=== PATIENT | female | born 1950 | race Caucasian/White ===

== ENCOUNTER 2020-01-16 14:22 | Outpatient (REF) | payer MEDICARE, SELFPAY | END 2020-01-16 14:23 | disposition home or self-care (01) | LOC: HO.LAB 14:22 | PROVIDERS: Visit Provider Internal Medicine | DX: Z20.828 Contact with and (suspected) exposure to other viral communicable diseases (principal) | CPT/HCPCS: 87635 ==

== ENCOUNTER 2020-06-26 06:59 | Inpatient (IN) | payer MEDICARE, SELFPAY ==
[2020-06-26] VITALS (12 sets, daily range): BP systolic 110–131; BP diastolic 46–60; PULSE 60–98; RESP 16–18; TEMP 36–37.1; O2SAT 93–98; BMI 27.3
--- NOTE | ~2020-06-26 | CT_ITS ---
EXAMINATION: CT FACIAL BONES WITHOUT CONTRAST CLINICAL INFORMATION: Fall, trauma, pain COMPARISON: CT head and CT cervical spine 06/26/2020 TECHNIQUE: Axial CT through the facial bones is performed without contrast. Additional 2-D coronal and sagittal reformatted images are generated on the CT workstation and uploaded to PACS. This CT examination was performed using dose optimization techniques as appropriate, variously including the following: *Automated exposure control *Adjustment of mA and/or kV according to patient size (this includes techniques or standardized protocols for targeted exams where dose is matched to indication/reason for exam; i.e. extremities or head) *Use of iterative reconstruction technique DLP: 215 mGy-cm FINDINGS: There is no acute facial bone fracture demonstrated. The orbital rims and floors, nasal bones, zygomatic arches, and pterygoid plates appear intact. Mandible unremarkable. The globes and retrobulbar soft tissues appear normal. The craniocervical junction is normal. There is no orbital emphysema or retrobulbar hematoma. Mild mucosal thickening is seen maxillary sinuses, greater on right. There are no air-fluid levels in the sinuses, middle ears, mastoids. CT/CT facial bones wo con IMPRESSION: No fracture.
--- NOTE | ~2020-06-26 | CT_ITS ---
EXAMINATION: CT CERVICAL SPINE WITHOUT CONTRAST CLINICAL INFORMATION: Fall, trauma, pain COMPARISON: CT head noncontrast 06/26/2020 TECHNIQUE: Multidetector volumetric CT imaging of the cervical spine is performed without contrast in the axial plane. Additional 2D reformatted coronal and sagittal images are generated on the CT workstation and uploaded to PACS. This CT examination was performed using dose optimization techniques as appropriate, variously including the following: *Automated exposure control *Adjustment of mA and/or kV according to patient size (this includes techniques or standardized protocols for targeted exams where dose is matched to indication/reason for exam; i.e. extremities or head) *Use of iterative reconstruction technique DLP: 473 mGy-cm FINDINGS: There is no vertebral compression fracture, fracture line, spondylolisthesis, or prevertebral soft tissue swelling. The craniocervical junction appears normal. The odontoid appears intact. There is normal cervical lordosis. There are degenerative disc changes with disc narrowing and vertebral spurring greatest at C3-C4, C4-5, and C5-C6. There are lesser degenerative disc changes C6-C7. Some mild bilateral facet degeneration also present. No perched facet. There is no apical pneumothorax. CT/CT cervical spine wo con IMPRESSION: 1. No acute bony abnormality or prevertebral soft tissue swelling. 2. Multilevel degenerative disc and degenerative facet changes.
--- NOTE | ~2020-06-26 | CT_ITS ---
EXAMINATION: CT ABDOMEN AND PELVIS WITH CONTRAST CLINICAL INFORMATION: Lower abdominal pain. COMPARISON: None TECHNIQUE: Multidetector volumetric images were obtained from the superior aspect of the liver through the pubic symphysis following administration 85 mL of Omnipaque 300 intravenous contrast. Sagittal and coronal reformatted images were obtained on the technologist's workstation. Oral contrast: No This CT examination was performed using dose optimization techniques as appropriate, variously including the following: *Automated exposure control *Adjustment of mA and/or kV according to patient size (this includes techniques or standardized protocols for targeted exams where dose is matched to indication/reason for exam; i.e. extremities or head) *Use of iterative reconstruction technique DLP: 1928 mGy-cm FINDINGS: LUNG BASES: The visualized lung bases are unremarkable. LIVER, GALLBLADDER, AND BILIARY TREE: Liver measures 17.3 cm craniocaudal. No focal liver lesion. Mild intrahepatic biliary duct dilatation. Gallbladder is moderately distended. Gallbladder wall is enhancing and thickened measuring approximately 5 mm, with prominent pericholecystic edema/fluid and inflammatory changes. 3.4 cm gallstone. Findings raise concern for acute cholecystitis. CBD is dilated proximally measuring 1 cm, distally tapering to 0.8 cm. No definite radiodense calculi within the CBD. PANCREAS: Pancreatic duct in the head of the pancreas is prominent measuring 5 mm. The duct in the body/tail appears nondistended. Focus of calcification within the pancreatic parenchyma. No inflammatory changes. SPLEEN: No focal lesion. Small calcification. ADRENAL GLANDS: Unremarkable. KIDNEYS AND URETERS: Right renal 2.5 cm cyst. Small hypodensities in left kidney, too small to characterize, statistically likely to be cysts. No renal or ureteral calculi. No hydronephrosis. BLADDER: Unremarkable. GASTROINTESTINAL TRACT: Sigmoid diverticulosis without evidence of diverticulitis. The hepatic flexure and the right transverse colon is nondistended, with apparent wall thickening which may be related to lack of distention versus reactive to the adjacent gallbladder inflammatory process. No dilated small bowel loops. The stomach is nondistended, with apparent wall thickening, which could be related to lack of distention. Small hiatal hernia. Trace ascites. No free air. ABDOMINAL WALL: No significant hernia is appreciated. LYMPH NODES: No lymphadenopathy is seen. VASCULAR: Moderate atherosclerotic vascular calcification. No aneurysmal dilatation of the aorta. PELVIC VISCERA: Within normal limits. OSSEOUS STRUCTURES: Thoracolumbar spondylosis. Severe L5-S1 disc degeneration. CT/CT abdomen pelvis w con IMPRESSION: 1. Moderate distention of the gallbladder, 3.4 cm gallstone, gallbladder wall thickening, pericholecystic edema/fluid inflammatory changes. Findings raise concern for acute cholecystitis. Recommend further evaluation with ultrasound. 2. CBD is dilated measuring up to 1 cm. Mild intrahepatic biliary duct dilatation. No radiopaque calculi within the CBD. This can be further evaluated with ultrasound. 3. Prominence of the pancreatic duct in the pancreatic head measuring 5 mm. 4. Right renal 2.5 cm cyst. 5. Sigmoid diverticulosis without evidence of diverticulitis. Apparent wall thickening of the hepatic flexure and right transverse colon, which may be related to lack of distention, or could represent reactive/inflammatory changes secondary to the adjacent inflammatory process versus colitis. 6. Additional findings and details, as above.
--- NOTE | ~2020-06-26 | CT_ITS ---
EXAMINATION: CT HEAD WITHOUT CONTRAST CLINICAL INFORMATION: Fall. COMPARISON: 09/05/2014 TECHNIQUE: Contiguous axial imaging was performed from the skull base to vertex without intravenous administration of contrast. This CT examination was performed using dose optimization techniques as appropriate, variously including the following: *Automated exposure control *Adjustment of mA and/or kV according to patient size (this includes techniques or standardized protocols for targeted exams where dose is matched to indication/reason for exam; i.e. extremities or head) *Use of iterative reconstruction technique DLP: 849 mGy-cm FINDINGS: There is no evidence of acute intracranial hemorrhage or territorial infarction. No abnormal mass effect or midline shift is seen. [place] to white matter differentiation is well preserved. No extra-axial fluid collections are identified. The ventricles are normal in size. There is no abnormal attenuation within the brain parenchyma. No acute fracture. Mastoid air cells and visualized paranasal sinuses are well aerated. CT/CT head/brain wo con IMPRESSION: No CT evidence of acute intracranial pathology.
--- NOTE | ~2020-06-26 | FL_ITS ---
EXAMINATION: XR FLUOROSCOPY WITH IMAGES CLINICAL INFORMATION: Cholecystitis. Dilated common bile duct. COMPARISON: Previous CT scan of the abdomen and pelvis TECHNIQUE: Fluoroscopy performed by Dr. Vizcaino. Fluoroscopy time: 115 seconds Dose: 44 mGy Images: 5 FINDINGS: Initial images demonstrate a wire with tip projecting over the right lobe of the liver. There is left-sided intrahepatic biliary duct dilatation. There is dilatation of the extrahepatic bile ducts. There are surgical clips and surgical drain from 3 recent cholecystectomy. Later images demonstrate filling of the cystic duct remnant and some extravasation of contrast. Final images demonstrate placement of the distal common bile duct plastic stent. There is decompression of the biliary system and passage of contrast into the duodenum. FL/FL guidance in OR IMPRESSION: Dilated intrahepatic and extrahepatic bile ducts. Placement of a distal common bile duct plastic stent. Postoperative change from recent cholecystectomy. There is some extravasation of contrast through the cystic duct remnant adjacent to the surgical drain.
--- NOTE | 2020-06-26 07:11 | ED_ITS ---
HPI - Nausea/Vomiting/Diarrhea General Chief complaint: Abdominal Pain Stated complaint: Vomiting/headache/dizzy Time Seen by Provider: 06/26/20 07:11 Source: patient Mode of arrival: ambulatory Limitations: no limitations History of Present Illness HPI Narrative: 69 yo female with hx of HTN, asthma here with 4 days of n/v and lower abdominal pain resulting in weakness and dizziness when she stands, denies GIB or diarrhea, states she was so dizzy she fell on two days ago and hit her head and buttock with + LOC MD elicited complaint: nausea, vomiting and abdominal pain Onset (ago): day(s) (4) Associated nausea: Yes Associated abdominal pain: Yes Location of pain: periumbilical and suprapubic Pain consistency: constant Severity: severe Quality: cramping and stabbing Exacerbating factors: movement Relieving factors: none Associated symptoms: loss of appetite, malaise, nausea/vomiting, syncope and weakness Related Data Home Medications Medication Instructions Recorded Confirmed albuterol sulfate 90 mcg/actuation 2 puff INHALATION Q4-6H PRN 04/16/20 06/26/20 aerosol inhaler cholecalciferol (vitamin D3) 50 50 mcg PO DAILY 04/16/20 06/26/20 mcg (2,000 unit) capsule vitamin B complex 1 tab PO DAILY 04/16/20 06/26/20 amlodipine 5 mg PO BEDTIME 06/26/20 06/26/20 atorvastatin 10 mg PO BEDTIME 06/26/20 06/26/20 multivitamin 1 tab PO DAILY 06/26/20 06/26/20 Previous Rx's Medication Instructions Recorded budesonide-formoterol HFA 80 2 puff INHALATION BID 30 Days 12/25/19 mcg-4.5 mcg/actuation aerosol #10.2 g inhaler Allergies Allergy/AdvReac Type Severity Reaction Status Date / Time ARB-Angiotensin Receptor Allergy Unknown ANAPHYLAXIS Verified 06/26/20 08:30 Antagonist [ANGIOTENSIN RECEPTOR ANTAGONIST] beclomethasone [QNASL] Allergy Unknown blurred Verified 04/02/20 14:16 vision, headaches budesonide [Symbicort] Allergy Unknown higher Verified 04/02/20 14:16 dose problem ciprofloxacin [Cipro] Allergy Unknown Unknown Verified 04/02/20 14:16 codeine [Codeine] Allergy Unknown UNKNOWN Verified 04/02/20 14:16 digestive enzymes combo no.8 Allergy Unknown Unknown Verified 04/02/20 14:16 [From Digestive Enzyme (acidoph,pec)] fluticasone [Flovent HFA] Allergy Unknown Unknown Verified 04/02/20 14:16 formoterol [Symbicort] Allergy Unknown higher Verified 04/02/20 14:16 dose problem Lactobacillus acidophilus Allergy Unknown Unknown Verified 04/02/20 14:16 [From Digestive Enzyme (acidoph,pec)] lisinopril [LISINOPRIL] Allergy Unknown ANGIOEDEMA Verified 04/02/20 14:16 mometasone furoate [Dulera] Allergy Unknown Unknown Verified 04/02/20 14:16 nebivolol [Bystolic] Allergy Unknown Unknown Verified 04/02/20 14:16 olmesartan [Benicar] Allergy Unknown Unknown Verified 04/02/20 14:16 pectin Allergy Unknown Unknown Verified 04/02/20 14:16 [From Digestive Enzyme (acidoph,pec)] spironolactone Allergy Unknown Unknown Verified 04/02/20 14:16 Sulfa (Sulfonamide Allergy Unknown headache, Verified 04/02/20 14:16 Antibiotics) shaking, freezing sensation, upset stomach Review of Systems Review of Systems: Constitutional : No Weight loss, No Fever, pos Chills, pos fatigute ENT/Mouth : No sore throat, No Rhinorrhea Eyes: No Swelling, No Redness Cardiovascular : No Chest Pain, No SOB, NoEdema Respiratory : No Cough, No Sputum, No Wheezing Gastrointestinal : Positive Nausea, Positive Vomiting, no Diarrhea, positive abdominal Pain, No Hematochezia, No Melena Genitourinary : No Dysuria, No Urinary Frequency, No Hematuria, No Urgency Musculoskeletal : No joint pain, No Myalgias, No Joint Swelling Skin : No Skin Lesions, No rash, pos bruising Neuro : pos Weakness, No Numbness, No Dizziness, No Headache, pos syncope Psych : No Anxiety/Panic, No Depression Heme/Lymph: No Bruising, No Lymphadenopathy Endocrine : No Polyuria, No Polydipsia All other systems reviewed and are negative. Gastrointestinal: Gastrointestinal: Reports nausea PMFSH Past Medical History Attestation statement: The following information was validated with the patient. Medical History Asthma GERD (gastroesophageal reflux disease) Hypercholesterolemia Hypertension Impaired glucose tolerance Vitamin D deficiency Surgical History History of cataract surgery Family History Family History (Updated 04/02/20 @ 14:18 by Marj Jarvis Flora) Father Myocardial infarction Mother Hypertension Stroke Brother In good health Sister In good health Son In good health Daughter In good health Social History Social History (Updated 06/26/20 @ 07:33 by Coleen Thomson DO) Alcohol intake: never Smoking Status: Never smoker Use of substances other than those prescribed or required for medical reasons: No Advance Directives: No Advance Directives Information Provided: No Physical Exam Vital Signs: Vital Signs: Last Vital Signs Temp 98.8 F 06/26/20 08:17 Pulse 91 06/26/20 11:31 Resp 18 06/26/20 11:31 BP 113/52 L 06/26/20 11:31 Pulse Ox 98 06/26/20 11:31 Body Mass Index 27.3 Appearance: Alert. Oriented X3. in pain mild acute distress. Eyes: Pupils equal, round and reactive to light. ENT: Pharynx moderate dry MMM, contusion and mild ecchyomosis swelling L mosque as well as L mandible Neck: Normal inspection. Neck supple. CVS: Normal heart rate and rhythm. Pulses normal. Respiratory: No respiratory distress. Breath sounds normal. Abdomen: Soft and moderate ttp in RUQ and lower abdomen without rebound Skin: Skin warm and dry. Normal skin color. Normal skin turgor. Extremities: No lower extremity edema. No calf ttp Neuro: Oriented X 3. No motor deficit. No sensory deficit. Course Course Course Narrative: empiric zosyn already given CT scan concerning for cholecysitis - call to Dr. Guevara [id number]. admit to med surg MDM - Nausea/Vomiting/Diarrhea MDM Narrative Medical decision making narrative: 69 yo female with asthma, HTN here with 4 days of n/v abdominal pain resulting in poor PO intake as well as syncope with LOC striking head and face - will need labs, CT scan of head/face for trauma, CT scan abdomen for colitis/appendicitis, IVF x 2L, zofran, IV morphine for pain, labs, cultures, UA, dispo per results and findings. Lab Data Result diagrams: 06/26/20 08:16 06/26/20 08:16 Labs: Lab Results 06/26/20 06/26/20 06/26/20 Range/Units 08:16 08:16 08:16 WBC 21.6 H (4.8-10.8) X10*3/uL RBC 4.65 (4.20-5.50) X10*6/uL Hgb 14.3 (12.0-16.0) g/dl Hct 40.9 (37-47) % MCV 88.0 (80-98) fL MCH 30.8 (27.0-33.0) pg MCHC 35.0 (31.0-35.0) g/dl RDW 11.7 (11.0-16.0) % Plt Count 233 (160-400) X10*3/uL MPV 9.6 (9.4-12.3) fL Immature Gran % (Auto) 0.4 (0.0-0.4) % Neut % (Auto) 88.6 H (45-73) % Lymph % (Auto) 3.7 L (20-40) % [place] % (Auto) 7.2 (2-11) % Eos % (Auto) 0.0 (0-4) % Baso % (Auto) 0.1 (0-2) % Lymph # (Auto) 0.8 L (1.2-4.9) X10*3/uL [place] # (Auto) 1.6 H (0.1-1.2) X10*3/uL Eos # (Auto) 0.0 (0.0-0.4) X10*3/uL Baso # (Auto) 0.0 (0.0-0.2) X10*3/uL Abs Immat Gran (auto) 0.08 H (0.00-0.03) X10*3/uL Absolute Neuts (auto) 19.1 H (2.0-8.3) X10*3/uL Absolute Nucleated RBC 0.000 (0.0-0.012) X10*3/uL Nucleated RBC % (auto) 0.0 (0.0-0.2) /100WBC Smear Tech's Comments VERIFIED PT (10.8-13.0) SEC INR (0.9-1.1) APTT (24.1-38.0) SEC Sodium 126 L (135-145) mmol/L Potassium 3.6 (3.3-5.1) mmol/L Chloride 92 L (96-108) mmol/L Carbon Dioxide 25 (22-29) mmol/L Anion Gap 13 (12-20) BUN 17 H (9-16) mg/dL Creatinine 0.81 (0.5-1.4) mg/dL Estim Creat Clear Calc 56.1 Estimated GFR > 60 Random Glucose 143 H (60-115) mg/dL Lactic Acid (0.5-2.0) mmol/L Calcium 8.9 (8.4-10.2) mg/dL Magnesium 2.0 (1.6-2.6) mg/dL Total Bilirubin 1.0 (0.0-1.0) mg/dL Direct Bilirubin 0.6 H (0.0-0.5) mg/dL AST 30 (5-31) U/L ALT 23 (0-31) U/L Alkaline Phosphatase 82 (39-117) U/L Troponin I High Sens (<3.5-17.0) ng/L Total Protein 6.4 L (6.5-8.0) g/dL Albumin 3.7 (3.5-5.0) g/dL Lipase (8-78) U/L COVID-19 (ELIJAH) Negative (Negative) COVID-19 Clin Com See Note 06/26/20 06/26/20 06/26/20 Range/Units 08:16 08:16 08:16 WBC (4.8-10.8) X10*3/uL RBC (4.20-5.50) X10*6/uL Hgb (12.0-16.0) g/dl Hct (37-47) % MCV (80-98) fL MCH (27.0-33.0) pg MCHC (31.0-35.0) g/dl RDW (11.0-16.0) % Plt Count (160-400) X10*3/uL MPV (9.4-12.3) fL Immature Gran % (Auto) (0.0-0.4) % Neut % (Auto) (45-73) % Lymph % (Auto) (20-40) % [place] % (Auto) (2-11) % Eos % (Auto) (0-4) % Baso % (Auto) (0-2) % Lymph # (Auto) (1.2-4.9) X10*3/uL [place] # (Auto) (0.1-1.2) X10*3/uL Eos # (Auto) (0.0-0.4) X10*3/uL Baso # (Auto) (0.0-0.2) X10*3/uL Abs Immat Gran (auto) (0.00-0.03) X10*3/uL Absolute Neuts (auto) (2.0-8.3) X10*3/uL Absolute Nucleated RBC (0.0-0.012) X10*3/uL Nucleated RBC % (auto) (0.0-0.2) /100WBC Smear Tech's Comments PT 15.1 H (10.8-13.0) SEC INR 1.3 H (0.9-1.1) APTT 29.5 (24.1-38.0) SEC Sodium (135-145) mmol/L Potassium (3.3-5.1) mmol/L Chloride (96-108) mmol/L Carbon Dioxide (22-29) mmol/L Anion Gap (12-20) BUN (9-16) mg/dL Creatinine (0.5-1.4) mg/dL Estim Creat Clear Calc Estimated GFR Random Glucose (60-115) mg/dL Lactic Acid 0.9 (0.5-2.0) mmol/L Calcium (8.4-10.2) mg/dL Magnesium (1.6-2.6) mg/dL Total Bilirubin (0.0-1.0) mg/dL Direct Bilirubin (0.0-0.5) mg/dL AST (5-31) U/L ALT (0-31) U/L Alkaline Phosphatase (39-117) U/L Troponin I High Sens 22.4 H (<3.5-17.0) ng/L Total Protein (6.5-8.0) g/dL Albumin (3.5-5.0) g/dL Lipase (8-78) U/L COVID-19 (ELIJAH) (Negative) COVID-19 Clin Com 06/26/20 Range/Units 08:16 WBC (4.8-10.8) X10*3/uL RBC (4.20-5.50) X10*6/uL Hgb (12.0-16.0) g/dl Hct (37-47) % MCV (80-98) fL MCH (27.0-33.0) pg MCHC (31.0-35.0) g/dl RDW (11.0-16.0) % Plt Count (160-400) X10*3/uL MPV (9.4-12.3) fL Immature Gran % (Auto) (0.0-0.4) % Neut % (Auto) (45-73) % Lymph % (Auto) (20-40) % [place] % (Auto) (2-11) % Eos % (Auto) (0-4) % Baso % (Auto) (0-2) % Lymph # (Auto) (1.2-4.9) X10*3/uL [place] # (Auto) (0.1-1.2) X10*3/uL Eos # (Auto) (0.0-0.4) X10*3/uL Baso # (Auto) (0.0-0.2) X10*3/uL Abs Immat Gran (auto) (0.00-0.03) X10*3/uL Absolute Neuts (auto) (2.0-8.3) X10*3/uL Absolute Nucleated RBC (0.0-0.012) X10*3/uL Nucleated RBC % (auto) (0.0-0.2) /100WBC Smear Tech's Comments PT (10.8-13.0) SEC INR (0.9-1.1) APTT (24.1-38.0) SEC Sodium (135-145) mmol/L Potassium (3.3-5.1) mmol/L Chloride (96-108) mmol/L Carbon Dioxide (22-29) mmol/L Anion Gap (12-20) BUN (9-16) mg/dL Creatinine (0.5-1.4) mg/dL Estim Creat Clear Calc Estimated GFR Random Glucose (60-115) mg/dL Lactic Acid (0.5-2.0) mmol/L Calcium (8.4-10.2) mg/dL Magnesium (1.6-2.6) mg/dL Total Bilirubin (0.0-1.0) mg/dL Direct Bilirubin (0.0-0.5) mg/dL AST (5-31) U/L ALT (0-31) U/L Alkaline Phosphatase (39-117) U/L Troponin I High Sens (<3.5-17.0) ng/L Total Protein (6.5-8.0) g/dL Albumin (3.5-5.0) g/dL Lipase 8 (8-78) U/L COVID-19 (ELIJAH) (Negative) COVID-19 Clin Com ECG Data Attestation: I personally reviewed and interpreted this ECG as follows: ECG interpretation date: 06/26/20 ECG interpretation time: 08:15 Interpretation: Rate: 89 Rhythm: NSR [place]: left Normal P waves. Normal HARSHIL. Normal QRS complex. ST T wave : normal no SOL qTC: normal prior studies: no acute ischemia The study has been interpreted contemporaneously by me. . Critical Care Time Critical Care Time Critical Care Time: Yes Total Critical Care Time: 60 Attestation: consult to surgery, 2L of IVF, repeat pain medications, IV antibiotics I attest to this time spent taking care of the patient Discharge Plan Discharge Clinical Impression: Acute cholecystitis Abdominal pain Qualifiers: Abdominal location: generalized Qualified Code(s): R10.84 - Generalized abdominal pain Vomiting Qualifiers: Vomiting type: unspecified Vomiting Intractability: intractable Nausea presenc e: with nausea Qualified Code(s): R11.2 - Nausea with vomiting, unspecified Facial injury Qualifiers: Encounter type: initial encounter Qualified Code(s): S09.93XA - Unspecified injury of face, initial encounter Leukocytosis Qualifiers: Leukocytosis type: unspecified Qualified Code(s): D72.829 - Elevated white blood cell count, unspecified Patient Disposition: Admitted As Inpatient
--- NOTE | 2020-06-26 07:29 | ECG_ITS ---
Test Reason : NAUSEA Blood Pressure : / mmHG Vent. Rate : 089 BPM Atrial Rate : 089 BPM P-R Int : 154 ms QRS Dur : 072 ms QT Int : 342 ms P-R-T Axes : 078 -11 053 degrees QTc Int : 416 ms Normal sinus rhythm Normal ECG When compared with ECG of 30-MAR-2017 14:08, No significant change was found Referred By: Coleen Thomson Electronically Signed By:Evens Cerrato
[2020-06-26 08:26] LABS: Basophils Percent Auto 0.1 % (0-2); Hematocrit 40.9 % (37-47); Hemoglobin 14.3 g/dl (12.0-16.0); Imm Gran Abs Auto 0.08 X10*3/uL (0.00-0.03); Imm Gran Pct Auto 0.4 % (0.0-0.4); Lymphocytes Absolute Auto 0.8 X10*3/uL (1.2-4.9); Lymphocytes Percent Auto 3.7 % (20-40); MANUAL DIFF FLAG SCAN; Mean Corpuscular Hemoglobin 30.8 pg (27.0-33.0); Mean Platelet Volume 9.6 fL (9.4-12.3); Monocytes Absolute Auto 1.6 X10*3/uL (0.1-1.2); Monocytes Percent Auto 7.2 % (2-11); Neutrophils Absolute Auto 19.1 X10*3/uL (2.0-8.3); Neutrophils Percent Auto 88.6 % (45-73); Platelet Count 233 X10*3/uL (160-400); Red Blood Count 4.65 X10*6/uL (4.20-5.50); Red Cell Distribution Width 11.7 % (11.0-16.0); SCAN SMEAR FLAG 1; White Blood Count 21.6 X10*3/uL (4.8-10.8)
[2020-06-26 08:35] LABS: INTERNATIONAL NORM RATIO 1.3 (0.9-1.1); Prothrombin Time 15.1 SEC (10.8-13.0)
[2020-06-26 08:38] LABS: Partial Thromboplastin Time 29.5 SEC (24.1-38.0)
[2020-06-26 08:41] LABS: Lactic Acid 0.9 mmol/L (0.5-2.0)
[2020-06-26 08:42] LABS: COVID-19 Test Negative (Negative); IDNOW Serial# 9DD0AD1C
[2020-06-26 08:46] LABS: Lipase 8 U/L (8-78)
[2020-06-26] MEDS: Piperacillin Sodium/Tazobactam 3.375 GM in 0.9 % Sodium Chloride 50 ML IV ×3 (08:46→22:04)
[2020-06-26] MEDS: Morphine Sulfate 4 MG/ML CARTRIDGE IVPUSH ×4 (08:46→20:26)
[2020-06-26] MEDS: ondansetron HCL 4 MG/2 ML VIAL IVPUSH (08:46)
[2020-06-26 08:47] LABS: Alanine Aminotransferase 23 U/L (0-31); Albumin Level 3.7 g/dL (3.5-5.0); Alkaline Phosphatase 82 U/L (39-117); Anion Gap 13 (12-20); Aspartate Amino Transferase 30 U/L (5-31); Bilirubin Direct 0.6 mg/dL (0.0-0.5); Blood Urea Nitrogen 17 mg/dL (9-16); Calcium 8.9 mg/dL (8.4-10.2); Carbon Dioxide 25 mmol/L (22-29); Chloride 92 mmol/L (96-108); Creatinine Clr Calc Pharmacy 56.1; Estimated Glomerular Filt Rate > 60; Glucose Random 143 mg/dL (60-115); Potassium 3.6 mmol/L (3.3-5.1); Sodium 126 mmol/L (135-145); Total Protein 6.4 g/dL (6.5-8.0)
[2020-06-26] MEDS: 0.9 % Sodium Chloride 1,000 ML 999 ML IVCONT ×2 (08:47→09:16)
[2020-06-26 08:52] LABS: Troponin-I High Sensitivity 22.4 ng/L (<3.5-17.0)
[2020-06-26 08:56] LABS: SLIDE REVIEW VERIFIED
[2020-06-26] MEDS: iohexoL 350 MG/ML 100 ML INFUS..BTL IV (10:33)
[2020-06-26] MEDS: HYDROmorphone HCl 0.5 MG/0.5 ML SYRINGE IVPUSH (11:31)
--- NOTE | 2020-06-26 12:26 | PM.HPGS ---
History of Present Illness History of Present Illness Date of Service: 06/26/20 Chief complaint: Vomiting/headache/dizzy Narrative: Eric Broderick is a 69 year old female who had acute onset of nausea and vomiting with onset of right upper quadrant pain 4 days ago. She has felt chilled intermittently. She did not have a fever at home. She had an episode of dizziness with loss of consciousness early in the morning following the onset of the symptoms. She fell and hit her head. She did not come into the hospital at that time because she thought that she was dehydrated and she continued to try to take fluids as well as crackers. Because her symptoms were not improving, she presented to the emergency room early today. CT scan of the head and cervical spine did not reveal any acute injuries nor did CT scan of the face. A CT of the abdomen and pelvis was consistent with acute cholecystitis. The gallbladder appeared thickened and edematous with pericholecystic fluid present. There was a 3.5 cm stone noted. White blood count was elevated at 21.6. Liver function studies were essentially normal. Sodium was low at 126. She has not had similar symptoms in the past. Review of Systems Eyes: Eyes: Reports no additional eye complaints ENT: Reports system reviewed and no additional complaints, except as documented and Reports dizziness Cardiovascular: Cardiovascular: Denies chest pain and Denies palpitations Respiratory: Comments: Asthma, well controlled with medication. No current shortness of breath or wheeze. Gastrointestinal: Gastrointestinal: Reports as per HPI Genitourinary: Genitourinary: Reports no additional female genitourinary complaints Musculoskeletal: Comments: Tendinitis right thumb Integumentary/Breasts: Skin/Breast: Denies rash Neurologic: Reports dizziness Endocrine: Endocrine: Reports no additional endocrine complaints and Denies palpitations Hematologic/Lymphatic: Hematologic/Lymphatic: Reports no additional hematologic/lymphatic complaints [facility] Past Medical History Medical History Asthma GERD (gastroesophageal reflux disease) Hypercholesterolemia Hypertension Impaired glucose tolerance Vitamin D deficiency Family History Family History (Updated 04/02/20 @ 14:18 by Marj Jarvis Flora) Father Myocardial infarction Mother Hypertension Stroke Brother In good health Sister In good health Son In good health Daughter In good health Pertinent family history: To aunts and a grandmother had diabetes Surgical History Surgical History History of cataract surgery Social History Social History (Updated 06/26/20 @ 12:33 by Anu Guevara MD) Alcohol intake: never Smoking Status: Never smoker Use of substances other than those prescribed or required for medical reasons: No Advance Directives: No Advance Directives Information Provided: No Current occupational status: previously employed 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 Meds Allergies Allergy/AdvReac Type Severity Reaction Status Date / Time ARB-Angiotensin Receptor Allergy Unknown ANAPHYLAXIS Verified 06/26/20 08:30 Antagonist [ANGIOTENSIN RECEPTOR ANTAGONIST] beclomethasone [QNASL] Allergy Unknown blurred Verified 04/02/20 14:16 vision, headaches budesonide [Symbicort] Allergy Unknown higher Verified 04/02/20 14:16 dose problem ciprofloxacin [Cipro] Allergy Unknown Unknown Verified 04/02/20 14:16 codeine [Codeine] Allergy Unknown UNKNOWN Verified 04/02/20 14:16 digestive enzymes combo no.8 Allergy Unknown Unknown Verified 04/02/20 14:16 [From Digestive Enzyme (acidoph,pec)] fluticasone [Flovent HFA] Allergy Unknown Unknown Verified 04/02/20 14:16 formoterol [Symbicort] Allergy Unknown higher Verified 04/02/20 14:16 dose problem Lactobacillus acidophilus Allergy Unknown Unknown Verified 04/02/20 14:16 [From Digestive Enzyme (acidoph,pec)] lisinopril [LISINOPRIL] Allergy Unknown ANGIOEDEMA Verified 04/02/20 14:16 mometasone furoate [Dulera] Allergy Unknown Unknown Verified 04/02/20 14:16 nebivolol [Bystolic] Allergy Unknown Unknown Verified 04/02/20 14:16 olmesartan [Benicar] Allergy Unknown Unknown Verified 04/02/20 14:16 pectin Allergy Unknown Unknown Verified 04/02/20 14:16 [From Digestive Enzyme (acidoph,pec)] spironolactone Allergy Unknown Unknown Verified 04/02/20 14:16 Sulfa (Sulfonamide Allergy Unknown headache, Verified 04/02/20 14:16 Antibiotics) shaking, freezing sensation, upset stomach Active Medications: Current Medications Generic Name Dose Route Start Last Admin Trade Name Freq PRN Reason Stop Dose Admin Pharmacy Consult 1 each 06/26/20 07:26 Consult Rx Perform Med Rec MISCELLANE ONCE PRN Consult order Home Medications Medication Instructions Recorded Confirmed Last Taken Type albuterol sulfate 90 mcg/actuation 2 puff INHALATION Q4-6H PRN 04/16/20 06/26/20 Unknown History aerosol inhaler cholecalciferol (vitamin D3) 50 50 mcg PO DAILY 04/16/20 06/26/20 06/25/20 History mcg (2,000 unit) capsule vitamin B complex 1 tab PO DAILY 04/16/20 06/26/20 06/25/20 History amlodipine 5 mg PO BEDTIME 06/26/20 06/26/20 06/25/20 History atorvastatin 10 mg PO BEDTIME 06/26/20 06/26/20 06/25/20 History multivitamin 1 tab PO DAILY 06/26/20 06/26/20 06/25/20 History Physical Exam Vital Signs: Vital Signs: Last Vital Signs Temp 98.8 F 06/26/20 08:17 Pulse 91 06/26/20 11:31 Resp 18 06/26/20 11:31 BP 113/52 L 06/26/20 11:31 Pulse Ox 98 06/26/20 11:31 Body Mass Index 27.3 Const: General: cooperative and no acute distress HENMT: Head: Yes normocephalic and Yes abrasion (Left temporal area with mild ecchymotic change) Eyes: Other: No scleral icterus Neck: Neck: Yes trachea midline and Yes supple Resp: Effort & Inspection: normal respiratory effort Auscultation: clear to auscultation bilaterally Cardio: Rate: regular rate Rhythm: regular rhythm GI: Other: Soft, tender right upper quadrant with positive Fernandez sign, normal bowel sounds, no palpable masses Rectal Exam - Female: deferred Skin: Other: Normal color, warm and dry Extrem: General: Yes normal to inspection and Yes no pedal edema Psych: Thought process: Normal thought process present Insight: Good insight present (Psych) Results Results Labs: Short CBC 06/26/20 Range/Units 08:16 WBC 21.6 H (4.8-10.8) X10*3/uL Hgb 14.3 (12.0-16.0) g/dl Hct 40.9 (37-47) % Plt Count 233 (160-400) X10*3/uL BMP 06/26/20 08:16 Sodium 126 L Potassium 3.6 Chloride 92 L Carbon Dioxide 25 BUN 17 H Creatinine 0.81 Calcium 8.9 Liver Function 06/26/20 Range/Units 08:16 Total Bilirubin 1.0 (0.0-1.0) mg/dL Direct Bilirubin 0.6 H (0.0-0.5) mg/dL AST 30 (5-31) U/L ALT 23 (0-31) U/L Alkaline Phosphatase 82 (39-117) U/L Albumin 3.7 (3.5-5.0) g/dL CT abdomen and pelvis impression: 1. Moderate distention of the gallbladder, 3.4 cm gallstone, gallbladder wall thickening, pericholecystic edema/fluid inflammatory changes. Findings raise concern for acute cholecystitis. Recommend further evaluation with ultrasound. 2. CBD is dilated measuring up to 1 cm. Mild intrahepatic biliary duct dilatation. No radiopaque calculi within the CBD. This can be further evaluated with ultrasound. 3. Prominence of the pancreatic duct in the pancreatic head measuring 5 mm. 4. Right renal 2.5 cm cyst. 5. Sigmoid diverticulosis without evidence of diverticulitis. Apparent wall thickening of the hepatic flexure and right transverse colon, which may be related to lack of distention, or could represent reactive/inflammatory changes secondary to the adjacent inflammatory process versus colitis. 6. Additional findings and details, as above. Assessment and Plan (1) Acute cholecystitis: Status: Acute History exam and imaging findings are consistent with acute cholecystitis, I would duration 4 days by history. The gallbladder appears markedly thickened. She will be admitted and placed on a clear liquids initially. IV fluids and antibiotics will be administered. I have discussed options for further management with her including a trial of non operative management with antibiotics, and surgical options including laparoscopic cholecystectomy with potential need to convert to open cholecystectomy. I have reviewed risks including but not limited to infection, bleeding, DVT and PE, chronic diarrhea, bile leak, bile duct injuries, retained stones, injuries to abdominal structures. She is inclined to proceed with surgery, which likely will be performed tomorrow. Usual medications at home for asthma and hypertension will be continued. Analgesics will be administered as needed. (2) Hyponatremia: Status: Acute IV therapy with normal saline will be initiated. Electrolytes will be rechecked in the morning.
--- NOTE | 2020-06-26 14:48 | PC.NURSE ---
call to attempt to give report
[2020-06-26] MEDS: 0.9 % Sodium Chloride 1,000 ML 100 ML IVCONT (16:09)
[2020-06-26] MEDS: amLODIPine Besylate 5 MG TABLET PO (20:22)
[2020-06-26] MEDS: Atorvastatin Calcium 10 MG TABLET PO (20:22)
[2020-06-27] VITALS (18 sets, daily range): BP systolic 115–155; BP diastolic 54–77; PULSE 75–104; RESP 14–18; TEMP 36.2–37.1; O2SAT 94–100
[2020-06-27] MEDS: 0.9 % Sodium Chloride 1,000 ML 100 ML IVCONT ×2 (01:10→16:56)
[2020-06-27] MEDS: Piperacillin Sodium/Tazobactam 3.375 GM in 0.9 % Sodium Chloride 50 ML IV ×3 (04:07→22:32)
[2020-06-27] MEDS: Morphine Sulfate 4 MG/ML CARTRIDGE IVPUSH ×2 (04:19→22:32)
[2020-06-27 06:47] LABS: Hematocrit 34.8 % (37-47); Hemoglobin 11.9 g/dl (12.0-16.0); Mean Corpuscular HGB Conc 34.2 g/dl (31.0-35.0); Mean Corpuscular Hemoglobin 31.4 pg (27.0-33.0); Mean Corpuscular Volume 91.8 fL (80-98); Mean Platelet Volume 10.1 fL (9.4-12.3); Platelet Count 232 X10*3/uL (160-400); Red Blood Count 3.79 X10*6/uL (4.20-5.50); Red Cell Distribution Width 12.3 % (11.0-16.0); White Blood Count 16.8 X10*3/uL (4.8-10.8)
[2020-06-27 07:20] LABS: Anion Gap 12 (12-20); Blood Urea Nitrogen 14 mg/dL (9-16); Carbon Dioxide 24 mmol/L (22-29); Chloride 105 mmol/L (96-108); Creatinine Clr Calc Pharmacy 73.3; Estimated Glomerular Filt Rate > 60; Glucose Fasting 83 mg/dL (60-99); Potassium 3.5 mmol/L (3.3-5.1); Sodium 137 mmol/L (135-145)
[2020-06-27 07:34] LABS: Calcium 7.8 mg/dL (8.4-10.2)
--- NOTE | 2020-06-27 07:40 | PM.PNGS ---
Subjective Subjective Date of Service: 06/27/20 Interval history: Patient remains in pain especially in the right upper quadrant. She reports anorexia but denies further nausea or vomiting. Physical Exam Vital Signs: Vital Signs: Last Vital Signs Temp 98.6 F 06/27/20 03:45 Pulse 95 06/27/20 04:18 Resp 18 06/27/20 04:19 BP 126/59 L 06/27/20 04:18 Pulse Ox 95 06/27/20 03:45 Body Mass Index 27.3 Const: General: cooperative, alert, awake, acute distress and ill appearing Nutritional Appearance: well nourished Orientation/consciousness: patient oriented x3 Limitations: no limitations Eyes: Sclerae: sclerae normal EOM: EOMs intact bilaterally Neck: Neck: Yes full ROM GI: Palpation (GI): Soft to palpation, Tenderness to palpation present (GI) in the RUQ and Fernandez's sign positive and No hepatosplenomegaly present Percussion: Yes normal to percussion Rectal Exam - Female: deferred Neuro: General: patient oriented x3 Extrem: General: Yes full ROM Progress Note: A&P Assessment and plan (1) Acute cholecystitis: Problem details: June 2020 Status: Acute Assessment and Plan: 69-year-old female patient with new onset of abdominal pain in the right upper quadrant since Tuesday found to have tenderness in the right upper quadrant with a positive Fernandez sign. WBC is markedly elevated. CT of the abdomen and pelvis as well as ultrasound of the abdomen reveals a thickened gallbladder with a large gallstone suggestive of acute cholecystitis due to cholelithiasis. I reviewed the treatment options in detail with the patient including laparoscopic or possible open cholecystectomy. After discussion of the procedure, risks, and alternatives, she consents to a laparoscopic or possible open cholecystectomy. She will be added onto the operative schedule for today. Fall Risk Details Current Medications: Current Medications Generic Name Dose Route Start Last Admin Trade Name Freq PRN Reason Stop Dose Admin Acetaminophen 650 mg 06/26/20 15:39 Acetaminophen 325 Mg Tablet PO Q6H PRN Fever Albuterol Sulfate 2 puff 06/26/20 15:39 Albuterol Sulfate 90 Mcg 8 Gm Inhaler INHALE Q4H PRN Shortness Of Breath Or Wheezing Amlodipine Besylate 5 mg 06/26/20 21:00 06/26/20 20:22 Amlodipine Besylate 5 Mg Tablet PO 5 mg BEDTIME AGUEDA Administration Protocol Atorvastatin Calcium 10 mg 06/26/20 21:00 06/26/20 20:22 Atorvastatin Calcium 10 Mg Tablet PO 10 mg BEDTIME AGUEDA Administration Fluticasone/Vilanterol 1 puff 06/27/20 08:00 Fluticasone/Vilanterol 100/25 Blst.W.Dev INHALE RDAILY AGUEDA Sodium Chloride 1,000 mls @ 100 mls/hr 06/26/20 15:39 06/27/20 01:10 Ns IVCONT 100 mls/hr .Q10H AGUEDA Administration Piperacillin Sod/Tazobactam 50 mls @ 100 mls/hr 06/26/20 16:00 06/27/20 04:37 Sod 3.375 gm/ Sodium Chloride IV Infused Q6H AGUEDA Infusion Morphine Sulfate 4 mg 06/26/20 15:39 06/27/20 04:19 Morphine Sulfate 4 Mg/Ml Cartridge IVPUSH 4 mg Q3H PRN Administration Pain, Severe (Pain Scale 7-10) Ondansetron HCl 4 mg 06/26/20 15:39 Ondansetron Hcl 4 Mg/2 Ml Vial IVPUSH Q8H PRN Nausea Pharmacy Consult 1 each 06/26/20 07:26 Consult Rx Perform Med Rec MISCELLANE ONCE PRN Consult order Time Spent With Patient Time: Total time spent is greater than 50% in coordination of care (as documented) at patient's floor/unit and/or counseling patient: Time with patient: 15 - 24 minutes
--- NOTE | 2020-06-27 07:47 | MHC.SHP ---
Pre-Procedural Eval Section A The patient is an INPATIENT: Yes Section B Chief Complaint: acute calculous cholecystitis Allergies: Allergies Allergy/AdvReac Type Severity Reaction Status Date / Time ARB-Angiotensin Receptor Allergy Unknown ANAPHYLAXIS Verified 06/26/20 08:30 Antagonist [ANGIOTENSIN RECEPTOR ANTAGONIST] beclomethasone [QNASL] Allergy Unknown blurred Verified 04/02/20 14:16 vision, headaches budesonide [Symbicort] Allergy Unknown higher Verified 04/02/20 14:16 dose problem ciprofloxacin [Cipro] Allergy Unknown Unknown Verified 04/02/20 14:16 codeine [Codeine] Allergy Unknown UNKNOWN Verified 04/02/20 14:16 digestive enzymes combo no.8 Allergy Unknown Unknown Verified 04/02/20 14:16 [From Digestive Enzyme (acidoph,pec)] fluticasone [Flovent HFA] Allergy Unknown Unknown Verified 04/02/20 14:16 formoterol [Symbicort] Allergy Unknown higher Verified 04/02/20 14:16 dose problem Lactobacillus acidophilus Allergy Unknown Unknown Verified 04/02/20 14:16 [From Digestive Enzyme (acidoph,pec)] lisinopril [LISINOPRIL] Allergy Unknown ANGIOEDEMA Verified 04/02/20 14:16 mometasone furoate [Dulera] Allergy Unknown Unknown Verified 04/02/20 14:16 nebivolol [Bystolic] Allergy Unknown Unknown Verified 04/02/20 14:16 olmesartan [Benicar] Allergy Unknown Unknown Verified 04/02/20 14:16 pectin Allergy Unknown Unknown Verified 04/02/20 14:16 [From Digestive Enzyme (acidoph,pec)] spironolactone Allergy Unknown Unknown Verified 04/02/20 14:16 Sulfa (Sulfonamide Allergy Unknown headache, Verified 04/02/20 14:16 Antibiotics) shaking, freezing sensation, upset stomach Plan I have reviewed the history and physical and performed a pertinent physical examination on my patient. No changes have occurred unless specified.
--- NOTE | 2020-06-27 10:29 | HO.ANESPROP2 ---
HPI - Anesthesia Eval Consult details Narrative: 69 F w/ cholecystitis PMFSH Active Problems Active Problems: All Active Problems (Updated 06/27/20 @ 10:18 by Sandrita Rojo RN) Annual physical exam (Acute) Constipation (Acute) Dysuria (Acute) Abdominal pain (Acute) Vomiting (Acute) Facial injury (Acute) Acute cholecystitis (Acute) Leukocytosis (Acute) Hyponatremia (Acute) Hypercholesterolemia (Acute) GERD (gastroesophageal reflux disease) (Acute) Impaired glucose tolerance (Acute) Hypertension (Acute) Asthma (Acute) Past Medical History Medical History Anxiety Asthma GERD (gastroesophageal reflux disease) Hypercholesterolemia Hypertension Impaired glucose tolerance Panic attack Vitamin D deficiency Family History Family History Father Myocardial infarction Mother Hypertension Stroke Brother In good health Sister In good health Son In good health Daughter In good health Surgical History Surgical History History of cataract surgery Social History Social History Household Members: None Housing: House Do you presently have visiting nurse or other home services: No Alcohol intake: never Smoking Status: Never smoker Use of substances other than those prescribed or required for medical reasons: No Currently Displaying Signs/Symptoms of Drug Intoxication Withdrawal: No Have you been hit, kicked, punched, or otherwise hurt by someone within the past year? 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 Meds Allergies Allergy/AdvReac Type Severity Reaction Status Date / Time ARB-Angiotensin Receptor Allergy Unknown ANAPHYLAXIS Verified 06/26/20 08:30 Antagonist [ANGIOTENSIN RECEPTOR ANTAGONIST] beclomethasone [QNASL] Allergy Unknown blurred Verified 04/02/20 14:16 vision, headaches budesonide [Symbicort] Allergy Unknown higher Verified 04/02/20 14:16 dose problem ciprofloxacin [Cipro] Allergy Unknown Unknown Verified 04/02/20 14:16 codeine [Codeine] Allergy Unknown UNKNOWN Verified 04/02/20 14:16 digestive enzymes combo no.8 Allergy Unknown Unknown Verified 04/02/20 14:16 [From Digestive Enzyme (acidoph,pec)] fluticasone [Flovent HFA] Allergy Unknown Unknown Verified 04/02/20 14:16 formoterol [Symbicort] Allergy Unknown higher Verified 04/02/20 14:16 dose problem Lactobacillus acidophilus Allergy Unknown Unknown Verified 04/02/20 14:16 [From Digestive Enzyme (acidoph,pec)] lisinopril [LISINOPRIL] Allergy Unknown ANGIOEDEMA Verified 04/02/20 14:16 mometasone furoate [Dulera] Allergy Unknown Unknown Verified 04/02/20 14:16 nebivolol [Bystolic] Allergy Unknown Unknown Verified 04/02/20 14:16 olmesartan [Benicar] Allergy Unknown Unknown Verified 04/02/20 14:16 pectin Allergy Unknown Unknown Verified 04/02/20 14:16 [From Digestive Enzyme (acidoph,pec)] spironolactone Allergy Unknown Unknown Verified 04/02/20 14:16 Sulfa (Sulfonamide Allergy Unknown headache, Verified 04/02/20 14:16 Antibiotics) shaking, freezing sensation, upset stomach Active Medications: Current Medications Generic Name Dose Route Start Last Admin Trade Name Freq PRN Reason Stop Dose Admin Acetaminophen 650 mg 06/26/20 15:39 Acetaminophen 325 Mg Tablet PO Q6H PRN Fever Albuterol Sulfate 2 puff 06/26/20 15:39 Albuterol Sulfate 90 Mcg 8 Gm Inhaler INHALE Q4H PRN Shortness Of Breath Or Wheezing Amlodipine Besylate 5 mg 06/26/20 21:00 06/26/20 20:22 Amlodipine Besylate 5 Mg Tablet PO 5 mg BEDTIME AGUEDA Administration Protocol Atorvastatin Calcium 10 mg 06/26/20 21:00 06/26/20 20:22 Atorvastatin Calcium 10 Mg Tablet PO 10 mg BEDTIME AGUEDA Administration Fluticasone/Vilanterol 1 puff 06/27/20 08:00 06/27/20 08:27 Fluticasone/Vilanterol 100/25 Blst.W.Dev INHALE Not Given RDAILY AGUEDA Sodium Chloride 1,000 mls @ 100 mls/hr 06/26/20 15:39 06/27/20 01:10 Ns IVCONT 100 mls/hr .Q10H AGUEDA Administration Piperacillin Sod/Tazobactam 50 mls @ 100 mls/hr 06/26/20 16:00 06/27/20 04:37 Sod 3.375 gm/ Sodium Chloride IV Infused Q6H AGUEDA Infusion Morphine Sulfate 4 mg 06/26/20 15:39 06/27/20 04:19 Morphine Sulfate 4 Mg/Ml Cartridge IVPUSH 4 mg Q3H PRN Administration Pain, Severe (Pain Scale 7-10) Ondansetron HCl 4 mg 06/26/20 15:39 Ondansetron Hcl 4 Mg/2 Ml Vial IVPUSH Q8H PRN Nausea Pharmacy Consult 1 each 06/26/20 07:26 Consult Rx Perform Med Rec MISCELLANE ONCE PRN Consult order Home Medications Medication Instructions Recorded Confirmed Last Taken Type albuterol sulfate 90 mcg/actuation 2 puff INHALATION Q4-6H PRN 04/16/20 06/26/20 Unknown History aerosol inhaler cholecalciferol (vitamin D3) 50 50 mcg PO DAILY 04/16/20 06/26/20 06/25/20 History mcg (2,000 unit) capsule vitamin B complex 1 tab PO DAILY 04/16/20 06/26/20 06/25/20 History amlodipine 5 mg PO BEDTIME 06/26/20 06/26/20 06/25/20 History atorvastatin 10 mg PO BEDTIME 06/26/20 06/26/20 06/25/20 History multivitamin 1 tab PO DAILY 06/26/20 06/26/20 06/25/20 History Exam Exam Date and Time: June 27, 2020 1029 Height,Weight and Vital Signs: Height 5 ft 1 in Weight 65.771 kg Last Vital Signs Temp 98.7 F 06/27/20 10:19 Pulse 97 06/27/20 10:19 Resp 16 06/27/20 10:19 BP 118/58 L 06/27/20 10:19 Pulse Ox 94 06/27/20 10:19 Pertinent Lab Results Pertinent Lab Results: Laboratory Tests 06/26/20 06/26/20 06/26/20 08:16 08:16 08:16 WBC 21.6 H RBC 4.65 Hgb 14.3 Hct 40.9 MCV 88.0 MCH 30.8 MCHC 35.0 RDW 11.7 Plt Count 233 MPV 9.6 Immature Gran % (Auto) 0.4 Neut % (Auto) 88.6 H Lymph % (Auto) 3.7 L [place] % (Auto) 7.2 Eos % (Auto) 0.0 Baso % (Auto) 0.1 Lymph # (Auto) 0.8 L [place] # (Auto) 1.6 H Eos # (Auto) 0.0 Baso # (Auto) 0.0 Abs Immat Gran (auto) 0.08 H Absolute Neuts (auto) 19.1 H Absolute Nucleated RBC 0.000 Nucleated RBC % (auto) 0.0 Smear Tech's Comments VERIFIED PT INR APTT Sodium 126 L Potassium 3.6 Chloride 92 L Carbon Dioxide 25 Anion Gap 13 BUN 17 H Creatinine 0.81 Estim Creat Clear Calc 56.1 Estimated GFR > 60 Random Glucose 143 H Fasting Glucose Lactic Acid Calcium 8.9 Magnesium 2.0 Total Bilirubin 1.0 Direct Bilirubin 0.6 H AST 30 ALT 23 Alkaline Phosphatase 82 Troponin I High Sens Total Protein 6.4 L Albumin 3.7 Lipase COVID-19 (ELIJAH) Negative COVID-19 [employer] See Note Blood Type Antibody Screen 06/26/20 06/26/20 06/26/20 08:16 08:16 08:16 WBC RBC Hgb Hct MCV MCH MCHC RDW Plt Count MPV Immature Gran % (Auto) Neut % (Auto) Lymph % (Auto) [place] % (Auto) Eos % (Auto) Baso % (Auto) Lymph # (Auto) [place] # (Auto) Eos # (Auto) Baso # (Auto) Abs Immat Gran (auto) Absolute Neuts (auto) Absolute Nucleated RBC Nucleated RBC % (auto) Smear Tech's Comments PT 15.1 H INR 1.3 H APTT 29.5 Sodium Potassium Chloride Carbon Dioxide Anion Gap BUN Creatinine Estim Creat Clear Calc Estimated GFR Random Glucose Fasting Glucose Lactic Acid 0.9 Calcium Magnesium Total Bilirubin Direct Bilirubin AST ALT Alkaline Phosphatase Troponin I High Sens 22.4 H Total Protein Albumin Lipase COVID-19 (ELIJAH) COVID-19 [employer] Blood Type Antibody Screen 06/26/20 06/26/2021 08:16 12:39 05:55 WBC 16.8 H RBC 3.79 L Hgb 11.9 L Hct 34.8 L MCV 91.8 MCH 31.4 MCHC 34.2 RDW 12.3 Plt Count 232 MPV 10.1 Immature Gran % (Auto) Neut % (Auto) Lymph % (Auto) [place] % (Auto) Eos % (Auto) Baso % (Auto) Lymph # (Auto) [place] # (Auto) Eos # (Auto) Baso # (Auto) Abs Immat Gran (auto) Absolute Neuts (auto) Absolute Nucleated RBC 0.000 Nucleated RBC % (auto) 0.0 Smear Tech's Comments PT INR APTT Sodium Potassium Chloride Carbon Dioxide Anion Gap BUN Creatinine Estim Creat Clear Calc Estimated GFR Random Glucose Fasting Glucose Lactic Acid Calcium Magnesium Total Bilirubin Direct Bilirubin AST ALT Alkaline Phosphatase Troponin I High Sens Total Protein Albumin Lipase 8 COVID-19 (ELIJAH) COVID-19 [employer] Blood Type A Positive Antibody Screen NEGATIVE 06/27/20 05:55 WBC RBC Hgb Hct MCV MCH MCHC RDW Plt Count MPV Immature Gran % (Auto) Neut % (Auto) Lymph % (Auto) [place] % (Auto) Eos % (Auto) Baso % (Auto) Lymph # (Auto) [place] # (Auto) Eos # (Auto) Baso # (Auto) Abs Immat Gran (auto) Absolute Neuts (auto) Absolute Nucleated RBC Nucleated RBC % (auto) Smear Tech's Comments PT INR APTT Sodium 137 Potassium 3.5 Chloride 105 Carbon Dioxide 24 Anion Gap 12 BUN 14 Creatinine 0.62 Estim Creat Clear Calc 73.3 Estimated GFR > 60 Random Glucose Fasting Glucose 83 Lactic Acid Calcium 7.8 L D Magnesium Total Bilirubin Direct Bilirubin AST ALT Alkaline Phosphatase Troponin I High Sens Total Protein Albumin Lipase COVID-19 (ELIJAH) COVID-19 [employer] Blood Type Antibody Screen Airway Mallampati Class: II TM Dist: >3cm Neck ROM: Full Denture: Upper and Lower Loose/Missing/Broken Teeth: No Heart: RRR, tachycardia Lungs: NL Other: Healing wound forehead Assessment and Plan Assessment Anesthesia Assessment: Anesthesia Plan Discussed and Chart Reviewed Final Anesthetic Review NPO: Yes ASA Class: II and Emergency Final Preanesthetic Review: No Changes in Pt Med Stat, Meds/Allgs Chart Reviewed, Consent Obtained/Reviewed and Anes Risks/Benef Reviewed Patient Risk: Intermediate Procedure Risk: Low Anesthetic Plan Anesthetic Plan: GA Disposition: Standard PACU
[2020-06-27] MEDS: Lactated Ringers 1,000 ML 50 ML IV (10:41)
--- NOTE | 2020-06-27 12:45 | W.PM.OPN ---
Operative Note Operative Note Date of Service: 06/27/20 Narrative: Preoperative diagnosis: Cholecystitis, cholelithiasis Postoperative diagnosis: Same Procedure: Laparoscopic converted to open cholecystectomy Surgeon: Ayden Chawla MD Cigarette Seller: None Anesthesia: General endotracheal Indications for procedure: 69-year-old female presenting with complaints of abdominal pain of 4 days duration found to have acute cholecystitis on CT and ultrasound Operative findings: Markedly distended gallbladder with dense adhesions from the omentum. Purulence discharge noted at the neck of the gallbladder suggestive of a localized perforation. Large gallstone within the gallbladder Specimen: Gallbladder Estimated blood loss: 40 mL Complications: None Drains: Dominic-Escalante Procedure details: Patient was brought to the OR and placed in a supine position. After administering general anesthesia the patient's abdomen was prepped with ChloraPrep and draped in a sterile fashion. A surgical time-out was called and consent confirmed. Patient received preoperative antibiotics and Venodyne boots were in place. Local anesthesia consisting of 0.5% Sensorcaine with epinephrine was infiltrated in the periumbilical region. A 5 mm incision was then made with the scalpel. A Veress needle was then inserted while elevating abdominal cavity with towel clips. After positive drop test the abdomen was insufflated to a pressure of 15 mm of mercury. A 5 mm trocar was then inserted after removing the Veress needle. The camera was then inserted in the abdomen explored. A 12 mm trocar was then placed in the epigastrium under direct vision. At this point the gallbladder was noted to be very here in to the surrounding structures. A blunt dissected was placed into the epigastric port an attempt made to free up the adherent structures. This was found to be much to adherent to allow a laparoscopic procedure. Decision was made to convert to an open procedure. CO2 was evacuated and the trocars removed. A subcostal Martha incision was then created. Incision was carried out through subcutaneous tissue past the anterior posterior rectus sheath. The rectus muscle was divided with electrocautery. Posterior sheath and peritoneum was then entered in the abdominal cavity explored. Using a combination of blunt and sharp dissection the densely adherent structures were removed off the surface of the gallbladder and liver. The gallbladder was then drained using a spike connected to suction. Hydropic fluid was evacuated from the gallbladder. Peritoneum was then dissected off the gallbladder using a combination of blunt and electrocautery dissection off the liver bed. This was continued down from fundus to infundibulum in a retrograde fashion. The cystic artery was encountered and ligated with hemoclips. Dissection was continued down below the obstructing stone which was able to be moved into the body of the gallbladder. Dissection was continued down to the neck of the gallbladder at which point a large purulence collection was identified. Cultures of this fluid were obtained. A localized perforation was noted at this location which seems to be related to necrotic gallbladder wall. Dissection below this area of was then accomplished and the neck of the gallbladder ligated using a suture of 2-0 Polysorb suture. The gallbladder was then resected and sent to pathology for further examination. Wounds were then thoroughly irrigated with saline solution. A large Dominic-Escalante drain was placed the liver edge brought through a separate stab wound. This was then secured to the skin using a 3-0 nylon suture. This was then connected to bulb suction. Peritoneum was then closed using a running 0 Polysorb suture. Posterior sheath was closed using a running 0 Polysorb suture. Anterior rectus sheath was then closed using a running 0 Polysorb suture. Subcutaneous tissue and dermis were reapproximated using interrupted 3-0 Polysorb sutures. Skin was then closed in all incisions using skin reanna. Sterile dressings were then applied. The patient tolerated the procedure well. Sponge, instrument, and needle counts reported as correct. The patient was transferred to PACU in stable condition.
[2020-06-27] MEDS: HYDROmorphone HCl 0.5 MG/0.5 ML SYRINGE 0.25 MG IVPUSH (14:49)
[2020-06-27] MEDS: Atorvastatin Calcium 10 MG TABLET PO (20:39)
[2020-06-27] MEDS: amLODIPine Besylate 5 MG TABLET PO (20:39)
[2020-06-28] MEDS: 0.9 % Sodium Chloride 1,000 ML 100 ML IVCONT ×2 (03:32→13:58)
[2020-06-28 03:47] VITALS: BP 149/66; PULSE 96; RESP 18; TEMP 36.4; O2SAT 96
[2020-06-28] MEDS: Piperacillin Sodium/Tazobactam 3.375 GM in 0.9 % Sodium Chloride 50 ML IV ×4 (04:39→20:09)
[2020-06-28 07:25] VITALS: BP 132/64; PULSE 88; RESP 18; TEMP 36.6; O2SAT 96
--- NOTE | 2020-06-28 10:30 | PM.PNGS ---
Subjective Subjective Date of Service: 06/28/20 <SOPHIA Lorenzo - Last Filed: 06/28/20 13:42> 06/28/20 <Bee Patino MD - Last Filed: 06/28/20 14:50> Interval history: Doing well, resting comfortably in bed. Tolerating her diet without N/V. No new complaints. <SOPHIA Lorenzo - Last Filed: 06/28/20 13:42> Physical Exam Vital Signs: Vital Signs: Last Vital Signs Temp 97.8 F 06/28/20 07:25 Pulse 88 06/28/20 07:25 Resp 18 06/28/20 07:25 BP 132/64 06/28/20 07:25 Pulse Ox 96 06/28/20 07:25 Body Mass Index 27.3 <SOPHIA Lorenzo - Last Filed: 06/28/20 13:42> Const: General: cooperative, comfortable and no acute distress <SOPHIA Lorenzo - Last Filed: 06/28/20 13:42> Resp: Effort & Inspection: normal respiratory effort <SOPHIA Lorenzo - Last Filed: 06/28/20 13:42> Auscultation: clear to auscultation bilaterally <SOPHIA Lorenzo - Last Filed: 06/28/20 13:42> Cardio: Rate: regular rate <SOPHIA Lorenzo - Last Filed: 06/28/20 13:42> Heart sounds: S1 normal heart sound present and S2 normal heart sound present <SOPHIA Lorenzo - Last Filed: 06/28/20 13:42> GI: Other: SHMUEL drain w/ ~20 cc of serosangineous drainage. <SOPHIA Lorenzo - Last Filed: 06/28/20 13:42> Inspection: Yes normal to inspection and Yes incision (c/d/i. No dranage or discharge. No erythema or sahra wound induration) <SOPHIA Lorenzo Last Filed: 06/28/20 13:42> Palpation (GI): Soft to palpation and Tenderness to palpation present (GI) (mild expected tenderness in RUQ) <SOPHIA Lorenzo - Last Filed: 06/28/20 13:42> Skin: General skin exam: no rashes or lesions noted <SOPHIA Lorenzo - Last Filed: 06/28/20 13:42> Progress Note: A&P Assessment and plan (1) Acute cholecystitis: Problem details: 69 yo female s/p CCY, POD#1. Doing well. Denies any new complaints. She is passing gas but no BM as of yet. tolerating a liquid diet <SOPHIA Lorenzo - Last Filed: 06/28/20 13:42> Status: Acute <SOPHIA Lorenzo - Last Filed: 06/28/20 13:42> Assessment and Plan: Encourage OOB Will advance diet as tolerated SHMUEL drain to remain as there is still moderate drainage Can likely be discharged tomorrow. <SOPHIA Lorenzo - Last Filed: 06/28/20 13:42> (2) Hx of cholecystectomy: Problem details: Dr. Chawla June 2020 <SOPHIA Lorenzo - Last Filed: 06/28/20 13:42> Status: Acute <SOPHIA Lorenzo - Last Filed: 06/28/20 13:42> Assessment and Plan: . General Surgery Attending - Yoandy Patino M.D. Patient was evaluated and examined at the bedside with Mr. Ron Ramon PA-C. I confirm above findings and plan as documented. Pt is doing well s/p lap cholecystex. SHMUEL drain still high. Advanced diet. <Bee Patino MD - Last Filed: 06/28/20 14:50> Fall Risk Details Current Medications: Current Medications Generic Name Dose Route Start Last Admin Trade Name Freq PRN Reason Stop Dose Admin Acetaminophen 650 mg 06/26/20 15:39 Acetaminophen 325 Mg Tablet PO Q6H PRN Fever Albuterol Sulfate 2 puff 06/26/20 15:39 Albuterol Sulfate 90 Mcg 8 Gm Inhaler INHALE Q4H PRN Shortness Of Breath Or Wheezing Albuterol Sulfate 2.5 mg 06/27/20 12:41 Albuterol Sulfate (0.083%) 2.5 Mg/3 Ml Vial.Neb INHALE ONCE PRN Wheezing Amlodipine Besylate 5 mg 06/26/20 21:00 06/27/20 20:39 Amlodipine Besylate 5 Mg Tablet PO 5 mg BEDTIME AGUEDA Administration Protocol Atorvastatin Calcium 10 mg 06/26/20 21:00 06/27/20 20:39 Atorvastatin Calcium 10 Mg Tablet PO 10 mg BEDTIME AGUEDA Administration Fluticasone/Vilanterol 1 puff 06/27/20 08:00 06/28/20 08:21 Fluticasone/Vilanterol 100/25 Blst.W.Dev INHALE Not Given RDAILY AGUEDA Sodium Chloride 1,000 mls @ 100 mls/hr 06/26/20 15:39 06/28/20 07:42 Ns IVCONT Not Given .Q10H AGUEDA Piperacillin Sod/Tazobactam 50 mls @ 100 mls/hr 06/26/20 16:00 06/28/20 05:40 Sod 3.375 gm/ Sodium Chloride IV Infused Q6H AGUEDA Infusion Morphine Sulfate 4 mg 06/26/20 15:39 06/27/20 22:32 Morphine Sulfate 4 Mg/Ml Cartridge IVPUSH 4 mg Q3H PRN Administration Pain, Severe (Pain Scale 7-10) Ondansetron HCl 4 mg 06/26/20 15:39 Ondansetron Hcl 4 Mg/2 Ml Vial IVPUSH Q8H PRN Nausea Oxycodone HCl 5 mg 06/27/20 15:22 Oxycodone Hcl Immed Release 5 Mg Tablet PO Q6H PRN Pain, Moderate (Pain Scale 4-6 Pharmacy Consult 1 each 06/26/20 07:26 Consult Rx Perform Med Rec MISCELLANE ONCE PRN Consult order <SOPHIA Lorenzo - Last Filed: 06/28/20 13:42> Time Spent With Patient Time: Total time spent is greater than 50% in coordination of care (as documented) at patient's floor/unit and/or counseling patient: <SOPHIA Lorenzo - Last Filed: 06/28/20 13:42> Time with patient: 15 - 24 minutes <Bee Patino MD - Last Filed: 06/28/20 14:50>
[2020-06-28 11:30] VITALS: BP 141/71; PULSE 92; RESP 18; TEMP 36.6; O2SAT 98
--- NOTE | 2020-06-28 14:00 | HO.POSTANES ---
Post Anesthesia Evaluation Post Anesthesia Evaluation Vital Signs: Vital Signs Temp Pulse Resp BP Pulse Ox 06/28/20 11:30 97.8 F 92 18 141/71 H 98 06/28/20 07:25 97.8 F 88 18 132/64 96 06/28/20 03:47 97.5 F 96 18 149/66 H 96 Anesthesia: General Endotracheal-GETA Mental Status: Awake Pain Control: Satisfactory Nausea/Vomiting: None Hydration: Adequate Anesthesia-Related Issues: No Anes. Related Issues
[2020-06-28 16:00] VITALS: BP 135/63; PULSE 88; RESP 16; TEMP 36.6; O2SAT 95
[2020-06-28 19:28] VITALS: BP 155/73; PULSE 85; RESP 18; TEMP 36.3; O2SAT 95
[2020-06-28] MEDS: Atorvastatin Calcium 10 MG TABLET PO (20:09)
[2020-06-28] MEDS: amLODIPine Besylate 5 MG TABLET PO (20:09)
[2020-06-28 23:51] VITALS: BP 156/72; PULSE 98; RESP 16; TEMP 36.1; O2SAT 96
[2020-06-29] MEDS: 0.9 % Sodium Chloride 1,000 ML 100 ML IVCONT ×2 (03:11→13:57)
[2020-06-29] MEDS: Piperacillin Sodium/Tazobactam 3.375 GM in 0.9 % Sodium Chloride 50 ML IV ×4 (03:11→21:12)
[2020-06-29 03:35] VITALS: BP 169/76; PULSE 104; RESP 14; TEMP 36.1; O2SAT 94
[2020-06-29 07:30] VITALS: BP 165/76; PULSE 97; RESP 14; TEMP 36.9; O2SAT 94
--- NOTE | 2020-06-29 10:50 | P.PNGS_ITS ---
Subjective Subjective Date of Service: 06/29/20 <SOPHIA Lorenzo - Last Filed: 06/29/20 14:28> 06/29/20 <Bee Patino MD - Last Filed: 06/29/20 14:51> Patient reports: no new complaints <SOPHIA Lorenzo - Last Filed: 06/29/20 14:28> Interval history: She states that she is feeling well. She tolerated a regular diet (grilled cheese) without and N/V/D. She is OOB. She has not had a BM as of yet but continues to pass flatus. No new complaints <SOPHIA Lorenzo - Last Filed: 0 06/29/20 14:28> Physical Exam Vital Signs: Vital Signs: Last Vital Signs Temp 98.4 F 06/29/20 07:30 Pulse 97 06/29/20 07:30 Resp 14 06/29/20 07:30 BP 165/76 H 06/29/20 07:30 Pulse Ox 94 06/29/20 07:30 Body Mass Index 27.3 <SOPHIA Lorenzo - Last Filed: 06/29/20 14:28> Const: General: cooperative, healthy appearing and no acute distress <SOPHIA Lorenzo - Last Filed: 06/29/20 14:28> Eyes: General: appearance normal, both eyes and all related structures <SOPHIA Lorenzo - Last Filed: 06/29/20 14:28> Resp: Effort & Inspection: normal respiratory effort <SOPHIA Lorenzo - Last Filed: 06/29/20 14:28> Cardio: Rate: regular rate <SOHPIA Lorenzo - Last Filed: 06/29/20 14:28> GI: Other: SHMUEL drain with addition 75 cc of serosanginous drainage overnight. <SOPHIA Lorenzo - Last Filed: 06/29/20 14:28> Inspection: Yes normal to inspection and Yes incision (No periwound edema, erythema or drainage) <SOPHIA Lorenzo - Last Filed: 06/29/20 14:28> Skin: General skin exam: no rashes or lesions noted <SOPHIA Lorenzo Last Filed: 06/29/20 14:28> Progress Note: A&P Assessment and plan (1) Acute cholecystitis: Problem details: 69 yo female s/p CCY, POD#2. Doing well. Denies any new complaints. She is passing gas but no BM as of yet. Tolerating a regualr diet <SOPHIA Lorenzo - Last Filed: 06/29/20 14:28> Status: Acute <SOPHIA Lorenzo - Last Filed: 06/29/20 14:28> Assessment and Plan: Continue current care SHMUEL drain should continue as there is still moderate drainage. Possible removal tomorrow Encourage ambulation Stop IV pain meds <SOPHIA Lorenzo - Last Filed: 06/29/20 14:28> (2) Hx of cholecystectomy: Problem details: Dr. Chawla June 2020 <SOPHIA Lorenzo - Last Filed: 06/29/20 14:28> Status: Acute <SOPHIA Lorenzo - Last Filed: 06/29/20 14:28> Assessment and Plan: . General Surgery Attending - Yoandy Patino M.D. Patient was evaluated and examined at the bedside with Mr. Ron Ramon PA-C. I confirm above findings and plan as documented. Patient is doing well and comfortable but she would like to stay until tomorrow. Her SHMUEL drainage is still high, and has light bilious coloration. Will keep SHMUEL in for now. <Bee Patino MD - Last Filed: 06/29/20 14:51> Fall Risk Details Current Medications: Current Medications Generic Name Dose Route Start Last Admin Trade Name Freq PRN Reason Stop Dose Admin Acetaminophen 650 mg 06/26/20 15:39 Acetaminophen 325 Mg Tablet PO Q6H PRN Fever Albuterol Sulfate 2 puff 06/26/20 15:39 Albuterol Sulfate 90 Mcg 8 Gm Inhaler INHALE Q4H PRN Shortness Of Breath Or Wheezing Albuterol Sulfate 2.5 mg 06/27/20 12:41 Albuterol Sulfate (0.083%) 2.5 Mg/3 Ml Vial.Neb INHALE ONCE PRN Wheezing Amlodipine Besylate 5 mg 06/26/20 21:00 06/28/20 20:09 Amlodipine Besylate 5 Mg Tablet PO 5 mg BEDTIME AGUEDA Administration Protocol Atorvastatin Calcium 10 mg 06/26/20 21:00 06/28/20 20:09 Atorvastatin Calcium 10 Mg Tablet PO 10 mg BEDTIME AGUEDA Administration Fluticasone/Vilanterol 1 puff 06/27/20 08:00 06/29/20 09:20 Fluticasone/Vilanterol 100/25 Blst.W.Dev INHALE Not Given RDAILY AGUEDA Sodium Chloride 1,000 mls @ 100 mls/hr 06/26/20 15:39 06/29/20 03:46 Ns IVCONT 100 mls/hr .Q10H AGUEDA Infusion Piperacillin Sod/Tazobactam 50 mls @ 100 mls/hr 06/26/20 16:00 06/29/20 10:18 Sod 3.375 gm/ Sodium Chloride IV Infused Q6H AGUEDA Infusion Morphine Sulfate 4 mg 06/26/20 15:39 06/27/20 22:32 Morphine Sulfate 4 Mg/Ml Cartridge IVPUSH 4 mg Q3H PRN Administration Pain, Severe (Pain Scale 7-10) Ondansetron HCl 4 mg 06/26/20 15:39 Ondansetron Hcl 4 Mg/2 Ml Vial IVPUSH Q8H PRN Nausea Oxycodone HCl 5 mg 06/27/20 15:22 Oxycodone Hcl Immed Release 5 Mg Tablet PO Q6H PRN Pain, Moderate (Pain Scale 4-6 Pharmacy Consult 1 each 06/26/20 07:26 Consult Rx Perform Med Rec MISCELLANE ONCE PRN Consult order <SOPHIA Lorenzo - Last Filed: 06/29/20 14:28> Time Spent With Patient Time: Total time spent is greater than 50% in coordination of care (as documented) at patient's floor/unit and/or counseling patient: <SOPHIA Lorenzo - Last Filed: 06/29/20 14:28> Time with patient: 15 - 24 minutes <Bee Patino MD - Last Filed: 06/29/20 14:51>
[2020-06-29 11:51] VITALS: BP 158/69; PULSE 82; RESP 18; TEMP 37.2; O2SAT 94
--- NOTE | 2020-06-29 13:59 | MHC.CM.PN ---
PATIENT LIVES ALONE. 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 PATIENT IS NOT SURE WHEN SHE WILL BE RETURNING HOME, BUT IS HOPING FOR NO SERVICES. DAUGHTER WILL PROVIDE TRANSPORTATION.
[2020-06-29 15:39] VITALS: BP 147/67; PULSE 95; RESP 16; TEMP 36.7; O2SAT 95
[2020-06-29 19:11] VITALS: BP 146/69; PULSE 97; RESP 16; TEMP 36.4; O2SAT 96
[2020-06-29 21:12] VITALS: BP 146/69; PULSE 97
[2020-06-29] MEDS: amLODIPine Besylate 5 MG TABLET PO (21:12)
[2020-06-29] MEDS: Atorvastatin Calcium 10 MG TABLET PO (21:13)
[2020-06-30] VITALS (8 sets, daily range): BP systolic 135–150; BP diastolic 63–75; PULSE 78–98; RESP 18–20; TEMP 36.3–37.2; O2SAT 94–97
[2020-06-30] MEDS: Piperacillin Sodium/Tazobactam 3.375 GM in 0.9 % Sodium Chloride 50 ML IV ×4 (04:28→20:43)
--- NOTE | 2020-06-30 08:20 | PM.PNGS ---
Subjective Subjective Date of Service: 06/30/20 Interval history: Patient is comfortable. Denies significant abdominal pain. Reports some diarrhea Physical Exam Vital Signs: Vital Signs: Last Vital Signs Temp 97.7 F 06/30/20 07:52 Pulse 91 06/30/20 07:52 Resp 18 06/30/20 07:52 BP 135/69 06/30/20 07:52 Pulse Ox 97 06/30/20 07:52 Body Mass Index 27.3 Const: General: cooperative, healthy appearing, comfortable and no acute distress Eyes: Sclerae: sclerae normal EOM: EOMs intact bilaterally Neck: Neck: Yes normal visual inspection GI: Other: Soft, nondistended, incision clean, dry, and intact. SHMUEL with bilious discharge Skin: Other: No jaundice Extrem: General: Yes no clubbing, cyanosis or edema Progress Note: A&P Assessment and plan (1) Hx of cholecystectomy: Problem details: Dr. Chawla June 2020 Status: Acute (2) Acute cholecystitis: Status: Acute (3) Cystic duct leak: Status: Acute Assessment and Plan: 69-year-old female status post laparoscopic converted to open cholecystectomy. Patient is comfortable and denies further nausea or vomiting. She does have some low-grade diarrhea. Unfortunately or Dominic-Escalante drain is producing bilious drainage today. I recommended gastroenterology consultation for possible stenting of the common bile duct. Patient understands and is agreeable to the plan. Fall Risk Details Current Medications: Current Medications Generic Name Dose Route Start Last Admin Trade Name Freq PRN Reason Stop Dose Admin Acetaminophen 650 mg 06/26/20 15:39 Acetaminophen 325 Mg Tablet PO Q6H PRN Fever Albuterol Sulfate 2 puff 06/26/20 15:39 Albuterol Sulfate 90 Mcg 8 Gm Inhaler INHALE Q4H PRN Shortness Of Breath Or Wheezing Albuterol Sulfate 2.5 mg 06/27/20 12:41 Albuterol Sulfate (0.083%) 2.5 Mg/3 Ml Vial.Neb INHALE ONCE PRN Wheezing Amlodipine Besylate 5 mg 06/26/20 21:00 06/29/20 21:12 Amlodipine Besylate 5 Mg Tablet PO 5 mg BEDTIME AGUEDA Administration Protocol Atorvastatin Calcium 10 mg 06/26/20 21:00 06/29/20 21:13 Atorvastatin Calcium 10 Mg Tablet PO 10 mg BEDTIME AGUEDA Administration Piperacillin Sod/Tazobactam 50 mls @ 100 mls/hr 06/26/20 16:00 06/30/20 05:56 Sod 3.375 gm/ Sodium Chloride IV Infused Q6H AGUEDA Infusion Non-Formulary Medication 2 each 06/30/20 08:00 06/30/20 07:20 Patient Own Medication INHALE 2 each RBID AGUEDA Administration Ondansetron HCl 4 mg 06/26/20 15:39 Ondansetron Hcl 4 Mg/2 Ml Vial IVPUSH Q8H PRN Nausea Oxycodone HCl 5 mg 06/27/20 15:22 Oxycodone Hcl Immed Release 5 Mg Tablet PO Q6H PRN Pain, Moderate (Pain Scale 4-6 Pharmacy Consult 1 each 06/26/20 07:26 Consult Rx Perform Med Rec MISCELLANE ONCE PRN Consult order Time Spent With Patient Time: Total time spent is greater than 50% in coordination of care (as documented) at patient's floor/unit and/or counseling patient: Time with patient: 15 - 24 minutes
[2020-06-30 12:28] LABS: Basophils Percent Auto 0.3 % (0-2); Eosinophils Absolute Auto 0.2 X10*3/uL (0.0-0.4); Eosinophils Percent Auto 1.4 % (0-4); Hematocrit 35.2 % (37-47); Hemoglobin 12.1 g/dl (12.0-16.0); Imm Gran Abs Auto 0.07 X10*3/uL (0.00-0.03); Imm Gran Pct Auto 0.6 % (0.0-0.4); Lymphocytes Absolute Auto 2.2 X10*3/uL (1.2-4.9); Lymphocytes Percent Auto 20.4 % (20-40); MANUAL DIFF FLAG SCAN; Mean Corpuscular HGB Conc 34.4 g/dl (31.0-35.0); Mean Corpuscular Hemoglobin 31.2 pg (27.0-33.0); Mean Corpuscular Volume 90.7 fL (80-98); Monocytes Absolute Auto 0.9 X10*3/uL (0.1-1.2); Monocytes Percent Auto 8.5 % (2-11); Neutrophils Absolute Auto 7.6 X10*3/uL (2.0-8.3); Neutrophils Percent Auto 68.8 % (45-73); Platelet Count 321 X10*3/uL (160-400); Red Blood Count 3.88 X10*6/uL (4.20-5.50); Red Cell Distribution Width 12.5 % (11.0-16.0); SCAN SMEAR FLAG 1
[2020-06-30 12:36] LABS: INTERNATIONAL NORM RATIO 1.3 (0.9-1.1); Prothrombin Time 14.9 SEC (10.8-13.0)
[2020-06-30 12:55] LABS: SLIDE REVIEW VERIFIED
[2020-06-30 13:09] LABS: Anion Gap 12 (12-20); Bilirubin Direct 0.3 mg/dL (0.0-0.5); Bilirubin Total 0.6 mg/dL (0.0-1.0); Blood Urea Nitrogen 7 mg/dL (9-16); Carbon Dioxide 28 mmol/L (22-29); Chloride 102 mmol/L (96-108); Creatinine Clr Calc Pharmacy 81.1; Estimated Glomerular Filt Rate > 60; Glucose Random 149 mg/dL (60-115); Sodium 139 mmol/L (135-145); Total Protein 5.3 g/dL (6.5-8.0)
[2020-06-30 13:19] LABS: Alanine Aminotransferase 38 U/L (0-31); Albumin Level 3.1 g/dL (3.5-5.0); Alkaline Phosphatase 104 U/L (39-117); Aspartate Amino Transferase 20 U/L (5-31); Calcium 8.2 mg/dL (8.4-10.2)
--- NOTE | 2020-06-30 16:41 | MHC.SHP ---
Pre-Procedural Eval Section A The patient is an INPATIENT: Yes Changes since office visit: No Cold of Flu in the past 2 weeks, No New Medical Problems, No Changes in Medication and No Patient answered all questions The History & Physical has been completed within 30 days and I have reviewed it.: Yes Section B Chief Complaint: acute calculous cholecystitis Allergies: Allergies Allergy/AdvReac Type Severity Reaction Status Date / Time ARB-Angiotensin Receptor Allergy Unknown ANAPHYLAXIS Verified 06/26/20 08:30 Antagonist [ANGIOTENSIN RECEPTOR ANTAGONIST] beclomethasone [QNASL] Allergy Unknown blurred Verified 04/02/20 14:16 vision, headaches budesonide [Symbicort] Allergy Unknown higher Verified 04/02/20 14:16 dose problem ciprofloxacin [Cipro] Allergy Unknown Unknown Verified 04/02/20 14:16 codeine [Codeine] Allergy Unknown UNKNOWN Verified 04/02/20 14:16 digestive enzymes combo no.8 Allergy Unknown Unknown Verified 04/02/20 14:16 [From Digestive Enzyme (acidoph,pec)] fluticasone [Flovent HFA] Allergy Unknown Unknown Verified 04/02/20 14:16 formoterol [Symbicort] Allergy Unknown higher Verified 04/02/20 14:16 dose problem Lactobacillus acidophilus Allergy Unknown Unknown Verified 04/02/20 14:16 [From Digestive Enzyme (acidoph,pec)] lisinopril [LISINOPRIL] Allergy Unknown ANGIOEDEMA Verified 04/02/20 14:16 mometasone furoate [Dulera] Allergy Unknown Unknown Verified 04/02/20 14:16 nebivolol [Bystolic] Allergy Unknown Unknown Verified 04/02/20 14:16 olmesartan [Benicar] Allergy Unknown Unknown Verified 04/02/20 14:16 pectin Allergy Unknown Unknown Verified 04/02/20 14:16 [From Digestive Enzyme (acidoph,pec)] spironolactone Allergy Unknown Unknown Verified 04/02/20 14:16 Sulfa (Sulfonamide Allergy Unknown headache, Verified 04/02/20 14:16 Antibiotics) shaking, freezing sensation, upset stomach Plan I have reviewed the history and physical and performed a pertinent physical examination on my patient. No changes have occurred unless specified.
--- NOTE | 2020-06-30 17:10 | CONS_ITS ---
DATE OF SERVICE: 06/30/2020 REFERRING PHYSICIAN: Ayden Chawla MD REASON FOR CONSULTATION: Bile leak. HISTORY OF PRESENT ILLNESS: The patient is a pleasant 69-year-old woman, who underwent open cholecystectomy on June 27, a drain had been placed at the time of surgery and this was noted to have bilious drainage this morning consistent with a bile leak. Consultation was requested for ERCP. The patient has some incisional pain in the right upper quadrant, but has been tolerating a diet. Imaging on admission included a CT scan of the abdomen and pelvis with a proximally dilated common bile duct measuring 1 cm distally, tapering to 8 mm. The pancreatic duct was prominent. PAST MEDICAL HISTORY: 1. Gastroesophageal reflux disease. 2. Hypertension. 3. Elevated cholesterol. 4. Impaired glucose tolerance. 5. Vitamin D deficiency. 6. Asthma. CURRENT MEDICATIONS: Her current medication list is reviewed in the chart. ALLERGIES: MULTIPLE MEDICATION ALLERGIES ARE REVIEWED. FAMILY HISTORY: This is reviewed with the patient and is noncontributory. SOCIAL HISTORY: There is no current tobacco, alcohol, or substance abuse. REVIEW OF SYSTEMS: SKIN: No pruritus. HEENT: Negative. CARDIOPULMONARY: She denies shortness of breath or chest pain. GASTROINTESTINAL: As above. GENITOURINARY: Negative. NEUROPSYCHIATRIC: Negative. PHYSICAL EXAMINATION: GENERAL: Shows a well-appearing female, in no acute distress. VITAL SIGNS: Stable. SKIN: Anicteric. HEENT: Shows no scleral icterus. NECK: Without lymphadenopathy or thyromegaly. LUNGS: Clear. HEART: Shows a regular rate and rhythm. S1, S2. No murmur. ABDOMEN: Soft. No focal masses or tenderness. Bowel sounds are present. No organomegaly is noted. EXTREMITIES: Without edema. IMPRESSION: My impression is that she does appear to have a bile leak. I discussed ERCP with her including stent placement as well as risks and benefits. She understands these and agrees to proceed. This will be arranged for tomorrow. Thanks for asking me to see her. I will follow her in the hospital with you. MD OTILIA Rangel/NEYMAR / [phone]
[2020-06-30] MEDS: Atorvastatin Calcium 10 MG TABLET PO (20:42)
[2020-06-30] MEDS: amLODIPine Besylate 5 MG TABLET PO (20:43)
[2020-07-01] VITALS (12 sets, daily range): BP systolic 107–148; BP diastolic 50–95; PULSE 80–103; RESP 15–20; TEMP 36.2–37; O2SAT 93–100
[2020-07-01] MEDS: Piperacillin Sodium/Tazobactam 3.375 GM in 0.9 % Sodium Chloride 50 ML IV ×4 (04:04→21:56)
[2020-07-01] MEDS: oxyCODONE HCl Immed Release 5 MG TABLET PO (05:59)
--- NOTE | 2020-07-01 07:13 | P.CONAN_ITS ---
[facility] Active Problems Active Problems: All Active Problems (Updated 06/30/20 @ 08:21 by Ayden black MD) Cystic duct leak (Acute) Hx of cholecystectomy (Acute) Annual physical exam (Acute) Constipation (Acute) Dysuria (Acute) Abdominal pain (Acute) Vomiting (Acute) Facial injury (Acute) Acute cholecystitis (Acute) Leukocytosis (Acute) Hyponatremia (Acute) Hypercholesterolemia (Acute) GERD (gastroesophageal reflux disease) (Acute) Impaired glucose tolerance (Acute) Hypertension (Acute) Asthma (Acute) Past Medical History Medical History Anxiety Asthma GERD (gastroesophageal reflux disease) Hypercholesterolemia Hypertension Impaired glucose tolerance Panic attack Vitamin D deficiency Family History Family History Father Myocardial infarction Mother Hypertension Stroke Brother In good health Sister In good health Son In good health Daughter In good health Surgical History Surgical History History of cataract surgery Social History Social History Household Members: None Housing: House Do you presently have visiting nurse or other home services: No Alcohol intake: never Smoking Status: Never smoker Use of substances other than those prescribed or required for medical reasons: No Currently Displaying Signs/Symptoms of Drug Intoxication Withdrawal: No Have you been hit, kicked, punched, or otherwise hurt by someone within the past year? 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 Meds Allergies Allergy/AdvReac Type Severity Reaction Status Date / Time ARB-Angiotensin Receptor Allergy Unknown ANAPHYLAXIS Verified 06/26/20 08:30 Antagonist [ANGIOTENSIN RECEPTOR ANTAGONIST] beclomethasone [QNASL] Allergy Unknown blurred Verified 04/02/20 14:16 vision, headaches budesonide [Symbicort] Allergy Unknown higher Verified 04/02/20 14:16 dose problem ciprofloxacin [Cipro] Allergy Unknown Unknown Verified 04/02/20 14:16 codeine [Codeine] Allergy Unknown UNKNOWN Verified 04/02/20 14:16 digestive enzymes combo no.8 Allergy Unknown Unknown Verified 04/02/20 14:16 [From Digestive Enzyme (acidoph,pec)] fluticasone [Flovent HFA] Allergy Unknown Unknown Verified 04/02/20 14:16 formoterol [Symbicort] Allergy Unknown higher Verified 04/02/20 14:16 dose problem Lactobacillus acidophilus Allergy Unknown Unknown Verified 04/02/20 14:16 [From Digestive Enzyme (acidoph,pec)] lisinopril [LISINOPRIL] Allergy Unknown ANGIOEDEMA Verified 04/02/20 14:16 mometasone furoate [Dulera] Allergy Unknown Unknown Verified 04/02/20 14:16 nebivolol [Bystolic] Allergy Unknown Unknown Verified 04/02/20 14:16 olmesartan [Benicar] Allergy Unknown Unknown Verified 04/02/20 14:16 pectin Allergy Unknown Unknown Verified 04/02/20 14:16 [From Digestive Enzyme (acidoph,pec)] spironolactone Allergy Unknown Unknown Verified 04/02/20 14:16 Sulfa (Sulfonamide Allergy Unknown headache, Verified 04/02/20 14:16 Antibiotics) shaking, freezing sensation, upset stomach Active Medications: Current Medications Generic Name Dose Route Start Last Admin Trade Name Freq PRN Reason Stop Dose Admin Acetaminophen 650 mg 06/26/20 15:39 Acetaminophen 325 Mg Tablet PO Q6H PRN Fever Albuterol Sulfate 2 puff 06/26/20 15:39 Albuterol Sulfate 90 Mcg 8 Gm Inhaler INHALE Q4H PRN Shortness Of Breath Or Wheezing Albuterol Sulfate 2.5 mg 06/27/20 12:41 Albuterol Sulfate (0.083%) 2.5 Mg/3 Ml Vial.Neb INHALE ONCE PRN Wheezing Amlodipine Besylate 5 mg 06/26/20 21:00 06/30/20 20:43 Amlodipine Besylate 5 Mg Tablet PO 5 mg BEDTIME AGUEDA Administration Protocol Atorvastatin Calcium 10 mg 06/26/20 21:00 06/30/20 20:42 Atorvastatin Calcium 10 Mg Tablet PO 10 mg BEDTIME AGUEDA Administration Piperacillin Sod/Tazobactam 50 mls @ 100 mls/hr 06/26/20 16:00 07/01/20 05:14 Sod 3.375 gm/ Sodium Chloride IV Infused Q6H AGUEDA Infusion Non-Formulary Medication 2 each 06/30/20 08:00 07/01/20 05:15 Patient Own Medication INHALE Not Given RBID AGUEDA Ondansetron HCl 4 mg 06/26/20 15:39 Ondansetron Hcl 4 Mg/2 Ml Vial IVPUSH Q8H PRN Nausea Oxycodone HCl 5 mg 06/27/20 15:22 07/01/20 05:59 Oxycodone Hcl Immed Release 5 Mg Tablet PO 5 mg Q6H PRN Administration Pain, Moderate (Pain Scale 4-6 Pharmacy Consult 1 each 06/26/20 07:26 Consult Rx Perform Med Rec MISCELLANE ONCE PRN Consult order Home Medications Medication Instructions Recorded Confirmed Last Taken Type albuterol sulfate 90 mcg/actuation 2 puff INHALATION Q4-6H PRN 04/16/20 06/26/20 Unknown History aerosol inhaler cholecalciferol (vitamin D3) 50 50 mcg PO DAILY 04/16/20 06/26/20 06/25/20 History mcg (2,000 unit) capsule vitamin B complex 1 tab PO DAILY 04/16/20 06/26/20 06/25/20 History amlodipine 5 mg PO BEDTIME 06/26/20 06/26/20 06/25/20 History atorvastatin 10 mg PO BEDTIME 06/26/20 06/26/20 06/25/20 History multivitamin 1 tab PO DAILY 06/26/20 06/26/20 06/25/20 History Exam Exam Date and Time: July 01, [id number] Height,Weight and Vital Signs: Height 5 ft 1 in Weight 65.771 kg Last Vital Signs Temp 98.6 F 07/01/20 04:00 Pulse 84 07/01/20 04:00 Resp 20 07/01/20 04:00 BP 125/76 07/01/20 04:00 Pulse Ox 95 07/01/20 04:00 Pertinent Lab Results Pertinent Lab Results: Laboratory Tests 06/26/20 06/26/20 06/26/20 08:16 08:16 08:16 WBC 21.6 H RBC 4.65 Hgb 14.3 Hct 40.9 MCV 88.0 MCH 30.8 MCHC 35.0 RDW 11.7 Plt Count 233 MPV 9.6 Immature Gran % (Auto) 0.4 Neut % (Auto) 88.6 H Lymph % (Auto) 3.7 L [place] % (Auto) 7.2 Eos % (Auto) 0.0 Baso % (Auto) 0.1 Lymph # (Auto) 0.8 L [place] # (Auto) 1.6 H Eos # (Auto) 0.0 Baso # (Auto) 0.0 Abs Immat Gran (auto) 0.08 H Absolute Neuts (auto) 19.1 H Absolute Nucleated RBC 0.000 Nucleated RBC % (auto) 0.0 Smear Tech's Comments VERIFIED PT INR APTT Sodium 126 L Potassium 3.6 Chloride 92 L Carbon Dioxide 25 Anion Gap 13 BUN 17 H Creatinine 0.81 Estim Creat Clear Calc 56.1 Estimated GFR > 60 Random Glucose 143 H Fasting Glucose Lactic Acid Calcium 8.9 Magnesium 2.0 Total Bilirubin 1.0 Direct Bilirubin 0.6 H AST 30 ALT 23 Alkaline Phosphatase 82 Troponin I High Sens Total Protein 6.4 L Albumin 3.7 Lipase COVID-19 (ELIJAH) Negative COVIDMailLift See Note Blood Type Antibody Screen 06/26/20 06/26/20 06/26/20 08:16 08:16 08:16 WBC RBC Hgb Hct MCV MCH MCHC RDW Plt Count MPV Immature Gran % (Auto) Neut % (Auto) Lymph % (Auto) [place] % (Auto) Eos % (Auto) Baso % (Auto) Lymph # (Auto) [place] # (Auto) Eos # (Auto) Baso # (Auto) Abs Immat Gran (auto) Absolute Neuts (auto) Absolute Nucleated RBC Nucleated RBC % (auto) Smear Tech's Comments PT 15.1 H INR 1.3 H APTT 29.5 Sodium Potassium Chloride Carbon Dioxide Anion Gap BUN Creatinine Estim Creat Clear Calc Estimated GFR Random Glucose Fasting Glucose Lactic Acid 0.9 Calcium Magnesium Total Bilirubin Direct Bilirubin AST ALT Alkaline Phosphatase Troponin I High Sens 22.4 H Total Protein Albumin Lipase COVID-19 (ELIJAH) COVID-Fixed - Parking Tickets Com Blood Type Antibody Screen 06/26/20 06/26/20 06/27/20 08:16 12:39 05:55 WBC 16.8 H RBC 3.79 L Hgb 11.9 L Hct 34.8 L MCV 91.8 MCH 31.4 MCHC 34.2 RDW 12.3 Plt Count 232 MPV 10.1 Immature Gran % (Auto) Neut % (Auto) Lymph % (Auto) [place] % (Auto) Eos % (Auto) Baso % (Auto) Lymph # (Auto) [place] # (Auto) Eos # (Auto) Baso # (Auto) Abs Immat Gran (auto) Absolute Neuts (auto) Absolute Nucleated RBC 0.000 Nucleated RBC % (auto) 0.0 Smear Tech's Comments PT INR APTT Sodium Potassium Chloride Carbon Dioxide Anion Gap BUN Creatinine Estim Creat Clear Calc Estimated GFR Random Glucose Fasting Glucose Lactic Acid Calcium Magnesium Total Bilirubin Direct Bilirubin AST ALT Alkaline Phosphatase Troponin I High Sens Total Protein Albumin Lipase 8 COVID-19 (ELIJAH) COVID-Fixed - Parking Tickets [facility] Blood Type A Positive Antibody Screen NEGATIVE 06/27/20 06/30/20 06/30/20 05:55 12:20 12:20 WBC 11.0 H RBC 3.88 L Hgb 12.1 Hct 35.2 L MCV 90.7 MCH 31.2 MCHC 34.4 RDW 12.5 Plt Count 321 D MPV 9.0 L Immature Gran % (Auto) 0.6 H Neut % (Auto) 68.8 Lymph % (Auto) 20.4 [place] % (Auto) 8.5 Eos % (Auto) 1.4 Baso % (Auto) 0.3 Lymph # (Auto) 2.2 [place] # (Auto) 0.9 Eos # (Auto) 0.2 Baso # (Auto) 0.0 Abs Immat Gran (auto) 0.07 H Absolute Neuts (auto) 7.6 Absolute Nucleated RBC 0.000 Nucleated RBC % (auto) 0.0 Smear Tech's Comments VERIFIED PT 14.9 H INR 1.3 H APTT Sodium 137 Potassium 3.5 Chloride 105 Carbon Dioxide 24 Anion Gap 12 BUN 14 Creatinine 0.62 Estim Creat Clear Calc 73.3 Estimated GFR > 60 Random Glucose Fasting Glucose 83 Lactic Acid Calcium 7.8 L D Magnesium Total Bilirubin Direct Bilirubin AST ALT Alkaline Phosphatase Troponin I High Sens Total Protein Albumin Lipase COVID-19 (ELIJAH) COVID-19 [employer] Com Blood Type Antibody Screen 06/30/20 12:20 WBC RBC Hgb Hct MCV MCH MCHC RDW Plt Count MPV Immature Gran % (Auto) Neut % (Auto) Lymph % (Auto) [place] % (Auto) Eos % (Auto) Baso % (Auto) Lymph # (Auto) [place] # (Auto) Eos # (Auto) Baso # (Auto) Abs Immat Gran (auto) Absolute Neuts (auto) Absolute Nucleated RBC Nucleated RBC % (auto) Smear Tech's Comments PT INR APTT Sodium 139 Potassium 3.0 L Chloride 102 Carbon Dioxide 28 Anion Gap 12 BUN 7 L Creatinine 0.56 Estim Creat Clear Calc 81.1 Estimated GFR > 60 Random Glucose 149 H Fasting Glucose Lactic Acid Calcium 8.2 L Magnesium Total Bilirubin 0.6 Direct Bilirubin 0.3 AST 20 ALT 38 H Alkaline Phosphatase 104 D Troponin I High Sens Total Protein 5.3 L Albumin 3.1 L Lipase COVID-19 (ELIJAH) COVID-19 Clin Com Blood Type Antibody Screen Airway Mallampati Class: II TM Dist: >3cm Neck ROM: Full Assessment and Plan Assessment Anesthesia Assessment: Anesthesia Plan Discussed and Chart Reviewed Final Anesthetic Review NPO: Yes ASA Class: II Final Preanesthetic Review: No Changes in Pt Med Stat, Meds/Allgs Chart Reviewed, Consent Obtained/Reviewed and Anes Risks/Benef Reviewed Patient Risk: Low Procedure Risk: Low Assessment/Block/Sedation in SS: Assess/Block/Sedation-SS Anesthetic Plan Anesthetic Plan: GA Disposition: Standard PACU
[2020-07-01] MEDS: Lactated Ringers 1,000 ML 20 ML IVCONT ×2 (07:52→20:01)
--- NOTE | 2020-07-01 07:57 | PM.PNGS ---
Subjective Subjective Date of Service: 07/01/20 Interval history: Patient is in short-stay surgery in preparation for ERCP this morning. She did report an increase in abdominal pain during the night with for which she required pain medication. She denies nausea or vomiting. Physical Exam Vital Signs: Vital Signs: Last Vital Signs Temp 97.5 F 07/01/20 07:37 Pulse 92 07/01/20 07:37 Resp 18 07/01/20 07:37 BP 133/57 L 07/01/20 07:37 Pulse Ox 96 07/01/20 07:37 Body Mass Index 27.3 Const: General: cooperative, healthy appearing, comfortable, no acute distress, well developed, alert and awake Eyes: Sclerae: sclerae normal EOM: EOMs intact bilaterally Resp: Effort & Inspection: normal respiratory effort, no audible wheezes, no cough and not tachypneic GI: Other: Incision in the right upper quadrant is clean, dry, and intact. SHMUEL with bilious output. Inspection: Yes normal to inspection Skin: General skin exam: no rashes or lesions noted Extrem: General: Yes no clubbing, cyanosis or edema Progress Note: A&P Assessment and plan (1) Hx of cholecystectomy: Problem details: Dr. Chawla June 2020 Status: Acute (2) Cystic duct leak: Status: Acute Assessment and Plan: Patient with persistent bilious output per Dominic-Escalante drain suggestive of a cystic duct leak. Appreciate Dr. Vizcaino's consultation. She is scheduled for ERCP and possible stent placement later this morning. Will monitor SHMUEL output following this procedure. Fall Risk Details Current Medications: Current Medications Generic Name Dose Route Start Last Admin Trade Name Freq PRN Reason Stop Dose Admin Acetaminophen 650 mg 06/26/20 15:39 Acetaminophen 325 Mg Tablet PO Q6H PRN Fever Acetaminophen 650 mg 07/01/20 07:42 Acetaminophen 325 Mg Tablet PO ONCE PRN Pain, Mild (Pain Scale 1-3) Albuterol Sulfate 2 puff 06/26/20 15:39 Albuterol Sulfate 90 Mcg 8 Gm Inhaler INHALE Q4H PRN Shortness Of Breath Or Wheezing Albuterol Sulfate 2.5 mg 06/27/20 12:41 Albuterol Sulfate (0.083%) 2.5 Mg/3 Ml Vial.Neb INHALE ONCE PRN Wheezing Amlodipine Besylate 5 mg 06/26/20 21:00 06/30/20 20:43 Amlodipine Besylate 5 Mg Tablet PO 5 mg BEDTIME AGUEDA Administration Protocol Atorvastatin Calcium 10 mg 06/26/20 21:00 06/30/20 20:42 Atorvastatin Calcium 10 Mg Tablet PO 10 mg BEDTIME AGUEDA Administration Fentanyl 50 mcg 07/01/20 07:42 Fentanyl Citrate/Pf 100 Mcg/2 Ml Vial IVPUSH Q5M PRN Pain, Severe (Pain Scale 7-10) Piperacillin Sod/Tazobactam 50 mls @ 100 mls/hr 06/26/20 16:00 07/01/20 05:14 Sod 3.375 gm/ Sodium Chloride IV Infused Q6H AGUEDA Infusion Lactated Ringer's 1,000 mls @ 20 mls/hr 07/01/20 07:15 07/01/20 07:52 Lr IVCONT 20 mls/hr .Q24H AGUEDA Administration Non-Formulary Medication 2 each 06/30/20 08:00 07/01/20 07:13 Patient Own Medication INHALE 2 each RBID AGUEDA Administration Ondansetron HCl 4 mg 06/26/20 15:39 Ondansetron Hcl 4 Mg/2 Ml Vial IVPUSH Q8H PRN Nausea Ondansetron HCl 4 mg 07/01/20 07:42 Ondansetron Hcl 4 Mg/2 Ml Vial IVPUSH ONCE PRN Nausea and Vomiting Oxycodone HCl 5 mg 06/27/20 15:22 07/01/20 05:59 Oxycodone Hcl Immed Release 5 Mg Tablet PO 5 mg Q6H PRN Administration Pain, Moderate (Pain Scale 4-6 Oxycodone HCl 5 mg 07/01/20 07:42 Oxycodone Hcl Immed Release 5 Mg Tablet PO ONCE PRN Pain, Severe (Pain Scale 7-10) Pharmacy Consult 1 each 06/26/20 07:26 Consult Rx Perform Med Rec MISCELLANE ONCE PRN Consult order Time Spent With Patient Time: Total time spent is greater than 50% in coordination of care (as documented) at patient's floor/unit and/or counseling patient: Time with patient: 15 - 24 minutes
--- NOTE | 2020-07-01 09:14 | PM.OP ---
Brief Operative Note Date of Service: 07/01/20 Pre-op diagnosis: bile leak Post-op diagnosis: same Procedure: ERCP Surgeon: Jesse Vizcaino Anesthesia: GETA Estimated blood loss (mL): 0 Condition: stable Disposition: other
--- NOTE | 2020-07-01 09:18 | PM.EVENT ---
Event Note Date of Service: 07/01/20 Event Note: ERCP dictated bile leak seen on cholangiography. 10 F 7 cm biliary stent placed without difficulty. advance diet, monitor nakita output my office will schedule stent removal in 8-12 weeks.
--- NOTE | 2020-07-01 10:21 | OP_ITS ---
SURGEON: Jesse Vizcaino MD INDICATIONS: Bile leak. PREOPERATIVE DIAGNOSIS: POSTOPERATIVE DIAGNOSIS: PROCEDURE PERFORMED: ERCP with sphincterotomy and stent placement. ESTIMATED BLOOD LOSS: COMPLICATIONS: ANESTHESIA: General anesthesia. ASSISTANTS: SPECIMENS: DESCRIPTION OF PROCEDURE: History and physical performed. The risks and benefits of the procedure were explained to the patient, and informed consent was obtained. The patient was placed in the prone position with a wedge under the right shoulder. The Olympus video duodenoscope was introduced into the esophagus, stomach, and duodenum. Examination was performed and the scope was removed. She tolerated the procedure well and was taken to the recovery area in stable condition. FINDINGS: Endoscopy: Limited examination of the esophagus, stomach, and duodenum were within normal limits. There was a large diverticulum in the periampullary area. The common bile duct was cannulated with a guidewire and sphincterotome. Cholangiography showed no definite filling defects. There was evidence of contrast leaking out of the cystic duct remnant towards the SHMUEL drain, demonstrating clearly a bile leak. A sphincterotomy to about 8 mm was performed with no immediate complications, and following this, a 10-[place] 7 cm biliary stent was placed with no immediate complications. There was excellent drainage of clear yellow bile from the stent at the termination of the procedure. No pancreatogram was attempted or obtained. IMPRESSION: Bile leak. RECOMMENDATIONS: 1. Monitor SHMUEL drainage. 2. The patient may be discharged when stable from a surgical standpoint. 3. She will need repeat ERCP with removal of stent in 6 to 8 weeks. MD OTILIA Rangel/JOVANL / [id number]
[2020-07-01] MEDS: Atorvastatin Calcium 10 MG TABLET PO (20:00)
[2020-07-01] MEDS: amLODIPine Besylate 5 MG TABLET PO (20:00)
[2020-07-02] VITALS (7 sets, daily range): BP systolic 112–140; BP diastolic 51–66; PULSE 73–92; RESP 15–20; TEMP 36.3–37.2; O2SAT 95–98
[2020-07-02] MEDS: Piperacillin Sodium/Tazobactam 3.375 GM in 0.9 % Sodium Chloride 50 ML IV ×2 (03:51→09:12)
[2020-07-02 06:30] LABS: MANUAL DIFF FLAG NO
[2020-07-02 06:43] LABS: Basophils Percent Auto 0.1 % (0-2); Eosinophils Absolute Auto 0.1 X10*3/uL (0.0-0.4); Eosinophils Percent Auto 0.8 % (0-4); Hematocrit 32.7 % (37-47); Imm Gran Abs Auto 0.13 X10*3/uL (0.00-0.03); Lymphocytes Absolute Auto 3.2 X10*3/uL (1.2-4.9); Lymphocytes Percent Auto 23.7 % (20-40); Mean Corpuscular HGB Conc 33.6 g/dl (31.0-35.0); Mean Corpuscular Hemoglobin 30.9 pg (27.0-33.0); Mean Corpuscular Volume 91.9 fL (80-98); Mean Platelet Volume 9.3 fL (9.4-12.3); Monocytes Absolute Auto 0.7 X10*3/uL (0.1-1.2); Monocytes Percent Auto 5.1 % (2-11); Neutrophils Absolute Auto 9.3 X10*3/uL (2.0-8.3); Neutrophils Percent Auto 69.3 % (45-73); Platelet Count 333 X10*3/uL (160-400); Red Blood Count 3.56 X10*6/uL (4.20-5.50); Red Cell Distribution Width 12.5 % (11.0-16.0); White Blood Count 13.4 X10*3/uL (4.8-10.8)
[2020-07-02 07:09] LABS: Alanine Aminotransferase 30 U/L (0-31); Albumin Level 2.9 g/dL (3.5-5.0); Alkaline Phosphatase 84 U/L (39-117); Aspartate Amino Transferase 23 U/L (5-31); Bilirubin Direct 0.3 mg/dL (0.0-0.5); Bilirubin Total 0.5 mg/dL (0.0-1.0); Total Protein 4.9 g/dL (6.5-8.0)
--- NOTE | 2020-07-02 13:12 | PM.PNGS ---
Subjective Subjective Date of Service: 07/02/20 Interval history: Patient is comfortable with decreased abdominal pain. Able to get up and ambulate independently. Physical Exam Vital Signs: Vital Signs: Last Vital Signs Temp 98.1 F 07/02/20 11:41 Pulse 92 07/02/20 11:41 Resp 18 07/02/20 11:41 BP 112/51 L 07/02/20 11:41 Pulse Ox 97 07/02/20 11:41 Body Mass Index 27.3 Const: General: cooperative, healthy appearing, comfortable, no acute distress, well developed, alert and awake Resp: Effort & Inspection: normal respiratory effort GI: Inspection: Yes normal to inspection Palpation (GI): Soft to palpation, nontender, no guarding and No hepatosplenomegaly present Skin: General skin exam: no rashes or lesions noted and dry skin Extrem: General: Yes no clubbing, cyanosis or edema Progress Note: A&P Assessment and plan (1) Hx of cholecystectomy: Problem details: Dr. Chawla June 2020 Status: Acute (2) Cystic duct leak: Status: Acute Assessment and Plan: Output from SHMUEL has now decreased in volume. Color is non bilious, mainly serous fluid. Will continue to monitor next 24 hours. If output is low will discharged to home a keep the SHMUEL in place. Patient expressed understanding and agrees with the plan. Will stop antibiotics today. Fall Risk Details Current Medications: Current Medications Generic Name Dose Route Start Last Admin Trade Name Freq PRN Reason Stop Dose Admin Acetaminophen 650 mg 06/26/20 15:39 Acetaminophen 325 Mg Tablet PO Q6H PRN Fever Acetaminophen 650 mg 07/01/20 07:42 Acetaminophen 325 Mg Tablet PO ONCE PRN Pain, Mild (Pain Scale 1-3) Albuterol Sulfate 2 puff 06/26/20 15:39 Albuterol Sulfate 90 Mcg 8 Gm Inhaler INHALE Q4H PRN Shortness Of Breath Or Wheezing Albuterol Sulfate 2.5 mg 06/27/20 12:41 Albuterol Sulfate (0.083%) 2.5 Mg/3 Ml Vial.Neb INHALE ONCE PRN Wheezing Amlodipine Besylate 5 mg 06/26/20 21:00 07/01/20 20:00 Amlodipine Besylate 5 Mg Tablet PO 5 mg BEDTIME AGUEDA Administration Protocol Atorvastatin Calcium 10 mg 06/26/20 21:00 07/01/20 20:00 Atorvastatin Calcium 10 Mg Tablet PO 10 mg BEDTIME AGUEDA Administration Fentanyl 50 mcg 07/01/20 07:42 Fentanyl Citrate/Pf 100 Mcg/2 Ml Vial IVPUSH Q5M PRN Pain, Severe (Pain Scale 7-10) Piperacillin Sod/Tazobactam 50 mls @ 100 mls/hr 06/26/20 16:00 07/02/20 09:50 Sod 3.375 gm/ Sodium Chloride IV Infused Q6H AGUEDA Infusion Lactated Ringer's 1,000 mls @ 20 mls/hr 07/01/20 07:15 07/01/20 20:01 Lr IVCONT 20 mls/hr .Q24H AGUEDA Administration Non-Formulary Medication 2 each 06/30/20 08:00 07/02/20 09:12 Patient Own Medication INHALE 2 each RBID AGUEDA Administration Ondansetron HCl 4 mg 06/26/20 15:39 Ondansetron Hcl 4 Mg/2 Ml Vial IVPUSH Q8H PRN Nausea Ondansetron HCl 4 mg 07/01/20 07:42 Ondansetron Hcl 4 Mg/2 Ml Vial IVPUSH ONCE PRN Nausea and Vomiting Oxycodone HCl 5 mg 06/27/20 15:22 07/01/20 05:59 Oxycodone Hcl Immed Release 5 Mg Tablet PO 5 mg Q6H PRN Administration Pain, Moderate (Pain Scale 4-6 Oxycodone HCl 5 mg 07/01/20 07:42 Oxycodone Hcl Immed Release 5 Mg Tablet PO ONCE PRN Pain, Severe (Pain Scale 7-10) Pharmacy Consult 1 each 06/26/20 07:26 Consult Rx Perform Med Rec MISCELLANE ONCE PRN Consult order Time Spent With Patient Time: Total time spent is greater than 50% in coordination of care (as documented) at patient's floor/unit and/or counseling patient: Time with patient: 15 - 24 minutes
--- NOTE | 2020-07-02 14:17 | PM.GIPN ---
Subjective Subjective Date of Service: 07/02/20 Interval History: excited about planned discharge in AM Physical Exam Vital Signs: Vital Signs: Last Vital Signs Temp 98.1 F 07/02/20 11:41 Pulse 92 07/02/20 11:41 Resp 18 07/02/20 11:41 BP 112/51 L 07/02/20 11:41 Pulse Ox 97 07/02/20 11:41 Body Mass Index 27.3 Const: General: healthy appearing and alert GI: Other: soft, no guarding or rebound SHMUEL with no bilious drainage Objective Data Labs CBC & Chem 7: 07/02/20 05:45 06/30/20 12:20 Progress Note: A&P Assessment and plan (1) Cystic duct leak: Status: Acute Assessment and Plan: stent appears to be functioning well. advised pt that my office will arrange stent removal in 8-12 weeks Time Spent With Patient Time: Total time spent is greater than 50% in coordination of care (as documented) at patient's floor/unit and/or counseling patient: Time with patient: less than 15 minutes
--- NOTE | 2020-07-02 15:14 | HO.POSTANES ---
Post Anesthesia Evaluation Post Anesthesia Evaluation Vital Signs: Vital Signs Temp Pulse Resp BP Pulse Ox 07/02/20 11:41 98.1 F 92 18 112/51 L 97 07/02/20 07:51 98.9 F 75 18 121/52 L 97 07/02/20 07:42 98 07/02/20 03:56 97.7 F 88 18 140/62 H 97 Anesthesia: General Endotracheal-GETA Mental Status: Awake Pain Control: Satisfactory Nausea/Vomiting: None Hydration: Adequate Anesthesia-Related Issues: No Anes. Related Issues
[2020-07-02] MEDS: amLODIPine Besylate 5 MG TABLET PO (20:09)
[2020-07-02] MEDS: Atorvastatin Calcium 10 MG TABLET PO (20:09)
[2020-07-03 04:00] VITALS: RESP 18
[2020-07-03 08:00] VITALS: BP 133/59; PULSE 83; RESP 16; TEMP 36.4; O2SAT 96
--- NOTE | 2020-07-03 08:55 | P.PNGS_ITS ---
Subjective Subjective Date of Service: 07/03/20 Interval history: Patient feels much improved this morning, slept for several hours undisturbed, eating breakfast this morning without nausea or vomiting. Reports minimal abdominal pain. SHMUEL output has decreased and is now clear, non bilious. Physical Exam Vital Signs: Vital Signs: Last Vital Signs Temp 97.5 F 07/03/20 08:00 Pulse 83 07/03/20 08:00 Resp 16 07/03/20 08:00 BP 133/59 L 07/03/20 08:00 Pulse Ox 96 07/03/20 08:00 Body Mass Index 27.3 Const: General: cooperative, healthy appearing, comfortable, no acute distre ss, well developed, alert, awake and Physically active Nutritional Appearance: well nourished Orientation/consciousness: patient oriented x3 Limitations: no limitations Resp: Effort & Inspection: normal respiratory effort GI: Other: Abdomen is soft and nondistended. Her incision in the right upper quadrant is clean, dry, and intact. Dominic-Escalante drain is intact and draining serous fluid. Skin: General skin exam: no rashes or lesions noted Neuro: General: patient oriented x3 Extrem: General: Yes no clubbing, cyanosis or edema Progress Note: A&P Assessment and plan (1) Cystic duct leak: Status: Acute (2) Hx of cholecystectomy: Problem details: Dr. Chawla June 2020 Status: Acute (3) Acute cholecystitis: Status: Acute Assessment and Plan: Patient is feeling much improved with decreased abdominal pain, tolerating regular diet without nausea or vomiting. Dominic-Escalante drainage is decreased significantly. I will keep the drain in upon discharge. Patient's family has been instructed on emptying the drain and measuring the output. She should return in 1 week for staple removal and removal of the Dominic-Escalante drain. I have instructed her to call should she developed increased pain, nausea, vomiting, fever, or chills. She will be discharged home today. Fall Risk Details Current Medications: Current Medications Generic Name Dose Route Start Last Admin Trade Name Freq PRN Reason Stop Dose Admin Acetaminophen 650 mg 06/26/20 15:39 Acetaminophen 325 Mg Tablet PO Q6H PRN Fever Albuterol Sulfate 2 puff 06/26/20 15:39 Albuterol Sulfate 90 Mcg 8 Gm Inhaler INHALE Q4H PRN Shortness Of Breath Or Wheezing Albuterol Sulfate 2.5 mg 06/27/20 12:41 Albuterol Sulfate (0.083%) 2.5 Mg/3 Ml Vial.Neb INHALE ONCE PRN Wheezing Amlodipine Besylate 5 mg 06/26/20 21:00 07/02/20 20:09 Amlodipine Besylate 5 Mg Tablet PO 5 mg BEDTIME AGUEDA Administration Protocol Atorvastatin Calcium 10 mg 06/26/20 21:00 07/02/20 20:09 Atorvastatin Calcium 10 Mg Tablet PO 10 mg BEDTIME AGUEDA Administration Non-Formulary Medication 2 each 06/30/20 08:00 07/03/20 08:19 Patient Own Medication INHALE 2 each RBID AGUEDA Administration Ondansetron HCl 4 mg 06/26/20 15:39 Ondansetron Hcl 4 Mg/2 Ml Vial IVPUSH Q8H PRN Nausea Oxycodone HCl 5 mg 06/27/20 15:22 07/01/20 05:59 Oxycodone Hcl Immed Release 5 Mg Tablet PO 5 mg Q6H PRN Administration Pain, Moderate (Pain Scale 4-6 Pharmacy Consult 1 each 06/26/20 07:26 Consult Rx Perform Med Rec MISCELLANE ONCE PRN Consult order Time Spent With Patient Time: Total time spent is greater than 50% in coordination of care (as documented) at patient's floor/unit and/or counseling patient: Time with patient: 15 - 24 minutes
--- NOTE | 2020-07-03 08:59 | P.DS_ITS ---
DS: Providers Provider Date of Service: 07/03/20 Date of admission: 06/26/20 12:24 Date of discharge: 07/03/20 Primary care physician: Cassandra Weeks MD Attending physician on admission: Ayden Chawla Consults: 06/30/20 07:35 Consult to Gastroenterology Routine Consulting Provider: [facility] Reason for consultation: Bile leak s/p open cholecystectomy Discharging clinician: Ayden Chawla DS: Diagnosis Discharge Diagnosis (1) Cystic duct leak: Status: Acute (2) Hx of cholecystectomy: Status: Acute Problem details: Dr. Chawla June 2020 (3) Acute cholecystitis: Status: Acute DS: Medications Discharge Medications Home Medications: Home Medications Medication Instructions Recorded Confirmed albuterol sulfate 90 mcg/actuation 2 puff INHALATION Q4-6H PRN 04/16/20 06/26/20 aerosol inhaler cholecalciferol (vitamin D3) 50 50 mcg PO DAILY 04/16/20 06/26/20 mcg (2,000 unit) capsule vitamin B complex 1 tab PO DAILY 04/16/20 06/26/20 amlodipine 5 mg PO BEDTIME 06/26/20 06/26/20 atorvastatin 10 mg PO BEDTIME 06/26/20 06/26/20 multivitamin 1 tab PO DAILY 06/26/20 06/26/20 Previous Rx's Medication Instructions Recorded budesonide-formoterol HFA 80 2 puff INHALATION BID 30 Days 12/25/19 mcg-4.5 mcg/actuation aerosol #10.2 g inhaler oxycodone 5 mg PO Q6H PRN #10 tab 07/03/20 DS: Summary Hospital Course Hospital Course: Eric Broderick is a 69 year old female who had acute onset of nausea and vomiting with onset of right upper quadrant pain 4 days ago. She has felt chilled intermittently. She did not have a fever at home. She had an episode of dizziness with loss of consciousness early in the morning following the onset of the symptoms. She fell and hit her head. She did not come into the hospital at that time because she thought that she was dehydrated and she continued to try to take fluids as well as crackers. Because her symptoms were not improving, she presented to the emergency room early today. CT scan of the head and cervical spine did not reveal any acute injuries nor did CT scan of the face. A CT of the abdomen and pelvis was consistent with acute cholecystitis. The gallbladder appeared thickened and edematous with pericholecystic fluid pr esent. There was a 3.5 cm stone noted. White blood count was elevated at 21.6. Liver function studies were essentially normal. Sodium was low at 126. She has not had similar symptoms in the past. She was admitted to the surgical service and started on IV antibiotics and IV fluids. Arrangements were made to take her to the operating room for a laparoscopic or possible open cholecystectomy. She underwent a laparoscopic exploration was found to have a markedly scarred gallbladder with densely adherent omentum and transverse colon mesentery. She was converted to an open procedure and found to have an area of perforation with abscess at the base of the gallbladder. She tolerated the procedure well. A Dominic-Escalante drain was left in place postoperatively. Over the next 2 days the discharge converted to a bilious output. 06/30/2020 consultation was obtained from Dr. Vizcaino from Gastroenterology. She was subsequently scheduled for ERCP with stent placement which was performed on 07/01/2020. She tolerated this procedure well. She is observed over the next 24 hours and reported improvement of the discomfort. Output from the Dominic-Escalante drain decreased and became more serous. She was subsequently discharged to home in stable condition on 07/03/2020. She should avoid lifting greater than 10 lb for the next month. She should also avoid eating fatty/greasy foods for the next month. I have asked her to return to the office approximately 1 week for staple removal and Dominic-Escalante drain removal. Her family has been instructed on SHMUEL care and will record the output on a daily basis. She should call for appointment for 1 week. He should also call for fever, chills, nausea, vomiting, increased pain or other concerns. Time Spent with Patient Time attestation: Total time spent providing and/or coordinating discharge services: Discharge coordination time: Less than 30 minutes Physical Exam Vital Signs: Vital Signs: Last Vital Signs Temp 97.5 F 07/03/20 08:00 Pulse 83 07/03/20 08:00 Resp 16 07/03/20 08:00 BP 133/59 L 07/03/20 08:00 Pulse Ox 96 07/03/20 08:00 Body Mass Index 27.3 Const General: cooperative, healthy appearing, comfortable, no acute distress, well developed, alert, awake and Physically active Nutritional Appearance: well nourished Orientation/consciousness: patient oriented x3 Limitations: no limitations Resp Effort & Inspection: normal respiratory effort GI Other: Abdomen is soft and nondistended. Her incision in the right upper quadrant is clean, dry, and intact. Dominic-Escalante drain is intact and draining serous fluid. Skin General skin exam: no rashes or lesions noted Neuro General: patient oriented x3 Extrem General: Yes no clubbing, cyanosis or edema DS: Data Data Completed and Pending Completed studies during hospitalization [Text1]: Pending at discharge 06/27/20 12:38 Surgical [PTH] Routine Discharge Plan Discharge Patient Disposition: Home, Self-Care Discharge Diagnosis: Acute cholecystitis, cholelithaisis Referrals: Ayden Chawla MD [Physician] - 1 Week Po,Cassandra Butler MD [Primary Care Provider] - 1 Week Discharge Medications: New oxycodone 5 mg tablet 5 mg PO Q6H PRN (Reason: pain) Qty: 10 RF: 0 Continued budesonide-formoterol [Symbicort] 80-4.5 mcg/actuation HFA aerosol inhaler 2 puff inhalation BID 30 Days Qty: 10.2 RF: 8 multivitamin Tablet 1 tab PO DAILY RF: 0 atorvastatin 10 mg tablet 10 mg PO BEDTIME RF: 0 amlodipine 5 mg tablet 5 mg PO BEDTIME RF: 0 albuterol sulfate [ProAir HFA] 90 mcg/actuation HFA aerosol inhaler 2 puff inhalation Q4-6H PRN (Reason: Shortness Of Breath Or Wheezing) RF: 0 cholecalciferol (vitamin D3) 50 mcg (2,000 unit) capsule 50 mcg PO DAILY RF: 0 vitamin B complex Tablet 1 tab PO DAILY RF: 0 Discharge Orders: Discharge Order (Routine); Ordered 07/03/20 Ordered By: Ayden Chawla Diet: low fat, low cholesterol Activity on Discharge: No heavy lifting Stand Alone Forms: Patient Portal Discharge page Care Plan Goals: Normal activity and normal diet in 1 month Health Concerns: Acute cholecystitis due to cholelithiasis, cystic duct leak Plan of Treatment: Open cholecystectomy, ERCP with stent placement Assessment: Acute cholecystitis due to cholelithiasis, status post open cholecystectomy, ERCP with stent placement
--- NOTE | 2020-07-03 09:01 | MHC.CM.PN ---
PATIENT IS DISCHARGED HOME WITH NO SERVICES. DAUGHTER TO TRANSPORT.
== END 2020-07-03 11:46 | disposition home or self-care (01) | DRG 415 ==
LOC: HO.ED 11:18 → HO.EDOVER 12:44 → HO.S3 13:14
PROVIDERS: Internal Medicine; Internal Medicine Gastroenterology; Surgery; Admitting Provider Surgery; Emergency Provider Emergency Medicine; PCP Internal Medicine; Visit Provider Surgery
PROC: 0FT44ZZ Resection of Gallbladder, Percutaneous Endoscopic Approach (ICD-10-PCS; CPT 47562; principal; 2020-06-27 11:00)
PROC: 0F794DZ Dilation of Common Bile Duct with Intraluminal Device, Percutaneous Endoscopic Approach (ICD-10-PCS; CPT 43260; principal; 2020-07-01 08:00)
DX: K80.00 Calculus of gallbladder with acute cholecystitis without obstruction (principal); K82.A2 Perforation of gallbladder in cholecystitis; K91.89 Other postprocedural complications and disorders of digestive system; D72.829 Elevated white blood cell count, unspecified; K82.8 Other specified diseases of gallbladder; Z20.822 Contact with and (suspected) exposure to COVID-19; Z88.2 Allergy status to sulfonamides; Z88.5 Allergy status to narcotic agent; Z79.899 Other long term (current) drug therapy
CPT/HCPCS: 36415; 70450; 70486; 72125; 74177; 80048; 80076; 83605; 83690; 83735; 84484; 85025; 85027; 85610; 85730; 86850; 86900; 87040; 87071; 87076; 87185; 87205; 87635; 88304; 93005; 96365; 96375; 99024; 99285; 99291; C1769; J1100; J1170; J1610; J2250; J2270; J2370; J2405; J2543; J3010; Q9967

== ENCOUNTER → 2020-07-08 08:49 | Outpatient (BNVA) | payer MEDICARE, SELFPAY | PROVIDERS: PCP Internal Medicine; Visit Provider Surgery | DX: K82.8 Other specified diseases of gallbladder (principal); Z90.49 Acquired absence of other specified parts of digestive tract | CPT/HCPCS: 99212 ==

== ENCOUNTER → 2020-08-07 08:49 | Outpatient (BNVA) | payer MEDICARE, SELFPAY | PROVIDERS: PCP Internal Medicine; Visit Provider Surgery | DX: K82.8 Other specified diseases of gallbladder (principal); K81.0 Acute cholecystitis | CPT/HCPCS: 99212 ==

== ENCOUNTER 2020-09-03 06:04 | Day surgery (SDC) | payer MEDICARE, SELFPAY ==
[2020-08-28 11:39] VITALS: BMI 27.1
--- NOTE | 2020-09-01 13:22 | P.CONAN_ITS ---
Documented by User: Margareth Pham 09/01/20 13:24 HPI - Anesthesia Eval Consult details Narrative: 69yo F for ERCP with Change of Biliary Stent s/p ERCP 07/01/20 with GA (anesthesia intraop record no avail) Multiple Med Allergies [facility] Active Problems Active Problems: All Active Problems (Updated 07/11/20 @ 00:01 by Sanchez Clay) Anemia (Acute) Cystic duct leak (Acute) Annual physical exam (Acute) Constipation (Acute) Dysuria (Acute) Hypercholesterolemia (Acute) GERD (gastroesophageal reflux disease) (Acute) Impaired glucose tolerance (Acute) Hypertension (Acute) Asthma (Acute) Past Medical History Medical History Anxiety Asthma Facial injury GERD (gastroesophageal reflux disease) Hypercholesterolemia Hypertension Impaired glucose tolerance Panic attack Vitamin D deficiency Family History Family History Father Myocardial infarction Mother Hypertension Stroke Brother In good health Sister In good health Son In good health Daughter In good health Surgical History Surgical History History of cataract surgery Hx of cholecystectomy Social History Social History Household Members: None Housing: House Do you presently have visiting nurse or other home services: No Alcohol intake: never Patient Tobacco Use Status: Never used Tobacco Advance Directives: No Advance Directives Information Provided: No Advance Directives on File: No Recently lost weight without trying: No Eating poorly because of decreased appetite: No Nutrition Risks: No Nutritional Risk service: No Current occupational status: previously employed and retired 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 Meds Allergies Allergy/AdvReac Type Severity Reaction Status Date / Time ARB-Angiotensin Receptor Allergy Unknown ANAPHYLAXIS Verified 09/03/20 06:57 Antagonist [ANGIOTENSIN RECEPTOR ANTAGONIST] beclomethasone [QNASL] Allergy Unknown blurred Verified 09/03/20 06:57 vision, headaches budesonide [Symbicort] Allergy Unknown higher Verified 09/03/20 06:57 dose problem ciprofloxacin [Cipro] Allergy Unknown Unknown Verified 09/03/20 06:57 codeine [Codeine] Allergy Unknown UNKNOWN Verified 09/03/20 06:57 digestive enzymes combo no.8 Allergy Unknown Unknown Verified 09/03/20 06:57 [From Digestive Enzyme (acidoph,pec)] fluticasone [Flovent HFA] Allergy Unknown Unknown Verified 09/03/20 06:57 Lactobacillus acidophilus Allergy Unknown Unknown Verified 09/03/20 06:57 [From Digestive Enzyme (acidoph,pec)] lisinopril [LISINOPRIL] Allergy Unknown ANGIOEDEMA Verified 09/03/20 06:57 mometasone furoate [Dulera] Allergy Unknown Unknown Verified 09/03/20 06:57 nebivolol [Bystolic] Allergy Unknown Unknown Verified 09/03/20 06:57 olmesartan [Benicar] Allergy Unknown Unknown Verified 09/03/20 06:57 pectin Allergy Unknown Unknown Verified 09/03/20 06:57 [From Digestive Enzyme (acidoph,pec)] Sulfa (Sulfonamide Allergy Unknown headache, Verified 09/03/20 06:57 Antibiotics) shaking, freezing sensation, upset stomach Home Medications Medication Instructions Recorded Confirmed Last Taken Type albuterol sulfate 90 mcg/actuation 2 puff INHALATION Q4-6H PRN 04/16/20 08/28/20 09/03/20 04:00 History aerosol inhaler cholecalciferol (vitamin D3) 50 50 mcg PO DAILY 04/16/20 08/28/20 06/25/20 History mcg (2,000 unit) capsule vitamin B complex 1 tab PO DAILY 04/16/20 08/28/20 06/25/20 History amlodipine 5 mg PO BEDTIME 06/26/20 08/28/20 06/25/20 History atorvastatin 10 mg PO BEDTIME 06/26/20 08/28/20 06/25/20 History multivitamin 1 tab PO DAILY 06/26/20 08/28/20 06/25/20 History Exam Exam Date and Time: September 01, 2020 1322 Height,Weight and Vital Signs: Height 5 ft 1 in Weight 65.045 kg Pertinent Lab Results Pertinent Lab Results: Laboratory Tests 06/30/20 07/02/20 12:20 05:45 WBC 13.4 H Hgb 11.0 L Hct 32.7 L Plt Count 333 Carbon Dioxide 28 BUN 7 L Creatinine 0.56 Assessment and Plan Assessment Anesthesia Assessment: Chart Reviewed Documented by User: Yang Lane 09/03/20 08:11 [facility] Past Medical History Medical History Anxiety Asthma Facial injury GERD (gastroesophageal reflux disease) Hypercholesterolemia Hypertension Impaired glucose tolerance Panic attack Vitamin D deficiency Family History Family History Father Myocardial infarction Mother Hypertension Stroke Brother In good health Sister In good health Son In good health Daughter In good health Surgical History Surgical History History of cataract surgery Hx of cholecystectomy Social History Social History Household Members: None Housing: House Do you presently have visiting nurse or other home services: No Alcohol intake: never Patient Tobacco Use Status: Never used Tobacco Advance Directives: No Advance Directives Information Provided: No Advance Directives on File: No Recently lost weight without trying: No Eating poorly because of decreased appetite: No Nutrition Risks: No Nutritional Risk service: No Current occupational status: previously employed and retired 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 Meds Allergies Allergy/AdvReac Type Severity Reaction Status Date / Time ARB-Angiotensin Receptor Allergy Unknown ANAPHYLAXIS Verified 09/03/20 06:57 Antagonist [ANGIOTENSIN RECEPTOR ANTAGONIST] beclomethasone [QNASL] Allergy Unknown blurred Verified 09/03/20 06:57 vision, headaches budesonide [Symbicort] Allergy Unknown higher Verified 09/03/20 06:57 dose problem ciprofloxacin [Cipro] Allergy Unknown Unknown Verified 09/03/20 06:57 codeine [Codeine] Allergy Unknown UNKNOWN Verified 09/03/20 06:57 digestive enzymes combo no.8 Allergy Unknown Unknown Verified 09/03/20 06:57 [From Digestive Enzyme (acidoph,pec)] fluticasone [Flovent HFA] Allergy Unknown Unknown Verified 09/03/20 06:57 Lactobacillus acidophilus Allergy Unknown Unknown Verified 09/03/20 06:57 [From Digestive Enzyme (acidoph,pec)] lisinopril [LISINOPRIL] Allergy Unknown ANGIOEDEMA Verified 09/03/20 06:57 mometasone furoate [Dulera] Allergy Unknown Unknown Verified 09/03/20 06:57 nebivolol [Bystolic] Allergy Unknown Unknown Verified 09/03/20 06:57 olmesartan [Benicar] Allergy Unknown Unknown Verified 09/03/20 06:57 pectin Allergy Unknown Unknown Verified 09/03/20 06:57 [From Digestive Enzyme (acidoph,pec)] Sulfa (Sulfonamide Allergy Unknown headache, Verified 09/03/20 06:57 Antibiotics) shaking, freezing sensation, upset stomach Home Medications Medication Instructions Recorded Confirmed Last Taken Type albuterol sulfate 90 mcg/actuation 2 puff INHALATION Q4-6H PRN 04/16/20 08/28/20 09/03/20 04:00 History aerosol inhaler cholecalciferol (vitamin D3) 50 50 mcg PO DAILY 04/16/20 08/28/20 06/25/20 History mcg (2,000 unit) capsule vitamin B complex 1 tab PO DAILY 04/16/20 08/28/20 06/25/20 History amlodipine 5 mg PO BEDTIME 06/26/20 08/28/20 06/25/20 History atorvastatin 10 mg PO BEDTIME 06/26/20 08/28/20 06/25/20 History multivitamin 1 tab PO DAILY 06/26/20 08/28/20 06/25/20 History Exam Airway Mallampati Class: II TM Dist: >3cm Neck ROM: Full Denture: Upper and Lower Heart: [id number] Lungs: + b/s bilaterally Assessment and Plan Assessment Anesthesia Assessment: Anesthesia Plan Discussed, PAT Visit and Chart Reviewed Final Anesthetic Review NPO: Yes ASA Class: III Final Preanesthetic Review: No Changes in Pt Med Stat, Meds/Allgs Chart Reviewed, Consent Obtained/Reviewed and Anes Risks/Benef Reviewed Patient Risk: Intermediate Procedure Risk: Intermediate Assessment/Block/Sedation in SS: Assess/Block/Sedation-SS Anesthetic Plan Anesthetic Plan: GA and Agree w/ Assess. and Plan Disposition: Standard PACU
--- NOTE | 2020-09-02 20:38 | P.HPSUR_ITS ---
Pre-Procedural Eval Section B Chief Complaint: digestive disorder Details of Present Illness: She presents for stent removal after resolved bile leak. See consult and op note for details of previous evaluation. No changes since stent placement. Relevant Family History (Specify if Yes): No Relevant Social History: None Present Medications: see Short Stay Collaborative assessment Medical History: Significant History (See preivous consult, no changes) History of Previous Operations: Relevant previous surgery/procedure and date(s) (See previous consult, no changes) Allergies: Allergies Allergy/AdvReac Type Severity Reaction Status Date / Time ARB-Angiotensin Receptor Allergy Unknown ANAPHYLAXIS Verified 08/28/20 11:27 Antagonist [ANGIOTENSIN RECEPTOR ANTAGONIST] beclomethasone [QNASL] Allergy Unknown blurred Verified 08/28/20 11:27 vision, headaches budesonide [Symbicort] Allergy Unknown higher Verified 08/28/20 11:27 dose problem ciprofloxacin [Cipro] Allergy Unknown Unknown Verified 08/28/20 11:27 codeine [Codeine] Allergy Unknown UNKNOWN Verified 08/28/20 11:27 digestive enzymes combo no.8 Allergy Unknown Unknown Verified 08/28/20 11:27 [From Digestive Enzyme (acidoph,pec)] fluticasone [Flovent HFA] Allergy Unknown Unknown Verified 08/28/20 11:27 Lactobacillus acidophilus Allergy Unknown Unknown Verified 08/28/20 11:27 [From Digestive Enzyme (acidoph,pec)] lisinopril [LISINOPRIL] Allergy Unknown ANGIOEDEMA Verified 08/28/20 11:27 mometasone furoate [Dulera] Allergy Unknown Unknown Verified 08/28/20 11:27 nebivolol [Bystolic] Allergy Unknown Unknown Verified 08/28/20 11:27 olmesartan [Benicar] Allergy Unknown Unknown Verified 08/28/20 11:27 pectin Allergy Unknown Unknown Verified 08/28/20 11:27 [From Digestive Enzyme (acidoph,pec)] Sulfa (Sulfonamide Allergy Unknown headache, Verified 08/28/20 11:27 Antibiotics) shaking, freezing sensation, upset stomach Review of Systems Sugical H&P ROS: Negative: Constitution, Cardiovascular, Respiratory, Neurological, Psychiatric, Hem-Onc, Allergic/Immunologic, Gastrointestinal, Genitourinary, Musculoskeletal, Integumentary, Endocrine and Eyes/Ears/Nose/T hroat Exam Surgical H&P Exam: Normal: HEENT, Normal: Heart, Normal: Lungs, Normal: Extremities, Normal: Abdomen, Normal: Skin and Normal: Neurological Plan Diagnosis/Plan: Unchanged (ERCP with stent removal.) I have reviewed the history and physical and performed a pertinent physical examination on my patient. No changes have occurred unless specified.
[2020-09-03] VITALS (7 sets, daily range): BP systolic 123–136; BP diastolic 46–80; PULSE 62–98; RESP 12–185; TEMP 36.3–36.4; O2SAT 96–100
--- NOTE | ~2020-09-03 | XR_ITS ---
EXAMINATION: XR ABDOMEN KUB CLINICAL INDICATION: Check stent placement. COMPARISON: None TECHNIQUE: AP view of the abdomen. FINDINGS: There is scattered stool seen in the colon without significant distention. The small bowel loops are normal caliber. There is no organomegaly. The gallbladder has been surgically removed. A common bile duct stent is noted. Mild degenerative changes L2-L3 and L4-L5 disc levels with ventral spondylosis is noted. XR/XR KUB IMPRESSION: Mild constipation. Mild degenerative changes L2-L3 and L4-L5 disc levels with ventral spondylosis.
--- NOTE | ~2020-09-03 | FL_ITS ---
EXAMINATION: XR FLUOROSCOPY WITH IMAGES CLINICAL INFORMATION: Stent placement. COMPARISON: CT abdomen and pelvis 06/26/2020 TECHNIQUE: Fluoroscopy performed by Dr. Vizcaino. Fluoroscopy time: 30.8 s Dose: 8.23 mGycm2 Images: 3 FINDINGS: There are 3 digital images obtained following ERCP with contrast opacifying proximal dilated common hepatic duct and bile duct. The distal CBD is not well visualized. The final image reveals a common bile duct stent in place. FL/FL guidance in OR IMPRESSION: Fluoroscopy was provided during ERCP to Dr. Vizcaino with placement of a common bile duct stent.
[2020-09-03] MEDS: Lactated Ringers 1,000 ML 100 ML IVCONT (07:18)
[2020-09-03 07:44] LABS: Anion Gap 11 (12-20); Carbon Dioxide 27 mmol/L (22-29); Chloride 107 mmol/L (96-108); Potassium 3.9 mmol/L (3.3-5.1); Sodium 141 mmol/L (135-145)
--- NOTE | 2020-09-03 08:36 | P.BOP_ITS ---
Brief Operative Note Date of Service: 09/03/20 Pre-op diagnosis: bile leak Post-op diagnosis: same Procedure: ERCP stent removal Surgeon: Jesse Vizcaino Anesthesia: GETA Was an Unit Manager Rn used for this Procedure?: No Estimated blood loss (mL): 5 Pathology: none sent Condition: stable Disposition: PACU
[2020-09-03] MEDS: Acetaminophen 325 MG TABLET 650 MG PO (09:17)
--- NOTE | 2020-09-05 10:56 | OP_ITS ---
SURGEON: Jesse Vizcaino MD INDICATIONS: Bile leak status post stent placement. PREOPERATIVE DIAGNOSIS: POSTOPERATIVE DIAGNOSIS: PROCEDURE PERFORMED: ERCP with stent removal. ESTIMATED BLOOD LOSS: COMPLICATIONS: ANESTHESIA: ASSISTANTS: SPECIMENS: MEDICATIONS: Monitored general anesthesia. DESCRIPTION OF PROCEDURE: The history and physical performed. The risks and benefits of the procedure were explained to the patient. Informed consent was obtained. The patient was placed in the prone position with a wedge under the right shoulder. The Olympus therapeutic duodenoscope was introduced into the esophagus, stomach, and duodenum. Examination was performed. The scope was removed. She tolerated the procedure well, returned to recovery area in stable condition. FINDINGS: The previously placed biliary stent was present extending from the sphincterotomy site in the duodenal diverticulum with good drainage of clear bile. There was some difficulty initially passing a polypectomy snare through the distal part of the endoscope and the scope had to be removed and reinserted several times. Eventually the stent was successfully removed using the polypectomy snare. Next, a cholangiogram was obtained through a sphincterotome, which showed no filling defects and no evidence of persistent bile leak. At this point, the procedure was terminated. There was excellent drainage of clear yellow bile at the termination of the procedure. No pancreatogram was attempted or obtained. IMPRESSION: Normal ERCP status post stent removal. RECOMMENDATION: Follow up as needed. MD OTILIA Rangel/NEYMAR / [id number]
== END 2020-09-03 10:13 | disposition home or self-care (01) ==
PROVIDERS: Nurse Practitioner; PCP Internal Medicine; Visit Provider Internal Medicine Gastroenterology
PROC: (CPT 43260; principal; 2020-09-03 07:30)
DX: K91.89 Other postprocedural complications and disorders of digestive system (principal); I10 Essential (primary) hypertension; J45.909 Unspecified asthma, uncomplicated; Z79.899 Other long term (current) drug therapy; Z88.8 Allergy status to other drugs, medicaments and biological substances
CPT/HCPCS: 43275; 36415; 74018; 80051; J1100; J1610; J2250; J2405; J3010; Q9967

== ENCOUNTER 2020-10-02 09:11 | Outpatient (REF) | payer MEDICARE, SELFPAY ==
[2020-10-02 10:13] LABS: Retic HGB Equivalent 33.9 pg (30.0-35.0); Reticulocyte Percent 0.9 % (0.5-1.8); Reticulocytes Absolute 0.037 X10*6/uL (0.026-0.095)
[2020-10-02 11:03] LABS: Iron 82 mcg/dL (30-160); Percent Iron Saturation 29 % (15-50); Total Iron Binding Capacity 282 mcg/dL (228-428); Unsaturated Iron Binding 200 ug/dL
[2020-10-02 11:26] LABS: Ferritin 60 ng/mL (10-250)
[2020-10-02 11:34] LABS: Folate > 20.0 ng/mL (> or = 4.0); Vitamin B12 785 pg/mL (200-900)
== END 2020-10-02 09:12 | disposition home or self-care (01) ==
LOC: HO.10HDL 09:11
PROVIDERS: Visit Provider Internal Medicine
DX: D64.9 Anemia, unspecified (principal)
CPT/HCPCS: 36415; 82607; 82728; 82746; 83540; 85045

== ENCOUNTER 2021-01-08 10:43 | Outpatient (REF) | payer MEDICARE, SELFPAY ==
[2021-01-08 12:20] LABS: Appearance Urine CLOUDY; Color Urine YELLOW; Glucose Urine UA NEG (NEG); Leukocyte Esterase Urine 3+ (NEG); Nitrite Urine POS (NEG); PH 6.5 (5.0-8.0); UACC Culture Trigger YES; Urine Blood TRACE (NEG); Urine Ketones NEG (NEG); Urine Protein NEG (NEG-TRACE)
[2021-01-08 12:26] LABS: WBC Urine TNTC /HPF (0-4)
[2021-01-08 12:27] LABS: Bacteria Urine 2+ /LPF; Mucus Urine 1+ /LPF; Squamous Epithelial Cell Urine 1+ /LPF
== END 2021-01-08 10:44 | disposition home or self-care (01) ==
LOC: HO.LAB 10:43
PROVIDERS: PCP Internal Medicine; Visit Provider Internal Medicine
DX: R30.0 Dysuria (principal)
CPT/HCPCS: 81001; 87086; 87088; 87186

== ENCOUNTER 2021-02-16 11:39 | Outpatient (REF) | payer MEDICARE, SELFPAY ==
[2021-02-16 12:04] LABS: MANUAL DIFF FLAG NO
[2021-02-16 12:20] LABS: Basophils Absolute Auto 0.1 X10*3/uL (0.0-0.2); Basophils Percent Auto 0.6 % (0-2); Eosinophils Absolute Auto 0.2 X10*3/uL (0.0-0.4); Eosinophils Percent Auto 2.5 % (0-4); Hematocrit 44.3 % (37.0-47.0); Hemoglobin 14.5 g/dl (12.0-16.0); Imm Gran Abs Auto 0.02 X10*3/uL (0.00-0.03); Imm Gran Pct Auto 0.2 % (0.0-0.4); Lymphocytes Absolute Auto 1.9 X10*3/uL (1.2-4.9); Lymphocytes Percent Auto 19.5 % (20-40); Mean Corpuscular HGB Conc 32.7 g/dl (31.0-35.0); Mean Corpuscular Hemoglobin 30.3 pg (27.0-33.0); Mean Corpuscular Volume 92.7 fL (80.0-98.0); Mean Platelet Volume 9.9 fL (9.4-12.3); Monocytes Absolute Auto 0.6 X10*3/uL (0.1-1.2); Monocytes Percent Auto 6.3 % (2-11); Neutrophils Absolute Auto 6.8 x10*3/uL (2.0-8.3); Neutrophils Percent Auto 70.9 % (45-73); Platelet Count 256 X10*3/uL (160-400); Red Blood Count 4.78 X10*6/uL (4.20-5.50); Red Cell Distribution Width 12.4 % (11.0-16.0); Retic HGB Equivalent 34.9 pg (30.0-35.0); Reticulocyte Percent 1.2 % (0.5-1.8); Reticulocytes Absolute 0.056 X10*6/uL (0.026-0.095); White Blood Count 9.6 X10*3/uL (4.8-10.8)
[2021-02-16 12:42] LABS: Alanine Aminotransferase 24 U/L (0-31); Albumin Level 4.2 g/dL (3.5-5.0); Alkaline Phosphatase 74 U/L (39-117); Anion Gap 14 (12-20); Aspartate Amino Transferase 26 U/L (5-31); Bilirubin Total 0.5 mg/dL (0.0-1.0); Blood Urea Nitrogen 14 mg/dL (9-16); Calcium 9.9 mg/dL (8.4-10.2); Carbon Dioxide 26 mmol/L (22-29); Chloride 101 mmol/L (96-108); Cholesterol 217 mg/dL; Estimated Glomerular Filt Rate > 60; Glucose Random 105 mg/dL (60-115); HDL Cholesterol 61 mg/dL; Iron 117 mcg/dL (30-160); LDL Cholesterol Calculated 137 mg/dl; Percent Iron Saturation 40 % (15-50); Potassium 4.6 mmol/L (3.3-5.1); Sodium 136 mmol/L (135-145); Total Iron Binding Capacity 291 mcg/dL (228-428); Total Protein 7.1 g/dL (6.5-8.0); Triglycerides 95 mg/dL; Unsaturated Iron Binding 174 ug/dL
[2021-02-16 12:57] LABS: Estimated Average Glucose 111 mg/dL; Ferritin 51 ng/mL (10-250); Free T4 (Free Thyroxine) 1.11 ng/dL (0.71-1.85); Hemoglobin A1c % 5.5 %; Thyroid Stimulating Hormone 1.33 uIU/mL (0.32-4.0); Vitamin D 25-OH Total 36.1 ng/mL (>30)
[2021-02-16 13:24] LABS: Folate > 20.0 ng/mL (> or = 4.0); Vitamin B12 721 pg/mL (200-900)
[2021-02-16 13:32] LABS: Appearance Urine CLOUDY; Color Urine YELLOW; Glucose Urine UA NEG (NEG); Leukocyte Esterase Urine 3+ (NEG); Nitrite Urine POS (NEG); UACC Culture Trigger YES; Urine Blood TRACE (NEG); Urine Ketones NEG (NEG); Urine Protein NEG (NEG-TRACE)
[2021-02-16 13:51] LABS: Bacteria Urine 2+ /LPF; Squamous Epithelial Cell Urine 2+ /LPF; WBC Urine TNTC /HPF (0-4)
== END 2021-02-16 11:40 | disposition home or self-care (01) ==
LOC: HO.LAB 11:39
PROVIDERS: PCP Internal Medicine; Visit Provider Internal Medicine
DX: D64.9 Anemia, unspecified (principal); R73.02 Impaired glucose tolerance (oral); E78.00 Pure hypercholesterolemia, unspecified; I10 Essential (primary) hypertension
CPT/HCPCS: 36415; 80053; 80061; 81001; 82306; 82607; 82728; 82746; 83036; 83540; 84439; 84443; 85025; 85045; 87086; 87088; 87186

== ENCOUNTER 2021-05-05 13:18 | Outpatient (REF) | payer MEDICARE, SELFPAY ==
--- NOTE | ~2021-05-05 | MM_ITS ---
EXAMINATION: MM SCREENING DIGITAL BREAST TOMOSYNTHESIS, BILATERAL CLINICAL INFORMATION: Screening. Asymptomatic. The lifetime risk of breast cancer based on the Tyrer-Cuzick Model is 3%. COMPARISON: Mammography: 11/09/2018, 10/11/2017, 04/26/2016 TECHNIQUE: Digital breast tomosynthesis is performed in both the craniocaudal and mediolateral oblique views along with computer-aided detection (CAD). Synthesized 2D images are generated from the tomosynthesis. Additional right CC view is provided. FINDINGS: The breasts are almost entirely fatty (ACR BI-RADS breast composition Category a). There is no significant mass or architectural abnormality. Background stromal densities are stable. No abnormal calcifications. The axilla are unremarkable. No significant changes. MM/MM tomosynthesis screening BI IMPRESSION: No mammographic evidence of malignancy. ASSESSMENT: BI-RADS 2: Benign RECOMMENDATION: Routine annual mammography screening. This patient's information was entered into a reminder system with a target due date for their next mammogram.
== END 2021-05-05 13:19 | disposition home or self-care (01) ==
LOC: HO.MAMMO 13:18
PROVIDERS: PCP Internal Medicine; Visit Provider Internal Medicine
DX: Z12.31 Encounter for screening mammogram for malignant neoplasm of breast (principal)
CPT/HCPCS: 77063; 77067

== ENCOUNTER 2021-05-25 09:54 | Outpatient (REF) | payer MEDICARE, SELFPAY ==
[2021-05-25 11:27] LABS: Appearance Urine CLOUDY; Color Urine YELLOW; Glucose Urine UA NEG (NEG); Leukocyte Esterase Urine 3+ (NEG); Nitrite Urine POS (NEG); UACC Culture Trigger YES; Urine Blood TRACE (NEG); Urine Ketones NEG (NEG); Urine Protein NEG (NEG-TRACE)
[2021-05-25 11:46] LABS: Bacteria Urine 3+ /LPF; RBC Urine 0 /HPF (0); Squamous Epithelial Cell Urine 1+ /LPF; WBC Clumps Urine NOTED; WBC Urine TNTC /HPF (0-4)
== END 2021-05-25 09:55 | disposition home or self-care (01) ==
LOC: HO.LAB 09:54
PROVIDERS: PCP Internal Medicine; Visit Provider Internal Medicine
DX: R30.0 Dysuria (principal)
CPT/HCPCS: 36415; 81001; 87086; 87088; 87186

== ENCOUNTER 2021-06-03 13:25 | Outpatient (REF) | payer MEDICARE, SELFPAY ==
[2021-06-03 14:29] LABS: Appearance Urine CLOUDY; Color Urine YELLOW; Glucose Urine UA NEG (NEG); Leukocyte Esterase Urine 2+ (NEG); Nitrite Urine POS (NEG); Specific Gravity - Urine <= 1.005 (1.005-1.025); Urine Blood 1+ (NEG); Urine Ketones NEG (NEG); Urine Protein NEG (NEG-TRACE)
[2021-06-03 14:39] LABS: WBC Urine TNTC /HPF (0-4)
[2021-06-03 14:40] LABS: Bacteria Urine 2+ /LPF; Squamous Epithelial Cell Urine 2+ /LPF; WBC Clumps Urine NOTED
== END 2021-06-03 13:26 | disposition home or self-care (01) ==
LOC: HO.LAB 13:25
PROVIDERS: PCP Internal Medicine; Visit Provider Internal Medicine
DX: R30.0 Dysuria (principal)
CPT/HCPCS: 81001

== ENCOUNTER 2021-06-05 09:41 | Outpatient (REF) | payer MEDICARE, SELFPAY ==
[2021-06-05 10:40] LABS: Estimated Average Glucose 103 mg/dL; Hemoglobin A1c % 5.2 %
[2021-06-05 11:10] LABS: Alanine Aminotransferase 20 U/L (0-31); Albumin Level 4.1 g/dL (3.5-5.0); Alkaline Phosphatase 66 U/L (39-117); Anion Gap 14 (12-20); Aspartate Amino Transferase 22 U/L (5-31); Bilirubin Total 0.6 mg/dL (0.0-1.0); Blood Urea Nitrogen 12 mg/dL (9-16); Calcium 9.7 mg/dL (8.4-10.2); Carbon Dioxide 25 mmol/L (22-29); Chloride 103 mmol/L (96-108); Cholesterol 180 mg/dL; Estimated Glomerular Filt Rate > 60; Glucose Random 103 mg/dL (60-115); HDL Cholesterol 64 mg/dL; LDL Cholesterol Calculated 102 mg/dl; Potassium 4.3 mmol/L (3.3-5.1); Sodium 138 mmol/L (135-145); Total Protein 6.8 g/dL (6.5-8.0); Triglycerides 73 mg/dL
== END 2021-06-05 09:42 | disposition home or self-care (01) ==
LOC: HO.LAB 09:41
PROVIDERS: PCP Internal Medicine; Visit Provider Internal Medicine
DX: E78.00 Pure hypercholesterolemia, unspecified (principal)
CPT/HCPCS: 36415; 80053; 80061; 83036

== ENCOUNTER 2021-06-15 08:41 | Emergency (ER) | payer MEDICARE, SELFPAY ==
[2021-06-15 09:16] VITALS: BP 161/74; PULSE 47; RESP 16; TEMP 36.7; O2SAT 99; BMI 26.8
--- NOTE | 2021-06-15 09:22 | ED.GENADULT ---
HPI - General Adult General Chief complaint: Wound/Laceration Stated complaint: wound check Time Seen by Provider: 06/15/21 09:21 Source: patient Mode of arrival: ambulatory Limitations: no limitations History of Present Illness HPI narrative: Patient is a 70 year old female presenting to the emergency department today with a growth on her left wrist. Patient states that she initially had a wart on her left wrist that she picked at and now it has grown into this. Patient states that she was seen at an urgent care and they recommended she follow up with a outboard motors experimental mechanic, which she has scheduled for July. Patient denies any dizziness, lightheadedness, abdominal pain, nausea, vomiting, fever, chills, blurry vision, double vision, loss of vision, chest pain, difficulty breathing, shortness of breath, back pain, night sweats, pain with urination, increased urinary frequency, increased urinary urgency, blood in her urine or stool, syncope or a near syncopal episode, recent trauma or falls, bowel incontinence, bladder incontinence, bowel retention, bladder retention, or any other complaints at this time. Patient states that she has tried to remove the growth with scissors. Patient states that the area immediatley around the growth and around her entire left wrist is very itchy. Onset (ago): week(s) Location: left (wrist) Radiation: non-radiation Severity: mild Severity scale (1-10): 3 Quality: dull Pain Consistency: constant Relieving factors: none Exacerbating factors: none Associated symptoms: rash Related Data Home Medications Medication Instructions Recorded Confirmed albuterol sulfate 90 mcg/actuation 2 puff INHALATION Q4-6H PRN 04/16/20 09/11/20 aerosol inhaler (ProAir HFA) cholecalciferol (vitamin D3) 50 50 mcg PO DAILY 04/16/20 09/11/20 mcg (2,000 unit) capsule vitamin B complex 1 tab PO DAILY 04/16/20 09/11/20 multivitamin 1 tab PO DAILY 06/26/20 09/11/20 Previous Rx's Medication Instructions Recorded amlodipine 5 mg tablet 5 mg PO BEDTIME #90 tab 10/27/20 atorvastatin 10 mg tablet 10 mg PO BEDTIME #90 tab 10/27/20 Symbicort 80 mcg-4.5 mcg/actuation 2 puff INHALATION BID 30 Days #3 05/26/21 HFA aerosol inhaler ea NS (budesonide-formoterol) cefdinir 300 mg capsule 300 mg PO BID 10 Days #20 cap 06/03/21 prednisone 20 mg tablet 20 mg PO DAILY 12 Days #26 tab 06/15/21 Allergies Allergy/AdvReac Type Severity Reaction Status Date / Time ARB-Angiotensin Receptor Allergy Unknown ANAPHYLAXIS Verified 03/11/21 12:23 Antagonist [ANGIOTENSIN RECEPTOR ANTAGONIST] beclomethasone [QNASL] Allergy Unknown blurred Verified 03/11/21 12:23 vision, headaches budesonide [Symbicort] Allergy Unknown higher Verified 03/11/21 12:23 dose problem ciprofloxacin [Cipro] Allergy Unknown Unknown Verified 03/11/21 12:23 codeine [Codeine] Allergy Unknown UNKNOWN Verified 03/11/21 12:23 digestive enzymes combo no.8 Allergy Unknown Unknown Verified 03/11/21 12:23 [From Digestive Enzyme (acidoph,pec)] fluticasone [Flovent HFA] Allergy Unknown Unknown Verified 03/11/21 12:23 Lactobacillus acidophilus Allergy Unknown Unknown Verified 03/11/21 12:23 [From Digestive Enzyme (acidoph,pec)] lisinopril [LISINOPRIL] Allergy Unknown ANGIOEDEMA Verified 03/11/21 12:23 mometasone furoate [Dulera] Allergy Unknown Unknown Verified 03/11/21 12:23 nebivolol [Bystolic] Allergy Unknown Unknown Verified 03/11/21 12:23 olmesartan [Benicar] Allergy Unknown Unknown Verified 03/11/21 12:23 pectin Allergy Unknown Unknown Verified 03/11/21 12:23 [From Digestive Enzyme (acidoph,pec)] Sulfa (Sulfonamide Allergy Unknown headache, Verified 03/11/21 12:23 Antibiotics) shaking, freezing sensation, upset stomach Review of Systems Constitutional: Constitutional: Reports no additional constitutional complaints, Denies chills, Denies fever(s) and Denies night sweats Eyes: Eyes: Reports no additional eye complaints, Denies blurry vision, Denies change in vision, Denies diplopia, Denies eye discharge, Denies loss of vision and Denies eye pain ENT: Denies dizziness Cardiovascular: Cardiovascular: Reports no additional cardiovascular complaints, Denies chest pain, Denies lightheadedness, Denies Loss of Consciousness and Denies dyspnea Respiratory: Respiratory: Reports no additional respiratory complaints and Denies dyspnea Gastrointestinal: Gastrointestinal: Reports no additional gastrointestinal complaints, Denies abdominal pain, Denies melena, Denies hematochezia, Denies change in bowel habits and Denies change in stool character Genitourinary: Genitourinary: Denies hematuria, Denies urinary frequency, Denies dysuria, Denies urinary incontinence, Denies urinary hesitancy and Denies urinary urgency Musculoskeletal: Musculoskeletal: Reports no additional musculoskeletal complaints, Denies numbness and Denies tingling Integumentary/Breasts: Comments: growth to left wrist and rash around left wrist Neurologic: Denies dizziness, Denies loss of vision, Denies numbness and Denies tingling Psychiatric: Psychiatric: Reports no additional psychiatric complaints Endocrine: Endocrine: Reports no additional endocrine complaints Hematologic/Lymphatic: Hematologic/Lymphatic: Reports no additional hematologic/lymphatic complaints Allergic/Immunologic: Allergic/Immunologic: Reports no additional allergic/immunologic complaints [facility] Past Medical History Attestation statement: The following information was validated with the patient. Source: old records reviewed Medical History Anxiety Asthma Facial injury GERD (gastroesophageal reflux disease) Hypercholesterolemia Hypertension Impaired glucose tolerance Panic attack Vitamin D deficiency Surgical History History of cataract surgery Hx of cholecystectomy Family History Family History Father Myocardial infarction Mother Hypertension Stroke Brother In good health Sister In good health Son In good health Daughter In good health Social History Social History Household Members: None Housing: House Do you presently have visiting nurse or other home services: No Alcohol intake: never Patient Tobacco Use Status: Former Tobacco user e-Cigarette/Vaping Use: Never Used Second Hand Smoke Exposure: No Advance Directives: Yes Advance Directives Information Provided: No Advance Directives on File: No service: No Current occupational status: previously employed and retired 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 Physical Exam ED Vital Signs: Vital Signs - 24 hr 06/15/21 09:16 06/15/21 09:48 Temperature 98.0 F Pulse Rate 47 L 52 Respiratory Rate 16 18 Blood Pressure 161/74 H Pulse Oximetry 99 98 BMI result Body Mass Index 26.8 Const General: cooperative, no acute distress, alert and awake Nutritional Appearance: well nourished Orientation/consciousness: patient oriented x3 Limitations: no limitations HENMT Head: Yes normal to inspection and Yes atraumatic Ears: hearing grossly normal bilaterally and external ears normal General nose exam: Normal external nose present, no nasal discharge noted and no epistaxis Face and sinus: Yes normal facial exam, No abrasion and No laceration Mouth: Normal oral and palatal mucosa present, no drooling and no muffled voice Eyes General: appearance normal, both eyes and all related structures Periorbital: periorbital findings normal Eyelids: Yes eyelids normal Conjunctivae: conjunctivae normal Pupils: Equal, round and reactive pupils present EOM: EOMs intact bilaterally Neck Neck: Yes normal visual inspection, Yes full ROM and Yes no lymphadenopathy Chest Chest palpation & inspection: normal inspection of the chest Resp Effort & Inspection: normal respiratory effort and able to speak in complete sentences Auscultation: clear to auscultation bilaterally Cardio Rate: regular rate Rhythm: regular rhythm GI Inspection: Yes normal to inspection Skin Other: small wart like growth to the radial aspect of the left wrist with surrounding erythema Neuro General: patient oriented x3 and moves all extremities Cranial nerves: Yes Equal, round and reactive pupils present Cognition (Neuro): normal cognition Motor exam (neuro): 5/5 motor strength present throughout Sensory Exam: Normal double simultaneous stimulation for sensation Coordination: [id number] test normal Extrem General: Yes normal to inspection, Yes full ROM and Yes capillary refill normal Psych Appearance: grossly normal Mental Status: mental status grossly normal Affect: normal affect Attitude: cooperative Thought process: Normal thought process present Thought content: Normal thought content present Insight: Good insight present (Psych) Medical Decision Making MDM Narrative Medical decision making narrative: Patient is a 70 year old female presenting to the emergency department today with a left wrist growth and rash. Patient's physical exam showed a small wart like growth to the left wrist as well as surrounding erythema. The patient's clinical presentation is consistent with a typical wart and surrounding contact dermatitis secondary to constant bandaid coverage to the area. I explained my physical exam findings to the patient. I answered all questions asked by the patient. I stressed the importance of the patient taking her medication as prescribed. I stressed the importance of the patient following up with her primary care provider and her outboard motors experimental mechanic, as scheduled. I stressed the importance of the patient returning to the emergency department immediately if her symptoms were to worsen or if she were to develop any dizziness, shortness of breath, difficulty breathing, chest pain, blurry vision, loss of vision, nausea, vomiting, abdominal pain, fever, chills, back pain, or any other complaints. Patient verbalized agreement and understanding with this treatment plan and discharge. Differential Diagnosis Differential Diagnosis: wart, skin growth, contact dermatitis Medical Records Medical records reviewed: Yes I reviewed the patient's medical records. Discharge Plan Discharge Clinical Impression: Rash Patient Disposition: Home, Self-Care Instructions: Contact Dermatitis (DC), Acute Rash (ED) Additional Instructions: Do NOT attempt to remove the growth. Follow up with your outboard motors experimental mechanic as scheduled. Follow up with your primary care provider. Return to the emergency department immediately if your symptoms worsen or if you develop any dizziness, shortness of breath, difficulty breathing, chest pain, blurry vision, loss of vision, nausea, vomiting, abdominal pain, fever, chills, back pain, or any other complaints. Prescriptions: New prednisone 20 mg tablet 20 mg PO DAILY 12 Days Qty: 26 0RF Rx Instructions: Take 3 tablets for 5 days then; Take 2 tablets for 4 days then; Take 1 tablet for 3 days No Action atorvastatin 10 mg tablet 10 mg PO BEDTIME Qty: 90 3RF amlodipine 5 mg tablet 5 mg PO BEDTIME Qty: 90 3RF budesonide-formoterol [Symbicort] 80-4.5 mcg/actuation HFA aerosol inhaler 2 puff inhalation BID 30 Days Qty: 3 3RF cefdinir 300 mg capsule 300 mg PO BID 10 Days Qty: 20 0RF multivitamin Tablet 1 tab PO DAILY 0RF albuterol sulfate [ProAir HFA] 90 mcg/actuation HFA aerosol inhaler 2 puff inhalation Q4-6H PRN (Reason: Shortness Of Breath Or Wheezing) 0RF Rx Instructions: PATIENT HAS NOT NEEDED, INHALER NOT USED cholecalciferol (vitamin D3) 50 mcg (2,000 unit) capsule 50 mcg PO DAILY 0RF vitamin B complex Tablet 1 tab PO DAILY 0RF Referrals: Po,Cassandra Butler MD [Primary Care Provider] - 2 days Interventions: ED Discharge Assessment Last Done: 06/15/21 09:48 Discharge Date/Time: 06/15/21 09:49 Print Language: Armenian
[2021-06-15 09:48] VITALS: PULSE 52; RESP 18; O2SAT 98
== END 2021-06-15 09:49 | disposition home or self-care (01) ==
PROVIDERS: Emergency Provider Emergency Medicine; PCP Internal Medicine
DX: R21 Rash and other nonspecific skin eruption (principal); I10 Essential (primary) hypertension; E78.5 Hyperlipidemia, unspecified
CPT/HCPCS: 99283

== ENCOUNTER 2021-09-04 11:27 | Emergency (ER) | payer MEDICARE, SELFPAY ==
--- NOTE | 2021-09-04 11:32 | ECG_ITS ---
Test Reason : palpitations Blood Pressure : / mmHG Vent. Rate : 082 BPM Atrial Rate : 082 BPM P-R Int : 164 ms QRS Dur : 076 ms QT Int : 386 ms P-R-T Axes : 077 006 057 degrees QTc Int : 450 ms Normal sinus rhythm Low voltage QRS Borderline ECG When compared with ECG of 26-JUN-2020 08:02, No significant change was found Referred By: Genevieve Guallpa Electronically Signed By:Evens Cerrato
[2021-09-04 11:42] VITALS: BP 145/50; BP 190/90; PULSE 104; PULSE 77; RESP 18; TEMP 37.2; O2SAT 96; O2SAT 99; BMI 27.3
[2021-09-04 12:07] LABS: MANUAL DIFF FLAG NO
[2021-09-04 12:11] LABS: Basophils Absolute Auto 0.1 X10*3/uL (0.0-0.2); Basophils Percent Auto 0.6 % (0-2); Eosinophils Absolute Auto 0.1 X10*3/uL (0.0-0.4); Eosinophils Percent Auto 1.4 % (0-4); Hematocrit 38.7 % (37.0-47.0); Imm Gran Abs Auto 0.02 X10*3/uL (0.00-0.03); Imm Gran Pct Auto 0.3 % (0.0-0.4); Lymphocytes Absolute Auto 1.4 X10*3/uL (1.2-4.9); Lymphocytes Percent Auto 18.5 % (20-40); Mean Corpuscular HGB Conc 33.6 g/dl (31.0-35.0); Mean Corpuscular Hemoglobin 30.9 pg (27.0-33.0); Mean Corpuscular Volume 91.9 fL (80.0-98.0); Mean Platelet Volume 9.3 fL (9.4-12.3); Monocytes Absolute Auto 0.5 X10*3/uL (0.1-1.2); Monocytes Percent Auto 6.1 % (2-11); Neutrophils Absolute Auto 5.7 x10*3/uL (2.0-8.3); Neutrophils Percent Auto 73.1 % (45-73); Platelet Count 222 X10*3/uL (160-400); Red Blood Count 4.21 X10*6/uL (4.20-5.50); White Blood Count 7.7 X10*3/uL (4.8-10.8)
--- NOTE | 2021-09-04 12:19 | ED_ITS ---
HPI - General Adult General Chief complaint: General Medical Stated complaint: PALPITATIONS Time Seen by Provider: 09/04/21 11:31 Source: patient and family Mode of arrival: ambulatory History of Present Illness HPI narrative: 70-year-old female presents with complaints of palpitations that started approximately 2 days ago and denies any recent medication changes, use of alcohol states that the 1st episode occurred in the evening while she was trying to go to sleep. She does describe having a sore throat but denies any fever, chills, GI or symptoms. Patient is concerned that this may be due to a brand difference in her high blood pressure medication. She otherwise denies any shortness of breath. Related Data Home Medications Medication Instructions Recorded Confirmed albuterol sulfate 90 mcg/actuation 2 puff inhalation Q4-6H PRN 04/16/20 06/25/21 aerosol inhaler (ProAir HFA) Shortness Of Breath Or Wheezing cholecalciferol (vitamin D3) 50 50 mcg PO DAILY 04/16/20 06/25/21 mcg (2,000 unit) capsule vitamin B complex 1 tab PO DAILY 04/16/20 06/25/21 multivitamin 1 tab PO DAILY 06/26/20 06/25/21 Previous Rx's Medication Instructions Recorded amlodipine 5 mg tablet 5 mg PO BEDTIME #90 tabs 10/27/20 atorvastatin 10 mg tablet 10 mg PO BEDTIME #90 tabs 10/27/20 Symbicort 80 mcg-4.5 mcg/actuation 2 puff inhalation BID 30 days #3 ea 05/26/21 HFA aerosol inhaler (budesonide-formoterol) prednisone 20 mg tablet 20 mg PO DAILY 12 days #26 tabs 06/15/21 cefdinir 300 mg capsule 300 mg PO Q12H 5 days #10 caps 09/04/21 Allergies Allergy/AdvReac Type Severity Reaction Status Date / Time ARB-Angiotensin Receptor Allergy Unknown ANAPHYLAXIS Verified 06/25/21 12:19 Antagonist [ANGIOTENSIN RECEPTOR ANTAGONIST] beclomethasone [QNASL] Allergy Unknown blurred Verified 06/25/21 12:19 vision, headaches budesonide [Symbicort] Allergy Unknown higher Verified 06/25/21 12:19 dose problem ciprofloxacin [Cipro] Allergy Unknown Unknown Verified 06/25/21 12:19 codeine [Codeine] Allergy Unknown UNKNOWN Verified 06/25/21 12:19 digestive enzymes combo no.8 Allergy Unknown Unknown Verified 06/25/21 12:19 [From Digestive Enzyme (acidoph,pec)] fluticasone [Flovent HFA] Allergy Unknown Unknown Verified 06/25/21 12:19 Lactobacillus acidophilus Allergy Unknown Unknown Verified 06/25/21 12:19 [From Digestive Enzyme (acidoph,pec)] lisinopril [LISINOPRIL] Allergy Unknown ANGIOEDEMA Verified 06/25/21 12:19 mometasone furoate [Dulera] Allergy Unknown Unknown Verified 06/25/21 12:19 nebivolol [Bystolic] Allergy Unknown Unknown Verified 06/25/21 12:19 olmesartan [Benicar] Allergy Unknown Unknown Verified 06/25/21 12:19 pectin Allergy Unknown Unknown Verified 06/25/21 12:19 [From Digestive Enzyme (acidoph,pec)] Sulfa (Sulfonamide Allergy Unknown headache, Verified 06/25/21 12:19 Antibiotics) shaking, freezing sensation, upset stomach Review of Systems Review of Systems: Pertinent positives and negatives as stated in HPI 10 point review of systems otherwise negative. [facility] Past Medical History Source: nursing notes reviewed Medical History Facial injury Panic attack Vitamin D deficiency Surgical History History of cataract surgery Family History Family History Father Myocardial infarction Mother Hypertension Stroke Brother In good health Sister In good health Son In good health Daughter In good health Social History Social History Household Members: None Housing: House Do you presently have visiting nurse or other home services: No Alcohol intake: current Patient Tobacco Use Status: Former Tobacco user Years Smoked: 1989 quit e-Cigarette/Vaping Use: Never Used Second Hand Smoke Exposure: No Advance Directives: Yes Advance Directives Information Provided: No Advance Directives on File: No service: No Current occupational status: previously employed and retired 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 GENERAL: Well developed, well nourished, in no acute distress. HEAD: Normocephalic/atraumatic EYES: PERRLA, EOMI EARS: Ext canals without abnormality OROPHARYNX: no oral lesions noted, posterior pharynx clear and non-erythematous without noted tonsillar enlargement/erythema/exudates NECK: Supple, no adenopathy LUNGS: Normal breath sounds. No adventitious sounds or accessory muscle use. SpO2<96> CARDIOVASCULAR: Regular rate and rhythm without noted murmurs, no JVD or lower extremity edema. ABDOMEN: Soft, non-tender, non-distended with bowel sounds. MUSCULOSKELETAL: No tenderness, deformities, or effusions noted on gross inspection. EXTREMITIES: No cyanosis, clubbing or edema. SKIN: Inspection of the skin reveals no rashes NEUROLOGIC: Alert and oriented x 4. Strength and sensation to light touch were grossly intact x 4, no facial asymmetry, no pronator drift, cranial nerves 2-12 are grossly intact. Course Course Course Narrative: 70-year-old female with history and clinical presentation after review of all investigations significant for UTI. There were no acute EKG changes to suggest dysrhythmia as this time and cardiac labs were within normal limits and patient is PERC negative. Patient received initial antibiotics here in the emergency room and was given all results and instructed follow-up with primary care prov ider for further evaluation of her recurrent UTIs. Medical Decision Making Lab Data Result diagrams: 09/04/21 12:03 09/04/21 12:03 Labs: Lab Results 09/04/21 09/04/21 09/04/21 Range/Units 12:03 12:03 12:03 WBC 7.7 (4.8-10.8) X10*3/uL RBC 4.21 (4.20-5.50) X10*6/uL Hgb 13.0 (12.0-16.0) g/dl Hct 38.7 (37.0-47.0) % MCV 91.9 (80.0-98.0) fL MCH 30.9 (27.0-33.0) pg MCHC 33.6 (31.0-35.0) g/dl RDW 12.0 (11.0-16.0) % Plt Count 222 (160-400) X10*3/uL MPV 9.3 L (9.4-12.3) fL Immature Gran % (Auto) 0.3 (0.0-0.4) % Neut % (Auto) 73.1 H (45-73) % Lymph % (Auto) 18.5 L (20-40) % Lanier % (Auto) 6.1 (2-11) % Eos % (Auto) 1.4 (0-4) % Baso % (Auto) 0.6 (0-2) % Lymph # (Auto) 1.4 (1.2-4.9) X10*3/uL Lanier # (Auto) 0.5 (0.1-1.2) X10*3/uL Eos # (Auto) 0.1 (0.0-0.4) X10*3/uL Baso # (Auto) 0.1 (0.0-0.2) X10*3/uL Abs Immat Gran (auto) 0.02 (0.00-0.03) X10*3/uL Absolute Neuts (auto) 5.7 (2.0-8.3) x10*3/uL Absolute Nucleated RBC 0.000 (0.0-0.012) X10*3/uL Nucleated RBC % (auto) 0.0 (0.0-0.2) /100WBC Sodium 139 (135-145) mmol/L Potassium 4.2 (3.3-5.1) mmol/L Chloride 104 (96-108) mmol/L Carbon Dioxide 27 (22-29) mmol/L Anion Gap 12 (12-20) BUN 14 (9-16) mg/dL Creatinine 0.78 (0.5-1.4) mg/dL Estim Creat Clear Calc 57.4 Estimated GFR > 60 Random Glucose 100 (60-115) mg/dL Calcium 9.2 (8.4-10.2) mg/dL Total Bilirubin 0.5 (0.0-1.0) mg/dL AST 24 (5-31) U/L ALT 21 (0-31) U/L Alkaline Phosphatase 58 (39-117) U/L Troponin I High Sens < 3.5 (<3.5-17.0) ng/L B-Natriuretic Peptide 33 (<100) pg/mL Total Protein 6.3 L (6.5-8.0) g/dL Albumin 4.0 (3.5-5.0) g/dL Urine Color Urine Appearance Urine pH (5.0-8.0) Ur Specific Baltic (1.005-1.025) Urine Protein (NEG-TRACE) MG/DL Urine Glucose (UA) (NEG) MG/DL Urine Ketones (NEG) MG/DL Urine Blood (NEG) Urine Nitrite (NEG) Ur Leukocyte Esterase (NEG) Urine RBC (0) /HPF Urine WBC (0-4) /HPF Ur Squamous Epith Cells /LPF Urine Bacteria /LPF COVID-19 (ELIJAH) (Negative) COVID-19 Clin Com Influenza Type A (CLARK) (Negative) Influenza Type B (CLARK) (Negative) Influenza A & B Note 09/04/21 09/04/21 09/04/21 Range/Units 13:04 13:04 13:08 WBC (4.8-10.8) X10*3/uL RBC (4.20-5.50) X10*6/uL Hgb (12.0-16.0) g/dl Hct (37.0-47.0) % MCV (80.0-98.0) fL MCH (27.0-33.0) pg MCHC (31.0-35.0) g/dl RDW (11.0-16.0) % Plt Count (160-400) X10*3/uL MPV (9.4-12.3) fL Immature Gran % (Auto) (0.0-0.4) % Neut % (Auto) (45-73) % Lymph % (Auto) (20-40) % Lanier % (Auto) (2-11) % Eos % (Auto) (0-4) % Baso % (Auto) (0-2) % Lymph # (Auto) (1.2-4.9) X10*3/uL Lanier # (Auto) (0.1-1.2) X10*3/uL Eos # (Auto) (0.0-0.4) X10*3/uL Baso # (Auto) (0.0-0.2) X10*3/uL Abs Immat Gran (auto) (0.00-0.03) X10*3/uL Absolute Neuts (auto) (2.0-8.3) x10*3/uL Absolute Nucleated RBC (0.0-0.012) X10*3/uL Nucleated RBC % (auto) (0.0-0.2) /100WBC Sodium (135-145) mmol/L Potassium (3.3-5.1) mmol/L Chloride (96-108) mmol/L Carbon Dioxide (22-29) mmol/L Anion Gap (12-20) BUN (9-16) mg/dL Creatinine (0.5-1.4) mg/dL Estim Creat Clear Calc Estimated GFR Random Glucose (60-115) mg/dL Calcium (8.4-10.2) mg/dL Total Bilirubin (0.0-1.0) mg/dL AST (5-31) U/L ALT (0-31) U/L Alkaline Phosphatase (39-117) U/L Troponin I High Sens (<3.5-17.0) ng/L B-Natriuretic Peptide (<100) pg/mL Total Protein (6.5-8.0) g/dL Albumin (3.5-5.0) g/dL Urine Color YELLOW Urine Appearance CLEAR Urine pH 7.0 (5.0-8.0) Ur Specific Baltic 1.010 (1.005-1.025) Urine Protein NEG (NEG-TRACE) MG/DL Urine Glucose (UA) NEG (NEG) MG/DL Urine Ketones NEG (NEG) MG/DL Urine Blood NEG (NEG) Urine Nitrite NEG (NEG) Ur Leukocyte Esterase 2+ H (NEG) Urine RBC 0-2 (0) /HPF Urine WBC 76-150 H (0-4) /HPF Ur Squamous Epith Cells 1+ /LPF Urine Bacteria 3+ /LPF COVID-19 (ELIJAH) Negative (Negative) COVID-19 Clin Com See Note Influenza Type A (CLARK) Negative (Negative) Influenza Type B (CLARK) Negative (Negative) Influenza A & B Note See Note ECG Data Attestation: I personally reviewed and interpreted this ECG as follows: Prior ECG tracings: available for review Interpretation: Normal sinus rhythm, HR-82, no STEMI, UT/QRS/QTC are within normal limits. Discharge Plan Discharge Clinical Impression: Heart palpitations, Acute UTI Patient Disposition: Home, Self-Care Instructions: Heart Palpitations (ED), Urinary Tract Infection in Women (ED) Additional Instructions: 1. Resume all home medications as prescribed. 2. Complete the entire course of antibiotics as prescribed. 3. Follow-up with your primary care provider by calling the office in setting up an appointment for discussion regarding further evaluation of your recurrent UTIs as well as discussion regarding your heart palpitations.. Return to the ER for worsening symptoms. Prescriptions: New cefdinir 300 mg capsule 300 mg PO Q12H 5 Days Qty: 10 0RF No Action atorvastatin 10 mg tablet 10 mg PO BEDTIME Qty: 90 3RF amlodipine 5 mg tablet 5 mg PO BEDTIME Qty: 90 3RF budesonide-formoterol [Symbicort] 80-4.5 mcg/actuation HFA aerosol inhaler 2 puff inhalation BID 30 Days Qty: 3 3RF multivitamin Tablet 1 tab PO DAILY prednisone 20 mg tablet 20 mg PO DAILY 12 Days Qty: 26 0RF Rx Instructions: Take 3 tablets for 5 days then; Take 2 tablets for 4 days then; Take 1 tablet for 3 days albuterol sulfate [ProAir HFA] 90 mcg/actuation HFA aerosol inhaler 2 puff inhalation Q4-6H PRN (Reason: Shortness Of Breath Or Wheezing) Rx Instructions: PATIENT HAS NOT NEEDED, INHALER NOT USED cholecalciferol (vitamin D3) 50 mcg (2,000 unit) capsule 50 mcg PO DAILY vitamin B complex Tablet 1 tab PO DAILY Referrals: Po,Cassandra Butler MD [Primary Care Provider] -
[2021-09-04 12:25] LABS: Alanine Aminotransferase 21 U/L (0-31); Alkaline Phosphatase 58 U/L (39-117); Anion Gap 12 (12-20); Aspartate Amino Transferase 24 U/L (5-31); Bilirubin Total 0.5 mg/dL (0.0-1.0); Blood Urea Nitrogen 14 mg/dL (9-16); Calcium 9.2 mg/dL (8.4-10.2); Carbon Dioxide 27 mmol/L (22-29); Chloride 104 mmol/L (96-108); Creatinine Clr Calc Pharmacy 57.4; Estimated Glomerular Filt Rate > 60; Glucose Random 100 mg/dL (60-115); Potassium 4.2 mmol/L (3.3-5.1); Sodium 139 mmol/L (135-145); Total Protein 6.3 g/dL (6.5-8.0)
[2021-09-04 12:49] LABS: B Type Natriuretic Peptide 33 pg/mL (<100); Troponin-I High Sensitivity < 3.5 ng/L (<3.5-17.0)
[2021-09-04 13:14] LABS: Appearance Urine CLEAR; Color Urine YELLOW; Glucose Urine UA NEG (NEG); Leukocyte Esterase Urine 2+ (NEG); Nitrite Urine NEG (NEG); UACC Culture Trigger YES; Urine Blood NEG (NEG); Urine Ketones NEG (NEG); Urine Protein NEG (NEG-TRACE)
[2021-09-04 13:19] LABS: RBC Urine 0-2 /HPF (0)
[2021-09-04 13:20] LABS: Bacteria Urine 3+ /LPF; Squamous Epithelial Cell Urine 1+ /LPF
[2021-09-04 13:33] LABS: COVID-19 Test Negative (Negative); IDNOW Serial# 55D5AD1C; IDNOW Serial# 9DB6401D; Influenza A Negative (Negative); Influenza B2 Negative (Negative)
[2021-09-04] MEDS: cefTRIAXone sodium 1 GM in 0.9 % Sodium Chloride 50 ML IV (14:16)
== END 2021-09-04 14:36 | disposition home or self-care (01) ==
PROVIDERS: Emergency Provider Student in an Organized Health Care Education/Training Program; PCP Internal Medicine
DX: N39.0 Urinary tract infection, site not specified (principal); R00.2 Palpitations; Z20.822 Contact with and (suspected) exposure to COVID-19
CPT/HCPCS: 36415; 80053; 81001; 83880; 84484; 85025; 87086; 87088; 87186; 87502; 87635; 93005; 96365; 99284; J0696

== ENCOUNTER 2021-09-16 18:12 | Outpatient (REF) | payer MEDICARE, SELFPAY ==
[2021-09-16 18:20] LABS: Appearance Urine CLEAR; Color Urine YELLOW; Glucose Urine UA NEG (NEG); Leukocyte Esterase Urine TRACE (NEG); Nitrite Urine NEG (NEG); Urine Blood NEG (NEG); Urine Ketones NEG (NEG); Urine Protein NEG (NEG-TRACE)
[2021-09-16 18:32] LABS: RBC Urine 0 /HPF (0)
[2021-09-16 18:33] LABS: Bacteria Urine TRACE /LPF
== END 2021-09-16 18:13 | disposition home or self-care (01) ==
LOC: HO.LNP 18:12
PROVIDERS: Visit Provider Internal Medicine
DX: R30.0 Dysuria (principal)
CPT/HCPCS: 81001

== ENCOUNTER → 2021-09-29 10:09 | Outpatient (REF) | payer MEDICARE, SELFPAY ==
--- NOTE | 2021-09-29 10:11 | HM_ITS ---
Conclusion: 1. Patient was monitored for total period of 5 days and 23 hours 2. Baseline was normal sinus rhythm with average heart of 80 beats per minute 3. No significant pauses or bradycardia noted 4. Very frequent runs of supraventricular tachycardia with the longest episode lasting 52 minutes, the rhythm is irregular and could represent atrial fibrillation 5. Total of 111,085 PACs accounting for 13.75% of total beats accounting for frequent PACs 6. No patient reported events MTDD
== END ==
LOC: HO.CARD 10:09
PROVIDERS: PCP Internal Medicine; Visit Provider Nurse Practitioner Family
DX: R00.2 Palpitations (principal)
CPT/HCPCS: 93242

== ENCOUNTER 2021-10-27 13:59 | Outpatient (REF) | payer MEDICARE, SELFPAY | END 2021-10-27 14:00 | disposition home or self-care (01) | LOC: HO.LAB 13:59 | DX: N39.0 Urinary tract infection, site not specified (principal) | CPT/HCPCS: 87086; 87088; 87186; 99202 ==

== ENCOUNTER → 2022-01-20 09:57 | Outpatient (BNVA) | payer MEDICARE, SELFPAY | PROVIDERS: PCP Internal Medicine; Referring Provider Internal Medicine; Visit Provider Internal Medicine Cardiovascular Disease | DX: R00.2 Palpitations (principal) | CPT/HCPCS: 93005; 99202 ==

== ENCOUNTER → 2022-02-02 09:46 | Outpatient (REF) | payer MEDICARE, SELFPAY ==
--- NOTE | 2022-02-02 09:50 | CA_ITS ---
Transthoracic Echocardiogram Patient (Last, First, Middle): Eric Broderick J Gender: Female Date of : 1950 Age: 71 Procedure Date: 02/02/2022 Procedure Type: Transthoracic Echocardiogram Location: OP Height: 154.94 cm Weight: 65.77 kg BSA: 1.65 m2 Heart Rate: bpm BP: 135 / 68 mmHg Research Professional: [place] Referring MD: Evens Cerrato MD Can Line Examiner: Evens Cerrato MD Symptoms: R00.2 - Palpitations Study Quality: Adequate Conclusions: - Normal left ventricular size and systolic function. There is mildly increased left ventricular wall thickness. The visually estimated ejection fraction is between 55-60%. - Elevated filling pressures. - Normal right ventricular cavity size and systolic function. - There is moderate mitral annular calcification. There is no mitral valve regurgitation. There is no mitral valve stenosis. Findings Left Ventricle Normal left ventricular size and systolic function. There is mildly increased left ventricular wall thickness. The visually estimated ejection fraction is between 55-60%. There is no evidence of regional wall motion abnormalities. Abnormal diastolic function is noted. Spectral Doppler is indicative of an impaired relaxation filling pattern. Elevated filling pressures. Right Ventricle Normal right ventricular cavity size and systolic function. Atria Both atria are normal in size. Aortic Valve Normal aortic valve structure and function. There is no aortic valve stenosis. There is trace (trivial) aortic valve regurgitation. Mitral Valve There is moderate mitral annular calcification. There is no mitral valve regurgitation. There is no mitral valve stenosis. Pulmonic Valve The pulmonic valve is likely normal. There is no pulmonic valve regurgitation. Tricuspid Valve Normal tricuspid valve structure. There is trace tricuspid valve regurgitation. Normal right atrial pressure. There is no evidence of pulmonary hypertension. Great Vessels All visible segments of the aorta are normal in size. Venous The inferior vena cava is normal in size and collapses greater than 50% with inspiration. Pericardium/Pleural There is no evidence of pericardial effusion. Prior Study Comparison No prior study available for comparison. Measurements 2D Linear Measurements IVSd: 0.92 0.6-0.9/0.6-1.0 cm LVIDd: 4.14 3.9-5.3/4.2-5.9 cm LVIDd Index: 2.51 2.4-3.2/2.2-3.1 cm/m2 LVIDs: 2.33 2.0-3.6 cm LVPWd: 1.03 0.7-1.1 cm LA Diam: 3.00 2.7-3.8/3.0-4.0 cm LAIDs Index: 1.82 1.5-2.3 cm/m2 LV Mass: 161.57 67-162/88-224 g LV Mass Index: 97.92 43-95/49-115 g/m2 LVOT Diam: 1.90 3.0+(-)1.3 cm 2D Systolic Function EF 4C: 61.30 >55% EF 2C: 66.70 >55% EF BiP: 63.70 >55% Mitral Valve MV Pk E: 1.03 MV PK A: 1.11 MV Decel Time: 256.00 E/A: 0.90 E'Lateral: 7.51 E'Medial: 6.20 E/E' Med: 16.60 E/E' Lat: 13.70 PHT: 75.00 MVA PHT: 2.93 Decel Griggs: 4.04 Aortic Valve AoV Pk Gomez: 1.21 AoV Mn Gomez: 0.86 AoV VTI: 0.30 AoV Pk Grad: 6.00 Aov Mn Grad: 3.00 JYOTI Cont.VTI: 1.95 LVOT LVOT Pk Gomez: 0.98 LVOT Mn Gomez: 0.61 LVOT VTI: 0.20 LVOT Pk Grad: 4.00 LVOT Mn Grad: 2.00 LVOT Diam: 1.90 LVOT Area: 2.84 Diastolic Function MV Pk E: 1.03 MV Pk A: 1.11 E/A: 0.90 E'Medial: 6.20 E/E' Med: 16.60 E' Laterial: 7.51 E/E' Lat: 13.70 Right Ventricle TAPSE (mm): 23.60 TVS' Gomez: 12.00 Tricuspid Valve TR Pk Gomez: 2.54 TR Pk Grad: 26.00 RA Press: 3.00 RVSP: 29.00 Great Vessels Aorta Sinus of Valsalva: 3.41 2.0-3.5 cm Ao Asc: 3.20 2.1-3.4 cm Updated in Other Vendor System with Status of Final Evens Cerrato MD electronically signed on 02/02/2022 9:20:07 PM with status of Final
== END ==
LOC: HO.CARD 09:46
PROVIDERS: Visit Provider Internal Medicine Cardiovascular Disease
DX: R00.2 Palpitations (principal)
CPT/HCPCS: 93306

== ENCOUNTER → 2022-04-01 10:43 | Outpatient (BNVA) | payer MEDICARE, SELFPAY | PROVIDERS: PCP Internal Medicine; Visit Provider Urology | DX: R35.1 Nocturia (principal); N39.0 Urinary tract infection, site not specified | CPT/HCPCS: 51798; 99212 ==

== ENCOUNTER 2022-04-29 11:41 | Outpatient (REF) | payer MEDICARE, SELFPAY ==
--- NOTE | ~2022-04-29 | US_ITS ---
EXAMINATION: US RETROPERITONEAL LIMITED (RENAL ONLY) CLINICAL INFORMATION: Dysuria. COMPARISON: CT abdomen and pelvis with contrast 06/26/2020. TECHNIQUE: Real-time imaging of the kidneys. FINDINGS: RIGHT KIDNEY: 9.6 x 4.4 x 5.7 cm (SAG x AP x TRV). The kidney is normal in size, contour, and echogenicity. Renal cortical thickness is normal. No renal calculi or hydronephrosis. A 1.7 cm benign-appearing renal cyst, no imaging follow-up recommended. LEFT KIDNEY: 10.2 x 4.9 x 5.1 cm (SAG x AP x TRV). The kidney is normal in size, contour, and echogenicity. Renal cortical thickness is normal. No calculi or focal parenchymal lesions. No hydronephrosis. Duplicated left renal collecting system. US/US renal BI IMPRESSION: Duplicated left renal collecting system. No hydronephrosis or nephrolithiasis.
== END 2022-04-29 11:42 | disposition home or self-care (01) ==
LOC: HO.US 11:41
PROVIDERS: Visit Provider Urology
DX: R30.0 Dysuria (principal)
CPT/HCPCS: 76775

== ENCOUNTER 2022-05-10 10:20 | Outpatient (REF) | payer MEDICARE, SELFPAY ==
--- NOTE | ~2022-05-10 | MM_ITS ---
EXAMINATION: MM SCREENING DIGITAL BREAST TOMOSYNTHESIS, BILATERAL CLINICAL INFORMATION: Screening. Asymptomatic. The lifetime risk of breast cancer based on the Tyrer-Cuzick Model is 3%. COMPARISON: Mammography: 6 05/05/2021, 11/09/2018, 10/11/2017 TECHNIQUE: Digital breast tomosynthesis is performed in both the craniocaudal and mediolateral oblique views along with computer-aided detection (CAD). Synthesized 2D images are generated from the tomosynthesis. Additional bilateral CC views are provided. FINDINGS: The breasts are almost entirely fatty (ACR BI-RADS breast composition Category a). No architectural abnormality or developing density or significant change from prior studies. Background stromal markings are stable. There are no significant masses, abnormal calcifications, or other abnormalities. There is asymmetry of the breasts, right larger similar to prior studies. There are scattered vascular and some benign round and dermal calcifications. No significant changes. MM/MM tomosynthesis screening BI IMPRESSION: No mammographic evidence of malignancy. ASSESSMENT: BI-RADS 2: Benign RECOMMENDATION: Routine annual mammography screening. This patient's information was entered into a reminder system with a target due date for their next mammogram.
== END 2022-05-10 10:21 | disposition home or self-care (01) ==
LOC: HO.MAMMO 10:20
PROVIDERS: PCP Internal Medicine; Visit Provider Internal Medicine
DX: Z12.31 Encounter for screening mammogram for malignant neoplasm of breast (principal)
CPT/HCPCS: 77063; 77067

== ENCOUNTER 2022-05-12 12:15 | Outpatient (REF) | payer MEDICARE, SELFPAY ==
[2022-05-13 13:34] LABS: BV Int Neg Control Negative (Negative); BV Int Pos Control Positive (Positive)
== END 2022-05-12 12:16 | disposition home or self-care (01) ==
LOC: HO.LAB 12:15
PROVIDERS: PCP Internal Medicine; Visit Provider Urology
DX: N76.0 Acute vaginitis (principal); N39.0 Urinary tract infection, site not specified; R35.1 Nocturia
CPT/HCPCS: 52000; 87086; 87088; 87186; 87480; 87510; 87660; 99212

== ENCOUNTER → 2022-05-31 08:23 | Outpatient (BNVA) | payer MEDICARE, SELFPAY | PROVIDERS: PCP Internal Medicine; Visit Provider Urology | DX: N39.0 Urinary tract infection, site not specified (principal) | CPT/HCPCS: 51701 ==

== ENCOUNTER → 2022-06-03 10:39 | Outpatient (BNVA) | payer MEDICARE, SELFPAY | PROVIDERS: PCP Internal Medicine; Visit Provider Urology | DX: N39.0 Urinary tract infection, site not specified (principal); R35.1 Nocturia | CPT/HCPCS: 51798; 99212 ==

== ENCOUNTER → 2022-06-17 10:20 | Outpatient (BNVA) | payer MEDICARE, SELFPAY | PROVIDERS: PCP Internal Medicine; Referring Provider Internal Medicine; Visit Provider Internal Medicine Cardiovascular Disease | DX: R06.09 Other forms of dyspnea (principal); R00.2 Palpitations | CPT/HCPCS: 93005; 99212 ==

== ENCOUNTER → 2022-06-21 09:42 | Outpatient (REF) | payer MEDICARE, SELFPAY ==
--- NOTE | 2022-06-21 09:45 | CA_ITS ---
Acquisition Time: 2022-06-21 10:43:34 Total Exercise Time: 00:03:13 Test Indications: R06.09 - Other forms of dyspnea Medications: see med sheet Protocol: NENITA Max HR: 113 BPM 76% of Pred: 148 BPM Max BP: 140/056 mmHG Max Work Load: 4.8 METS Exercise stress test with exercise 3 min 13 sec of Nenita protocol, achieving 76% MPHR, with moderate sob and request to stop, no chest discomfort, with isolated PAC, with normotensive response to exercise, with nondiagnostic EKG for ischemia due to suboptimal heart rate. In recovery her breathing normalized. Test reviewed with Dr Cerrato. Referred By: Evens Cerrato Overread By: NAIDA SUNG
== END ==
LOC: HO.CARD 09:42
PROVIDERS: PCP Internal Medicine; Visit Provider Internal Medicine Cardiovascular Disease
DX: R06.09 Other forms of dyspnea (principal)
CPT/HCPCS: 93017

== ENCOUNTER 2022-06-29 09:13 | Emergency (ER) | payer MEDICARE, SELFPAY ==
--- NOTE | ~2022-06-29 | CT_ITS ---
EXAMINATION: CT HEAD WITHOUT CONTRAST CLINICAL INFORMATION: Vertigo COMPARISON: None available. TECHNIQUE: Contiguous axial imaging was performed from the skull base to vertex without intravenous administration of contrast. This CT examination was performed using dose optimization techniques as appropriate, variously including the following: *Automated exposure control *Adjustment of mA and/or kV according to patient size (this includes techniques or standardized protocols for targeted exams where dose is matched to indication/reason for exam; i.e. extremities or head) *Use of iterative reconstruction technique DLP: 581 mGy-cm FINDINGS: There is no acute intra-axial, extra-axial bleed, masses or midline shift. There is no acute infarction evolution. There is no edema. The lateral ventricles are symmetrical in size and configuration without enlargement. Bone windows reveal no calvarial abnormality. There is mild mucoperiosteal thickening bilateral posterior ethmoid and right sphenoid sinuses. Rest of the paranasal sinuses and mastoid air cells are well-aerated. There is no scalp soft tissue abnormality. 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
--- NOTE | 2022-06-29 09:24 | ED.DIZZY ---
HPI - Dizziness General Chief Complaint: Dizziness Stated Complaint: lightheaded for days Time Seen by Provider: 06/29/22 09:23 Source: patient Mode of arrival: EMS Limitations: no limitations History of Present Illness HPI Narrative: patient went to [facility] with dizziness. she has had recent cardiac workup which has been negative. Patient has had a history of vertigo and now is nauseated. She also feels like her right ear is blocked. Patient initially was on meclizine but then went to rehab. She still does exercises for her vertigo. Patient with increased sinus pressure MD elicited complaint: dizziness Pertinent past history: BPPV Onset (ago): week(s) (1) Timing: gradual onset Severity: moderate Description: sense of movement and off-balance Exacerbating factors: movement/ambulation Related Data Home Medications Medication Instructions Recorded Confirmed albuterol sulfate 90 mcg/actuation 2 puff inhalation Q4-6H PRN 04/16/20 06/17/22 aerosol inhaler (ProAir HFA) Shortness Of Breath Or Wheezing cholecalciferol (vitamin D3) 50 50 mcg PO DAILY 04/16/20 06/17/22 mcg (2,000 unit) capsule vitamin B complex 1 tab PO DAILY 04/16/20 06/17/22 multivitamin 1 tab PO DAILY 06/26/20 06/17/22 cholecalciferol (vitamin D3) 25 25 mcg PO DAILY 06/17/22 06/17/22 mcg (1,000 unit) capsule Previous Rx's Medication Instructions Recorded amlodipine 5 mg tablet 5 mg PO BEDTIME #90 tabs 10/22/21 atorvastatin 10 mg tablet 10 mg PO BEDTIME #90 tabs 10/22/21 Symbicort 80 mcg-4.5 mcg/actuation 2 puff inhalation BID 30 days #3 ea 05/28/22 HFA aerosol inhaler (budesonide-formoterol) cephalexin 250 mg capsule 250 mg PO DAILY UTI suppression 60 06/03/22 days #60 caps fluticasone furoate 27.5 1 spray intranasal DAILY #18.2 mL 06/29/22 mcg/actuation nasal spray,suspension (Flonase Sensimist) meclizine 25 mg tablet 25 mg PO TID #14 tabs 06/29/22 Allergies Allergy/AdvReac Type Severity Reaction Status Date / Time ARB-Angiotensin Receptor Allergy Unknown ANAPHYLAXIS Verified 06/17/22 10:52 Antagonist [ANGIOTENSIN RECEPTOR ANTAGONIST] beclomethasone [QNASL] Allergy Unknown blurred Verified 06/17/22 10:52 vision, headaches budesonide [Symbicort] Allergy Unknown higher Verified 06/17/22 10:52 dose problem ciprofloxacin [Cipro] Allergy Unknown Unknown Verified 06/17/22 10:52 codeine [Codeine] Allergy Unknown UNKNOWN Verified 06/17/22 10:52 digestive enzymes combo no.8 Allergy Unknown Unknown Verified 06/17/22 10:52 [From Digestive Enzyme (acidoph,pec)] fluticasone [Flovent HFA] Allergy Unknown Unknown Verified 06/17/22 10:52 Lactobacillus acidophilus Allergy Unknown Unknown Verified 06/17/22 10:52 [From Digestive Enzyme (acidoph,pec)] lisinopril [LISINOPRIL] Allergy Unknown ANGIOEDEMA Verified 06/17/22 10:52 mometasone furoate [Dulera] Allergy Unknown Unknown Verified 06/17/22 10:52 nebivolol [Bystolic] Allergy Unknown Unknown Verified 06/17/22 10:52 olmesartan [Benicar] Allergy Unknown Unknown Verified 06/17/22 10:52 pectin Allergy Unknown Unknown Verified 06/17/22 10:52 [From Digestive Enzyme (acidoph,pec)] Sulfa (Sulfonamide Allergy Unknown headache, Verified 06/17/22 10:52 Antibiotics) shaking, freezing sensation, upset stomach verapamil AdvReac Intermediate Blurry Verified 06/17/22 10:52 Vision Review of Systems Review of Systems: Yes all other systems are reviewed and are negative Constitutional: Comments: vertigo, sinus congestion Neurologic: Denies Sensory deficit (Neuro) [facility] Past Medical History Medical History Anxiety Asthma Cholelithiasis Facial injury GERD (gastroesophageal reflux disease) Hypercholesterolemia Hypertension Impaired glucose tolerance Panic attack Vitamin D deficiency Surgical History History of cataract surgery Hx of cholecystectomy Family History Family History Father Myocardial infarction Mother Hypertension Stroke Brother In good health Sister In good health Son In good health Daughter In good health Other Substance use disorder Social History Social History Household Members: None Housing: House Do you presently have visiting nurse or other home services: No Alcohol intake: never Patient Tobacco Use Status: Former Tobacco user Quit Date: 1989 Smoked: 20 +/- Smoked in Last 30 Days: No e-Cigarette/Vaping Use: Never Used Second Hand Smoke Exposure: No Use of substances other than those prescribed or required for medical reasons: No Advance Directives: No Advance Directives Information Provided: Yes service: No Current occupational status: previously employed and retired 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 Cognitive needs: No Hearing needs: No Vision needs: Yes Physical Exam Vital Signs: Vital Signs: Last Vital Signs Temp 98.3 F 06/29/22 09:25 Pulse 78 06/29/22 09:25 Resp 20 06/29/22 09:25 BP 136/72 06/29/22 09:25 Pulse Ox 97 06/29/22 09:25 O2 Del Method Room Air 06/29/22 09:25 BMI result Body Mass Index 29.1 Const: Other: nauseated General: healthy appearing Nutritional Appearance: average body habitus Orientation/consciousness: oriented to person and patient oriented x3 Limitations: no limitations HEENT: Other: Nystagmus on right lateral gaze, right TM with cerumen plug Head: Yes normal to inspection General nose exam: Normal external nose present Mouth: Normal oral and palatal mucosa present and oropharynx normal Throat: Yes posterior oropharynx normal Eyes: General: appearance normal, both eyes and all related structures Neck: Other: supple Neck: Yes normal visual inspection Chest: Chest palpation & inspection: normal inspection of the chest Resp: Auscultation: clear to auscultation bilaterally Cardio: Jugular venous distension: no JVD Rate: regular rate Rhythm: regular rhythm Heart sounds: S1 normal heart sound present and S2 normal heart sound present GI: Inspection: Yes normal to inspection Palpation (GI): Soft to palpation, nontender and No hepatosplenomegaly present Auscultation: normal bowel sounds : General: Yes no CVA tenderness Back/Spine/Pelvis: Back: no CVA tenderness Skin: General skin exam: no rashes or lesions noted Neuro: General: oriented to person and patient oriented x3 Cranial nerves: Yes CN's II-XII intact bilaterally Motor exam (neuro): 07/23 motor strength present throughout Sensory Exam: No Sensory deficit (Neuro) Extrem: General: Yes normal to inspection Psych: Appearance: grossly normal Course Reevaluation(s) Reevaluation #1: patient with vertigo and sinusitis will dc on flonase and meclizine Time: 12:51 Medications Administered Discontinued Medications Generic Name Dose Route Start Last Admin Trade Name Freq PRN Reason Stop Dose Admin Meclizine HCl 50 mg 06/29/22 09:33 06/29/22 10:03 Meclizine Hcl 25 Mg Tablet PO 06/29/22 09:34 50 mg ONCE ONE Administration Medical Decision Making Differential Diagnosis Differential Diagnoses: The differential diagnosis associated with the presentation includes (vertigo, CVA, sinusitis, otitis, cerumen impaction) Admission/Observation Consideration of admission/observation: Escalation of care including admission/observation considered (A 71yo female with HTN, high cholesterol, who presents with dizziness was considered for admission) Lab Data MDM Lab Attestation statement: I reviewed the patient's lab results. 06/29/22 10:16 06/29/22 10:16 Labs: Lab Results 06/29/22 06/29/22 06/29/22 Range/Units 10:06 10:16 10:16 WBC 7.6 (4.8-10.8) X10*3/uL RBC 4.33 (4.20-5.50) X10*6/uL Hgb 13.3 (12.0-16.0) g/dl Hct 39.7 (37.0-47.0) % MCV 91.7 (80.0-98.0) fL MCH 30.7 (27.0-33.0) pg MCHC 33.5 (31.0-35.0) g/dl RDW 12.2 (11.0-16.0) % Plt Count 224 (160-400) X10*3/uL MPV 9.6 (9.4-12.3) fL Immature Gran % (Auto) 0.1 (0.0-0.4) % Neut % (Auto) 75.4 H (45-73) % Lymph % (Auto) 16.3 L (20-40) % [place] % (Auto) 5.7 (2-11) % Eos % (Auto) 2.0 (0-4) % Baso % (Auto) 0.5 (0-2) % Lymph # (Auto) 1.2 (1.2-4.9) X10*3/uL [place] # (Auto) 0.4 (0.1-1.2) X10*3/uL Eos # (Auto) 0.2 (0.0-0.4) X10*3/uL Baso # (Auto) 0.0 (0.0-0.2) X10*3/uL Abs Immat Gran (auto) 0.01 (0.00-0.03) X10*3/uL Absolute Neuts (auto) 5.7 (2.0-8.3) x10*3/uL Absolute Nucleated RBC 0.000 (0.0-0.012) X10*3/uL Nucleated RBC % (auto) 0.0 (0.0-0.2) /100WBC Sodium 140 (135-145) mmol/L Potassium 4.3 (3.3-5.1) mmol/L Chloride 105 (96-108) mmol/L Carbon Dioxide 29 (22-29) mmol/L Anion Gap 10 L (12-20) BUN 11 (9-16) mg/dL Creatinine 0.73 (0.5-1.4) mg/dL Estim Creat Clear Calc 62.3 Estimated GFR > 60 Random Glucose 107 (60-115) mg/dL Calcium 9.0 (8.4-10.2) mg/dL Urine Color Dark Yellow Urine Appearance Clear Urine pH 7.0 (5.0-9.0) Ur Specific [place] 1.010 (1.005-1.025) Urine Protein Negative (Neg-Trace) mg/dL Urine Glucose (UA) Negative (Negative) mg/dL Urine Ketones Negative (Negative) mg/dL Urine Blood Negative (Negative) Urine Nitrite Negative (Negative) Ur Leukocyte Esterase Negative (Negative) Independent Interpretation I performed an independent interpretation of an: EKG (sinus 80, no st or twave changes) and CT Scan (maxillary sinusitis, no masses) Radiology Impression Discussion of test interpretation with radiology: I have reviewed the radiologist's reading. Independent Historian Clinical information obtained from an independent historian. History obtained from or confirmed by: Other (family) Discharge Plan Discharge Clinical Impression: Vertigo, Sinusitis Patient Disposition: Home, Self-Care Instructions: Sinusitis (ED), Vertigo (ED) Prescriptions: New meclizine 25 mg tablet 25 mg PO TID Qty: 14 0RF Flonase Sensimist 27.5 mcg/actuation spray,suspension 1 spray intranasal DAILY Qty: 18.2 0RF Rx Instructions: into each nostril No Action amlodipine 5 mg tablet 5 mg PO BEDTIME Qty: 90 3RF atorvastatin 10 mg tablet 10 mg PO BEDTIME Qty: 90 3RF budesonide-formoterol [Symbicort] 80-4.5 mcg/actuation HFA aerosol inhaler 2 puff inhalation BID 30 Days Qty: 3 3RF multivitamin Tablet 1 tab PO DAILY albuterol sulfate [ProAir HFA] 90 mcg/actuation HFA aerosol inhaler 2 puff inhalation Q4-6H PRN (Reason: Shortness Of Breath Or Wheezing) Rx Instructions: PATIENT HAS NOT NEEDED, INHALER NOT USED cholecalciferol (vitamin D3) 50 mcg (2,000 unit) capsule 50 mcg PO DAILY vitamin B complex Tablet 1 tab PO DAILY ciprofloxacin HCl 500 mg tablet 500 mg PO ONCE Qty: 1 0RF lidocaine HCl 2 % jelly in applicator 10 ml intra-urethral ONCE Qty: 10 0RF cholecalciferol (vitamin D3) 25 mcg (1,000 unit) capsule 25 mcg PO DAILY cephalexin 250 mg capsule 250 mg PO DAILY 60 Days Qty: 60 0RF Referrals: Po,Cassandra Butler MD [Primary Care Provider] - 5 days
[2022-06-29 09:25] VITALS: BP 136/72; BP 170/89; PULSE 78; PULSE 80; RESP 20; TEMP 36.8; O2SAT 97; BMI 29.1
--- NOTE | 2022-06-29 09:33 | ECG_ITS ---
Test Reason : dizziness Blood Pressure : / mmHG Vent. Rate : 081 BPM Atrial Rate : 081 BPM P-R Int : 130 ms QRS Dur : 076 ms QT Int : 390 ms P-R-T Axes : 000 -19 147 degrees QTc Int : 453 ms Sinus rhythm with sinus arrhythmia with Baseline wander Low voltage QRS Nonspecific T wave abnormality Abnormal ECG When compared with ECG of 04-SEP-2021 11:36, Nonspecific T wave abnormality now evident in Inferior leads Nonspecific T wave abnormality now evident in Lateral leads Referred By: Tutu Maguire Electronically Signed By:ANÍBAL DYKES MD
[2022-06-29] MEDS: Meclizine HCl 25 MG TABLET 50 MG PO (10:03)
[2022-06-29 10:20] LABS: MANUAL DIFF FLAG NO
[2022-06-29 10:21] LABS: Appearance Urine Clear; Color Urine Dark Yellow; Glucose Urine UA Negative (Negative); Leukocyte Esterase Urine Negative (Negative); Nitrite Urine Negative (Negative); Urine Blood Negative (Negative); Urine Ketones Negative (Negative); Urine Protein Negative (Neg-Trace)
[2022-06-29 10:23] LABS: Basophils Percent Auto 0.5 % (0-2); Eosinophils Absolute Auto 0.2 X10*3/uL (0.0-0.4); Hematocrit 39.7 % (37.0-47.0); Hemoglobin 13.3 g/dl (12.0-16.0); Imm Gran Abs Auto 0.01 X10*3/uL (0.00-0.03); Imm Gran Pct Auto 0.1 % (0.0-0.4); Lymphocytes Absolute Auto 1.2 X10*3/uL (1.2-4.9); Lymphocytes Percent Auto 16.3 % (20-40); Mean Corpuscular HGB Conc 33.5 g/dl (31.0-35.0); Mean Corpuscular Hemoglobin 30.7 pg (27.0-33.0); Mean Corpuscular Volume 91.7 fL (80.0-98.0); Mean Platelet Volume 9.6 fL (9.4-12.3); Monocytes Absolute Auto 0.4 X10*3/uL (0.1-1.2); Monocytes Percent Auto 5.7 % (2-11); Neutrophils Absolute Auto 5.7 x10*3/uL (2.0-8.3); Neutrophils Percent Auto 75.4 % (45-73); Platelet Count 224 X10*3/uL (160-400); Red Blood Count 4.33 X10*6/uL (4.20-5.50); Red Cell Distribution Width 12.2 % (11.0-16.0); White Blood Count 7.6 X10*3/uL (4.8-10.8)
[2022-06-29 10:37] LABS: Anion Gap 10 (12-20); Blood Urea Nitrogen 11 mg/dL (9-16); Carbon Dioxide 29 mmol/L (22-29); Chloride 105 mmol/L (96-108); Creatinine Clr Calc Pharmacy 62.3; Estimated Glomerular Filt Rate > 60; Glucose Random 107 mg/dL (60-115); Potassium 4.3 mmol/L (3.3-5.1); Sodium 140 mmol/L (135-145)
[2022-06-29 13:04] VITALS: BP 172/85; PULSE 83; RESP 18; TEMP 36.6; O2SAT 95
== END 2022-06-29 13:10 | disposition home or self-care (01) ==
PROVIDERS: Emergency Provider Emergency Medicine; PCP Internal Medicine
DX: R42 Dizziness and giddiness (principal); J01.90 Acute sinusitis, unspecified; I49.8 Other specified cardiac arrhythmias; Z87.891 Personal history of nicotine dependence; Z79.899 Other long term (current) drug therapy
CPT/HCPCS: 36415; 70450; 80048; 81003; 85025; 93005; 99284

== ENCOUNTER 2022-06-30 08:22 | Outpatient (REF) | payer MEDICARE, SELFPAY ==
[2022-06-30 10:30] LABS: MANUAL DIFF FLAG NO
[2022-06-30 10:35] LABS: Basophils Absolute Auto 0.1 X10*3/uL (0.0-0.2); Basophils Percent Auto 0.8 % (0-2); Eosinophils Absolute Auto 0.3 X10*3/uL (0.0-0.4); Eosinophils Percent Auto 5.1 % (0-4); Hematocrit 43.3 % (37.0-47.0); Hemoglobin 14.4 g/dl (12.0-16.0); Imm Gran Abs Auto 0.01 X10*3/uL (0.00-0.03); Imm Gran Pct Auto 0.2 % (0.0-0.4); Immature Retic Fraction 4.4 % (3.0-15.9); Lymphocytes Absolute Auto 1.8 X10*3/uL (1.2-4.9); Lymphocytes Percent Auto 28.9 % (20-40); Mean Corpuscular HGB Conc 33.3 g/dl (31.0-35.0); Mean Corpuscular Hemoglobin 30.6 pg (27.0-33.0); Mean Corpuscular Volume 92.1 fL (80.0-98.0); Mean Platelet Volume 11.1 fL (9.4-12.3); Monocytes Absolute Auto 0.5 X10*3/uL (0.1-1.2); Monocytes Percent Auto 7.4 % (2-11); Neutrophils Absolute Auto 3.6 x10*3/uL (2.0-8.3); Neutrophils Percent Auto 57.6 % (45-73); Platelet Count 248 X10*3/uL (160-400); Red Cell Distribution Width 12.2 % (11.0-16.0); Retic HGB Equivalent 36.4 pg (30.0-35.0); Reticulocyte Percent 1.1 % (0.5-1.8); White Blood Count 6.2 X10*3/uL (4.8-10.8)
[2022-06-30 10:45] LABS: Estimated Average Glucose 103 mg/dL; Hemoglobin A1c % 5.2 %
[2022-06-30 12:30] LABS: Alanine Aminotransferase 17 U/L (0-31); Albumin Level 4.1 g/dL (3.5-5.0); Alkaline Phosphatase 71 U/L (39-117); Anion Gap 12 (12-20); Aspartate Amino Transferase 22 U/L (5-31); Bilirubin Total 0.9 mg/dL (0.0-1.0); Blood Urea Nitrogen 12 mg/dL (9-16); Calcium 9.2 mg/dL (8.4-10.2); Carbon Dioxide 27 mmol/L (22-29); Chloride 106 mmol/L (96-108); Cholesterol 211 mg/dL; Estimated Glomerular Filt Rate > 60; Glucose Random 93 mg/dL (60-115); HDL Cholesterol 56 mg/dL; Iron 157 mcg/dL (30-160); LDL Cholesterol Calculated 140 mg/dl; Percent Iron Saturation 60 % (15-50); Potassium 4.3 mmol/L (3.3-5.1); Sodium 141 mmol/L (135-145); Total Iron Binding Capacity 260 mcg/dL (228-428); Total Protein 6.5 g/dL (6.5-8.0); Triglycerides 76 mg/dL; Unsaturated Iron Binding 103 ug/dL
[2022-06-30 12:39] LABS: Ferritin 111 ng/mL (10-250); Folate 15.2 ng/mL (> or = 4.0); Free T4 (Free Thyroxine) 0.95 ng/dL (0.71-1.85); Thyroid Stimulating Hormone 1.32 uIU/mL (0.32-4.0); Vitamin B12 651 pg/mL (200-900); Vitamin D 25-OH Total 37.4 ng/mL (>30)
== END 2022-06-30 08:23 | disposition home or self-care (01) ==
LOC: HO.10HDL 08:22
PROVIDERS: Visit Provider Internal Medicine
DX: E78.00 Pure hypercholesterolemia, unspecified (principal); D64.9 Anemia, unspecified; R73.02 Impaired glucose tolerance (oral); K21.9 Gastro-esophageal reflux disease without esophagitis; E55.9 Vitamin D deficiency, unspecified
CPT/HCPCS: 36415; 80053; 80061; 82306; 82607; 82728; 82746; 83036; 83540; 84439; 84443; 85025; 85045

== ENCOUNTER → 2022-07-01 07:40 | Outpatient (REF) | payer MEDICARE, SELFPAY ==
--- NOTE | ~2022-07-01 | NM_ITS ---
Exercise Myocardial perfusion study Indication: Abnormal stress test evaluate for myocardial ischemia Technique: The patient was brought in for an exercise perfusion study on 07/01/2022. Patient performed exercise as per Adan protocol and was injected 25 mCi of sestamibi was given intravenously one target HR was achieved. Images were obtained using the SPECT gamma camera interlaced with the gating device. Images were obtained in supine position. Resting perfusion study was performed on 07/02/2022. Patient was administered 25 mCi of sestamibi intravenously at rest. Images were then obtained in supine position. Images obtained with and without CT attenuation. Total DLP 88 mGy-cm. Images were processed with the software and compared side to side in short axis, horizontal long axis and vertical long axis views. Findings: The stress perfusion study showed non attenuated images show normal uptake of radiotracer in all segments of LV myocardium. Attenuation corrected images show minimal thinning of the apex of the LV myocardium.. The gated study shows normal LV systolic function with calculated LVEF of 58%. LV cavity is normal in size. The gated study shows normal systolic wall thickening and contraction of all segments. There is no transient ischemic dilation. Resting study shows non attenuated images are suboptimal with mildly and diffusely reduced uptake in all segments. Attenuation corrected images show no change compared to stress perfusion study. Gating at rest reveals normal systolic wall motion with ejection fraction at 75%. The findings are consistent with likely normal myocardial perfusion. NM/NM cardiolite stress test Impression: 1. Normal myocardial perfusion 2. Gated LVEF is 58% 3. Transient ischemic dilatation not present Stress EKG is negative for ischemia
--- NOTE | 2022-07-01 07:43 | CA_ITS ---
Acquisition Time: 2022-07-01 08:02:30 Total Exercise Time: 00:05:02 Test Indications: SVT, CP, PAC'S Medications: SEE H Protocol: NENITA Max HR: 127 BPM 85% of Pred: 148 BPM Max BP: 150/050 mmHG Max Work Load: 7.0 METS Exercise stress test exercise 5 min 2 sec of Nenita protocol achieving 85% MPHR with mild SOB, no chest discomfort, with freq PACs and atrial runs at baselines, with normotensive response to exercise, with no EKG changes. Nuclear images pending. Test reviewed with Dr. Jones. Referred By: Keira Walker Overread By: KEIRA WALKER
== END ==
LOC: HO.CARD 07:40
PROVIDERS: Visit Provider Nurse Practitioner Family
DX: R06.09 Other forms of dyspnea (principal); R94.39 Abnormal result of other cardiovascular function study
CPT/HCPCS: 78452; 93017; A9500; J0280; J2785

== ENCOUNTER → 2022-07-06 10:05 | Outpatient (BNVA) | payer MEDICARE, SELFPAY | PROVIDERS: PCP Internal Medicine; Visit Provider Nurse Practitioner Family | DX: N39.0 Urinary tract infection, site not specified (principal); R30.0 Dysuria | CPT/HCPCS: 51798; 99212 ==

== ENCOUNTER 2022-07-13 09:15 | Outpatient (REF) | payer MEDICARE, SELFPAY ==
--- NOTE | ~2022-07-13 | US_ITS ---
EXAMINATION: US EXTRACRANIAL CAROTID DUPLEX, BILATERAL CLINICAL INFORMATION: Amaurosis fugax COMPARISON: None available. TECHNIQUE: Real-time ultrasound and Doppler techniques (integrating B-mode 2-D vascular images, Doppler spectral analysis and color-flow Doppler imaging) were utilized to interrogate the extracranial carotid arteries, the vertebral arteries and proximal subclavian arteries bilaterally. The degree of stenosis is determined by criteria similar to NASCET. FINDINGS: Right Side: 1. There is mild atherosclerotic plaque seen in the bifurcation/proximal ICA region. 2. The common carotid artery PSV proximally is 103 cm/s and distally 83 cm/s. 3. The proximal internal carotid artery velocities are 87 cm/s systolic and 22 cm/s diastolic. 4. The proximal external carotid artery PSV is 92 cm/s. 5. The vertebral artery shows antegrade flow. 6. The subclavian artery waveforms are normal. Left Side: 1. There is moderate atherosclerotic plaque seen in the bifurcation/proximal ICA region. 2. The common carotid artery PSV proximally is 92 cm/s and distally 72 cm/s. 3. The proximal internal carotid artery velocities are 121 cm/s systolic and 27 cm/s diastolic. 4. The proximal external carotid artery PSV is 69 cm/s. 5. The vertebral artery shows antegrade flow. 6. The subclavian artery waveforms are normal. An arrhythmia is noted. US/US carotid duplex BI IMPRESSION: 1. RIGHT: Minimal, non-hemodynamically significant stenosis of the proximal right internal carotid artery corresponding to a 0-49% stenosis by velocity criteria. 2. LEFT: Minimal, non-hemodynamically significant stenosis of the proximal left internal carotid artery corresponding to a 0-49% stenosis by velocity criteria.
== END 2022-07-13 09:16 | disposition home or self-care (01) ==
LOC: HO.US 09:15
PROVIDERS: PCP Internal Medicine; Visit Provider Internal Medicine
DX: G45.3 Amaurosis fugax (principal)
CPT/HCPCS: 93880

== ENCOUNTER 2022-09-06 10:15 | Outpatient (AMB) | payer MEDICARE, SELFPAY ==
--- NOTE | 2022-09-06 10:39 | A.OFFVIS_ITS ---
Intake Intake Visit Reasons: 3m follow up Intake Note: Patient presents today for a 3mo follow-up ? Meds: None ? Allergies to Antibiotic: Cipro/Sulfa ? Blood Thinner: None ? PVR: 0 Industrial Registered Nurse Required: No Accompanied by: Self / Same As Patient Allergies ARB-Angiotensin Receptor Antagonist [ANGIOTENSIN RECEPTOR ANTAGONIST] Allergy (Unknown, Verified 10/13/22 10:10) ANAPHYLAXIS beclomethasone [QNASL] Allergy (Unknown, Verified 10/13/22 10:10) blurred vision, headaches budesonide [Symbicort] Allergy (Unknown, Verified 10/13/22 10:10) higher dose problem ciprofloxacin [Cipro] Allergy (Unknown, Verified 10/13/22 10:10) Unknown codeine [Codeine] Allergy (Unknown, Verified 10/13/22 10:10) UNKNOWN digestive enzymes combo no.8 [From Digestive Enzyme (acidoph,pec)] Allergy (Unknown, Verified 10/13/22 10:10) Unknown fluticasone [Flovent HFA] Allergy (Unknown, Verified 10/13/22 10:10) Unknown Lactobacillus acidophilus [From Digestive Enzyme (acidoph,pec)] Allergy (Unknown, Verified 10/13/22 10:10) Unknown lisinopril [LISINOPRIL] Allergy (Unknown, Verified 10/13/22 10:10) ANGIOEDEMA mometasone furoate [Dulera] Allergy (Unknown, Verified 10/13/22 10:10) Unknown nebivolol [Bystolic] Allergy (Unknown, Verified 10/13/22 10:10) Unknown olmesartan [Benicar] Allergy (Unknown, Verified 10/13/22 10:10) Unknown pectin [From Digestive Enzyme (acidoph,pec)] Allergy (Unknown, Verified 10/13/22 10:10) Unknown Sulfa (Sulfonamide Antibiotics) Allergy (Unknown, Verified 10/13/22 10:10) headache, shaking, freezing sensation, upset stomach amoxicillin [From Augmentin] Adverse Reaction (Intermediate, Unverified 10/18/22 15:23) abdominal pain clavulanic acid [From Augmentin] Adverse Reaction (Intermediate, Unverified 10/18/22 15:23) abdominal pain formoterol [From Symbicort] Adverse Reaction (Intermediate, Verified 10/13/22 10:10) Dizziness verapamil Adverse Reaction (Intermediate, Verified 10/13/22 10:10) Blurry Vision estrodiol Allergy (Unknown, Uncoded 10/13/22 10:10) Unknown HPI HPI Comments History of Present Illness0 Details Eric is a 71-year-old female who presents to the office for 3- months follow-up of recurrent UTI and dysuria follow-up. Eric is a 71-year-old who is followed for recurrent UTI and she was initially evaluated by [facility] on 11/09/22 and was started on estrogen cream. She had office cysctosocpy on 05/12/22 and finding: erythematous changes. She was placed on antibiotic suppressive therapy Keflex 250 mg QD Review of chart imaging:Renal ultrasound 04/28/2022--left duplicated collecting system negative masses negative stones 09/06/22-- The patient stopped taking Keflex 250 mg couple of weeks ago. States improvement with the medication. The patient denies dysuria while being off the medication. She used estrogen cream for few days but stopped as ?it kept burning.? Urine culture results reviewed?05/12/22 and 10/27/22--positive for Klebsiella pneumoniae. Plan: Vagifem suppository to be applied twice a week was ordered. Follow-up after 6 months or sooner if needed. [facility] Medical History (Updated 10/19/22 @ 13:22 by Licha Vela NP) Abnormal stress ECG with treadmill Annual physical exam Anxiety Asthma Breast cancer screening by mammogram Cholelithiasis Constipation Contact dermatitis Cystic duct leak Dysuria Dysuria Facial injury GERD (gastroesophageal reflux disease) Hypercholesterolemia Hypertension Impacted cerumen of both ears Impaired glucose tolerance Nocturia more than twice per night Panic attack Recurrent UTI Skin lesion of hand SVT (supraventricular tachycardia) Tinnitus Vitamin D deficiency Surgical History History of cataract surgery Hx of cholecystectomy Family History Father Myocardial infarction Mother Hypertension Stroke Brother In good health Sister In good health Son In good health Daughter In good health Other Substance use disorder Social History (Updated 10/13/22 @ 10:13 by Cheryl Case LPN) Household Members: None Housing: House Do you presently have visiting nurse or other home services: No Alcohol intake: never Patient Tobacco Use Status: Former Tobacco user Quit Date: 1989 Tobacco use type: Cigarette Cigarette Packs Per Day: 3 Years Smoked: 20 +/- quit 1989 e-Cigarette/Vaping Use: Never Used Second Hand Smoke Exposure: No service: No Current occupational status: previously employed and retired 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 Cognitive needs: No Hearing needs: No Vision needs: Yes Review of Systems Const All systems reviewed & are unremarkable except as noted in HPI and below Reports no additional complaints Eyes Reports no additional complaints ENT Reports no additional complaints Card Denies dyspnea Resp Denies cough and Denies dyspnea GI Reports no additional complaints Reports no additional complaints Musc Reports no additional complaints Skin/Breast Denies rash and Denies unusual bruising Neuro Reports no additional complaints Psych Reports no additional complaints Endo Reports no additional complaints Darian/Lymph Reports no additional complaints Aller/Immun Reports no additional complaints Physical Exam Const General: cooperative and no acute distress Orientation/consciousness: patient oriented x3 HEENT Head: Yes normal to inspection, Yes normocephalic and Yes atraumatic Eyes Conjunctivae: conjunctivae normal Neck Neck: Yes normal visual inspection and Yes trachea midline Chest Chest palpation & inspection: normal inspection of the chest Resp Effort & Inspection: normal respiratory effort Cardio Rate: regular rate GI Inspection: Yes normal to inspection Skin General skin exam: no rashes or lesions noted Neuro General: patient oriented x3 Extrem General: No edema Psych Appearance: grossly normal Results AMB Urinalysis, Automated UA Leukoctes 500 Jorje/uL Last Edit by ERIN Urbano on 09/06/22 11:03 3+ Bhavin Lopez 09/06/22 11:03 UA Nitrite Negative Last Edit by ERIN Urbano on 09/06/22 11:03 UA Urobilinogen 0 mg/dL Last Edit by ERIN Urbano on 09/06/22 11:03 UA Protein 0.2 mg/dL Last Edit by ERIN Urbano on 09/06/22 11:03 UA pH 6.0 Last Edit by ERIN Urbano on 09/06/22 11:03 UA Blood 0 Shreyas/uL Last Edit by VENKATA UrbanoA on 09/06/22 11:03 UA Specific [place] 1.010 Last Edit by ERIN Urbano on 09/06/22 11: 03 UA Ketone Negative Last Edit by ERIN Urbano on 09/06/22 11:03 UA Bilirubin 0 mg/dL Last Edit by VENKATA UrbanoA on 09/06/22 11:03 UA Glucose 0 mg/dL Last Edit by ERIN Urbano on 09/06/22 11:03 Results Reviewed Results Reviewed: Laboratory Last Values Urine pH (Auto) 6.0 09/06/22 11:01 Specific [place] (Auto) 1.010 09/06/22 11:01 Urine Protein (Auto) 0.2 mg/dL 09/06/22 11:01 Glucose (UA)(Auto) 0 mg/dL 09/06/22 11:01 Urine Ketones (Auto) Negative 09/06/22 11:01 Urine Blood (Auto) 0 Shreyas/uL 09/06/22 11:01 Urine Nitrite (Auto) Negative 09/06/22 11:01 Urine Bilirubin (Auto) 0 mg/dL 09/06/22 11:01 Urine Urobilinogen (Auto) 0 mg/dL 09/06/22 11:01 Leukocyte Esterase (Auto) 500 Jorje/uL 09/06/22 11:01 Collected: 05/12/22 Received: 05/12/22 Procedure Result Verified Site Urine Culture Final 05/14/22-725 Organism 1 Klebsiella pneumoniae Quant > 100,000 cfu/mL Kleb pneum M.I.C. RX --------- --- Ampicillin >=32 R Ceftriaxone <=0.25 S Gentamicin <=1 S Levofloxacin 1 I Nitrofurantoin >=512 R Trimethoprim/Sulfamethoxazole <=20 S Collected: 10/27/21 Received: 10/27/21 Procedure Result Verified Site Urine Culture Final 10/29/21-0748 Organism 1 Klebsiella pneumoniae Quant > 100,000 cfu/mL Kleb pneum M.I.C. RX --------- --- Ampicillin 16 R Extended Spectrum Beta Lactam NEG - Ceftriaxone <=1 S Gentamicin <=1 S Levofloxacin <=0.12 S Nitrofurantoin 64 I Trimethoprim/Sulfamethoxazole <=20 S Assessment & Plan Assessment & Plan (1) Recurrent UTI: Code(s): N39.0 - Urinary tract infection, site not specified (2) Dysuria: Code(s): R30.0 - Dysuria Plan Vagifem suppository to be applied twice a week was ordered. Follow-up after 6 months or sooner if needed. Orders: Orders AMB Urinalysis Automated 09/06/22 Z13.9 - Encounter for screening, unspecified AMB Post Void Residual by ultrasound 09/06/22 N39.8 - Other specified disorders of urinary system Medications: New estradiol (Vagifem) Use at bedtime Mon/Thurs 10 mcg vaginal 2XW 24 tabs 3RF Discontinued Symbicort 80-4.5 mcg/actuation Discontinued Reason: Ancillary Entered New Order 2 puffs inhalation BID 30 days 3 ea 3RF NS J45.909 - Unspecified asthma, uncomplicated Patient Instructions: The patient had an opportunity to ask questions regarding treatment plan. All questions were answered. Laboratory studies and physical exam results were discussed and reviewed in detail. No major barriers to understanding were identified. The patient expressed understanding and agreement with the above treatment plan. The patient is aware they should contact our office by phone for worsening of their current condition or the appearance of new symptoms. Compliance is encouraged with any medications and followup testing that is ordered. It is a privilege to be allowed the opportunity to participate in the urologic care of your patient. If you have any questions or concerns regarding treatment for the above conditions please do not hesitate to contact me. The office telephone contact is [phone]. This note is constructed in part using voice recognition software. While every effort has been made to ensure accuracy office chair assembler errors may have been included. Yours sincerely, Bandar Mcdonald MD Coding Level of Care Code Est Pt Level 4 (48609) Diagnoses Recurrent UTI N39.0 Dysuria R30.0
== END 2022-09-06 11:07 | disposition home or self-care (01) ==
LOC: HO.HUSH 10:15
PROVIDERS: PCP Internal Medicine; Visit Provider Urology
DX: N39.0 Urinary tract infection, site not specified (principal); R30.0 Dysuria
CPT/HCPCS: 99214

== ENCOUNTER → 2022-09-06 10:15 | Outpatient (BNVA) | payer MEDICARE, SELFPAY | PROVIDERS: PCP Internal Medicine; Visit Provider Urology | DX: N39.0 Urinary tract infection, site not specified (principal); R30.0 Dysuria | CPT/HCPCS: 99212 ==

== ENCOUNTER → 2022-09-22 13:15 | Outpatient (BNVA) | payer MEDICARE, SELFPAY | PROVIDERS: Visit Provider Internal Medicine Cardiovascular Disease | DX: R00.2 Palpitations (principal); R06.09 Other forms of dyspnea; I10 Essential (primary) hypertension | CPT/HCPCS: 99212 ==

== ENCOUNTER 2022-09-24 08:23 | Outpatient (REF) | payer MEDICARE, SELFPAY ==
[2022-09-24 09:28] LABS: Appearance Urine Cloudy; Color Urine Yellow; Glucose Urine UA Negative (Negative); Leukocyte Esterase Urine Large (3+) (Negative); Nitrite Urine Positive (Negative); UMIC TRIGGER UA YES; Urine Blood Trace (Negative); Urine Ketones Negative (Negative); Urine Protein Negative (Neg-Trace)
[2022-09-24 09:31] LABS: Bacteria Urine 4+ (None Seen); Hyaline Casts Urine 0-2 /LPF (0-2); RBC Urine 0-2 /HPF (0-2); Squamous Epithelial Cell Urine 0-2 /HPF (0-2); WBC Urine >50 /HPF (0-5)
== END 2022-09-24 08:24 | disposition home or self-care (01) ==
LOC: HO.LAB 08:23
PROVIDERS: PCP Internal Medicine; Visit Provider Urology
DX: N39.0 Urinary tract infection, site not specified (principal)
CPT/HCPCS: 81001; 87086; 87088; 87186

== ENCOUNTER 2022-09-27 10:43 | Outpatient (REF) | payer MEDICARE, SELFPAY ==
--- NOTE | 2022-09-27 11:54 | PFT_ITS ---
INDICATION: Asthma. SPIROMETRY: The FEV1 to FVC 62% with an FEV1 of 0.99 L which is 52% predicted and FVC of 1.6 L which is 63% predicted. No significant response to bronchodilators noted. Maximum voluntary ventilation was not available. LUNG VOLUMES: Total lung capacity 96% predicted with an expiratory residual volume of 27% predicted. DIFFUSION CAPACITY: DLCO of 78% predicted. COMPARISONS: Not available. INTERPRETATION: There is an obstructive ventilatory defect consistent with [id number] COPD. Patient may have a component of asthma, COPD overlap syndrome. The maximum voluntary ventilation not available. Lung volumes are normal except for a trend of air trapping due to the COPD and decrease in the expiratory of volume as well noted. The patient also has mild diffusion impairment secondary to the above. Clinical correlation warranted. Simon Pierce MD MR/MODL / [id number]
== END 2022-09-27 10:44 | disposition home or self-care (01) ==
LOC: HO.RESP 10:43
PROVIDERS: PCP Internal Medicine; Visit Provider Internal Medicine Cardiovascular Disease
DX: R06.09 Other forms of dyspnea (principal)
CPT/HCPCS: 94060; 94727; 94729

== ENCOUNTER → 2022-09-27 11:54 | Outpatient (BNV) | payer MEDICARE, SELFPAY | PROVIDERS: PCP Internal Medicine; Visit Provider Hospitalist | DX: R06.09 Other forms of dyspnea (principal); J44.9 Chronic obstructive pulmonary disease, unspecified | CPT/HCPCS: 94060; 94727; 94729 ==

== ENCOUNTER 2022-10-12 10:45 | Outpatient (AMB) | payer MEDICARE, SELFPAY ==
[2022-10-12 10:48] VITALS: BP 136/68; PULSE 74; O2SAT 98; BMI 27.4
--- NOTE | 2022-10-12 10:48 | MHC.PC.OV ---
Vital Signs 10/12/22 10:48 Height 5 ft 1 in Weight 145 lb BMI 27.4 BP 136/68 Blood Pressure Location Lt brachial Position Sitting Pulse 74 Pulse Source Pulse Oximeter Pulse Oximetry (%) 98 Oxygen Delivery Method Room Air Intake Visit Reasons: dizziness Allergies ARB-Angiotensin Receptor Antagonist [ANGIOTENSIN RECEPTOR ANTAGONIST] Allergy (Unknown, Verified 10/12/22 10:49) ANAPHYLAXIS beclomethasone [QNASL] Allergy (Unknown, Verified 10/12/22 10:49) blurred vision, headaches budesonide [Symbicort] Allergy (Unknown, Verified 10/12/22 10:49) higher dose problem ciprofloxacin [Cipro] Allergy (Unknown, Verified 10/12/22 10:49) Unknown codeine [Codeine] Allergy (Unknown, Verified 10/12/22 10:49) UNKNOWN digestive enzymes combo no.8 [From Digestive Enzyme (acidoph,pec)] Allergy (Unknown, Verified 10/12/22 10:49) Unknown fluticasone [Flovent HFA] Allergy (Unknown, Verified 10/12/22 10:49) Unknown Lactobacillus acidophilus [From Digestive Enzyme (acidoph,pec)] Allergy (Unknown, Verified 10/12/22 10:49) Unknown lisinopril [LISINOPRIL] Allergy (Unknown, Verified 10/12/22 10:49) ANGIOEDEMA mometasone furoate [Dulera] Allergy (Unknown, Verified 10/12/22 10:49) Unknown nebivolol [Bystolic] Allergy (Unknown, Verified 10/12/22 10:49) Unknown olmesartan [Benicar] Allergy (Unknown, Verified 10/12/22 10:49) Unknown pectin [From Digestive Enzyme (acidoph,pec)] Allergy (Unknown, Verified 10/12/22 10:49) Unknown Sulfa (Sulfonamide Antibiotics) Allergy (Unknown, Verified 10/12/22 10:49) headache, shaking, freezing sensation, upset stomach formoterol [From Symbicort] Adverse Reaction (Intermediate, Verified 10/12/22 10:49) Dizziness verapamil Adverse Reaction (Intermediate, Verified 10/12/22 10:49) Blurry Vision estrodiol Allergy (Unknown, Uncoded 10/12/22 10:49) Unknown Medication List - Last Reconciled 10/12/22 by Cassandra Weeks MD albuterol sulfate 90 mcg/actuation (Ventolin HFA) 2 puffs inhalation Q6H PRN amlodipine 5 mg PO BEDTIME atorvastatin 10 mg PO BEDTIME cholecalciferol (vitamin D3) 25 mcg PO DAILY meclizine 25 mg PO TID montelukast 10 mg PO DAILY multivitamin 1 tab PO DAILY nitrofurantoin monohyd/m-cryst 100 mg (Macrobid) 100 mg PO BID 7 days vitamin B complex 1 tab PO DAILY Tobacco use date assessed: 07/07/22 Fall risk assessment: No Falls in past year Last assessed Fall Risk: 10/12/22 Dental Screening Dental Screen Date: 10/12/22 Did you have a dental visit in the last 12 months?: No Did you have a dental problem in the last 6 months where you did not have access to dental care?: No Was dental information given to patient?: No HPI dizziness HPI Details 71-year-old female with a history of asthma, hypertension impaired glucose tolerance GERD hypercholesterolemia coming in for follow-up. Last seen in June 2022 for physical exam there was a concern on blindness in 1 eye and an ultrasound of the carotid was done showing minimal none hemodynamically significant stenosis. Colonoscopy is up-to-date mammogram is up-to-date. Patient had a pulmonary function test September 2022There is an obstructive ventilatory defect consistent with [id number]-usjtjo COPD. Patient may have a component of asthma, COPD overlap syndrome. The maximum voluntary ventilation not available. Lung volumes are normal except for a trend of air trapping due to the COPD and decrease in the expiratory of volume as well noted. The patient also has mild diffusion impairment secondary to the above. Clinical correlation warranted. Noted also cardiology follow-up for the palpitations stress testing nuclear perfusion nothing significant. Patient also has seen Urology for the recurrent UTI placed on Vagifem suppository [facility] Medical History (Updated 10/12/22 @ 11:21 by Cassandra Weeks MD) Abnormal stress ECG with treadmill Annual physical exam Anxiety Asthma Breast cancer screening by mammogram Cholelithiasis Constipation Contact dermatitis Cystic duct leak Dysuria Dysuria Facial injury GERD (gastroesophageal reflux disease) Hypercholesterolemia Hypertension Impacted cerumen of both ears Impaired glucose tolerance Nocturia more than twice per night Panic attack Recurrent UTI Skin lesion of hand SVT (supraventricular tachycardia) Tinnitus Vitamin D deficiency Surgical History History of cataract surgery Hx of cholecystectomy Family History Father Myocardial infarction Mother Hypertension Stroke Brother In good health Sister In good health Son In good health Daughter In good health Other Substance use disorder Social History Household Members: None Housing: House Do you presently have visiting nurse or other home services: No Alcohol intake: never Patient Tobacco Use Status: Former Tobacco user Quit Date: 1989 Tobacco use type: Cigarette Years Smoked: 20 +/- quit 1989 e-Cigarette/Vaping Use: Never Used Second Hand Smoke Exposure: No service: No Current occupational status: previously employed and retired 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 1. Little interest or pleasure in doing things: not at all 2. Feeling down, depressed, or hopeless: not at all 3. Trouble falling or staying asleep, or sleeping too much: not at all 4. Feeling tired or having little energy: not at all 5. Poor appetite or overeating: not at all 6. Feeling bad about yourself - or that you are a failure or have let yourself or your family down: not at all 7. Trouble concentrating on things, such as reading the newspaper or watching television: not at all 8. Moving or speaking so slowly that other people could have noticed. Or the opposite - being so fidgety or restless that you have been moving around a lot more than usual: not at all 9. Thoughts that you would be better off or of hurting yourself in some way: not at all Total score: 0 Depression Screening Interpretation: Negative Source: Developed by Drs. Buster Gerber, Belkis Kumar, Skinny Singh and colleagues, with an educational tony from [employer]. Thrive Questionnaire Date Thrive assessed: 07/07/22 AUDIT C Alcohol Use Questionnaire (AUDIT-C) 1. How often do you have a drink containing alcohol?: Never 3. How often do you have six or more drinks on one occasion?: Never Total Score: 0 Score Reviewed/Action Taken: No SUAD-7 AMB Questionnaire SUAD-7 Date SUAD - 7 assessed: 07/07/22 Source: Developed by Drs. Buster Gerber, Belkis Kumar, Skinny Singh and colleagues, with an educational tony from [employer]. Physical exam (Primary Care) Vital Signs: Last Vital Signs Pulse 74 10/12/22 10:48 BP 136/68 10/12/22 10:48 Pulse Ox 98 10/12/22 10:48 Oxygen Delivery Method Room Air 10/12/22 10:48 BMI result Body Mass Index 27.4 Tobacco/Smoking Status: Tobacco use Status Tobacco use date assessed 07/07/22 10/12/22 10:54 Patient Tobacco Use Status Former Tobacco user 10/12/22 10:54 Tobacco use type Cigarette 10/12/22 10:54 e-Cigarette/Vaping Use Never Used 10/12/22 10:54 PHQ-9: PHQ-9 Score PHQ-9: Total score 0 10/12/22 10:54 Depression Screening Interpretation: Negative Thrive Assessment: Date of Thrive Assessment Date Thrive assessed 07/07/22 10/12/22 10:54 Const General: alert; No acute distress Eyes Conjunctivae: conjunctivae normal Resp Auscultation: clear to auscultation bilaterally Cardio Rate: regular rate Rhythm: regular rhythm GI Inspection: Yes normal to inspection Extrem General: Yes normal to inspection and No edema Assessment and Plan Assessment & Plan (1) COPD (chronic obstructive pulmonary disease): Code(s): J44.9 - Chronic obstructive pulmonary disease, unspecified Plan: Patient is being followed up by Pulmonary on albuterol inhaler (2) Hypercholesterolemia: Code(s): E78.00 - Pure hypercholesterolemia, unspecified Plan: Avoid fried foods, chicken skin, eggs, butter margarine, pastries and meat. Be it pork or beef they have a lot of cholesterol LDL goal of less than 130 and triglyceride of less than 150 on atorvastatin 10 mg (3) GERD (gastroesophageal reflux disease): Code(s): K21.9 - Gastro-esophageal reflux disease without esophagitis Qualifiers: Esophagitis presence: without esophagitis Qualified Code(s): K21.9 - Gastro-esophageal reflux disease without esophagitis Plan: Avoid the foods that causes that usually spicy foods, tomato products, juices, coffee, soda and foods that your sensitive to. After eating do not lie down, allow 3-4 hours before in lie down. And keep the head of bed above 30 degrees to avoid the acid from going up. (4) Impaired glucose tolerance: Code(s): R73.02 - Impaired glucose tolerance (oral) Plan: Decrease the amount of carbohydrate intake, pasta, bread, rice and potatoes are all sugar and that is aside from all the sweet stuff, remember that fruits are good but they are Sweet also. (5) Hypertension: Code(s): I10 - Essential (primary) hypertension Qualifiers: Hypertension type: primary hypertension Qualified Code(s): I10 - Essential (primary) hypertension Plan: Continue with blood pressure medication. Decrease salt intake and exercise patient is on amlodipine 5 mg once a day only (6) Recurrent UTI: Code(s): N39.0 - Urinary tract infection, site not specified (7) Knee pain, bilateral: Code(s): M25.561 - Pain in right knee; M25.562 - Pain in left knee Orders: Orders Comprehensive Met. Panel Today E78.00 - Pure hypercholesterolemia, unspecified Lipid Panel Today E78.00 - Pure hypercholesterolemia, unspecified UA and rflx microscopic Today N39.0 - Urinary tract infection, site not specified XR knee standing BI Today M25.561 - Pain in right knee, M25.562 - Pain in left knee Coding Level of Care Code Est Pt Level 4 (58174) Diagnoses COPD (chronic obstructive pulmonary disease) J44.9 Hypercholesterolemia E78.00 GERD (gastroesophageal reflux disease) K21.9 Esophagitis presence: without esophagitis Impaired glucose tolerance R73.02 Hypertension I10 Hypertension type: primary hypertension Recurrent UTI N39.0 Knee pain, bilateral M25.561; M25.562 Additional Codes PHQ-9 - 73304 - PHQ-9 Billing: Y ([id number])
== END 2022-10-12 11:27 | disposition home or self-care (01) ==
PROVIDERS: PCP Internal Medicine; Visit Provider Internal Medicine
DX: J44.9 Chronic obstructive pulmonary disease, unspecified (principal); K21.9 Gastro-esophageal reflux disease without esophagitis; I10 Essential (primary) hypertension; E78.00 Pure hypercholesterolemia, unspecified; R73.02 Impaired glucose tolerance (oral); N39.0 Urinary tract infection, site not specified; M25.561 Pain in right knee; M25.562 Pain in left knee
CPT/HCPCS: 99214

== ENCOUNTER 2022-10-13 08:39 | Outpatient (REF) | payer MEDICARE, SELFPAY ==
--- NOTE | ~2022-10-13 | XR_ITS ---
EXAMINATION: XR KNEE AP STANDING CLINICAL INFORMATION: Pain COMPARISON: None available. TECHNIQUE: AP bilateral standing view of the knees was obtained. FINDINGS: No acute fracture or dislocation appreciated on the limited single view. Joint spaces are maintained. Soft tissues are unremarkable. XR/XR knee standing BI IMPRESSION: No acute osseous abnormality.
[2022-10-13 11:21] LABS: Alanine Aminotransferase 18 U/L (0-31); Alkaline Phosphatase 74 U/L (39-117); Anion Gap 12 (12-20); Aspartate Amino Transferase 25 U/L (5-31); Bilirubin Total 0.5 mg/dL (0.0-1.0); Blood Urea Nitrogen 7 mg/dL (9-16); Calcium 9.6 mg/dL (8.4-10.2); Carbon Dioxide 28 mmol/L (22-29); Chloride 103 mmol/L (96-108); Cholesterol 196 mg/dL; Estimated Glomerular Filt Rate > 60; Glucose Random 103 mg/dL (60-115); HDL Cholesterol 56 mg/dL; LDL Cholesterol Calculated 122 mg/dl; Sodium 139 mmol/L (135-145); Total Protein 7.1 g/dL (6.5-8.0); Triglycerides 94 mg/dL
[2022-10-13 14:03] LABS: Appearance Urine Cloudy; Color Urine Yellow; Glucose Urine UA Negative (Negative); Leukocyte Esterase Urine Large (3+) (Negative); Nitrite Urine Positive (Negative); Specific Gravity - Urine <= 1.005 (1.005-1.025); UMIC TRIGGER UA YES; Urine Blood Trace (Negative); Urine Ketones Negative (Negative); Urine Protein Negative (Neg-Trace)
[2022-10-13 14:09] LABS: Bacteria Urine 4+ (None Seen); Hyaline Casts Urine 0-2 /LPF (0-2); RBC Urine 0-2 /HPF (0-2); Squamous Epithelial Cell Urine 0-2 /HPF (0-2); WBC Urine >50 /HPF (0-5)
== END 2022-10-13 08:40 | disposition home or self-care (01) ==
LOC: HO.10HDL 08:39
PROVIDERS: PCP Internal Medicine; Visit Provider Internal Medicine
DX: J44.9 Chronic obstructive pulmonary disease, unspecified (principal); J30.89 Other allergic rhinitis; E78.00 Pure hypercholesterolemia, unspecified; M25.561 Pain in right knee; M25.562 Pain in left knee
CPT/HCPCS: 36415; 73565; 80053; 80061; 81001; 81003; 94618; 99202

== ENCOUNTER 2022-10-13 09:48 | Outpatient (AMB) | payer MEDICARE, SELFPAY ==
[2022-10-13 10:05] VITALS: BP 122/60; PULSE 76; O2SAT 97; BMI 27.5
--- NOTE | 2022-10-13 10:05 | A.OFFVIS_ITS ---
Intake Vital Signs 10/13/22 10:05 Height 5 ft 1 in Weight 145 lb 8.081 oz BMI 27.5 BP 122/60 Blood Pressure Location Lt brachial Position Sitting Pulse 76 Pulse Source Pulse Oximeter Pulse Oximetry (%) 97 Oxygen Delivery Method Room Air Intake Visit Reasons: COPD Manager Electronic Required: No Clinical Neuropsychologist: Clinical Neuropsychologist offered & declined Accompanied by: Self / Same As Patient Allergies ARB-Angiotensin Receptor Antagonist [ANGIOTENSIN RECEPTOR ANTAGONIST] Allergy (Unknown, Verified 10/13/22 10:10) ANAPHYLAXIS beclomethasone [QNASL] Allergy (Unknown, Verified 10/13/22 10:10) blurred vision, headaches budesonide [Symbicort] Allergy (Unknown, Verified 10/13/22 10:10) higher dose problem ciprofloxacin [Cipro] Allergy (Unknown, Verified 10/13/22 10:10) Unknown codeine [Codeine] Allergy (Unknown, Verified 10/13/22 10:10) UNKNOWN digestive enzymes combo no.8 [From Digestive Enzyme (acidoph,pec)] Allergy (Unknown, Verified 10/13/22 10:10) Unknown fluticasone [Flovent HFA] Allergy (Unknown, Verified 10/13/22 10:10) Unknown Lactobacillus acidophilus [From Digestive Enzyme (acidoph,pec)] Allergy (Unknown, Verified 10/13/22 10:10) Unknown lisinopril [LISINOPRIL] Allergy (Unknown, Verified 10/13/22 10:10) ANGIOEDEMA mometasone furoate [Dulera] Allergy (Unknown, Verified 10/13/22 10:10) Unknown nebivolol [Bystolic] Allergy (Unknown, Verified 10/13/22 10:10) Unknown olmesartan [Benicar] Allergy (Unknown, Verified 10/13/22 10:10) Unknown pectin [From Digestive Enzyme (acidoph,pec)] Allergy (Unknown, Verified 10/13/22 10:10) Unknown Sulfa (Sulfonamide Antibiotics) Allergy (Unknown, Verified 10/13/22 10:10) headache, shaking, freezing sensation, upset stomach formoterol [From Symbicort] Adverse Reaction (Intermediate, Verified 10/13/22 10:10) Dizziness verapamil Adverse Reaction (Intermediate, Verified 10/13/22 10:10) Blurry Vision estrodiol Allergy (Unknown, Uncoded 07/26/23 10:10) Unknown Medication List - Last Reconciled 10/13/22 by Cheryl Case LPN albuterol sulfate 90 mcg/actuation (Ventolin HFA) 2 puffs inhalation Q6H PRN amlodipine 5 mg PO BEDTIME atorvastatin 10 mg PO BEDTIME cholecalciferol (vitamin D3) 25 mcg PO DAILY meclizine 25 mg PO TID montelukast 10 mg PO BEDTIME montelukast 10 mg PO DAILY multivitamin 1 tab PO DAILY nitrofurantoin monohyd/m-cryst 100 mg (Macrobid) 100 mg PO BID 7 days vitamin B complex 1 tab PO DAILY HPI COPD HPI Details Eric is a pleasant 71 year old female, former smoker with 60 pack year history, quit over 30 years ago, with underlying COPD and palpitations. She was referred by cardiology for pulmonary evaluation for dyspnea on exertion after nuclear stress test, which limited due to exercise capacity, did not show any significant ECG changes or nuclear perfusion defect. She reports progressively worsening dyspnea on moderate exertion with intermittent wheezing, and occasional dry cough at night. She reports the symptoms began worsening in December after COVID. She took Paxlovid and managed symptoms at home. She denies any chest pain, hemoptysis, bilateral extremity edema or orthopnea. She has been using singulair and albuterol PRN. Denies any current maintenance inhalers as she has had adverse reactions to Flovent, Dulera, Symbicort and she believes Trelegy as well. She reports feeling dizziness, tachycardiac and developed headaches after all. She denies these symptoms with albuterol use. She is under the care of an family and consumer science professor, Dr. Chávez and has allergen immunotherapy to environmentals q2 weeks, which the frequency was recently increased due to increase in allergic symptoms. She denies any family history of lung conditions. 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 [facility] Medical History (Updated 10/15/22 @ 09:42 by Licha Vela NP) Abnormal stress ECG with treadmill Annual physical exam Anxiety Asthma Breast cancer screening by mammogram Cholelithiasis Constipation Contact dermatitis Cystic duct leak Dysuria Dysuria Facial injury GERD (gastroesophageal reflux disease) Hypercholesterolemia Hypertension Impacted cerumen of both ears Impaired glucose tolerance Nocturia more than twice per night Panic attack Recurrent UTI Skin lesion of hand SVT (supraventricular tachycardia) Tinnitus Vitamin D deficiency Surgical History History of cataract surgery Hx of cholecystectomy Family History Father Myocardial infarction Mother Hypertension Stroke Brother In good health Sister In good health Son In good health Daughter In good health Other Substance use disorder Social History (Updated 10/13/22 @ 10:13 by Cheryl Case LPN) Household Members: None Housing: House Do you presently have visiting nurse or other home services: No Alcohol intake: never Patient Tobacco Use Status: Former Tobacco user Quit Date: 1989 Tobacco use type: Cigarette Cigarette Packs Per Day: 3 Years Smoked: 20 +/- quit 1989 e-Cigarette/Vaping Use: Never Used Second Hand Smoke Exposure: No service: No Current occupational status: previously employed and retired 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 Cognitive needs: No Hearing needs: No Vision needs: Yes Review of Systems Const Denies chills, Denies excessive sweating, Denies fever(s), Denies headache(s) and Denies night sweats Eyes Denies dry eyes, Denies irritation and Reports itchy eyes ENT Reports Normal hearing present, Denies headache(s), Denies nasal congestion, Denies nasal discharge and Denies sore throat Card Denies chest pain, Denies chest pain at rest, Denies chest pain with activity, Denies claudication, Denies leg edema, Reports dyspnea on exertion, Denies orthopnea and Denies paroxysmal nocturnal dyspnea Resp Denies chest congestion, Denies cough, Denies hemoptysis, Denies excessive phlegm production, Denies pain on inspiration, Denies pain with cough, Reports dyspnea on exertion, Denies stridor and Reports wheezing Musc Denies myalgias Neuro Reports Normal hearing present and Denies headache(s) Endo Denies excessive sweating Darian/Lymph Denies lymphadenopathy Aller/Immun Reports itchy eyes, Denies seasonal rhinorrhea and Reports wheezing Physical Exam Vital Signs: Last Vital Signs Pulse 76 10/13/22 10:05 BP 122/60 10/13/22 10:05 Pulse Ox 97 10/13/22 10:05 Oxygen Delivery Method Room Air 10/13/22 10:05 BMI result Body Mass Index 27.5 Const General: cooperative, healthy appearing, comfortable, no acute distress, well developed and alert Orientation/consciousness: patient oriented x3 Limitations: no limitations HEENT Head: Yes normal to inspection, Yes normocephalic and Yes atraumatic Ears: hearing grossly normal bilaterally and external ears normal Eyes General: appearance normal, both eyes and all related structures Eyelids: Yes eyelids normal Sclerae: sclerae normal EOM: EOMs intact bilaterally Neck Neck: Yes normal visual inspection and Yes no lymphadenopathy Lymphatic: no lymphadenopathy noted Chest Chest palpation & inspection: normal inspection of the chest Resp Effort & Inspection: normal respiratory effort, able to speak in complete sentences, no audible wheezes, no cough, no stridor, not tachypneic, no tripod positioning and no use of accessory muscles Auscultation: clear to auscultation bilaterally Cardio Jugular venous distension: no JVD Rate: regular rate Rhythm: regular rhythm Skin Other: warm, dry General skin exam: no rashes or lesions noted Neuro General: patient oriented x3 Cranial nerves: Yes Normal hearing present Cognition (Neuro): normal cognition Gait exam (Neuro): Normal gait present Extrem General: Yes normal to inspection, Yes capillary refill normal, Yes no clubbing, cyanosis or edema and Yes no pedal edema Psych Appearance: grossly normal and well kempt Speech and movement: Normal speech and movement present and Clear speech present Affect: normal affect Attitude: cooperative Thought process: Normal thought process present Thought content: Normal thought content present Insight: Good insight present (Psych) Judgement: Good judgement present (Psych) Office Procedures 6 Minute Walk Time:: 10:45 SPO2 % at rest: 96 Pulse at rest: 88 SPO2 % during excercise: 94 Pulse during excercise: 96 SPO2 % after excercise: 97 Pulse after excercise: 88 Distance in yards walked: 114 Bryan Score: 5 Supplemental Oxygen: Performance Observations:: Patient walked unassisted on flat ground. Maintained O2 saturation at 94% and pulse rate of 96. Patient reports moderate effort. She also notes walking a distance outside in humid weather is difficult. No supplemental O2 was needed. [id number] - 6 Minute Walk Results Reviewed Results Reviewed: [address] [address] Pulmonary Function Report Signed Patient: Eric Broderick MR#: [id number] : 1950 Acct:[id number] Age/Sex: 71 / F ADM Date: 09/27/[address]: Evens Cerrato MD Ordering Physician: Evens Cerrato MD Date of Service: 09/27/22 Procedure(s): PFT? pulmonary function test Accession Number(s): [id number] cc: Evens Cerrato MD~ ? INDICATION:? Asthma. ?? SPIROMETRY:? The FEV1 to FVC 62% with an FEV1 of 0.99 L which is 52% predicted and FVC of 1.6 L which is 63% predicted.? No significant response to bronchodilators noted.? Maximum voluntary ventilation was not available. ?? LUNG VOLUMES:? Total lung capacity 96% predicted with an expiratory residual volume of 27% predicted. ?? DIFFUSION CAPACITY:? DLCO of 78% predicted. ?? COMPARISONS:? Not available. ?? INTERPRETATION:? There is an obstructive ventilatory defect consistent with [id number] COPD.? Patient may have a component of asthma, COPD overlap syndrome.? The maximum voluntary ventilation not available.? Lung volumes are normal except for a trend of air trapping due to the COPD and decrease in the expiratory of volume as well noted.? The patient also has mild diffusion impairment secondary to the above.? Clinical correlation warranted. ?? Simon Pierce MD ? Assessment & Plan Assessment & Plan (1) COPD (chronic obstructive pulmonary disease): Code(s): J44.9 - Chronic obstructive pulmonary disease, unspecified (2) Environmental and seasonal allergies: Code(s): J30.89 - Other allergic rhinitis Plan Lamar's symptoms are likely related to COPD. PFT revealed an obstructive karen tilatory defect consistent with [id number] COPD with air trapping and mild diffusion impairment. Full report above. She has done well in the past with ICS/LABA but unfortunately developed adverse reactions after prolonged use with Symbicort and immediate use with Flovent, Dulera and Trelegy. Will trial Breo to see if she can tolerate this then discuss additional medication if needed. 6MWT was performed due to worsening dyspnea on exertion and there is no need for oxygen at this time. Her oxygen saturation maintained above 94% and HR sustained in the 90s. Given patient's history of smoking and occupational exposure, will send for chest CT. All questions were answered and patient is in agreement of plan. Will follow up to review results and response to inhaler. Orders: Orders CT chest wo IV con Today Z87.891 - Personal history of nicotine dependence AMB 6 minute walk 10/13/22 J44.9 - Chronic obstructive pulmonary disease, unspecified Medications: New fluticasone furoate-vilanterol 100-25 mcg/dose (Breo Ellipta) if symptoms of dizziness or heart racing develop discontinue 1 inh inhalation Q24H 60 ea 0RF Coding Level of Care Code New Pt Level 4 (88120) Diagnoses COPD (chronic obstructive pulmonary disease) J44.9 Environmental and seasonal allergies J30.89 CPT Codes Coding ([id number])
[2022-10-13 11:01] VITALS: PULSE 88; O2SAT 96
== END 2022-10-13 13:46 | disposition home or self-care (01) ==
PROVIDERS: PCP Internal Medicine; Visit Provider Nurse Practitioner Family
DX: J44.9 Chronic obstructive pulmonary disease, unspecified (principal)
CPT/HCPCS: 94618; 99204

== ENCOUNTER 2022-10-20 08:12 | Outpatient (REF) | payer MEDICARE, SELFPAY ==
--- NOTE | ~2022-10-20 | XR_ITS ---
EXAMINATION: XR CHEST 2 VIEWS CLINICAL INFORMATION: COPD COMPARISON: Chest radiographs dated 09/05/2014. TECHNIQUE: Frontal and lateral views of the chest were obtained. FINDINGS: The heart, great vessels, pulmonary vasculature and mediastinum are normal. The lungs show no focal infiltrate, effusion or pneumothorax. There is no acute osseous abnormality. There is multi-level thoracic spondylosis. There is a mild thoracolumbar dextroscoliosis. XR/XR chest 2V IMPRESSION: No active cardiopulmonary disease.
== END 2022-10-20 08:13 | disposition home or self-care (01) ==
LOC: HO.XRAY 08:12
PROVIDERS: PCP Internal Medicine; Visit Provider Nurse Practitioner Family
DX: J44.9 Chronic obstructive pulmonary disease, unspecified (principal); R05.9 Cough, unspecified; Z87.891 Personal history of nicotine dependence
CPT/HCPCS: 71046

== ENCOUNTER 2022-12-30 11:35 | Outpatient (REF) | payer MEDICARE, SELFPAY ==
[2022-12-30 13:41] LABS: Appearance Urine Turbid; Color Urine Dark Yellow; Glucose Urine UA Negative (Negative); Leukocyte Esterase Urine Large (3+) (Negative); Nitrite Urine Positive (Negative); PH 6.5 (5.0-9.0); UMIC TRIGGER UA YES; Urine Blood Small (1+) (Negative); Urine Ketones Negative (Negative); Urine Protein Trace mg/dL (Neg-Trace)
[2022-12-30 13:55] LABS: Bacteria Urine 4+ (None Seen); Hyaline Casts Urine 0-2 /LPF (0-2); RBC Urine 0-2 /HPF (0-2); Squamous Epithelial Cell Urine 0-2 /HPF (0-2); WBC Urine >50 /HPF (0-5)
== END 2022-12-30 11:36 | disposition home or self-care (01) ==
LOC: HO.LAB 11:35
PROVIDERS: PCP Internal Medicine; Visit Provider Urology
DX: R00.2 Palpitations (principal); I47.10 Supraventricular tachycardia, unspecified; R06.02 Shortness of breath; N39.0 Urinary tract infection, site not specified
CPT/HCPCS: 81001; 87086; 87088; 87186; 99212

== ENCOUNTER 2022-12-30 11:56 | Outpatient (AMB) | payer MEDICARE, SELFPAY ==
[2022-12-30 12:40] VITALS: BP 122/72; PULSE 72; BMI 27.7
--- NOTE | 2022-12-30 12:40 | MHC.OFFVIS ---
Intake Vital Signs 12/30/22 12:40 Height 5 ft 1 in Weight 146 lb 6.191 oz BMI 27.7 BP 122/72 Blood Pressure Location Lt brachial Position Sitting Pulse 72 Pulse Source Pulse Oximeter Intake Visit Reasons: 3 mth f/up KM s/p pft Allergies ARB-Angiotensin Receptor Antagonist [ANGIOTENSIN RECEPTOR ANTAGONIST] Allergy (Unknown, Verified 12/30/22 12:42) ANAPHYLAXIS beclomethasone [QNASL] Allergy (Unknown, Verified 12/30/22 12:42) blurred vision, headaches budesonide [Symbicort] Allergy (Unknown, Verified 12/30/22 12:42) higher dose problem ciprofloxacin [Cipro] Allergy (Unknown, Verified 12/30/22 12:42) Unknown codeine [Codeine] Allergy (Unknown, Verified 12/30/22 12:42) UNKNOWN digestive enzymes combo no.8 [From Digestive Enzyme (acidoph,pec)] Allergy (Unknown, Verified 12/30/22 12:42) Unknown fluticasone [Flovent HFA] Allergy (Unknown, Verified 12/30/22 12:42) Unknown Lactobacillus acidophilus [From Digestive Enzyme (acidoph,pec)] Allergy (Unknown, Verified 12/30/22 12:42) Unknown lisinopril [LISINOPRIL] Allergy (Unknown, Verified 12/30/22 12:42) ANGIOEDEMA mometasone furoate [Dulera] Allergy (Unknown, Verified 12/30/22 12:42) Unknown nebivolol [Bystolic] Allergy (Unknown, Verified 12/30/22 12:42) Unknown olmesartan [Benicar] Allergy (Unknown, Verified 12/30/22 12:42) Unknown pectin [From Digestive Enzyme (acidoph,pec)] Allergy (Unknown, Verified 12/30/22 12:42) Unknown Sulfa (Sulfonamide Antibiotics) Allergy (Unknown, Verified 12/30/22 12:42) headache, shaking, freezing sensation, upset stomach methenamine Allergy (Verified 12/30/22 12:42) Unknown amoxicillin [From Augmentin] Adverse Reaction (Intermediate, Verified 12/30/22 12:42) abdominal pain clavulanic acid [From Augmentin] Adverse Reaction (Intermediate, Verified 12/30/22 12:42) abdominal pain formoterol [From Symbicort] Adverse Reaction (Intermediate, Verified 12/30/22 12:42) Dizziness verapamil Adverse Reaction (Intermediate, Verified 12/30/22 12:42) Blurry Vision estrodiol Allergy (Unknown, Uncoded 10/13/22 10:10) Unknown Medication List - Last Reconciled 12/30/22 by Keira Walker, EMERGENCY MEDICAL SERVICE MANAGER-C amlodipine 5 mg PO BEDTIME ascorbic acid (vitamin C) 500 mg PO DAILY 90 days atorvastatin 10 mg PO BEDTIME cholecalciferol (vitamin D3) 25 mcg PO DAILY multivitamin 1 tab PO DAILY umeclidinium-vilanterol 62.5-25 mcg/actuation (Anoro Ellipta) 1 inh inhalation DAILY vitamin B complex 1 tab PO DAILY HPI 3 mth f/up KM s/p pft HPI Details Lamar is a 72-year-old female with past medical history of hypertension, hyperlipidemia, impaired fasting glucose, smoking, palpitations, short SVT runs who presents for follow-up. Today she reports that she does notice brief heart palpitations at times. She has no sustained rapid or irregular beating. She has some shortness of breath with activity which she relates to asthma. She also notices less heart palpitations following a change in her inhalers. No chest discomfort at rest or with activity. No presyncope, syncope, falls. No PND, orthopnea or edema. Takes meds as directed. [facility] Medical History (Updated 12/30/22 @ 17:06 by Keira Walker, EMERGENCY MEDICAL SERVICE MANAGER-C) SVT (supraventricular tachycardia) Abnormal stress ECG with treadmill Cholelithiasis Recurrent UTI Nocturia more than twice per night Dysuria Impacted cerumen of both ears Tinnitus Annual physical exam Contact dermatitis Skin lesion of hand Breast cancer screening by mammogram Cystic duct leak Panic attack Anxiety Facial injury Dysuria Constipation Hypercholesterolemia Vitamin D deficiency GERD (gastroesophageal reflux disease) Impaired glucose tolerance Hypertension Asthma Surgical History Hx of cholecystectomy History of cataract surgery Family History Father Myocardial infarction Mother Hypertension Stroke Brother In good health Sister In good health Son In good health Daughter In good health Other Substance use disorder Social History Household Members: None Housing: House Do you presently have visiting nurse or other home services: No Alcohol intake: never Patient Tobacco Use Status: Former Tobacco user Quit Date: 1989 Tobacco use type: Cigarette Cigarette Packs Per Day: 3 Years Smoked: 20 +/- quit 1989 e-Cigarette/Vaping Use: Never Used Second Hand Smoke Exposure: No service: No Current occupational status: previously employed and retired 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 Cognitive needs: No Hearing needs: No Vision needs: Yes Review of Systems Const All systems reviewed & are unremarkable except as noted in HPI and below ENT Denies dizziness Card Details: less palpitations Denies chest pain, Denies chest pain at rest, Denies chest pain with activity, Denies rapid heart rate, Denies pedal edema, Denies edema, Denies leg edema, Denies lightheadedness, Denies palpitations, Denies dyspnea, Denies dyspnea on exertion and Denies orthopnea Resp Denies cough, Denies dyspnea and Denies dyspnea on exertion GI Denies hematochezia and Denies change in stool character Musc Denies abnormal gait, Denies limited range of motion, Denies muscle cramps, Denies muscle weakness, Denies numbness, Denies radiating pain into limb, Denies stiffness and Denies tingling Neuro Denies abnormal gait, Denies dizziness, Denies numbness and Denies tingling Endo Denies palpitations Physical Exam Vital Signs: Last Vital Signs Pulse 72 12/30/22 12:40 BP 122/72 12/30/22 12:40 BMI result Body Mass Index 27.7 Const General: cooperative, healthy appearing, comfortable and no acute distress Orientation/consciousness: patient oriented x3 Neck Neck: Yes normal visual inspection Resp Effort & Inspection: normal respiratory effort Auscultation: clear to auscultation bilaterally, no crackles, no rales, no rhonchi and no wheezes Cardio Jugular venous distension: no JVD Rate: regular rate Rhythm: regular rhythm Heart sounds: S1 normal heart sound present, S2 normal heart sound present, no gallops, no murmurs and no rubs Peripheral pulses: Peripheral pulses 2+ throughout Neuro General: patient oriented x3 Extrem General: Yes normal to inspection, No no pedal edema and No calf tenderness Psych Appearance: grossly normal Mental Status: mental status grossly normal Speech and movement: Normal speech and movement present Assessment & Plan Assessment & Plan (1) Palpitations: Code(s): R00.2 - Palpitations Plan: History of heart palpitations. Holter monitor done 09/29/2021 for 6 days shows sinus rhythm with average heart rate 80 per, very frequent runs of SVT, longest episode 52 minutes, initially thought to be possible AFib however upon Dr. Lee review seems to be more likely narrow complex tachycardia, frequent PACs, 13.75%. Echocardiogram done 02/02/2022 showed EF 55-60%, moderate mitral annular calcification. She reports having a change in her asthma inhalers and now notices less heart palpitations. She denies any sustained rapid or irregular beating. She is not on any rate slowing agents at this time. Reviewed reduction in caffeinated beverages, activity as tolerated. Emergency care if needed for concerning palpitations. Cardiology follow-up 6 months, sooner if needed. Will check Holter monitor prior to that visit. (2) SVT (supraventricular tachycardia): Code(s): I47.1 - Supraventricular tachycardia Plan: As above (3) Shortness of breath: Code(s): R06.02 - Shortness of breath Plan: Reports of shortness of breath with activity. Does have history of asthma. Underwent an exercise stress test 06/21/22 with exercise 3 minutes 30 seconds with moderate shortness of breath and need to stop. Test was nondiagnostic. She then underwent a nuclear stress test with exercise 5 minutes, mild shortness of breath and no EKG changes of ischemia, normal myocardial perfusion imaging. Between the test her asthma medication was adjusted and she was newly on montelukast which was helping her shortness of breath. At this point she reports her breathing as being stable. She does have some shortness of breath with it activity but overall much improved. No clear cardiac cause for this symptom. Orders: Orders ECG 3 day holter monitor 5 Months I47.1 - Supraventricular tachycardia, R00.2 - Palpitations Coding Level of Care Code Est Pt Level 3 (57121) Diagnoses Palpitations R00.2 SVT (supraventricular tachycardia) I47.1 Shortness of breath R06.02 Time Spent (min) 24
== END 2022-12-30 13:18 | disposition home or self-care (01) ==
PROVIDERS: PCP Internal Medicine; Visit Provider Nurse Practitioner Family
DX: R00.2 Palpitations (principal); I47.1 Supraventricular tachycardia; R06.02 Shortness of breath
CPT/HCPCS: 99213

== ENCOUNTER 2023-01-14 09:06 | Outpatient (REF) | payer MEDICARE, SELFPAY ==
--- NOTE | ~2023-01-14 | CT_ITS ---
EXAMINATION: CT CHEST WITHOUT CONTRAST CLINICAL INFORMATION: Smoking history COMPARISON: Previous chest x-ray most recent October 2022 TECHNIQUE: Multidetector volumetric CT imaging of the chest was done. Axial MIP volume rendering provided. Sagittal and coronal reformatted images were obtained. This CT examination was performed using dose optimization techniques as appropriate, variously including the following: *Automated exposure control *Adjustment of mA and/or kV according to patient size (this includes techniques or standardized protocols for targeted exams where dose is matched to indication/reason for exam; i.e. extremities or head) *Use of iterative reconstruction technique DLP: 145 mGy-cm FINDINGS: ASSOCIATE PATHOLOGIST: LUNGS: Scattered areas of a small clustered pulmonary nodules, mild bronchial wall thickening and increased peribronchial attenuation in the right upper lobe. Largest area measures 4 mm axial image 184 series 5. 2 mm superior segment right lower lobe nodule axial image 239 series 5. 3 mm superior segment left lower lobe nodule axial image 221 series 5. 2 mm right upper lobe nodule axial image 247 series 5. 2 mm superior segment right lower lobe nodule axial image 248 series 5. Clustered peribronchial right lower lobe nodules again questionable for tree-in-bud appearance or airways disease in the superior segment of the right lower lobe axial image 263 series 5. Mild bronchiectasis and bronchial wall thickening in the right middle lobe. MEDIASTINUM: Normal heart size. Moderate to severe coronary artery calcification. No pericardial effusion. Coronary artery calcification. No enlarged hilar or mediastinal lymph nodes. Normal caliber thoracic aorta. CORONARY ARTERY CALCIFICATION: Moderate to severe PLEURA: There is no pleural effusion. No pleural mass or thickening. Small bilateral posterior diaphragmatic hernias containing fat. AXILLA: No lymphadenopathy. UPPER ABDOMEN: 1.2 x 2.3 cm cyst in the upper pole of the right kidney. No imaging follow-up recommended. OSSEOUS STRUCTURES: Degenerative changes of the spine. CT/CT chest wo IV con IMPRESSION: Small pulmonary nodules, right greater than left, some of which may be related to airways disease. Chest CT follow-up in one year recommended. Coronary artery and aortic valve calcification. Fleischner guidelines were followed.
== END 2023-01-14 09:07 | disposition home or self-care (01) ==
LOC: HO.CT 09:06
PROVIDERS: PCP Internal Medicine; Visit Provider Nurse Practitioner Family
DX: Z87.891 Personal history of nicotine dependence (principal)
CPT/HCPCS: 71250

== ENCOUNTER 2023-01-25 09:08 | Outpatient (AMB) | payer MEDICARE, SELFPAY ==
--- NOTE | 2023-01-25 09:29 | A.OFFVIS_ITS ---
Intake Vital Signs 01/25/23 09:31 Height 5 ft 1 in Weight 141 lb BMI 26.6 BP 128/60 Blood Pressure Location Lt brachial Position Sitting Pulse 72 Pulse Source Pulse Oximeter Pulse Oximetry (%) 94 Oxygen Delivery Method Room Air Intake Visit Reasons: copd: ct review Director Clinical Data Required: No Merchandise Appraiser: Merchandise Appraiser offered & declined Accompanied by: Daughter Allergies ARB-Angiotensin Receptor Antagonist [ANGIOTENSIN RECEPTOR ANTAGONIST] Allergy (Unknown, Verified 01/25/23 09:37) ANAPHYLAXIS beclomethasone [QNASL] Allergy (Unknown, Verified 01/25/23 09:37) blurred vision, headaches budesonide [Symbicort] Allergy (Unknown, Verified 01/25/23 09:37) higher dose problem ciprofloxacin [Cipro] Allergy (Unknown, Verified 01/25/23:37) Unknown codeine [Codeine] Allergy (Unknown, Verified 01/25/23:37) UNKNOWN digestive enzymes combo no.8 [From Digestive Enzyme (acidoph,pec)] Allergy (Unknown, Verified 01/25/23 09:37) Unknown fluticasone [Flovent HFA] Allergy (Unknown, Verified 01/25/23:37) Unknown Lactobacillus acidophilus [From Digestive Enzyme (acidoph,pec)] Allergy (Unk nown, Verified 01/25/23 09:37) Unknown lisinopril [LISINOPRIL] Allergy (Unknown, Verified 01/25/23 09:37) ANGIOEDEMA mometasone furoate [Dulera] Allergy (Unknown, Verified 01/25/23 09:37) Unknown nebivolol [Bystolic] Allergy (Unknown, Verified 01/25/23:37) Unknown olmesartan [Benicar] Allergy (Unknown, Verified 01/25/23 09:37) Unknown pectin [From Digestive Enzyme (acidoph,pec)] Allergy (Unknown, Verified 01/25/23 09:37) Unknown Sulfa (Sulfonamide Antibiotics) Allergy (Unknown, Verified 01/25/23 09:37) headache, shaking, freezing sensation, upset stomach methenamine Allergy (Verified 01/25/23 09:37) Unknown amoxicillin [From Augmentin] Adverse Reaction (Intermediate, Verified 01/25/23 09:37) abdominal pain clavulanic acid [From Augmentin] Adverse Reaction (Intermediate, Verified 01/25/23 09:37) abdominal pain formoterol [From Symbicort] Adverse Reaction (Intermediate, Verified 01/25/23 09:37) Dizziness verapamil Adverse Reaction (Intermediate, Verified 01/25/23 09:37) Blurry Vision estrodiol Allergy (Unknown, Uncoded 01/25/23 09:37) Unknown Medication List - Last Reconciled 01/25/23 by Cheryl Case LPN amlodipine 5 mg PO BEDTIME ascorbic acid (vitamin C) 500 mg PO DAILY 90 days atorvastatin 10 mg PO BEDTIME cholecalciferol (vitamin D3) 25 mcg PO DAILY fosfomycin tromethamine 1 packet PO Q3D 6 days multivitamin 1 tab PO DAILY umeclidinium-vilanterol 62.5-25 mcg/actuation (Anoro Ellipta) 1 inh inhalation DAILY vitamin B complex 1 tab PO DAILY HPI copd: ct review HPI Details Eric is a pleasant 72 year old female, former smoker with 60 pack year history, quit over 30 years ago, with underlying COPD and SVT. She ambulates with a walker and is accompanied by her daughter. She continues to report dyspnea on moderate exertion with intermittent wheezing, and occasional dry cough at night. She reports the symptoms began worsening in December after COVID. She was using singulair and albuterol frequently. At the last visit, she was switched to Anoro and reports minimal use of albuterol, having a decrease in palpitations. Today she presents to review her chest CT results. [facility] Medical History (Updated 01/25/23 @ 13:05 by Chapis Mcclendon PA-C) SVT (supraventricular tachycardia) Abnormal stress ECG with treadmill Coronary artery calcification seen on CT scan Hypertension Hypercholesterolemia Impaired glucose tolerance COPD (chronic obstructive pulmonary disease) Asthma Environmental and seasonal allergies Personal history of tobacco use GERD (gastroesophageal reflux disease) Constipation Recurrent UTI Dysuria Nocturia more than twice per night Impacted cerumen of both ears Tinnitus Anxiety Vitamin D deficiency History of COVID-19 Contact dermatitis Breast cancer screening by mammogram Surgical History (Updated 01/25/23 @ 13:04 by Chapis Mcclendon PA-C) History of colonoscopy History of cholecystectomy History of ERCP History of cataract surgery Family History Father Myocardial infarction Mother Hypertension Stroke Brother In good health Sister In good health Son In good health Daughter In good health Other Substance use disorder Social History (Updated 01/25/23 @ 09:40 by Cheryl Case LPN) Household Members: None Housing: House Do you presently have visiting nurse or other home services: No Alcohol intake: never Patient Tobacco Use Status: Former Tobacco user Quit Date: 1989 Tobacco use type: Cigarette Cigarette Packs Per Day: 3 Years Smoked: 20 +/- quit 1989 e-Cigarette/Vaping Use: Never Used Second Hand Smoke Exposure: No service: No Current occupational status: previously employed and retired 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 Cognitive needs: No Hearing needs: No Vision needs: Yes Review of Systems Const Denies chills, Denies excessive sweating, Denies fever(s), Denies headache(s) and Denies night sweats Eyes Denies dry eyes, Denies irritation and Reports itchy eyes ENT Reports Normal hearing present, Denies headache(s), Denies nasal congestion, Denies nasal discharge and Denies sore throat Card Denies chest pain, Denies chest pain at rest, Denies chest pain with activity, Denies claudication, Denies leg edema, Reports dyspnea on exertion, Denies orthopnea and Denies paroxysmal nocturnal dyspnea Resp Denies chest congestion, Denies cough, Denies hemoptysis, Denies excessive phlegm production, Denies pain on inspiration, Denies pain with cough, Reports dyspnea on exertion, Denies stridor and Reports wheezing Musc Denies myalgias Neuro Reports Normal hearing present and Denies headache(s) Endo Denies excessive sweating Darian/Lymph Denies lymphadenopathy Aller/Immun Reports itchy eyes, Denies seasonal rhinorrhea and Reports wheezing Physical Exam Vital Signs: Last Vital Signs Pulse 72 01/25/23 09:31 BP 128/60 01/25/23 09:31 Pulse Ox 94 01/25/23 09:31 Oxygen Delivery Method Room Air 01/25/23 09:31 BMI result Body Mass Index 26.6 Const General: cooperative, healthy appearing, comfortable, no acute distress, well developed and alert Orientation/consciousness: patient oriented x3 Limitations: no limitations HEENT Head: Yes normal to inspection, Yes normocephalic and Yes atraumatic Ears: hearing grossly normal bilaterally and external ears normal Eyes General: appearance normal, both eyes and all related structures Eyelids: Yes eyelids normal Sclerae: sclerae normal EOM: EOMs intact bilaterally Neck Neck: Yes normal visual inspection and Yes no lymphadenopathy Lymphatic: no lymphadenopathy noted Chest Chest palpation & inspection: normal inspection of the chest Resp Effort & Inspection: normal respiratory effort, able to speak in complete sentences, no audible wheezes, no stridor, not tachypneic, no tripod positioning and no use of accessory muscles Cardio Jugular venous distension: no JVD Rate: regular rate Rhythm: regular rhythm Skin Other: warm, dry General skin exam: no rashes or lesions noted Neuro General: patient oriented x3 Cranial nerves: Yes Normal hearing present Cognition (Neuro): normal cognition Gait exam (Neuro): Normal gait present Extrem General: Yes normal to inspection, Yes capillary refill normal, Yes no clubbing, cyanosis or edema and Yes no pedal edema Psych Appearance: grossly normal and well kempt Speech and movement: Normal speech and movement present and Clear speech present Affect: normal affect Attitude: cooperative Thought process: Normal thought process present Thought content: Normal thought content present Insight: Good insight present (Psych) Judgement: Good judgement present (Psych) Office Procedures Nebulizer Treatment Nebulizer Treatment 56483-Gitqppels/MDI RX initial, or Nebulizer Subsequent Treatment Office Meds ipratropium 0.5 mg-albuterol 3 mg (2.5 mg base)/3 mL nebulization sriram Performing Provider: Licha Vela NP Performing Location: [facility] Administered by: Cheryl Case LPN on 01/25/23 10:26 Dose Route Admin Location Dispensed Lot Number Expiration Date [facility] Sampler Pickup 3 mL inhalation 3 mL [id number] 05/18/24 8731-6053-89 [employer]PHRON KATHLEEN Results Reviewed Results Reviewed: [address] [address] [address] Scan Report Signed Patient: Eric Broderick MR#: [id number] : 1950 Acct:[id number] Age/Sex: 72 / F ADM Date: 01/14/23 Loc: HO.CT Attending Dr: Licha Vela WEB PRESS OPERATOR Ordering Physician: Licha Vela NP Date of Service: 01/14/23 Procedure(s): CT chest wo IV con Accession Number(s): [id number] cc: Cassandar Weeks MD; Licha Vela NP~ EXAMINATION: CT CHEST WITHOUT CONTRAST CLINICAL INFORMATION: Smoking history COMPARISON: Previous chest x-ray most recent October 2022 TECHNIQUE: Multidetector volumetric CT imaging of the chest was done. Axial MIP volume rendering provided. Sagittal and coronal reformatted images were obtained. This CT examination was performed using dose optimization techniques as appropriate, variously including the following: *Automated exposure control *Adjustment of mA and/or kV according to patient size (this includes techniques or standardized protocols for targeted exams where dose is matched to indication/reason for exam; i.e. extremities or head) *Use of iterative reconstruction technique DLP: 145 mGy-cm FINDINGS: HOTEL OR MOTEL MANAGER: LUNGS: Scattered areas of a small clustered pulmonary nodules, mild bronchial wall thickening and increased peribronchial attenuation in the right upper lobe. Largest area measures 4 mm axial image 184 series 5. 2 mm superior segment right lower lobe nodule axial image 239 series 5. 3 mm superior segment left lower lobe nodule axial image 221 series 5. 2 mm right upper lobe nodule axial image 247 series 5. 2 mm superior segment right lower lobe nodule axial image 248 series 5. Clustered peribronchial right lower lobe nodules again questionable for tree-in-bud appearance or airways disease in the superior segment of the right lower lobe axial image 263 series 5. Mild bronchiectasis and bronchial wall thickening in the right middle lobe. MEDIASTINUM: Normal heart size. Moderate to severe coronary artery calcification. No pericardial effusion. Coronary artery calcification. No enlarged hilar or mediastinal lymph nodes. Normal caliber thoracic aorta. CORONARY ARTERY CALCIFICATION: Moderate to severe PLEURA: There is no pleural effusion. No pleural mass or thickening. Small bilateral posterior diaphragmatic hernias containing fat. AXILLA: No lymphadenopathy. UPPER ABDOMEN: 1.2 x 2.3 cm cyst in the upper pole of the right kidney. No imaging follow-up recommended. OSSEOUS STRUCTURES: Degenerative changes of the spine. CT/CT chest wo IV con IMPRESSION: Small pulmonary nodules, right greater than left, some of which may be related to airways disease. Chest CT follow-up in one year recommended. Coronary artery and aortic valve calcification. Fleischner guidelines were followed. Assessment & Plan Assessment & Plan (1) COPD (chronic obstructive pulmonary disease): Code(s): J44.9 - Chronic obstructive pulmonary disease, unspecified (2) Environmental and seasonal allergies: Code(s): J30.89 - Other allergic rhinitis (3) Pulmonary nodules: Comment: (Small bilateral pulmonary nodules, right greater than left - on 01/14/[address]) Code(s): R91.8 - Other nonspecific abnormal finding of lung field Plan Reviewed chest CT which revealed multiple small pulmonary nodules bilaterally, <4 mm. Will repeat chest CT in one year or sooner if needed. She has done well in the past with ICS/LABA but unfortunately developed adverse reactions after prolonged use with Symbicort and immediate use with Flovent, Dulera and Trelegy. She was switched to Anoro and has had symptomatic improvements, although suboptimal. She was given duoneb in office with increased air movement bilaterally, however felt tremoulous and felt palpitations. Will trial a prescription of xopenex given her cardiac history. She is aware to discontinue use if adverse reactions develop. All questions were answered and patient is in agreement of plan. Will follow up in three months or sooner if needed. Orders: Orders AMB Nebulizer Treatment Today J44.9 - Chronic obstructive pulmonary disease, unspecified, J45.909 - Unspecified asthma, uncomplicated CT chest wo IV con 12/12/23 R91.8 - Other nonspecific abnormal finding of lung field Medications: New levalbuterol HCl 1.25 mg (3 mL) inhalation Q4-6H PRN 75 mL 0RF shortness of breath or wheezing Coding Level of Care Code Est Pt Level 4 (25316) Diagnoses COPD (chronic obstructive pulmonary disease) J44.9 Environmental and seasonal allergies J30.89 Pulmonary nodules R91.8 CPT Codes Nebulizer Treatment - Nebulizer Treatment, initial or subsequent: 32538- Nebulizer/MDI RX initial, or Nebulizer Subsequent Treatment ([id number])
[2023-01-25 09:31] VITALS: BP 128/60; PULSE 72; O2SAT 94; BMI 26.6
== END 2023-01-25 10:49 | disposition home or self-care (01) ==
PROVIDERS: PCP Internal Medicine; Visit Provider Nurse Practitioner Family
DX: J44.9 Chronic obstructive pulmonary disease, unspecified (principal); J30.89 Other allergic rhinitis; R91.8 Other nonspecific abnormal finding of lung field
CPT/HCPCS: 99214

== ENCOUNTER → 2023-01-25 09:08 | Outpatient (BNVA) | payer MEDICARE, SELFPAY | PROVIDERS: PCP Internal Medicine; Visit Provider Nurse Practitioner Family | DX: J44.9 Chronic obstructive pulmonary disease, unspecified (principal); J30.89 Other allergic rhinitis; R91.8 Other nonspecific abnormal finding of lung field | CPT/HCPCS: 94640; 99212 ==

== ENCOUNTER 2023-01-25 15:08 | Outpatient (REF) | payer MEDICARE, SELFPAY ==
[2023-01-25 16:56] LABS: Appearance Urine Turbid; Color Urine Dark Yellow; Glucose Urine UA Negative (Negative); Leukocyte Esterase Urine Large (3+) (Negative); Nitrite Urine Positive (Negative); Specific Gravity - Urine 1.015 (1.005-1.025); UMIC TRIGGER UA YES; Urine Blood Moderate (2+) (Negative); Urine Ketones Negative (Negative); Urine Protein 100 (2+) mg/dL (Neg-Trace)
[2023-01-25 17:19] LABS: Bacteria Urine 4+ (None Seen); WBC Urine >50 /HPF (0-5)
== END 2023-01-25 15:09 | disposition home or self-care (01) ==
LOC: HO.LAB 15:08
PROVIDERS: PCP Internal Medicine; Visit Provider Urology
DX: N39.0 Urinary tract infection, site not specified (principal)
CPT/HCPCS: 81001; 87086; 87088; 87186

== ENCOUNTER → 2023-02-17 10:07 | Outpatient (BNVA) | payer MEDICARE, SELFPAY | PROVIDERS: PCP Internal Medicine; Visit Provider Nurse Practitioner Family ==

== ENCOUNTER 2023-02-28 12:59 | Outpatient (AMB) | payer MEDICARE, SELFPAY ==
--- NOTE | 2023-02-28 13:01 | MHC.OFFVIS ---
Intake Vital Signs 02/28/23 13:03 Weight 142 lb BP 137/55 L Blood Pressure Location Lt brachial Position Sitting Pulse 84 Pulse Source Pulse Oximeter Temp 97.7 F Temp Source Oral Pulse Oximetry (%) 97 Oxygen Delivery Method Room Air Intake Visit Reasons: Ref.KumariJuane,Corlis,UTI Allergies ARB-Angiotensin Receptor Antagonist [ANGIOTENSIN RECEPTOR ANTAGONIST] Allergy (Unknown, Verified 02/28/23 13:10) ANAPHYLAXIS beclomethasone [QNASL] Allergy (Unknown, Verified 02/28/23 13:10) blurred vision, headaches budesonide [Symbicort] Allergy (Unknown, Verified 02/28/23 13:10) higher dose problem ciprofloxacin [Cipro] Allergy (Unknown, Verified 02/28/23 13:10) Unknown codeine [Codeine] Allergy (Unknown, Verified 02/28/23 13:10) UNKNOWN digestive enzymes combo no.8 [From Digestive Enzyme (acidoph,pec)] Allergy (Unknown, Verified 02/28/23 13:10) Unknown fluticasone [Flovent HFA] Allergy (Unknown, Verified 02/28/23 13:10) Unknown Lactobacillus acidophilus [From Digestive Enzyme (acidoph,pec)] Allergy (Unknown, Verified 02/28/23 13:10) Unknown lisinopril [LISINOPRIL] Allergy (Unknown, Verified 02/28/23 13:10) ANGIOEDEMA mometasone furoate [Dulera] Allergy (Unknown, Verified 02/28/23 13:10) Unknown nebivolol [Bystolic] Allergy (Unknown, Verified 02/28/23 13:10) Unknown olmesartan [Benicar] Allergy (Unknown, Verified 02/28/23 13:10) Unknown pectin [From Digestive Enzyme (acidoph,pec)] Allergy (Unknown, Verified 02/28/23 13:10) Unknown Sulfa (Sulfonamide Antibiotics) Allergy (Unknown, Verified 02/28/23 13:10) headache, shaking, freezing sensation, upset stomach methenamine Allergy (Verified 02/28/23 13:10) Unknown amoxicillin [From Augmentin] Adverse Reaction (Intermediate, Verified 02/28/23 13:10) abdominal pain clavulanic acid [From Augmentin] Adverse Reaction (Intermediate, Verified 02/28/23 13:10) abdominal pain formoterol [From Symbicort] Adverse Reaction (Intermediate, Verified 02/28/23 13:10) Dizziness verapamil Adverse Reaction (Intermediate, Verified 02/28/23 13:10) Blurry Vision estrodiol Allergy (Unknown, Uncoded 01/25/23 09:37) Unknown HPI Ref.Bandar Mcdonald,UTI HPI Details She is here for evaluation chronic dysuria and vaginal discomfort since October 2022 by her report. SHe reports last several months it is painful to sit down due to labial pain and burning. She also says she has frequent urination, every 20-30 minutes most days. She has no hospital stays or sepsis. She has been treated with estrace cream which caused more burning. She was given Augmentin on 10/15/2022. She then received po Cefdinir 300 mg bid for seven days on 10/18. On 10/25 she took Levaquin for seven days. 01/10 she took fosfomycin 3g and another 3g in three days subsequently. 01/25 she received four fosfomycin packets to last 12 days. On 02/02 she received another four fosfomycin packet to last 12 days and a query from her insurance company. She reports fosfomycin did absolutely nothing for her. She had had very minimal improvement with cephalosporins in past. Urine cultures have often revealed Klebsiella pneumonia 01/27 resistant only to Ampicillin and intermediate to nitrofurantoin. She has had no sepsis hospitalizations or bacteremia by her report. She had taken 250 mg po Keflex for prophylaxis in past. Sulfa ,Augmentin and Cipro cause adverse reactions with dizziness,abdominal discomfort,no true allergies seen. Vitamin C tablets caused mouth pain an burning. She has had two vaginal deliveries and a fourth degree tear. She has had no new medication. [facility] Medical History SVT (supraventricular tachycardia) Abnormal stress ECG with treadmill Coronary artery calcification seen on CT scan Hypertension Hypercholesterolemia Impaired glucose tolerance COPD (chronic obstructive pulmonary disease) Asthma Environmental and seasonal allergies Personal history of tobacco use GERD (gastroesophageal reflux disease) Constipation Recurrent UTI Dysuria Nocturia more than twice per night Impacted cerumen of both ears Tinnitus Anxiety Vitamin D deficiency History of COVID-19 Contact dermatitis Breast cancer screening by mammogram Surgical History History of colonoscopy History of cholecystectomy History of ERCP History of cataract surgery Family History Father Myocardial infarction Mother Hypertension Stroke Brother In good health Sister In good health Son In good health Daughter In good health Other Substance use disorder Social History Household Members: None Housing: House Do you presently have visiting nurse or other home services: No Alcohol intake: never Patient Tobacco Use Status: Former Tobacco user Quit Date: 1989 Tobacco use type: Cigarette Cigarette Packs Per Day: 3 Years Smoked: 20 +/- quit 1989 e-Cigarette/Vaping Use: Never Used Second Hand Smoke Exposure: No service: No Current occupational status: previously employed and retired 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 Cognitive needs: No Hearing needs: No Vision needs: Yes Review of Systems Const All systems reviewed & are unremarkable except as noted in HPI and below Physical Exam Vital Signs: Last Vital Signs Temp 97.7 F 02/28/23 13:03 Pulse 84 02/28/23 13:03 BP 137/55 L 02/28/23 13:03 Pulse Ox 97 02/28/23 13:03 Oxygen Delivery Method Room Air 02/28/23 13:03 Const General: cooperative Orientation/consciousness: patient oriented x3 HEENT Head: Yes normal to inspection Mouth: Normal oral and palatal mucosa present Eyes General: appearance normal, both eyes and all related structures Pupils: Equal, round and reactive pupils present Resp Effort & Inspection: normal respiratory effort Cardio Rate: regular rate Rhythm: regular rhythm GI Palpation (GI): Soft to palpation and nontender General: Yes no CVA tenderness Back/Spine/Pelvis Back: no CVA tenderness Skin General skin exam: no rashes or lesions noted Neuro General: patient oriented x3 Cranial nerves: Yes CN's II-XII intact bilaterally and Yes Equal, round and reactive pupils present Extrem General: Yes normal to inspection Psych Appearance: grossly normal Assessment & Plan Assessment & Plan (1) Dysuria: Comment: 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 She has active urinary sediment with pyuria and hematuria. She has not had serious infections with this bacteria reported fortunately. She may have vaginitis?bacterial or fungal and possible pelvic floor dysfunction with bladder prolapse.? Code(s): R30.0 - Dysuria Plan: Would not give further antibiotics as not clearing urine unless acutely symptomatic with hematuria and/or fever or retention. Prophylactic antibiotics wouldnt work as not helping now. Try po methenamine 1 g po bid for acidification and impairment bacterial growth and she will call us and let us know how doing. Gynecology exam by sanitation manager check for external causes of dysuria and vaginal pain ?lichen planus?HSV or malignancy ?bacterial vaginosis or yeast infection Have Gynecology check for bladder/uterine prolapse also prn need. She will set up appointment. Medications: New methenamine hippurate 1 g PO BID 30 days 60 tabs 0RF Coding Level of Care Code New Pt Level 4 (58451) Diagnoses Dysuria R30.0
[2023-02-28 13:03] VITALS: BP 137/55; PULSE 84; TEMP 36.5; O2SAT 97
== END 2023-02-28 14:02 | disposition home or self-care (01) ==
PROVIDERS: PCP Internal Medicine; Visit Provider Internal Medicine
DX: R30.0 Dysuria (principal)
CPT/HCPCS: 99204; 99214

== ENCOUNTER → 2023-02-28 12:59 | Outpatient (BNVA) | payer MEDICARE, SELFPAY | PROVIDERS: PCP Internal Medicine; Visit Provider Internal Medicine | DX: R30.0 Dysuria (principal) | CPT/HCPCS: 99202 ==

== ENCOUNTER 2023-03-23 12:57 | Outpatient (AMB) | payer MEDICARE, SELFPAY ==
[2023-03-23 13:00] VITALS: BP 130/58; PULSE 80; O2SAT 98; BMI 26.3
--- NOTE | 2023-03-23 13:00 | MHC.PC.OV ---
Vital Signs 03/23/23 13:00 Height 5 ft 1 in Weight 139 lb 0.6 oz BMI 26.3 BP 130/58 L Blood Pressure Location Lt brachial Position Sitting Pulse 80 Pulse Source Pulse Oximeter Pulse Oximetry (%) 98 Oxygen Delivery Method Room Air Intake Visit Reasons: prolapsed uterus? 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 Required: No Allergies ARB-Angiotensin Receptor Antagonist [ANGIOTENSIN RECEPTOR ANTAGONIST] Allergy (Unknown, Verified 03/23/23 13:01) ANAPHYLAXIS beclomethasone [QNASL] Allergy (Unknown, Verified 03/23/23 13:01) blurred vision, headaches budesonide [Symbicort] Allergy (Unknown, Verified 03/23/23 13:01) higher dose problem ciprofloxacin [Cipro] Allergy (Unknown, Verified 03/23/23 13:01) Unknown codeine [Codeine] Allergy (Unknown, Verified 03/23/23 13:01) UNKNOWN digestive enzymes combo no.8 [From Digestive Enzyme (acidoph,pec)] Allergy (Unknown, Verified 03/23/23 13:01) Unknown fluticasone [Flovent HFA] Allergy (Unknown, Verified 03/23/23 13:01) Unknown Lactobacillus acidophilus [From Digestive Enzyme (acidoph,pec)] Allergy (Unknown, Verified 03/23/23 13:01) Unknown lisinopril [LISINOPRIL] Allergy (Unknown, Verified 03/23/23 13:01) ANGIOEDEMA mometasone furoate [Dulera] Allergy (Unknown, Verified 03/23/23 13:01) Unknown nebivolol [Bystolic] Allergy (Unknown, Verified 03/23/23 13:01) Unknown olmesartan [Benicar] Allergy (Unknown, Verified 03/23/23 13:01) Unknown pectin [From Digestive Enzyme (acidoph,pec)] Allergy (Unknown, Verified 03/23/23 13:01) Unknown Sulfa (Sulfonamide Antibiotics) Allergy (Unknown, Verified 03/23/23 13:01) headache, shaking, freezing sensation, upset stomach methenamine Allergy (Verified 03/23/23 13:01) Unknown amoxicillin [From Augmentin] Adverse Reaction (Intermediate, Verified 03/23/23 13:01) abdominal pain clavulanic acid [From Augmentin] Adverse Reaction (Intermediate, Verified 03/23/23 13:01) abdominal pain formoterol [From Symbicort] Adverse Reaction (Intermediate, Verified 03/23/23 13:01) Dizziness verapamil Adverse Reaction (Intermediate, Verified 03/23/23 13:01) Blurry Vision estrodiol Allergy (Unknown, Uncoded 03/23/23 13:01) Unknown Tobacco use date assessed: 03/23/23 Fall risk assessment: No Falls in past year Last assessed Fall Risk: 03/23/23 HPI prolapsed uterus? HPI Details 72-year-old female with COPD hypercholesterolemia GERD impaired glucose tolerance hypertension last seen in September 2022 coming in for an acute problem. Patient's colonoscopy is up-to-date mammogram is due in April. Recently seen by the Infectious Disease for UTI with Klebsiella placed on methenamine. With the recurrent UTI patient was advised to follow-up with gynecology.. Patient also follows up pulmonary COPD CT chest done December 2022 stable pulmonary nodule right greater than left noted coronary artery calcifications for the COPD switched to an oral DuoNeb advised to use Xopenex. Patient also follows up with Cardiology no sustained irregular beating underwent nuclear stress test no EKG changes of ischemia and normal myocardial perfusion. PAtient has frequency at night with dysuria and was advised to see Gyne [facility] Medical History SVT (supraventricular tachycardia) Abnormal stress ECG with treadmill Coronary artery calcification seen on CT scan Hypertension Hypercholesterolemia Impaired glucose tolerance COPD (chronic obstructive pulmonary disease) Asthma Environmental and seasonal allergies Personal history of tobacco use GERD (gastroesophageal reflux disease) Constipation Recurrent UTI Dysuria Nocturia more than twice per night Impacted cerumen of both ears Tinnitus Anxiety Vitamin D deficiency History of COVID-19 Contact dermatitis Breast cancer screening by mammogram Surgical History History of colonoscopy History of cholecystectomy History of ERCP History of cataract surgery Family History Father Myocardial infarction Mother Hypertension Stroke Brother In good health Sister In good health Son In good health Daughter In good health Other Substance use disorder Social History Household Members: None Housing: House Do you presently have visiting nurse or other home services: No Alcohol intake: never Patient Tobacco Use Status: Former Tobacco user Quit Date: 1989 Tobacco use type: Cigarette Cigarette Packs Per Day: 3 Years Smoked: 20 +/- quit 1989 e-Cigarette/Vaping Use: Never Used Second Hand Smoke Exposure: No service: No Current occupational status: previously employed and retired 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 How often do you have a drink containing alcohol?: Never 3. How often do you have six or more drinks on one occasion?: Never Total Score: 0 Score Reviewed/Action Taken: No SUAD-7 AMB Questionnaire SUAD-7 Date SUAD - 7 assessed: 07/07/22 Source: Developed by Drs. Buster Gerber, Belkis Kumar, Skinny Singh and colleagues, with an educational tony from [employer]. Physical exam (Primary Care) Vital Signs: Last Vital Signs Pulse 80 03/23/23 13:00 BP 130/58 L 03/23/23 13:00 Pulse Ox 98 03/23/23 13:00 Oxygen Delivery Method Room Air 03/23/23 13:00 BMI result Body Mass Index 26.3 Tobacco/Smoking Status: Tobacco use Status Tobacco use date assessed 03/23/23 03/23/23 13:01 Patient Tobacco Use Status Former Tobacco user 03/23/23 13:01 Tobacco use type Cigarette 03/23/23 13:01 e-Cigarette/Vaping Use Never Used 03/23/23 13:01 Thrive Assessment: Date of Thrive Assessment Date Thrive assessed 07/07/22 03/23/23 13:01 Const General: alert; No acute distress Eyes Conjunctivae: conjunctivae normal Resp Auscultation: clear to auscultation bilaterally Cardio Rate: regular rate Rhythm: regular rhythm GI Inspection: Yes normal to inspection Extrem General: Yes normal to inspection and No edema Assessment and Plan Assessment & Plan (1) Coronary artery calcification seen on CT scan: Comment: (Moderate to severe coronary artery calcification on 01/14/[address]) Code(s): I25.10 - Atherosclerotic heart disease of [place] coronary artery without angina pectoris Plan: Control the cholesterol, weight, blood pressure (2) Hypertension: Code(s): I10 - Essential (primary) hypertension Qualifiers: Hypertension type: primary hypertension Qualified Code(s): I10 - Essential (primary) hypertension Plan: Continue with blood pressure medication. Decrease salt intake and exercise patient is on amlodipine 5 mg once a day (3) Hypercholesterolemia: Code(s): E78.00 - Pure hypercholesterolemia, unspecified Plan: Avoid fried foods, chicken skin, eggs, butter margarine, pastries and meat. Be it pork or beef they have a lot of cholesterol on atorvastatin 10 mg once a day (4) Impaired glucose tolerance: Code(s): R73.02 - Impaired glucose tolerance (oral) Plan: Decrease the amount of carbohydrate intake, pasta, bread, rice and potatoes are all sugar and that is aside from all the sweet stuff, remember that fruits are good but they are Sweet also. (5) COPD (chronic obstructive pulmonary disease): Code(s): J44.9 - Chronic obstructive pulmonary disease, unspecified Plan: Continue to follow-up with Pulmonary placed on Anoro and Xopenex (6) Pulmonary nodules: Comment: (Small bilateral pulmonary nodules, right greater than left - on 01/14/[address]) Code(s): R91.8 - Other nonspecific abnormal finding of lung field Plan: CT scan December 2022 will have to repeat 1 year after (7) Personal history of tobacco use: Code(s): Z87.891 - Personal history of nicotine dependence Plan: In ruled in Lung cancer screening program December [address] scan (8) GERD (gastroesophageal reflux disease): Code(s): K21.9 - Gastro-esophageal reflux disease without esophagitis Qualifiers: Esophagitis presence: without esophagitis Qualified Code(s): K21.9 - Gastro-esophageal reflux disease without esophagitis Plan: Avoid the foods that causes that usually spicy foods, tomato products, juices, coffee, soda and foods that your sensitive to. After eating do not lie down, allow 3-4 hours before in lie down. And keep the head of bed above 30 degrees to avoid the acid from going up. (9) Recurrent UTI: Code(s): N39.0 - Urinary tract infection, site not specified Plan: Patient has seen Neurology then infectious disease placed on methenamine and advised to follow-up with OB gynecology. (10) Frequency of micturition: Code(s): R35.0 - Frequency of micturition Orders: Orders Vitamin B12 and Folate 3 Months K21.9 - Gastro-esophageal reflux disease without esophagitis Vitamin D 25-OH Total 3 Months K21.9 - Gastro-esophageal reflux disease without esophagitis Lipid Panel 3 Months E78.00 - Pure hypercholesterolemia, unspecified, K21.9 - Gastro-esophageal reflux disease without esophagitis Hemoglobin A1c 3 Months K21.9 - Gastro-esophageal reflux disease without esophagitis Complete Blood Count Auto Diff 3 Months K21.9 - Gastro-esophageal reflux disease without esophagitis Comprehensive Met. Panel 3 Months K21.9 - Gastro-esophageal reflux disease without esophagitis Free T4 (Free Thyroxine) 3 Months K21.9 - Gastro-esophageal reflux disease without esophagitis Thyroid Stimulating Hormone 3 Months K21.9 - Gastro-esophageal reflux disease without esophagitis UA w Microscopic 3 Months K21.9 - Gastro-esophageal reflux disease without esophagitis Referrals MANAGER Referral R35.0 - Frequency of micturition Medications: Discontinued mometasone-formoterol 200-5 mcg/actuation (Dulera) Discontinued Reason: Doctor's Order 2 puffs inhalation BID 13 grams 12RF J45.20 - Mild intermittent asthma, uncomplicated methenamine hippurate Discontinued Reason: Doctor's Order 1 g PO BID 30 days 60 tabs 0RF fosfomycin tromethamine 1 packet every 3 days Discontinued Reason: Patient Completed Course 1 packet PO Q3D 12 days 4 ea 0RF Coding Level of Care Code Est Pt Level 4 (72781) Diagnoses Coronary artery calcification seen on CT scan I25.10 Primary hypertension I10 Hypertension type: primary hypertension Hypercholesterolemia E78.00 Impaired glucose tolerance R73.02 COPD (chronic obstructive pulmonary disease) J44.9 Pulmonary nodules R91.8 Personal history of tobacco use Z87.891 Gastroesophageal reflux disease without esophagitis K21.9 Esophagitis presence: without esophagitis Recurrent UTI N39.0 Frequency of micturition R35.0
== END 2023-03-23 14:28 | disposition home or self-care (01) ==
PROVIDERS: PCP Internal Medicine; Visit Provider Internal Medicine
DX: I25.10 Atherosclerotic heart disease of native coronary artery without angina pectoris (principal); J44.9 Chronic obstructive pulmonary disease, unspecified; I10 Essential (primary) hypertension; E78.00 Pure hypercholesterolemia, unspecified; R73.02 Impaired glucose tolerance (oral); R91.8 Other nonspecific abnormal finding of lung field; Z87.891 Personal history of nicotine dependence; K21.9 Gastro-esophageal reflux disease without esophagitis; N39.0 Urinary tract infection, site not specified; R35.0 Frequency of micturition
CPT/HCPCS: 99214

== ENCOUNTER 2023-04-04 11:05 | Outpatient (AMB) | payer MEDICARE, SELFPAY ==
--- NOTE | 2023-04-04 11:05 | A.OFFVIS_ITS ---
Intake Intake Visit Reasons: 6m/recurrent UTI/cystitis Intake Note: Patient presents today for teleheath follow-up on Recurrent UTI & Cystitis: Meds- None Allergies to Antibiotic- Cipro, Sulfa & Amoxicillin Blood Thinner- None Patient Symptoms: Burning & Dysuria Deputy Probation Officer Required: No Accompanied by: Self / Same As Patient Allergies ARB-Angiotensin Receptor Antagonist [ANGIOTENSIN RECEPTOR ANTAGONIST] Allergy (Unknown, Verified 04/04/23 11:06) ANAPHYLAXIS beclomethasone [QNASL] Allergy (Unknown, Verified 04/04/23 11:06) blurred vision, headaches budesonide [Symbicort] Allergy (Unknown, Verified 04/04/23 11:06) higher dose problem ciprofloxacin [Cipro] Allergy (Unknown, Verified 04/04/23 11:06) Unknown codeine [Codeine] Allergy (Unknown, Verified 04/04/23 11:06) UNKNOWN digestive enzymes combo no.8 [From Digestive Enzyme (acidoph,pec)] Allergy (Unknown, Verified 04/04/23 11:06) Unknown fluticasone [Flovent HFA] Allergy (Unknown, Verified 04/04/23 11:06) Unknown Lactobacillus acidophilus [From Digestive Enzyme (acidoph,pec)] Allergy (Unknown, Verified 04/04/23 11:06) Unknown lisinopril [LISINOPRIL] Allergy (Unknown, Verified 04/04/23 11:06) ANGIOEDEMA mometasone furoate [Dulera] Allergy (Unknown, Verified 04/04/23 11:06) Unknown nebivolol [Bystolic] Allergy (Unknown, Verified 04/04/23 11:06) Unknown olmesartan [Benicar] Allergy (Unknown, Verified 04/04/23 11:06) Unknown pectin [From Digestive Enzyme (acidoph,pec)] Allergy (Unknown, Verified 04/04/23 11:06) Unknown Sulfa (Sulfonamide Antibiotics) Allergy (Unknown, Verified 04/04/23 11:06) headache, shaking, freezing sensation, upset stomach methenamine Allergy (Verified 04/04/23 11:06) Unknown amoxicillin [From Augmentin] Adverse Reaction (Intermediate, Verified 04/04/23 11:06) abdominal pain clavulanic acid [From Augmentin] Adverse Reaction (Intermediate, Verified 04/04/23 11:06) abdominal pain formoterol [From Symbicort] Adverse Reaction (Intermediate, Verified 04/04/23 11:06) Dizziness verapamil Adverse Reaction (Intermediate, Verified 04/04/23 11:06) Blurry Vision estrodiol Allergy (Unknown, Uncoded 04/04/23 11:06) Unknown Medication List - Last Reconciled 04/04/23 by Bandar Mcdonald MD amlodipine 5 mg PO BEDTIME ascorbic acid (vitamin C) 500 mg PO DAILY 90 days atorvastatin 10 mg PO BEDTIME cefuroxime axetil 500 mg PO BID 7 days cholecalciferol (vitamin D3) 25 mcg PO DAILY levalbuterol HCl 1.25 mg (3 mL) inhalation Q4-6H PRN multivitamin 1 tab PO DAILY nitrofurantoin monohyd/m-cryst 100 mg (Macrobid) 100 mg PO DAILY umeclidinium-vilanterol 62.5-25 mcg/actuation (Anoro Ellipta) 1 inh inhalation DAILY vitamin B complex 1 tab PO DAILY HPI HPI Comments History of Present Illness Details Eric is a 71-year-old female who presents to the office for teleheath follow-up of recurrent UTI and dysuria. 04/04/23--Eric is a 71-year-old who is followed for recurrent UTI and she was initially evaluated by [facility] on 11/09/22 and was started on estrogen cream. She used estrogen cream for few days but stopped as ?it kept burning.? She had office cysctosocpy on 05/12/22 and finding: erythematous changes. She was placed on antibiotic suppressive therapy Keflex 250 mg QD --which she states helped her, which she currently is off of. She was referred to Infectious Disease for evaluation. In discussion today she states that she was started on Hiprex by the ID physician but it made her feel sick so she stopped the medication. She states that she is feeling pain every time she urinates. In review of her chart there is a urine culture from January, 01/27/23 resulted Klebsiella. The patient was treated with Fosfomycin which she stated did not help Infectious disease recommended no more antibiotics. And prescribed methenamine b.i.d. for urine acidification. As the patient is not tolerating the methenamine and persists with dysuria I will trial another course of antibiotics Ceftin 500 mg twice a day and continue her on Macrobid 100 mg daily for suppressive therapy with follow-up in my office in 3-4 weeks to recheck her urine to send for cytology and repeat office cyst oscopy. Review of chart-- imaging: Renal ultrasound 04/28/2022--left duplicated collecting system negative masses negative stones office cysctosocpy on 05/12/22 and finding: erythematous changes. Urine culture results reviewed?05/12/22, 10/27/22, 01/27/23--positive for Klebsiella pneumoniae. Plan: Ceftin 500 mg twice a day for 7 days After completing Ceftin patient to take Macrobid 100 mg daily Follow-up in the office in 3-4 weeks to recheck urine. [facility] Medical History SVT (supraventricular tachycardia) Abnormal stress ECG with treadmill Coronary artery calcification seen on CT scan Hypertension Hypercholesterolemia Impaired glucose tolerance COPD (chronic obstructive pulmonary disease) Asthma Environmental and seasonal allergies Personal history of tobacco use GERD (gastroesophageal reflux disease) Constipation Recurrent UTI Dysuria Nocturia more than twice per night Impacted cerumen of both ears Tinnitus Anxiety Vitamin D deficiency History of COVID-19 Contact dermatitis Breast cancer screening by mammogram Surgical History History of colonoscopy History of cholecystectomy History of ERCP History of cataract surgery Family History Father Myocardial infarction Mother Hypertension Stroke Brother In good health Sister In good health Son In good health Daughter In good health Other Substance use disorder Social History Household Members: None Housing: House Do you presently have visiting nurse or other home services: No Alcohol intake: never Patient Tobacco Use Status: Former Tobacco user Quit Date: 1989 Tobacco use type: Cigarette Cigarette Packs Per Day: 3 Years Smoked: 20 +/- quit 1989 e-Cigarette/Vaping Use: Never Used Second Hand Smoke Exposure: No service: No Current occupational status: previously employed and retired 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 Cognitive needs: No Hearing needs: No Vision needs: Yes Review of Systems Const All systems reviewed & are unremarkable except as noted in HPI and below Reports no additional complaints Eyes Reports no additional complaints ENT Reports no additional complaints Card Denies dyspnea Resp Denies cough and Denies dyspnea GI Reports no additional complaints Reports no additional complaints Musc Reports no additional complaints Skin/Breast Denies rash and Denies unusual bruising Neuro Reports no additional complaints Psych Reports no additional complaints Endo Reports no additional complaints Darian/Lymph Reports no additional complaints Aller/Immun Reports no additional complaints Assessment & Plan Assessment & Plan (1) Recurrent UTI: Code(s): N39.0 - Urinary tract infection, site not specified (2) Dysuria: Code(s): R30.0 - Dysuria (3) Cystitis: Code(s): N30.90 - Cystitis, unspecified without hematuria Plan Infectious disease recommended no more antibiotics. And prescribed methenamine b.i.d. for urine acidification. As the patient is not tolerating the methenamine and persists with dysuria I will trial another course of antibiotics Ceftin 500 mg twice a day and continue her on Macrobid 100 mg daily for suppressive therapy with follow-up in my office in 3-4 weeks to recheck her urine to send for cytology and repeat office cystoscopy. Medications: New cefuroxime axetil After completing start macrobid antibiotic 500 mg PO BID 7 days 14 tabs 0RF nitrofurantoin monohyd/m-cryst 100 mg (Macrobid) must administer with a meal/food, start macrobid after completing 7 days of ceftin antibiotic 100 mg PO DAILY 90 caps 2RF Telehealth Telehealth Location of provider rendering services: practice address Location of patient: address on file Patient Identification confirmed using: Name, : Yes Telehealth method: voice only Patient verbally consented to treatment: Yes Patient verbally consented to billing insurance company: Yes Patient informed of any privacy concerns related to visit: Yes Minutes spent on Phone/Video with Pt.: 18 Coding Level of Care Code Tele Est Pt Level 4 (97438) Diagnoses Recurrent UTI N39.0 Dysuria R30.0 Cystitis N30.90
== END 2023-04-04 13:12 | disposition home or self-care (01) ==
LOC: HO.HUSH 11:05
PROVIDERS: PCP Internal Medicine; Visit Provider Urology
DX: N39.0 Urinary tract infection, site not specified (principal); R30.0 Dysuria; N30.90 Cystitis, unspecified without hematuria
CPT/HCPCS: 99442

== ENCOUNTER → 2023-04-04 11:05 | Outpatient (BNVA) | payer MEDICARE, SELFPAY | PROVIDERS: PCP Internal Medicine; Visit Provider Urology ==

== ENCOUNTER 2023-04-27 09:50 | Outpatient (REF) | payer MEDICARE, SELFPAY ==
--- NOTE | ~2023-04-27 | XR_ITS ---
EXAMINATION: XR CHEST CLINICAL INFORMATION: Chest pain COMPARISON: 10/20/2022 TECHNIQUE: 2 views of the chest were obtained. FINDINGS: Lungs hyperaerated but grossly are clear. No pleural effusions. Heart and pulmonary vessels are normal. Spondylitic change observed in the thoracic spine. XR/XR chest 2V IMPRESSION: No active disease.
--- NOTE | 2023-04-27 11:56 | ECG_ITS ---
Test Reason : PALPITATIONS Blood Pressure : / mmHG Vent. Rate : 083 BPM Atrial Rate : 083 BPM P-R Int : 154 ms QRS Dur : 072 ms QT Int : 372 ms P-R-T Axes : 000 -08 064 degrees QTc Int : 437 ms Sinus rhythm with Premature atrial complexes Otherwise normal ECG When compared with ECG of 29-JUN-2022 09:44, Premature atrial complexes are now Present Nonspecific T wave abnormality no longer evident in Inferior leads Referred By: Licha Vela Electronically Signed By:CELINA RODRIGUEZ
== END 2023-04-27 09:51 | disposition home or self-care (01) ==
LOC: HO.XRAY 09:50
PROVIDERS: PCP Internal Medicine; Visit Provider Nurse Practitioner Family
DX: R07.81 Pleurodynia (principal); R00.2 Palpitations; J44.9 Chronic obstructive pulmonary disease, unspecified; R91.8 Other nonspecific abnormal finding of lung field
CPT/HCPCS: 71046; 93005; 99212

== ENCOUNTER 2023-04-27 09:50 | Outpatient (AMB) | payer MEDICARE, SELFPAY ==
[2023-04-27 09:58] VITALS: BP 122/72; PULSE 72; O2SAT 96; BMI 26.4
--- NOTE | 2023-04-27 09:58 | A.OFFVIS_ITS ---
Intake Vital Signs 04/27/23 09:58 Height 5 ft 1 in Weight 140 lb BMI 26.4 BP 122/72 Blood Pressure Location Rt brachial Position Sitting Pulse 72 Pulse Source Pulse Oximeter Pulse Oximetry (%) 96 Oxygen Delivery Method Room Air Intake Visit Reasons: copd : 3 month f/u Data Engineer Required: No Security System Sales Consultant: Security System Sales Consultant offered & declined Accompanied by: Self / Same As Patient Allergies ARB-Angiotensin Receptor Antagonist [ANGIOTENSIN RECEPTOR ANTAGONIST] Allergy (Unknown, Verified 04/04/23 11:06) ANAPHYLAXIS beclomethasone [QNASL] Allergy (Unknown, Verified 04/04/23 11:06) blurred vision, headaches budesonide [Symbicort] Allergy (Unknown, Verified 04/04/23 11:06) higher dose problem ciprofloxacin [Cipro] Allergy (Unknown, Verified 04/04/23 11:06) Unknown codeine [Codeine] Allergy (Unknown, Verified 04/04/23 11:06) UNKNOWN digestive enzymes combo no.8 [From Digestive Enzyme (acidoph,pec)] Allergy (Unknown, Verified 04/04/23 11:06) Unknown fluticasone [Flovent HFA] Allergy (Unknown, Verified 04/04/23 11:06) Unknown Lactobacillus acidophilus [From Digestive Enzyme (acidoph,pec)] Allergy (Unknown, Verified 04/04/23 11:06) Unknown lisinopril [LISINOPRIL] Allergy (Unknown, Verified 04/04/23 11:06) ANGIOEDEMA mometasone furoate [Dulera] Allergy (Unknown, Verified 04/04/23 11:06) Unknown nebivolol [Bystolic] Allergy (Unknown, Verified 04/04/23 11:06) Unknown olmesartan [Benicar] Allergy (Unknown, Verified 04/04/23 11:06) Unknown pectin [From Digestive Enzyme (acidoph,pec)] Allergy (Unknown, Verified 04/04/23 11:06) Unknown Sulfa (Sulfonamide Antibiotics) Allergy (Unknown, Verified 04/04/23 11:06) headache, shaking, freezing sensation, upset stomach methenamine Allergy (Verified 04/04/23 11:06) Unknown amoxicillin [From Augmentin] Adverse Reaction (Intermediate, Verified 04/04/23 11:06) abdominal pain clavulanic acid [From Augmentin] Adverse Reaction (Intermediate, Verified 04/04/23 11:06) abdominal pain formoterol [From Symbicort] Adverse Reaction (Intermediate, Verified 04/04/23 11:06) Dizziness verapamil Adverse Reaction (Intermediate, Verified 04/04/23 11:06) Blurry Vision nitrofurantoin Allergy (Severe, Uncoded 04/20/23 15:45) Blister estrodiol Allergy (Unknown, Uncoded 04/04/23 11:06) Unknown Medication List - Last Reconciled 04/27/23 by Cheryl Case LPN amlodipine 5 mg PO BEDTIME atorvastatin 10 mg PO BEDTIME cholecalciferol (vitamin D3) 25 mcg PO DAILY levalbuterol HCl 1.25 mg (3 mL) inhalation Q4-6H PRN multivitamin 1 tab PO DAILY umeclidinium-vilanterol 62.5-25 mcg/actuation (Anoro Ellipta) 1 inh inhalation DAILY vitamin B complex 1 tab PO DAILY HPI copd : 3 month f/u HPI Details Eric is a pleasant 72 year old female, former smoker with 60 pack year history, quit over 30 years ago, with underlying COPD and SVT. At the last visit she was switched from symbicort to anora as she was having adverse effects to symbicort. She continues to report dyspnea on moderate exertion with intermittent wheezing. She has been using levalbuterol with good effect. She has noticed an increase in palpitations since starting Anoro and levalbuterol. She is under the care of cardiology and has an upcoming appointment. [facility] Medical History SVT (supraventricular tachycardia) Abnormal stress ECG with treadmill Coronary artery calcification seen on CT scan Hypertension Hypercholesterolemia Impaired glucose tolerance COPD (chronic obstructive pulmonary disease) Asthma Environmental and seasonal allergies Personal history of tobacco use GERD (gastroesophageal reflux disease) Constipation Recurrent UTI Dysuria Nocturia more than twice per night Impacted cerumen of both ears Tinnitus Anxiety Vitamin D deficiency History of COVID-19 Contact dermatitis Breast cancer screening by mammogram Surgical History History of colonoscopy History of cholecystectomy History of ERCP History of cataract surgery Family History Father Myocardial infarction Mother Hypertension Stroke Brother In good health Sister In good health Son In good health Daughter In good health Other Substance use disorder Social History (Updated 04/27/23 @ 10:06 by Cheryl Case LPN) Household Members: None Housing: House Do you presently have visiting nurse or other home services: No Alcohol intake: never Patient Tobacco Use Status: Former Tobacco user Quit Date: 1989 Tobacco use type: Cigarette Cigarette Packs Per Day: 3 Years Smoked: 20 +/- quit 1989 e-Cigarette/Vaping Use: Never Used Second Hand Smoke Exposure: No service: No Current occupational status: previously employed and retired 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 Cognitive needs: No Hearing needs: No Vision needs: Yes Review of Systems Const Denies chills, Denies excessive sweating, Denies fever(s), Denies headache(s) and Denies night sweats Eyes Denies dry eyes, Denies irritation and Reports itchy eyes ENT Reports Normal hearing present, Denies headache(s), Denies nasal congestion, Denies nasal discharge and Denies sore throat Card Denies chest pain, Denies chest pain at rest, Denies chest pain with activity, Denies claudication, Denies leg edema, Reports dyspnea on exertion, Denies orthopnea and Denies paroxysmal nocturnal dyspnea Resp Denies chest congestion, Denies cough, Denies hemoptysis, Denies excessive phlegm production, Denies pain on inspiration, Denies pain with cough, Reports dyspnea on exertion, Denies stridor and Reports wheezing Musc Denies myalgias Neuro Reports Normal hearing present and Denies headache(s) Endo Denies excessive sweating Darian/Lymph Denies lymphadenopathy Aller/Immun Reports itchy eyes, Denies seasonal rhinorrhea and Reports wheezing Physical Exam Vital Signs: Last Vital Signs Pulse 72 04/27/23 09:58 BP 122/72 04/27/23 09:58 Pulse Ox 96 04/27/23 09:58 Oxygen Delivery Method Room Air 04/27/23 09:58 BMI result Body Mass Index 26.4 Const General: cooperative, healthy appearing, comfortable, no acute distress, well developed and alert Orientation/consciousness: patient oriented x3 Limitations: no limitations HEENT Head: Yes normal to inspection, Yes normocephalic and Yes atraumatic Ears: hearing grossly normal bilaterally and external ears normal Eyes General: appearance normal, both eyes and all related structures Eyelids: Yes eyelids normal Sclerae: sclerae normal EOM: EOMs intact bilaterally Neck Neck: Yes normal visual inspection and Yes no lymphadenopathy Lymphatic: no lymphadenopathy noted Chest Chest palpation & inspection: normal inspection of the chest Resp Effort & Inspection: normal respiratory effort, able to speak in complete sentences, no audible wheezes, no stridor, not tachypneic, no tripod positioning and no use of accessory muscles Cardio Jugular venous distension: no JVD Rate: regular rate Rhythm: abnormal rhythm Skin Other: warm, dry General skin exam: no rashes or lesions noted Neuro General: patient oriented x3 Cranial nerves: Yes Normal hearing present Cognition (Neuro): normal cognition Gait exam (Neuro): Normal gait present Extrem General: Yes normal to inspection, Yes capillary refill normal, Yes no clubbing, cyanosis or edema and Yes no pedal edema Psych Appearance: grossly normal and well kempt Speech and movement: Normal speech and movement present and Clear speech present Affect: normal affect Attitude: cooperative Thought process: Normal thought process present Thought content: Normal thought content present Insight: Good insight present (Psych) Judgement: Good judgement present (Psych) Assessment & Plan Assessment & Plan (1) COPD (chronic obstructive pulmonary disease): Code(s): J44.9 - Chronic obstructive pulmonary disease, unspecified (2) Environmental and seasonal allergies: Code(s): J30.89 - Other allergic rhinitis (3) Pulmonary nodules: Comment: (Small bilateral pulmonary nodules, right greater than left - on 01/14/[address]) Code(s): R91.8 - Other nonspecific abnormal finding of lung field Plan Eric reports suboptimal control with Anoro and also has had an increase in palpitations since starting. She has had multiple adverse effects to inhalers. Will discontinue the Anoro and trial Incruse, to avoid the LABA component. Advised to contnue to use levalabuterol PRN and monitor frequency of palpita tions. On exam, abnormal rhythm appreciated, will send for EKG. Patient also reported pleuritic chest pain, will send for CXR. She is aware if symptoms worsen to seek emergent care. All questions were answered and patient is in agreement of plan. Will follow up in three months or sooner if needed. Orders: Orders XR chest 2V Today R07.81 - Pleurodynia ECG 12 lead EKG Today R00.2 - Palpitations Medications: New umeclidinium 62.5 mcg/actuation (Incruse Ellipta) 1 inh inhalation DAILY 30 ea 0RF Refilled levalbuterol HCl 1.25 mg (3 mL) inhalation Q4-6H PRN 75 mL 6RF shortness of breath or wheezing J44.9 - Chronic obstructive pulmonary disease, unspecified, J45.20 - Mild intermittent asthma, uncomplicated Discontinued umeclidinium-vilanterol 62.5-25 mcg/actuation (Anoro Ellipta) Discontinued Reason: Patient Completed Course 1 inh inhalation DAILY 60 ea 3RF Coding Level of Care Code Est Pt Level 4 (87362) Diagnoses COPD (chronic obstructive pulmonary disease) J44.9 Environmental and seasonal allergies J30.89 Pulmonary nodules R91.8
== END 2023-04-27 10:40 | disposition home or self-care (01) ==
PROVIDERS: PCP Internal Medicine; Visit Provider Nurse Practitioner Family
DX: J44.9 Chronic obstructive pulmonary disease, unspecified (principal); J30.89 Other allergic rhinitis; R91.8 Other nonspecific abnormal finding of lung field
CPT/HCPCS: 99214

== ENCOUNTER → 2023-04-27 11:56 | Outpatient (BNV) | payer MEDICARE, SELFPAY | PROVIDERS: PCP Internal Medicine; Visit Provider Internal Medicine | DX: R00.2 Palpitations (principal) | CPT/HCPCS: 93010 ==

== ENCOUNTER 2023-04-28 10:17 | Outpatient (AMB) | payer MEDICARE, SELFPAY ==
--- NOTE | 2023-04-28 10:29 | MHC.OFFVIS ---
Intake Vital Signs 04/28/23 10:33 Height 5 ft 1 in Weight 140 lb BMI 26.4 BP 116/54 L Intake Visit Reasons: frequency of micturition/PCP Referral Mental Health Director Required: No Information Interpreted: non-clinical & clinical Game Master: Game Master Present (Aidyn) Allergies ARB-Angiotensin Receptor Antagonist [ANGIOTENSIN RECEPTOR ANTAGONIST] Allergy (Unknown, Verified 04/28/23 10:34) ANAPHYLAXIS beclomethasone [QNASL] Allergy (Unknown, Verified 04/28/23 10:34) blurred vision, headaches budesonide [Symbicort] Allergy (Unknown, Verified 04/28/23 10:34) higher dose problem ciprofloxacin [Cipro] Allergy (Unknown, Verified 04/28/23 10:34) Unknown codeine [Codeine] Allergy (Unknown, Verified 04/28/23 10:34) UNKNOWN digestive enzymes combo no.8 [From Digestive Enzyme (acidoph,pec)] Allergy (Unknown, Verified 04/28/23 10:34) Unknown fluticasone [Flovent HFA] Allergy (Unknown, Verified 04/28/23 10:34) Unknown Lactobacillus acidophilus [From Digestive Enzyme (acidoph,pec)] Allergy (Unknown, Verified 04/28/23 10:34) Unknown lisinopril [LISINOPRIL] Allergy (Unknown, Verified 04/28/23 10:34) ANGIOEDEMA mometasone furoate [Dulera] Allergy (Unknown, Verified 04/28/23 10:34) Unknown nebivolol [Bystolic] Allergy (Unknown, Verified 04/28/23 10:34) Unknown olmesartan [Benicar] Allergy (Unknown, Verified 04/28/23 10:34) Unknown pectin [From Digestive Enzyme (acidoph,pec)] Allergy (Unknown, Verified 04/28/23 10:34) Unknown Sulfa (Sulfonamide Antibiotics) Allergy (Unknown, Verified 04/28/23 10:34) headache, shaking, freezing sensation, upset stomach methenamine Allergy (Verified 04/28/23 10:34) Unknown amoxicillin [From Augmentin] Adverse Reaction (Intermediate, Verified 04/28/23 10:34) abdominal pain clavulanic acid [From Augmentin] Adverse Reaction (Intermediate, Verified 04/28/23 10:34) abdominal pain formoterol [From Symbicort] Adverse Reaction (Intermediate, Verified 04/28/23 10:34) Dizziness verapamil Adverse Reaction (Intermediate, Verified 04/28/23 10:34) Blurry Vision nitrofurantoin Allergy (Severe, Uncoded 04/28/23 10:34) Blister estrodiol Allergy (Unknown, Uncoded 04/28/23 10:34) Unknown Is last menstrual period known: No Post menopausal: Yes Patient : No HPI HPI Comments History of Present Illness Details Presenting referred from her PCP regarding urinary frequency, no dysuria associated with leakage of urine upon sneezing, coughing or lifting heavy objects, urgency, urge incontinence and nocturia. The patient had recent history of multiple UTIs according to her [facility] Medical History SVT (supraventricular tachycardia) Abnormal stress ECG with treadmill Coronary artery calcification seen on CT scan Hypertension Hypercholesterolemia Impaired glucose tolerance COPD (chronic obstructive pulmonary disease) Asthma Environmental and seasonal allergies Personal history of tobacco use GERD (gastroesophageal reflux disease) Constipation Recurrent UTI Dysuria Nocturia more than twice per night Impacted cerumen of both ears Tinnitus Anxiety Vitamin D deficiency History of COVID-19 Contact dermatitis Breast cancer screening by mammogram Surgical History History of colonoscopy History of cholecystectomy History of ERCP History of cataract surgery Family History Father Myocardial infarction Mother Hypertension Stroke Brother In good health Sister In good health Son In good health Daughter In good health Other Substance use disorder Social History Household Members: None Housing: House Do you presently have visiting nurse or other home services: No Alcohol intake: never Patient Tobacco Use Status: Former Tobacco user Quit Date: 1989 Tobacco use type: Cigarette Cigarette Packs Per Day: 3 Years Smoked: 20 +/- quit 1989 e-Cigarette/Vaping Use: Never Used Second Hand Smoke Exposure: No Patient : No service: No Current occupational status: previously employed and retired 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 Cognitive needs: No Hearing needs: No Vision needs: Yes Female Reproductive History Menstrual Age of Menarche: 12 control method: none Total pregnancies: 2 Full term: 2 Number of Living Children: 2 Date of last pap smear: 04/20/13 (negative) Date of Mammogram: 05/10/22 Review of Systems Const All systems reviewed & are unremarkable except as noted in HPI and below Physical Exam Vital Signs: Last Vital Signs BP 116/54 L 04/28/23 10:33 BMI result Body Mass Index 26.4 General: Yes no CVA tenderness External Female Exam: normal external appearance and normal appearance of the urethra Speculum Exam - Vagina: normal appearance of the vagina, normal palpation, no lesions, no masses and other (Mild cystocele central and right paravaginal defect) Speculum Exam - Cervix: normal appearance of the cervix, normal palpation, no lesions, no masses, nontender and Other cervical findings present (Mild uterine prolapse) Bimanual exam- vagina & uterus: normal bimanual exam, normal palpation, uterine size normal, normal palpation, uterine shape normal, No Cervical tenderness present and non-tender Bimanual Exam- Adnexa, other: normal adnexae Back/Spine/Pelvis Back: no CVA tenderness Assessment & Plan Assessment & Plan (1) Incontinence of urine: Comment: With cystocele and mild uterine prolapse Urinary frequency Code(s): R32 - Unspecified urinary incontinence Plan: Discussed with the patient the different types of Urine incontinence, stress urinary incontinence, intrinsic sphincter deficiency, overactive bladder and its work up. We will refer to Urogynecology for further management. All questions answered, the patient verbalized understanding. Orders: Referrals Urogynecology Referral R32 - Unspecified urinary incontinence Coding Level of Care Code New Pt Level 3 (30554) Diagnoses Incontinence of urine R32
[2023-04-28 10:33] VITALS: BP 116/54; BMI 26.4
== END 2023-04-28 12:29 | disposition home or self-care (01) ==
LOC: HO.HWS 10:17
PROVIDERS: PCP Internal Medicine; Visit Provider Obstetrics & Gynecology
DX: R32 Unspecified urinary incontinence (principal)
CPT/HCPCS: 99203

== ENCOUNTER → 2023-04-28 10:17 | Outpatient (BNVA) | payer MEDICARE, SELFPAY | PROVIDERS: PCP Internal Medicine; Visit Provider Obstetrics & Gynecology | DX: R32 Unspecified urinary incontinence (principal) | CPT/HCPCS: 81003; 99202 ==

== ENCOUNTER 2023-05-04 06:46 | Emergency (ER) | payer MEDICARE, SELFPAY ==
--- NOTE | ~2023-05-04 | CT_ITS ---
EXAMINATION: CT HEAD WITHOUT CONTRAST CLINICAL INFORMATION: Dizziness COMPARISON: 06/29/2022. TECHNIQUE: Contiguous axial imaging was performed from the skull base to vertex without intravenous administration of contrast. This CT examination was performed using dose optimization techniques as appropriate, variously including the following: *Automated exposure control *Adjustment of mA and/or kV according to patient size (this includes techniques or standardized protocols for targeted exams where dose is matched to indication/reason for exam; i.e. extremities or head) *Use of iterative reconstruction technique DLP: 582 mGy-cm FINDINGS: Intracranial structures are stable in appearance with mild atrophy and periventricular white matter changes, left greater than right. No evolving infarct, mass lesion, mass effect, midline shift, hemorrhage or extra-axial fluid collections. Vascular calcifications and left pontine calcification again seen. Mild bilateral ethmoid sinus mucosal thickening. Remaining sinuses and mastoids are clear. Bony structures are intact. Soft tissues without abnormality. CT/CT head/brain wo IV con IMPRESSION: Chronic small vessel ischemia and volume loss. No acute intracranial pathology.
--- NOTE | 2023-05-04 06:53 | ECG_ITS ---
Test Reason : dizzy Blood Pressure : / mmHG Vent. Rate : 078 BPM Atrial Rate : 078 BPM P-R Int : 180 ms QRS Dur : 072 ms QT Int : 400 ms P-R-T Axes : 076 -19 037 degrees QTc Int : 456 ms Sinus rhythm with Premature atrial complexes Low voltage QRS Septal infarct , age undetermined Abnormal ECG When compared with ECG of 27-APR-2023 11:54, Septal infarct is now Present Referred By: Bridgette Henriquez Electronically Signed By:Evens Cerrato
--- NOTE | 2023-05-04 06:53 | ED.GENADULT ---
HPI - General Adult General Chief complaint: Dizziness Stated complaint: dizziness Time Seen by Provider: 05/04/23 06:52 Source: patient, EMS and RN notes reviewed Limitations: no limitations History of Present Illness HPI narrative: Patient is a 72-year-old female with history of vertigo, SVT, HTN, COPD, asthma, GERD, recurrent UTIs, anxiety presenting to the emergency department with complaint of dizziness which began around midnight. States that when she got up to go to the bathroom, she felt dizzy. States that she was able to ambulate to the bathroom. Went back to bed and upon waking reports ongoing vertigo. Also complains of sore throat, worse on the left, as well as sinus pain and pressure, nasal congestion and bilateral ear pressure since yesterday. She denies cough or fever. States that she has meclizine prescribed for vertigo which she did not take at home. Reports symptoms are worse with head movement. Reports nausea but denies vomiting. Denies any abdominal pain. Denies chest pain, dyspnea, palpitations. Denies any weakness, numbness, or tingling to extremities. MD complaint: dizziness Onset (ago): hour(s) Associated symptoms: nausea/vomiting (Reports nausea, denies vomiting) Treatments prior to arrival: none Related Data Home Medications Medication Instructions Recorded Confirmed vitamin B complex 1 tab PO DAILY 04/16/20 04/27/23 multivitamin 1 tab PO DAILY 06/26/20 04/27/23 cholecalciferol (vitamin D3) 25 25 mcg PO DAILY 06/17/22 04/27/23 mcg (1,000 unit) capsule Previous Rx's Medication Instructions Recorded amlodipine 5 mg tablet 5 mg PO BEDTIME #90 tabs 11/12/22 atorvastatin 10 mg tablet 10 mg PO BEDTIME #90 tabs 12/03/22 levalbuterol HCl 1.25 mg/3 mL 1.25 mg (3 mL) inhalation Q4-6H 04/27/23 solution for nebulization PRN shortness of breath or wheezing #75 mL umeclidinium 62.5 mcg/actuation 1 inh inhalation DAILY #30 ea 04/27/23 blister powder for inhalation (Incruse Ellipta) Allergies Allergy/AdvReac Type Severity Reaction Status Date / Time ARB-Angiotensin Receptor Allergy Unknown ANAPHYLAXIS Verified 05/04/23 06:58 Antagonist [ANGIOTENSIN RECEPTOR ANTAGONIST] beclomethasone [QNASL] Allergy Unknown blurred Verified 05/04/23 06:58 vision, headaches budesonide [Symbicort] Allergy Unknown higher Verified 05/04/23 06:58 dose problem ciprofloxacin [Cipro] Allergy Unknown Unknown Verified 05/04/23 06:58 codeine [Codeine] Allergy Unknown UNKNOWN Verified 05/04/23 06:58 digestive enzymes combo no.8 Allergy Unknown Unknown Verified 05/04/23 06:58 [From Digestive Enzyme (acidoph,pec)] fluticasone [Flovent HFA] Allergy Unknown Unknown Verified 05/04/23 06:58 Lactobacillus acidophilus Allergy Unknown Unknown Verified 05/04/23 06:58 [From Digestive Enzyme (acidoph,pec)] lisinopril [LISINOPRIL] Allergy Unknown ANGIOEDEMA Verified 05/04/23 06:58 mometasone furoate [Dulera] Allergy Unknown Unknown Verified 05/04/23 06:58 nebivolol [Bystolic] Allergy Unknown Unknown Verified 05/04/23 06:58 olmesartan [Benicar] Allergy Unknown Unknown Verified 05/04/23 06:58 pectin Allergy Unknown Unknown Verified 05/04/23 06:58 [From Digestive Enzyme (acidoph,pec)] Sulfa (Sulfonamide Allergy Unknown headache, Verified 05/04/23 06:58 Antibiotics) shaking, freezing sensation, upset stomach methenamine Allergy Unknown Verified 05/04/23 06:58 amoxicillin [From Augmentin] AdvReac Intermediate abdominal Verified 05/04/23 06:58 pain clavulanic acid AdvReac Intermediate abdominal Verified 05/04/23 06:58 [From Augmentin] pain formoterol [From Symbicort] AdvReac Intermediate Dizziness Verified 05/04/23 06:58 verapamil AdvReac Intermediate Blurry Verified 05/04/23 06:58 Vision nitrofurantoin Allergy Severe Blister Uncoded 04/28/23 10:34 estrodiol Allergy Unknown Unknown Uncoded 04/28/23 10:34 Review of Systems Review of Systems: As per HPI. Yes all other systems are reviewed and are negative Constitutional: Constitutional: Reports as per HPI Neurologic: Denies Abnormal speech present PMFSH Past Medical History Medical History SVT (supraventricular tachycardia) Abnormal stress ECG with treadmill Coronary artery calcification seen on CT scan Hypertension Hypercholesterolemia Impaired glucose tolerance COPD (chronic obstructive pulmonary disease) Asthma Environmental and seasonal allergies Personal history of tobacco use GERD (gastroesophageal reflux disease) Constipation Recurrent UTI Dysuria Nocturia more than twice per night Impacted cerumen of both ears Tinnitus Anxiety Vitamin D deficiency History of COVID-19 Contact dermatitis Breast cancer screening by mammogram Surgical History History of colonoscopy History of cholecystectomy History of ERCP History of cataract surgery Family History Family History Father Myocardial infarction Mother Hypertension Stroke Brother In good health Sister In good health Son In good health Daughter In good health Other Substance use disorder Social History Social History Household Members: None Housing: House Do you presently have visiting nurse or other home services: No Alcohol intake: never Patient Tobacco Use Status: Former Tobacco user Quit Date: 1989 Tobacco use type: Cigarette Cigarette Packs Per Day: 3 Years Smoked: 20 +/- quit 1989 e-Cigarette/Vaping Use: Never Used Second Hand Smoke Exposure: No Advance Directives: No Advance Directives Information Provided: Yes service: No Current occupational status: previously employed and retired 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 Blood pressure normal. Heart rate mildly tachycardic. Respiratory rate normal. Temperature normal. Oxygen saturation normal. Const General: cooperative, healthy appearing and no acute distress Orientation/consciousness: oriented to person, oriented to place, oriented to time and patient oriented x3 Limitations: no limitations [facility] Head: Yes normocephalic and Yes atraumatic Ears: external ears normal, TM's normal bilaterally and EAC's normal General nose exam: Normal external nose present, Normal nasal mucous membranes and turbinates present and Normal septum present Face and sinus: Yes sinuses nontender and Yes face symmetric Mouth: oropharynx normal and moist mucous membranes Throat: Yes posterior oropharynx normal and Yes uvula midline Eyes Pupils: Equal, round and reactive pupils present EOM: EOMs intact bilaterally and No Nystagmus present Neck Neck: Yes normal visual inspection, Yes full ROM, Yes no lymphadenopathy, Yes no meningeal signs and Yes supple Resp Effort & Inspection: normal respiratory effort and able to speak in complete sentences Auscultation: clear to auscultation bilaterally Cardio Rate: regular rate Rhythm: regular rhythm Heart sounds: S1 normal heart sound present and S2 normal heart sound present GI Palpation (GI): Soft to palpation and nontender Auscultation: normoactive bowel sounds General: Yes no CVA tenderness Back/Spine/Pelvis Back: no CVA tenderness Skin General skin exam: elasticity normal and turgor normal Neuro General: oriented to person, oriented to place, oriented to time, patient oriented x3, gait normal, tone normal, moves all extremities, Normal light touch and pain sensation, no meningeal signs, no focal motor deficits, CN's II-XI intact bilaterally, deep tendon reflexes 2+ bilaterally and [place] Hallpike (positive on right) Cranial nerves: Yes Equal, round and reactive pupils present and No Nystagmus present Cognition (Neuro): normal cognition Speech: No Abnormal speech present Gait exam (Neuro): Normal gait present Motor exam (neuro): 5/5 motor strength present throughout, Pronator motor function not present, no tremor noted, Motor fasciculations not present, Normal motor muscle tone present throughout and Motor abnormalities not present Sensory Exam: Normal double simultaneous stimulation for sensation Coordination: [id number] test normal and [id number] test normal Extrem General: Yes full ROM, Yes no pedal edema and Yes no calf tenderness Psych Mental Status: mental status grossly normal Affect: normal affect Thought process: Normal thought process present NIH Stroke Scale Internal: Initial- Upon Arrival Time: 06:55 Level of Consciousness: Alert Level of Consciousness Questions: Answers both questions correctly Level of Consciousness Commands: Performs both tasks correctly Best Gaze: Normal Visual: No visual loss Facial Palsy: Normal Motor Arm (Right): No drift Motor Arm (Left): No drift Motor Leg (Right): No drift Motor Leg (Left): No drift Limb Ataxia: Absent Sensory: Normal Best Language: No aphasia Dysarthia: Normal Extinction and Inattention: No abnormality Score: 0 Medications Administered Discontinued Medications Generic Name Dose Route Start Last Admin Trade Name Scotq PRN Reason Stop Dose Admin Meclizine HCl 25 mg 05/04/23 07:36 05/04/23 08:40 Meclizine Hcl 25 Mg Tablet PO 05/04/23 07:37 25 mg ONCE ONE Administration Medical Decision Making Medical Decision Making [facility] Narrative: Patient is a 72-year-old female with history of vertigo, SVT, HTN, COPD, asthma, GERD, recurrent UTIs, anxiety presenting to the emergency department with complaint of dizziness which began around midnight. On exam patient is awake, A+Ox3, mildly tachycardic, VS otherwise WNL, afebrile, normal neurological exam without focal deficits, physical exam findings as above. Given reported symptoms and physical exam findings, initial differential includes ICH/CVA, ACS, UTI, viral illness, cardiac dysrhythmia, dehydration, electrolyte abnormality, anemia, BPPV. Labs notable for no leukocytosis, no anemia, no evidence of WHITNEY, no electrolyte abnormalities, negative troponin. Symptoms for >6 hours, unlikely ACS. Do not suspect sepsis. Urinalysis notable only for trace leukocytes, do not suspect UTI. EKG shows sinus rhythm with PACs, T wave depression in V1& V2. CT head notable for no acute intracranial pathology. My interpretation is in agreement with the radiologist's interpretation. Positive [place] Hallpike on right side. No orthostatic intolerance noted on vitals. Loida maneuver performed with patient in the ED and written instructions to continue at home provided to patient. Patient has meclizine at home which has been prescribed to her previously. She has been ambulating in the department with steady gait. She reports decreased symptoms after meclizine. Feel patient is stable for discharge home. Instructed patient to follow-up with primary care provider. Return precautions discussed at bedside with patient and daughter. Patient verbalized understanding of and agreement with plan. Differential Diagnosis Differential Diagnoses: The differential diagnosis associated with the presentation includes As per [facility] Admission/Observation Consideration of admission/observation: Escalation of care including admission/observation considered Lab Data [facility] Lab Attestation statement: I reviewed the patient's lab results. As per [facility] 05/04/23 07:52 05/04/23 07:52 Labs: Lab Results 05/04/23 05/04/23 Range/Units 07:52 08:15 WBC 6.2 (4.8-10.8) X10*3/uL RBC 4.66 (4.20-5.50) X10*6/uL Hgb 14.7 (12.0-16.0) g/dl Hct 42.9 (37.0-47.0) % MCV 92.1 (80.0-98.0) fL MCH 31.5 (27.0-33.0) pg MCHC 34.3 (31.0-35.0) g/dl RDW 12.4 (11.0-16.0) % Plt Count 247 (160-400) X10*3/uL MPV 9.8 (9.4-12.3) fL Immature Gran % (Auto) 0.3 (0.0-0.4) % Neut % (Auto) 70.5 (45-73) % Lymph % (Auto) 21.0 (20-40) % [place] % (Auto) 5.2 (2-11) % Eos % (Auto) 2.4 (0-4) % Baso % (Auto) 0.6 (0-2) % Lymph # (Auto) 1.3 (1.2-4.9) X10*3/uL [place] # (Auto) 0.3 (0.1-1.2) X10*3/uL Eos # (Auto) 0.2 (0.0-0.4) X10*3/uL Baso # (Auto) 0.0 (0.0-0.2) X10*3/uL Abs Immat Gran (auto) 0.02 (0.00-0.03) X10*3/uL Absolute Neuts (auto) 4.4 (2.0-8.3) x10*3/uL Absolute Nucleated RBC 0.000 (0.0-0.012) X10*3/uL Nucleated RBC % (auto) 0.0 (0.0-0.2) /100WBC PT 12.6 (11.1-13.3) SEC INR 1.0 (0.9-1.1) Sodium 143 (135-145) mmol/L Potassium 4.3 (3.3-5.1) mmol/L Chloride 108 (96-108) mmol/L Carbon Dioxide 28 (22-29) mmol/L Anion Gap 11 L (12-20) BUN 11 (9-16) mg/dL Creatinine 0.73 (0.5-1.4) mg/dL Estim Creat Clear Calc 69.2 Estimated GFR > 60 Random Glucose 99 (60-115) mg/dL Calcium 10.0 (8.4-10.2) mg/dL Total Bilirubin 0.6 (0.0-1.0) mg/dL AST 21 (5-31) U/L ALT 17 (0-31) U/L Alkaline Phosphatase 81 (39-117) U/L Troponin I High Sens < 2.7 (<3.5-17.0) ng/L Total Protein 7.6 (6.5-8.0) g/dL Albumin 4.2 (3.5-5.0) g/dL Urine Color Yellow Urine Appearance Clear Urine pH 7.0 (5.0-9.0) Ur Specific [place] 1.010 (1.005-1.025) Urine Protein Negative (Neg-Trace) mg/dL Urine Glucose (UA) Negative (Negative) mg/dL Urine Ketones Trace (Negative) mg/dL Urine Blood Negative (Negative) Urine Nitrite Negative (Negative) Ur Leukocyte Esterase Trace H (Negative) Urine RBC 0-2 (0-2) /HPF Urine WBC 0-5 (0-5) /HPF Ur Squamous Epith Cells 0-2 (0-2) /HPF Urine Bacteria None Seen (None Seen) Hyaline Casts 0-2 (0-2) /LPF COVID-19 (ELIJAH) Negative (Negative) COVID-19 Clin Com See Note Influenza Type A (CLARK) Negative (Negative) Influenza Type B (CLARK) Negative (Negative) Influenza A & B Note See Note Independent Interpretation I performed an independent interpretation of an: EKG (sinus rhythm with PACs, rate 78 bpm, normal UT interval, T wave inversion in V1 and V2) and CT Scan Radiology Impression Discussion of test interpretation with radiology: I have reviewed the radiologist's reading. Radiologist Impression: CT/CT head/brain wo IV con IMPRESSION: Chronic small vessel ischemia and volume loss. No acute intracranial pathology. External Record Review External record reviewed: Inpatient record, Office record and Outpatient record Discharge Plan Discharge Clinical Impression: Benign paroxysmal positional vertigo Qualifiers: Laterality: right Qualified Code(s): H81.11 - Benign paroxysmal vertigo, right ear Patient Disposition: Home, Self-Care Instructions: Vertigo (DC), Benign Paroxysmal Positional Vertigo (ED), Dizziness (ED) Additional Instructions: You have been evaluated in the emergency department today for dizziness. Your evaluation suggests that your symptoms are most likely due to peripheral vertigo. You can use the meclizine you have at home to help relieve your symptoms. Please take your prescription as directed. You can also try Loida maneuvers at home to help relieve your symptoms, instructions have been included in your discharge paperwork. Please follow up with your primary care provider within the next 3 days. Return to the emergency department immediately for worsening or uncontrolled symptoms, worsening headache, chest pain, shortness of breath, persistent vomiting, vision changes, fainting, or for any other concerning symptoms. Prescriptions: No Action amlodipine 5 mg tablet 5 mg PO BEDTIME Qty: 90 3RF atorvastatin 10 mg tablet 10 mg PO BEDTIME Qty: 90 3RF multivitamin Tablet 1 tab PO DAILY vitamin B complex Tablet 1 tab PO DAILY lidocaine HCl 2 % jelly in applicator 10 ml intra-urethral ONCE Qty: 10 0RF cholecalciferol (vitamin D3) 25 mcg (1,000 unit) capsule 25 mcg PO DAILY Incruse Ellipta 62.5 mcg/actuation blister with device 1 inh inhalation DAILY Qty: 30 0RF levalbuterol HCl 1.25 mg/3 mL solution for nebulization 1.25 mg inhalation Q4-6H PRN (Reason: shortness of breath or wheezing) Qty: 75 6RF
[2023-05-04 06:55] VITALS: BP 139/64; BP 160/90; PULSE 109; PULSE 92; RESP 20; TEMP 37.2; O2SAT 96; O2SAT 98; BMI 20.8
[2023-05-04 07:58] LABS: MANUAL DIFF FLAG NO
[2023-05-04 07:59] LABS: Basophils Percent Auto 0.6 % (0-2); Eosinophils Absolute Auto 0.2 X10*3/uL (0.0-0.4); Eosinophils Percent Auto 2.4 % (0-4); Hematocrit 42.9 % (37.0-47.0); Hemoglobin 14.7 g/dl (12.0-16.0); Imm Gran Abs Auto 0.02 X10*3/uL (0.00-0.03); Imm Gran Pct Auto 0.3 % (0.0-0.4); Lymphocytes Absolute Auto 1.3 X10*3/uL (1.2-4.9); Mean Corpuscular HGB Conc 34.3 g/dl (31.0-35.0); Mean Corpuscular Hemoglobin 31.5 pg (27.0-33.0); Mean Corpuscular Volume 92.1 fL (80.0-98.0); Mean Platelet Volume 9.8 fL (9.4-12.3); Monocytes Absolute Auto 0.3 X10*3/uL (0.1-1.2); Monocytes Percent Auto 5.2 % (2-11); Neutrophils Absolute Auto 4.4 x10*3/uL (2.0-8.3); Neutrophils Percent Auto 70.5 % (45-73); Platelet Count 247 X10*3/uL (160-400); Red Blood Count 4.66 X10*6/uL (4.20-5.50); Red Cell Distribution Width 12.4 % (11.0-16.0); White Blood Count 6.2 X10*3/uL (4.8-10.8)
[2023-05-04 08:06] LABS: Prothrombin Time 12.6 SEC (11.1-13.3)
[2023-05-04 08:12] LABS: Alanine Aminotransferase 17 U/L (0-31); Albumin Level 4.2 g/dL (3.5-5.0); Alkaline Phosphatase 81 U/L (39-117); Anion Gap 11 (12-20); Aspartate Amino Transferase 21 U/L (5-31); Bilirubin Total 0.6 mg/dL (0.0-1.0); Blood Urea Nitrogen 11 mg/dL (9-16); Carbon Dioxide 28 mmol/L (22-29); Chloride 108 mmol/L (96-108); Creatinine Clr Calc Pharmacy 69.2; Estimated Glomerular Filt Rate > 60; Glucose Random 99 mg/dL (60-115); Potassium 4.3 mmol/L (3.3-5.1); Sodium 143 mmol/L (135-145); Total Protein 7.6 g/dL (6.5-8.0)
[2023-05-04 08:17] LABS: COVID-19 Test Negative (Negative); IDNOW Serial# 08D9AD1C; IDNOW Serial# 152EDE1D
[2023-05-04 08:18] LABS: Influenza A Negative (Negative); Influenza B2 Negative (Negative)
[2023-05-04 08:20] LABS: Troponin-I High Sensitivity < 2.7 ng/L (<3.5-17.0)
[2023-05-04 08:28] LABS: Appearance Urine Clear; Color Urine Yellow; Glucose Urine UA Negative (Negative); Leukocyte Esterase Urine Trace (Negative); Nitrite Urine Negative (Negative); UMIC TRIGGER UACC YES; Urine Blood Negative (Negative); Urine Ketones Trace mg/dL (Negative); Urine Protein Negative (Neg-Trace)
[2023-05-04 08:30] LABS: Bacteria Urine None Seen (None Seen); Hyaline Casts Urine 0-2 /LPF (0-2); RBC Urine 0-2 /HPF (0-2); Squamous Epithelial Cell Urine 0-2 /HPF (0-2); WBC Urine 0-5 /HPF (0-5)
[2023-05-04] MEDS: Meclizine HCl 25 MG TABLET PO (08:40)
[2023-05-04 09:29] VITALS: BP 134/68; PULSE 105; RESP 16; TEMP 36.6; O2SAT 97
[2023-05-04 09:44] VITALS: BP 151/72; PULSE 74
[2023-05-04 09:46] VITALS: BP 158/71; PULSE 87
[2023-05-04 09:47] VITALS: BP 135/73; PULSE 89
[2023-05-04 11:04] VITALS: BP 141/56; PULSE 80; RESP 16; TEMP 36.8; O2SAT 96
== END 2023-05-04 11:09 | disposition home or self-care (01) ==
PROVIDERS: Registered Nurse Emergency; Emergency Provider Emergency Medicine Emergency Medical Services; PCP Internal Medicine
DX: H81.11 Benign paroxysmal vertigo, right ear (principal); Z11.52 Encounter for screening for COVID-19; R29.700 NIHSS score 0; I10 Essential (primary) hypertension; E78.00 Pure hypercholesterolemia, unspecified; Z79.02 Long term (current) use of antithrombotics/antiplatelets; Z79.899 Other long term (current) drug therapy
CPT/HCPCS: 36415; 70450; 80053; 81001; 84484; 85025; 85610; 87502; 87635; 93005; 99284; 99285

== ENCOUNTER → 2023-05-04 06:53 | Outpatient (BNV) | payer MEDICARE, SELFPAY | PROVIDERS: Emergency Provider Emergency Medicine Emergency Medical Services; PCP Internal Medicine; Visit Provider Internal Medicine Cardiovascular Disease | DX: R94.31 Abnormal electrocardiogram [ECG] [EKG] (principal) | CPT/HCPCS: 93010 ==

== ENCOUNTER 2023-05-12 12:52 | Outpatient (AMB) | payer MEDICARE, SELFPAY ==
--- NOTE | 2023-05-12 13:30 | MHC.OFFVIS ---
Intake Intake Visit Reasons: cysto Intake Note: Patient presents today for a CYSTOSCOPY Procedure: Meds: None Allergies to Antibiotic: Cipro, Sulfa & Amoxicillin Blood Thinner: None Urinalysis test clear for Cysto? YES Disposable Uro-G Cystoscope Cannula: Lot: [id number] Exp: 08/01/2024 Allergies ARB-Angiotensin Receptor Antagonist [ANGIOTENSIN RECEPTOR ANTAGONIST] Allergy (Unknown, Verified 05/04/23 06:58) ANAPHYLAXIS beclomethasone [QNASL] Allergy (Unknown, Verified 05/04/23 06:58) blurred vision, headaches budesonide [Symbicort] Allergy (Unknown, Verified 05/04/23 06:58) higher dose problem ciprofloxacin [Cipro] Allergy (Unknown, Verified 05/04/23 06:58) Unknown codeine [Codeine] Allergy (Unknown, Verified 05/04/23 06:58) UNKNOWN digestive enzymes combo no.8 [From Digestive Enzyme (acidoph,pec)] Allergy (Unknown, Verified 05/04/23 06:58) Unknown fluticasone [Flovent HFA] Allergy (Unknown, Verified 05/04/23 06:58) Unknown Lactobacillus acidophilus [From Digestive Enzyme (acidoph,pec)] Allergy (Unknown, Verified 05/04/23 06:58) Unknown lisinopril [LISINOPRIL] Allergy (Unknown, Verified 05/04/23 06:58) ANGIOEDEMA mometasone furoate [Dulera] Allergy (Unknown, Verified 05/04/23 06:58) Unknown nebivolol [Bystolic] Allergy (Unknown, Verified 05/04/23 06:58) Unknown olmesartan [Benicar] Allergy (Unknown, Verified 05/04/23 06:58) Unknown pectin [From Digestive Enzyme (acidoph,pec)] Allergy (Unknown, Verified 05/04/23 06:58) Unknown Sulfa (Sulfonamide Antibiotics) Allergy (Unknown, Verified 05/04/23 06:58) headache, shaking, freezing sensation, upset stomach methenamine Allergy (Verified 05/04/23 06:58) Unknown amoxicillin [From Augmentin] Adverse Reaction (Intermediate, Verified 05/04/23 06:58) abdominal pain clavulanic acid [From Augmentin] Adverse Reaction (Intermediate, Verified 05/04/23 06:58) abdominal pain formoterol [From Symbicort] Adverse Reaction (Intermediate, Verified 05/04/23 06:58) Dizziness verapamil Adverse Reaction (Intermediate, Verified 05/04/23 06:58) Blurry Vision nitrofurantoin Allergy (Severe, Uncoded 04/28/23 10:34) Blister estrodiol Allergy (Unknown, Uncoded 04/28/23 10:34) Unknown HPI HPI Comments History of Present Illness Details 05/12/23- here for office cysto. Karo has been for recurrent. She had previous cystoscopy that noted significant erythematous changes. She complained of painful urination. She was placed on suppressive antibiotics. She states that her painful urination symptoms have resolved. The patient has urinary incontinence and pelvic floor relaxation. She states that her associate store director is referring her to urogynecology for further treatment options. She states she does not want to try a medication for the bladder. She wants to see urogynecology 1st. Cystoscopy findings: WNL, no suspicious bladder lesions visualized. Erythematous changes previously noted have resolved Review of chart: 04/04/23-- teleheath follow-up of recurrent UTI and dysuria. Eric is a 71-year-old who is followed for recurrent UTI and she was initially evaluated by [facility] on 11/09/22 and was started on estrogen cream. She used estrogen cream for few days but stopped as ?it kept burning.? She had office cysctosocpy on 05/12/22 and finding: erythematous changes. She was placed on antibiotic suppressive therapy Keflex 250 mg QD --which she states helped her, which she currently is off of. She was referred to Infectious Disease for evaluation. In discussion today she states that she was started on Hiprex by the ID physician but it made her feel sick so she stopped the medication. She states that she is feeling pain every time she urinates. In review of her chart there is a urine culture from January, 01/27/23 resulted Klebsiella. The patient was treated with Fosfomycin which she stated did not help Infectious disease recommended no more antibiotics. And prescribed methenamine b.i.d. for urine acidification. As the patient is not tolerating the methenamine and persists with dysuria I will trial another course of antibiotics Ceftin 500 mg twice a day and continue her on Macrobid 100 mg daily for suppressive therapy with follow-up in my office in 3-4 weeks to recheck her urine to send for cytology and repeat office cystoscopy. Renal ultrasound 04/28/2022--left duplicated collecting system negative masses negative stones office cysctosocpy on 05/12/22 and finding: erythematous changes. Urine culture results reviewed?05/12/22, 10/27/22, 01/27/23--positive for Klebsiella pneumoniae. 05/12/23- Plan: Urine cytology. Follow-up in 6 months [facility] Medical History SVT (supraventricular tachycardia) Abnormal stress ECG with treadmill Coronary artery calcification seen on CT scan Hypertension Hypercholesterolemia Impaired glucose tolerance COPD (chronic obstructive pulmonary disease) Asthma Environmental and seasonal allergies Personal history of tobacco use GERD (gastroesophageal reflux disease) Constipation Recurrent UTI Dysuria Nocturia more than twice per night Impacted cerumen of both ears Tinnitus Anxiety Vitamin D deficiency History of COVID-19 Contact dermatitis Breast cancer screening by mammogram Surgical History History of colonoscopy History of cholecystectomy History of ERCP History of cataract surgery Family History Father Myocardial infarction Mother Hypertension Stroke Brother In good health Sister In good health Son In good health Daughter In good health Other Substance use disorder Social History Household Members: None Housing: House Do you presently have visiting nurse or other home services: No Alcohol intake: never Patient Tobacco Use Status: Former Tobacco user Quit Date: 1989 Tobacco use type: Cigarette Cigarette Packs Per Day: 3 Years Smoked: 20 +/- quit 1989 e-Cigarette/Vaping Use: Never Used Second Hand Smoke Exposure: No service: No Current occupational status: previously employed and retired 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 Cognitive needs: No Hearing needs: No Vision needs: Yes Female Reproductive History Menstrual Age of Menarche: 12 Review of Systems Const All systems reviewed & are unremarkable except as noted in HPI and below Reports no additional complaints Eyes Reports no additional complaints ENT Reports no additional complaints Card Denies dyspnea Resp Denies cough and Denies dyspnea GI Reports no additional complaints Reports no additional complaints Musc Reports no additional complaints Skin/Breast Denies rash and Denies unusual bruising Neuro Reports no additional complaints Psych Reports no additional complaints Endo Reports no additional complaints Darian/Lymph Reports no additional complaints Aller/Immun Reports no additional complaints Office Procedures Bladder/Catheter Procedure Details: 14 fr straight catheter used to collect urine sample for UA. [id number] Bladder Catheter Procedure code (CPT) selection complete Cystoscopy Consent Discussed risk and benefit or proposed procedure with the patient. Information consent for procedure given to the patient. Discussed technical aspects, risks, benefits and alternatives in full. Addressed all of the patient's questions and concerns regarding the procedure. The patient demonstrated knowledge and understanding. They wish to proceed with this procedure. Preparation The patient was prepped in the usual manner. A clinical pharmacist was present and in the room. Genitalia was prepped with betadine solution in a sterile manner. Lidocaine Jelly 2% was placed into the urethra and 16Fr flexible Olympus cystoscope was inserted into the meatus after adequate lubrication. Procedure Time out per protocol performed. Bladder Inspection Bladder Inspection: The bladder was inspected in its entirety with utilization retroflexion displaying: Tumor(s): None visualized Trabeculation: N/A Mucosal Erthema: Minimal. Erythematous changes previously noted have resolved Orifices: normal shape and position Urethra: normal Cystoscopy findings: WNL, no suspicious bladder lesions visualized [id number] DISPOSABLE SCOPE URO-G FLEXIBLE SCOPE Procedure code (CPT) selection complete Office Meds lidocaine HCl 2 % mucosal jelly in applicator Performing Provider: Bandar Mcdonald MD [place] [facility] [place] [facility] [place] [facility] Administered by: Abbe Cano LPN on 05/12/23 13:49 Dose Route Admin Location Dispensed Lot Number Expiration Date [facility] Assistive [employer] Trainer 10 mL intra-urethral 20 mL naproxen 500 mg tablet Performing Provider: Bandar Mcdonald MD Performing Location: [facility] [place] [facility] [place] [facility] Administered by: Abbe Cano LPN on 05/12/23 13:49 Dose Route Admin Location Dispensed Lot Number Expiration Date [place] [employer] Trainer 500 mg PO 1 tab Results AMB Urinalysis, Automated UA Leukoctes 0 Jorje/uL Last Edit by Abbe Cano LPN on 05/12/23 14:02 UA Nitrite Negative Last Edit by Abbe Cano LPN on 05/12/23 14:02 UA Urobilinogen 0 mg/dL Last Edit by Abbe Cano LPN on 05/12/23 14:02 UA Protein 0 mg/dL Last Edit by Abbe Cano LPN on 05/12/23 14:02 UA pH 6.0 Last Edit by Abbe Cano LPN on 05/12/23 14:02 UA Blood 0 Shreyas/uL Last Edit by Abbe Cano LPN on 05/12/23 14:02 UA Specific Zion 1.015 Last Edit by Abbe Cano LPN on 05/12/23 14:02 UA Ketone Negative Last Edit by Abbe Cano LPN on 05/12/23 14:02 UA Bilirubin 0 mg/dL Last Edit by Abbe Cano LPN on 05/12/23 14:02 UA Glucose 0 mg/dL Last Edit by Abbe Cano LPN on 05/12/23 14:02 Results Reviewed Results Reviewed: Laboratory Last Values Urine pH (Auto) 6.0 05/12/23 14:01 Specific Zion (Auto) 1.015 05/12/23 14:01 Urine Protein (Auto) 0 mg/dL 05/12/23 14:01 Glucose (UA)(Auto) 0 mg/dL 05/12/23 14:01 Urine Ketones (Auto) Negative 05/12/23 14:01 Urine Blood (Auto) 0 Shreyas/uL 05/12/23 14:01 Urine Nitrite (Auto) Negative 05/12/23 14:01 Urine Bilirubin (Auto) 0 mg/dL 05/12/23 14:01 Urine Urobilinogen (Auto) 0 mg/dL 05/12/23 14:01 Leukocyte Esterase (Auto) 0 Jorje/uL 05/12/23 14:01 Assessment & Plan Assessment & Plan (1) Recurrent UTI: Code(s): N39.0 - Urinary tract infection, site not specified (2) Dysuria: Code(s): R30.0 - Dysuria (3) Cystitis: Code(s): N30.90 - Cystitis, unspecified without hematuria Plan Urine cytology. Follow-up in 6 months Orders: Orders Urine Cytology 05/12/23 N30.90 - Cystitis, unspecified without hematuria, R32 - Unspecified urinary incontinence AMB Bladder/Catheter Procedure 05/12/23 N30.90 - Cystitis, unspecified without hematuria, N39.0 - Urinary tract infection, site not specified, R32 - Unspecified urinary incontinence, R35.0 - Frequency of micturition AMB Cystoscopy 05/12/23 N30.90 - Cystitis, unspecified without hematuria, N39.0 - Urinary tract infection, site not specified, R32 - Unspecified urinary incontinence, R35.0 - Frequency of micturition AMB Urinalysis Automated 05/12/23 N30.90 - Cystitis, unspecified without hematuria, N39.0 - Urinary tract infection, site not specified, R30.0 - Dysuria, R32 - Unspecified urinary incontinence, R35.0 - Frequency of micturition Coding Level of Care Code Procedure Only Diagnoses Recurrent UTI N39.0 Dysuria R30.0 Cystitis N30.90 CPT Codes Bladder/Catheter Procedure - CPT: 69581-[id number] Bladder Catheter ([id number]) Cystoscopy - CPT: 54464-Pldmesolei ([id number])
== END 2023-05-12 14:27 | disposition home or self-care (01) ==
PROVIDERS: PCP Internal Medicine; Visit Provider Urology
DX: R32 Unspecified urinary incontinence (principal); N30.90 Cystitis, unspecified without hematuria; R35.0 Frequency of micturition; R30.0 Dysuria; N39.0 Urinary tract infection, site not specified
CPT/HCPCS: 52000

== ENCOUNTER 2023-05-12 12:52 | Outpatient (REF) | payer MEDICARE, SELFPAY ==
[2023-05-12 16:21] LABS: Urine Cytology See Pathology rpt
== END 2023-05-12 12:53 | disposition home or self-care (01) ==
LOC: HO.LAB 12:52
PROVIDERS: PCP Internal Medicine; Visit Provider Urology
DX: N30.90 Cystitis, unspecified without hematuria (principal); R32 Unspecified urinary incontinence; R30.0 Dysuria; Z79.899 Other long term (current) drug therapy
CPT/HCPCS: 52000; 81003; 88112

== ENCOUNTER 2023-05-25 10:10 | Outpatient (REF) | payer MEDICARE, SELFPAY | END 2023-05-25 10:11 | disposition home or self-care (01) | LOC: HO.MAMMO 10:10 | PROVIDERS: PCP Internal Medicine; Visit Provider Internal Medicine | DX: Z12.31 Encounter for screening mammogram for malignant neoplasm of breast (principal) | CPT/HCPCS: 77063; 77067 ==

== ENCOUNTER → 2023-05-25 10:45 | Outpatient (BNV) | payer MEDICARE, SELFPAY | PROVIDERS: PCP Internal Medicine; Visit Provider Radiology Diagnostic Radiology | DX: Z12.31 Encounter for screening mammogram for malignant neoplasm of breast (principal) | CPT/HCPCS: 77063; 77067 ==

== ENCOUNTER → 2023-06-01 08:34 | Outpatient (REF) | payer MEDICARE, SELFPAY ==
--- NOTE | 2023-06-01 08:37 | HM_ITS ---
Conclusion: 1. Patient was monitored for total period of 2 days and 23 hours 2. Baseline was normal sinus rhythm with average heart of 86 beats per minute 3. Frequent PACs noted with total burden of 15.4% 4. Frequent runs of supraventricular ectopic event, appear to be ectopic atrial tachycardia by EKG with the fastest heart of 144 beats per minute and the longest episode lasting 2 minutes and 17 seconds 5. No significant pauses noted 6. Patient activated the marker 6 times correlating with either atrial tachycardia or PACs. MTDD
== END ==
LOC: HO.CARD 08:34
PROVIDERS: PCP Internal Medicine; Visit Provider Nurse Practitioner Family
DX: R00.2 Palpitations (principal); I47.10 Supraventricular tachycardia, unspecified
CPT/HCPCS: 93242

== ENCOUNTER → 2023-06-01 08:37 | Outpatient (BNV) | payer MEDICARE, SELFPAY | PROVIDERS: PCP Internal Medicine; Visit Provider Internal Medicine Cardiovascular Disease | DX: I47.19 Other supraventricular tachycardia (principal) | CPT/HCPCS: 93244 ==

== ENCOUNTER 2023-06-28 09:25 | Outpatient (REF) | payer MEDICARE, SELFPAY ==
[2023-06-28 10:04] LABS: MANUAL DIFF FLAG NO
[2023-06-28 10:40] LABS: Appearance Urine Clear; Color Urine Yellow; Glucose Urine UA Negative (Negative); Leukocyte Esterase Urine Moderate (2+) (Negative); Nitrite Urine Negative (Negative); PH 6.5 (5.0-9.0); Specific Gravity - Urine 1.015 (1.005-1.025); UMIC TRIGGER UA YES; Urine Blood Negative (Negative); Urine Ketones Negative (Negative); Urine Protein Negative (Neg-Trace)
[2023-06-28 10:42] LABS: Basophils Absolute Auto 0.1 X10*3/uL (0.0-0.2); Basophils Percent Auto 0.9 % (0-2); Eosinophils Absolute Auto 0.4 X10*3/uL (0.0-0.4); Eosinophils Percent Auto 5.1 % (0-4); Hematocrit 41.3 % (37.0-47.0); Imm Gran Abs Auto 0.02 X10*3/uL (0.00-0.03); Imm Gran Pct Auto 0.3 % (0.0-0.4); Lymphocytes Absolute Auto 1.8 X10*3/uL (1.2-4.9); Lymphocytes Percent Auto 26.2 % (20-40); Mean Corpuscular HGB Conc 33.9 g/dl (31.0-35.0); Mean Corpuscular Volume 91.6 fL (80.0-98.0); Mean Platelet Volume 10.8 fL (9.4-12.3); Monocytes Absolute Auto 0.4 X10*3/uL (0.1-1.2); Monocytes Percent Auto 6.1 % (2-11); Neutrophils Absolute Auto 4.2 x10*3/uL (2.0-8.3); Neutrophils Percent Auto 61.4 % (45-73); Platelet Count 234 X10*3/uL (160-400); Red Blood Count 4.51 X10*6/uL (4.20-5.50); Red Cell Distribution Width 12.8 % (11.0-16.0); White Blood Count 6.8 X10*3/uL (4.8-10.8)
[2023-06-28 10:43] LABS: Bacteria Urine None Seen (None Seen); Hyaline Casts Urine 0-2 /LPF (0-2); RBC Urine 0-2 /HPF (0-2); WBC Urine 21-50 /HPF (0-5)
[2023-06-28 12:12] LABS: Alanine Aminotransferase 19 U/L (0-31); Albumin Level 4.1 g/dL (3.5-5.0); Alkaline Phosphatase 72 U/L (39-117); Anion Gap 14 (12-20); Aspartate Amino Transferase 23 U/L (5-31); Bilirubin Total 0.6 mg/dL (0.0-1.0); Blood Urea Nitrogen 12 mg/dL (9-16); Calcium 9.4 mg/dL (8.4-10.2); Carbon Dioxide 26 mmol/L (22-29); Chloride 105 mmol/L (96-108); Cholesterol 204 mg/dL (<200); Estimated Glomerular Filt Rate > 60; Glucose Random 102 mg/dL (60-115); HDL Cholesterol 65 mg/dL (>40); LDL Cholesterol Calculated 122 mg/dL (<100); Potassium 4.2 mmol/L (3.3-5.1); Sodium 141 mmol/L (135-145); Total Protein 7.2 g/dL (6.5-8.0); Triglycerides 85 mg/dL (<150)
[2023-06-28 12:15] LABS: Estimated Average Glucose 114 mg/dL; Hemoglobin A1c % 5.6 % (<6.0)
[2023-06-28 12:31] LABS: Free T4 (Free Thyroxine) 0.96 ng/dL (0.71-1.85); Thyroid Stimulating Hormone 1.09 uIU/mL (0.32-4.0)
[2023-06-28 12:36] LABS: Folate 15.7 ng/mL (> or = 4.0); Vitamin B12 739 pg/mL (200-900)
== END 2023-06-28 09:26 | disposition home or self-care (01) ==
LOC: HO.LAB 09:25
PROVIDERS: PCP Internal Medicine; Visit Provider Internal Medicine
DX: K21.9 Gastro-esophageal reflux disease without esophagitis (principal); E78.00 Pure hypercholesterolemia, unspecified
CPT/HCPCS: 36415; 80053; 80061; 81001; 82306; 82607; 82746; 83036; 84439; 84443; 85025

== ENCOUNTER 2023-07-13 12:13 | Outpatient (AMB) | payer MEDICARE, SELFPAY ==
--- NOTE | 2023-07-13 12:41 | A.OFFVIS_ITS ---
Vital Signs 07/13/23 12:42 Height 5 ft 1 in Weight 140 lb 10.479 oz BMI 26.6 BP 120/76 Blood Pressure Location Lt brachial Position Sitting Pulse 75 Pulse Source Pulse Oximeter Intake Visit Reasons: 6 month follow up [employer] Required: No Accompanied by: Self / Same As Patient Allergies ARB-Angiotensin Receptor Antagonist [ANGIOTENSIN RECEPTOR ANTAGONIST] Allergy (Unknown, Verified 05/04/23 06:58) ANAPHYLAXIS beclomethasone [QNASL] Allergy (Unknown, Verified 05/04/23 06:58) blurred vision, headaches budesonide [Symbicort] Allergy (Unknown, Verified 05/04/23 06:58) higher dose problem ciprofloxacin [Cipro] Allergy (Unknown, Verified 05/04/23 06:58) Unknown codeine [Codeine] Allergy (Unknown, Verified 05/04/23 06:58) UNKNOWN digestive enzymes combo no.8 [From Digestive Enzyme (acidoph,pec)] Allergy (Unknown, Verified 05/04/23 06:58) Unknown fluticasone [Flovent HFA] Allergy (Unknown, Verified 05/04/23 06:58) Unknown Lactobacillus acidophilus [From Digestive Enzyme (acidoph,pec)] Allergy (Unknown, Verified 05/04/23 06:58) Unknown lisinopril [LISINOPRIL] Allergy (Unknown, Verified 05/04/23 06:58) ANGIOEDEMA mometasone furoate [Dulera] Allergy (Unknown, Verified 05/04/23 06:58) Unknown nebivolol [Bystolic] Allergy (Unknown, Verified 05/04/23 06:58) Unknown olmesartan [Benicar] Allergy (Unknown, Verified 05/04/23 06:58) Unknown pectin [From Digestive Enzyme (acidoph,pec)] Allergy (Unknown, Verified 05/04/23 06:58) Unknown Sulfa (Sulfonamide Antibiotics) Allergy (Unknown, Verified 05/04/23 06:58) headache, shaking, freezing sensation, upset stomach methenamine Allergy (Verified 05/04/23 06:58) Unknown amoxicillin [From Augmentin] Adverse Reaction (Intermediate, Verified 05/04/23 06:58) abdominal pain clavulanic acid [From Augmentin] Adverse Reaction (Intermediate, Verified 05/04/23 06:58) abdominal pain diltiazem Adverse Reaction (Intermediate, Verified 06/29/23 09:07) NARVAEZ, Blurry vision, fatigue, decreased appetite formoterol [From Symbicort] Adverse Reaction (Intermediate, Verified 05/04/23 06:58) Dizziness verapamil Adverse Reaction (Intermediate, Verified 05/04/23 06:58) Blurry Vision nitrofurantoin Allergy (Severe, Uncoded 04/28/23 10:34) Blister estrodiol Allergy (Unknown, Uncoded 04/28/23 10:34) Unknown Medication List - Last Reconciled 07/13/23 by Evens Cerrato MD amlodipine 5 mg PO BEDTIME atorvastatin 10 mg PO BEDTIME cefdinir 300 mg PO BID cholecalciferol (vitamin D3) 25 mcg PO DAILY diltiazem HCl Take 30 mg orally twice a day for 1 week; then take 2 tabs to equal 60mg twice a day for one week; if BP is stable we will change Rx to Diltiazem CD 120mg once daily. levalbuterol HCl 1.25 mg (3 mL) inhalation Q4-6H PRN multivitamin 1 tab PO DAILY umeclidinium 62.5 mcg/actuation (Incruse Ellipta) 1 inh inhalation DAILY vitamin B complex 1 tab PO DAILY HPI Comments Details: 72-year-old female who is here for palpitations. She has been experiencing palpitations for long time but has been noticing the more frequently these days. She is saying she gets racing of her heart. She underwent Holter monitor which showed multiple runs of supraventricular tachycardia and concern for atrial fibrillation was placed. I have reviewed the Holter monitor and she mostly has sinus rhythm with runs of regular narrow complex tachycardia. She drinks soda, tea and coffee. She has not missed of breath of chest pains. EKG showing sinus rhythm with premature atrial complexes. 06/17/22: She returns for follow-up. She is saying her palpitations are less frequent. She has cut down on coffee intake significantly. She still eats chocolate. ECG in the office is showing sinus rhythm with premature atrial complexes which are quite frequent. QTC is 419 milliseconds. She is denying chest discomfort but saying that she gets out of breath when she does activities. This is something new for her and is of concern. The symptoms are not unstable. She was referred for exercise stress test. 09/22/22: She returns after exercise stress testing done. She was able to exercise for 3 minute 30 seconds of Adan protocol achieving 76% maximum predicted heart rate with moderate shortness of breath and requested to stop. She came back later for for exercise may be where she was able to exercise for 5 minute 2 seconds without any chest discomfort mild shortness of breath with frequent premature atrial complexes. Nuclear perfusion imaging was normal. She is saying she went to see her youth care professional and was started on montelukast and had dyspnea is improved significantly. She was on Symbicort and is saying since it has been stop her palpitations are also less frequent. She still gets palpitati ons but they are not bothersome and do not limit her day-to-day activity. 07/13/23: Returns for follow-up. Off and on she has been getting some palpitations. Previously some medication changes were made but she could not tolerate due to multiple medication intolerances. She is saying she has not bothered by palpitations significantly. She continues to eat chocolate, drink 2 cups of coffee as well as green tea. [facility] Medical History SVT (supraventricular tachycardia) Abnormal stress ECG with treadmill Coronary artery calcification seen on CT scan Hypertension Hypercholesterolemia Impaired glucose tolerance COPD (chronic obstructive pulmonary disease) Asthma Environmental and seasonal allergies Personal history of tobacco use GERD (gastroesophageal reflux disease) Constipation Recurrent UTI Dysuria Nocturia more than twice per night Impacted cerumen of both ears Tinnitus Anxiety Vitamin D deficiency History of COVID-19 Contact dermatitis Breast cancer screening by mammogram Surgical History History of colonoscopy History of cholecystectomy History of ERCP History of cataract surgery Family History Father Myocardial infarction Mother Hypertension Stroke Brother In good health Sister In good health Son In good health Daughter In good health Other Substance use disorder Social History Household Members: None Housing: House Do you presently have visiting nurse or other home services: No Alcohol intake: never Patient Tobacco Use Status: Former Tobacco user Quit Date: 1989 Tobacco use type: Cigarette Cigarette Packs Per Day: 3 Years Smoked: 20 +/- quit 1989 e-Cigarette/Vaping Use: Never Used Second Hand Smoke Exposure: No service: No Current occupational status: previously employed and retired 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 Cognitive needs: No Hearing needs: No Vision needs: Yes Female Reproductive History Menstrual Age of Menarche: 12 Review of Systems Const Denies chills, Denies fatigue, Denies fever(s), Denies frequent falls, Denies weakness, Denies weight gain and Denies weight loss ENT Denies dizziness Card Denies chest pain, Denies leg edema, Denies lightheadedness, Denies palpitations, Denies dyspnea and Denies dyspnea on exertion Resp Denies cough, Denies dyspnea and Denies dyspnea on exertion GI Denies hematochezia Musc Denies abnormal gait, Denies muscle weakness, Denies numbness, Denies radiating pain into limb and Denies tingling Neuro Denies abnormal gait, Denies dizziness, Denies frequent falls, Denies numbness, Denies tingling and Denies weakness Endo Denies fatigue and Denies palpitations Physical Exam Vital Signs: Last Vital Signs Pulse 75 07/13/23 12:42 BP 120/76 07/13/23 12:42 BMI result Body Mass Index 26.6 GENERAL APPEARANCE: in no acute distress, pleasant. NECK: no carotid bruit, no jugular venous distention. SKIN: no suspicious lesions, warm and dry. HEART: no murmurs, regular rate and rhythm. LUNGS: clear to auscultation bilaterally. ABDOMEN: soft, nontender. EXTREMITIES: no edema. PERIPHERAL PULSES: equal. NEUROLOGIC: No gross deficits, AAO X 3 Assessment & Plan Assessment & Plan (1) Palpitations: Code(s): R00.2 - Palpitations Category: Medical (2) Hypertension: Code(s): I10 - Essential (primary) hypertension Category: Medical Qualifiers: Hypertension type: primary hypertension Qualified Code(s): I10 - Essential (primary) hypertension (3) GRAYSON (dyspnea on exertion): Code(s): R06.09 - Other forms of dyspnea Category: Medical Plan 72-year-old female who is here for follow-up. She has background history of palpitations due to premature atrial complexes. She feels stable and does not feel limited or bothered by the palpitations currently. She was complaining of some dyspnea and underwent stress testing. This was somewhat limited due to her exercise capacity but did not show any significant ECG changes or nuclear perfusion defect. She also got treated for asthma and her dyspnea has improved significantly. I think she is clinically stable at this point and can continue same medications for now. Blood pressure control is good. We will see her back in 1 year. Thank you for allowing me to participate in the care of your patient. Please feel free to contact me if you have any questions. Coding Level of Care Code Est Pt Level 4 (02095) Diagnoses Palpitations R00.2 Primary hypertension I10 Hypertension type: primary hypertension GRAYSON (dyspnea on exertion) R06.09
[2023-07-13 12:42] VITALS: BP 120/76; PULSE 75; BMI 26.6
== END 2023-07-13 13:11 | disposition home or self-care (01) ==
PROVIDERS: PCP Internal Medicine; Visit Provider Internal Medicine Cardiovascular Disease
DX: R00.2 Palpitations (principal); I10 Essential (primary) hypertension; R06.09 Other forms of dyspnea
CPT/HCPCS: 99214

== ENCOUNTER → 2023-07-13 12:13 | Outpatient (BNVA) | payer MEDICARE, SELFPAY | PROVIDERS: PCP Internal Medicine; Visit Provider Internal Medicine Cardiovascular Disease | DX: R00.2 Palpitations (principal); I10 Essential (primary) hypertension; R06.09 Other forms of dyspnea | CPT/HCPCS: 99212 ==

== ENCOUNTER 2023-07-14 10:37 | Outpatient (AMB) | payer MEDICARE, SELFPAY ==
[2023-07-14 10:39] VITALS: BP 138/64; PULSE 76; O2SAT 97; BMI 26.5
--- NOTE | 2023-07-14 10:39 | A.OFFPC_ITS ---
Vital Signs 07/14/23 10:39 Height 5 ft 1 in Weight 140 lb 0.8 oz BMI 26.5 BP 138/64 Blood Pressure Location Lt brachial Position Sitting Pulse 76 Pulse Source Pulse Oximeter Pulse Oximetry (%) 97 Oxygen Delivery Method Room Air Intake Visit Reasons: Annual Exam Intake Note: Patient is here today for a physical. 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: No Allergies ARB-Angiotensin Receptor Antagonist [ANGIOTENSIN RECEPTOR ANTAGONIST] Allergy (Unknown, Verified 07/14/23 10:40) ANAPHYLAXIS beclomethasone [QNASL] Allergy (Unknown, Verified 07/14/23 10:40) blurred vision, headaches budesonide [Symbicort] Allergy (Unknown, Verified 07/14/23 10:40) higher dose problem ciprofloxacin [Cipro] Allergy (Unknown, Verified 07/14/23 10:40) Unknown codeine [Codeine] Allergy (Unknown, Verified 07/14/23 10:40) UNKNOWN digestive enzymes combo no.8 [From Digestive Enzyme (acidoph,pec)] Allergy (Unknown, Verified 07/14/23 10:40) Unknown fluticasone [Flovent HFA] Allergy (Unknown, Verified 07/14/23 10:40) Unknown Lactobacillus acidophilus [From Digestive Enzyme (acidoph,pec)] Allergy (Unknown, Verified 07/14/23 10:40) Unknown lisinopril [LISINOPRIL] Allergy (Unknown, Verified 07/14/23 10:40) ANGIOEDEMA mometasone furoate [Dulera] Allergy (Unknown, Verified 07/14/23 10:40) Unknown nebivolol [Bystolic] Allergy (Unknown, Verified 07/14/23 10:40) Unknown olmesartan [Benicar] Allergy (Unknown, Verified 07/14/23 10:40) Unknown pectin [From Digestive Enzyme (acidoph,pec)] Allergy (Unknown, Verified 07/14/23 10:40) Unknown Sulfa (Sulfonamide Antibiotics) Allergy (Unknown, Verified 07/14/23 10:40) headache, shaking, freezing sensation, upset stomach methenamine Allergy (Verified 07/14/23 10:40) Unknown amoxicillin [From Augmentin] Adverse Reaction (Intermediate, Verified 07/14/23 10:40) abdominal pain clavulanic acid [From Augmentin] Adverse Reaction (Intermediate, Verified 07/14/23 10:40) abdominal pain diltiazem Adverse Reaction (Intermediate, Verified 07/14/23 10:40) NARVAEZ, Blurry vision, fatigue, decreased appetite formoterol [From Symbicort] Adverse Reaction (Intermediate, Verified 07/14/23 10:40) Dizziness umeclidinium [From Incruse Ellipta] Adverse Reaction (Intermediate, Unverified 07/14/23 11:40) Palpitations verapamil Adverse Reaction (Intermediate, Verified 07/14/23 10:40) Blurry Vision nitrofurantoin Allergy (Severe, Uncoded 07/14/23 10:40) Blister estrodiol Allergy (Unknown, Uncoded 07/14/23 10:40) Unknown diltiazem Adverse Reaction (Intermediate, Uncoded 07/14/23 11:39) sleeping Medication List - Last Reconciled 07/14/23 by Cassandra Weeks MD amlodipine 5 mg PO BEDTIME atorvastatin 10 mg PO BEDTIME cholecalciferol (vitamin D3) 25 mcg PO DAILY levalbuterol HCl 1.25 mg (3 mL) inhalation Q4-6H PRN multivitamin 1 tab PO DAILY vitamin B complex 1 tab PO DAILY Tobacco use date assessed: 07/14/23 Fall risk assessment: No Falls in past year Last assessed Fall Risk: 07/14/23 Dental Screening Dental Screen Date: 07/14/23 Did you have a dental visit in the last 12 months?: No Did you have a dental problem in the last 6 months where you did not have access to dental care?: No HPI Annual Exam HPI Details 72-year-old female with coronary artery disease hypertension hypercholesterolemia impaired glucose tolerance COPD GERD history of tobacco use coming in for physical exam last seen in March 2023. Patient's colonoscopy is up-to-date February 2017 mammogram is up-to-date. Patient just saw Cardiology July 12 review of the notes has seen Gynecology also for the urinary incontinence and vaginal atrophy prescribed vaginal estrogen. Patient has also seen Pulmonary with Anoro increasing palpitations this was changed to levalbuterol and Incruse. nausea still frequency even after the change from urology referral [facility] Medical History (Updated 07/14/23 @ 11:41 by Cassandra Weeks MD) Tinnitus SVT (supraventricular tachycardia) Abnormal stress ECG with treadmill Coronary artery calcification seen on CT scan Hypertension Hypercholesterolemia Impaired glucose tolerance COPD (chronic obstructive pulmonary disease) Asthma Environmental and seasonal allergies Personal history of tobacco use GERD (gastroesophageal reflux disease) Constipation Recurrent UTI Dysuria Nocturia more than twice per night Impacted cerumen of both ears Anxiety Vitamin D deficiency History of COVID-19 Contact dermatitis Breast cancer screening by mammogram Surgical History History of colonoscopy History of cholecystectomy History of ERCP History of cataract surgery Family History Father Myocardial infarction Mother Hypertension Stroke Brother In good health Sister In good health Son In good health Daughter In good health Other Substance use disorder Social History Household Members: None Housing: House Do you presently have visiting nurse or other home services: No Alcohol intake: never Patient Tobacco Use Status: Former Tobacco user Quit Date: 1989 Tobacco use type: Cigarette Cigarette Packs Per Day: 3 Years Smoked: 20 +/- quit 1989 e-Cigarette/Vaping Use: Never Used Second Hand Smoke Exposure: No service: No Current occupational status: previously employed and retired 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 1. Little interest or pleasure in doing things: not at all 2. Feeling down, depressed, or hopeless: not at all 3. Trouble falling or staying asleep, or sleeping too much: not at all 4. Feeling tired or having little energy: not at all 5. Poor appetite or overeating: not at all 6. Feeling bad about yourself - or that you are a failure or have let yourself or your family down: not at all 7. Trouble concentrating on things, such as reading the newspaper or watching television: not at all 8. Moving or speaking so slowly that other people could have noticed. Or the opposite - being so fidgety or restless that you have been moving around a lot more than usual: not at all 9. Thoughts that you would be better off or of hurting yourself in some way: not at all Total score: 0 Depression Screening Interpretation: Negative Depression Screening Done: Yes 08911 - PHQ-9 Billing: Yes Source: Developed by Drs. Buster Gerber, Belkis Kumar, Skinny Singh and colleagues, with an educational tony from [employer]. Thrive Questionnaire Date Thrive assessed: 07/14/23 I am a: Patient What is your living situation today?: I have a steady place to live Within the past 12 months, did the food you bought not last and you didn't have the money to get more?: Never true Within the past 12 months, did you worry whether your food would run out before you got money to buy more?: Never true Do you have trouble paying for medicines?: No Do you have trouble getting transportation to medical appointments?: No Do you have trouble paying your heating and electricity bill?: No Do you have trouble taking care of your child, family member or friend?: No Do you have trouble with day-to-day activities such as bathing, preparing meals, shopping, managing finances, etc.?: No Are you currently unemployed and looking for a job?: No Are you interested in more education?: No Please select the resources that you would like help with: None Currently or been in a relationship where the following occur: no concerns reported THRIVE Score: 0 AUDIT C Alcohol Use Questionnaire (AUDIT-C) 1. How often do you have a drink containing alcohol?: Never 3. How often do you have six or more drinks on one occasion?: Never Total Score: 0 Score Reviewed/Action Taken: No SUAD-7 AMB Questionnaire SUAD-7 Date SUAD - 7 assessed: 07/14/23 Feeling nervous, anxious, or on edge: 0 = Not at all Not being able to stop or control worryin = Not at all Worrying too much about different things: 0 = Not at all Trouble relaxin = Not at all Being so restless that it is hard to sit still: 0 = Not at all Becoming easily annoyed or irritable: 0 = Not at all Feeling afraid as if something awful might happen: 0 = Not at all Total SUAD-7 score (0-4 normal; 5-9 mild; 10-14 moderate; 15-21 severe): 0 Source: Developed by Belkis Huff. José, Skinny Singh and colleagues, with an educational tony from [employer]. SUAD-7 Assessment Billing SUAD-7 Assessment Tool: SUAD-7 Assessment 38435 Review of Systems Const Denies poor appetite and Denies weakness Eyes Denies no additional complaints ENT Reports Normal hearing present, Denies dizziness, Denies nasal congestion, Denies tinnitus and Denies sore throat Card Denies chest pain, Denies syncope, Denies rapid heart rate and Denies dyspnea Resp Denies cough and Denies dyspnea GI Denies change in stool character, Reports constipation, Denies diarrhea, Denies nausea and Denies vomiting Denies urinary frequency, Denies difficulty voiding and Denies dysuria Neuro Reports Normal hearing present, Denies confusion, Denies dizziness, Denies syncope and Denies weakness Psych Denies confusion Physical exam (Primary Care) Vital Signs: Last Vital Signs Pulse 76 07/14/23 10:39 BP 138/64 07/14/23 10:39 Pulse Ox 97 07/14/23 10:39 Oxygen Delivery Method Room Air 07/14/23 10:39 BMI result Body Mass Index 26.5 Tobacco/Smoking Status: Tobacco use Status Tobacco use date assessed 07/14/23 07/14/23 10:41 Patient Tobacco Use Status Former Tobacco user 07/14/23 10:41 Tobacco use type Cigarette 07/14/23 10:41 e-Cigarette/Vaping Use Never Used 07/14/23 10:41 PHQ-9: PHQ-9 Score PHQ-9: Total score 0 07/14/23 11:09 Depression Screening Interpretation: Negative Thrive Assessment: Date of Thrive Assessment Date Thrive assessed 07/14/23 07/14/23 10:41 Currently or been in a relationship where the following occur: no concerns reported Const General: No confusion Orientation/consciousness: No confusion HENMT Head: Yes normocephalic Ears: external ears normal and TM's normal bilaterally Face and sinus: Yes normal facial exam Mouth: moist mucous membranes Throat: Yes tonsils normal Eyes Conjunctivae: conjunctivae normal Pupils: Equal, round and reactive pupils present and Pupil accommodation reflex normal Direct Ophthalmoscopy: normal light reflex Neck Neck: No lymphadenopathy Thyroid: Thyroid normal Chest Chest palpation & inspection: normal inspection of the chest Resp Effort & Inspection: normal respiratory effort and no audible wheezes Auscultation: clear to auscultation bilaterally, no crackles, no wheezes and lung sounds not diminished Cardio Rate: regular rate Rhythm: regular rhythm Peripheral pulses: radial pulses present and dorsalis pedis present GI Other: guaiac negative Palpation (GI): no masses Auscultation: normal bowel sounds and normoactive bowel sounds Rectal Exam - Female: deferred Skin General skin exam: no rashes or lesions noted Rashes: no rashes Neuro General: No confusion Cranial nerves: Yes Equal, round and reactive pupils present and Yes Normal hearing present Cognition (Neuro): normal cognition Gait exam (Neuro): Normal gait present Motor exam (neuro): 5/5 motor strength present throughout Deep tendon reflexes (DTR's): Right brachioradialis reflex intensity grade: 2+, Left brachioradialis reflex intensity grade: 2+, Right patellar reflex intensity grade: 2+ and Left patellar reflex intensity grade: 2+ Extrem General: No edema Assessment and Plan Assessment & Plan (1) Annual physical exam: Code(s): Z00.00 - Encounter for general adult medical examination without abnormal findings (2) Coronary artery calcification seen on CT scan: Comment: (Moderate to severe coronary artery calcification on 01/14/[address]) Code(s): I25.10 - Atherosclerotic heart disease of [place] coronary artery without angina pectoris Plan: Control the cholesterol, weight, blood pressure patient continue to follow-up with cardiology (3) Hypertension: Code(s): I10 - Essential (primary) hypertension Qualifiers: Hypertension type: primary hypertension Qualified Code(s): I10 - Essential (primary) hypertension Plan: Continue with blood pressure medication. Decrease salt intake and exercise presently on amlodipine 5 mg once a day and diltiazem (4) Hypercholesterolemia: Code(s): E78.00 - Pure hypercholesterolemia, unspecified Plan: Avoid fried foods, chicken skin, eggs, butter margarine, pastries and meat. Be it pork or beef they have a lot of cholesterol LDL goal of less than 70 and triglyceride of less than 150 presently on atorvastatin 10 mg at bedtime (5) SVT (supraventricular tachycardia): Code(s): I47.1 - Supraventricular tachycardia Plan: Stable will continue monitoring presently patient on calcium channel shanon (6) Impaired glucose tolerance: Code(s): R73.02 - Impaired glucose tolerance (oral) Plan: Decrease the amount of carbohydrate intake, pasta, bread, rice and potatoes are all sugar and that is aside from all the sweet stuff, remember that fruits are good but they are Sweet also. (7) COPD (chronic obstructive pulmonary disease): Code(s): J44.9 - Chronic obstructive pulmonary disease, unspecified Plan: Patient has seen Pulmonary and has change medication to Incruse (8) GERD (gastroesophageal reflux disease): Code(s): K21.9 - Gastro-esophageal reflux disease without esophagitis Qualifiers: Esophagitis presence: without esophagitis Qualified Code(s): K21.9 - Gastro-esophageal reflux disease without esophagitis Plan: Avoid the foods that causes that usually spicy foods, tomato products, juices, coffee, soda and foods that your sensitive to. After eating do not lie down, allow 3-4 hours before in lie down. And keep the head of bed above 30 degrees to avoid the acid from going up. (9) Tinnitus: Code(s): H93.19 - Tinnitus, unspecified ear Orders: Orders XR DEXA axial skeleton Today K21.9 - Gastro-esophageal reflux disease without esophagitis, M81.0 - Age-related osteoporosis without current pathological fracture Coding Level of Care Code Est Pt Prev Care >65y(83690) Diagnoses Annual physical exam Z00.00 Coronary artery calcification seen on CT scan I25.10 Primary hypertension I10 Hypertension type: primary hypertension Hypercholesterolemia E78.00 SVT (supraventricular tachycardia) I47.1 Impaired glucose tolerance R73.02 COPD (chronic obstructive pulmonary disease) J44.9 Gastroesophageal reflux disease without esophagitis K21.9 Esophagitis presence: without esophagitis Tinnitus H93.19 Additional Codes SUAD-7 Assessment Billing - SUAD-7 Assessment Tool: SUAD-7 Assessment [id number] ([id number])
== END 2023-07-14 12:02 | disposition home or self-care (01) ==
PROVIDERS: PCP Internal Medicine; Visit Provider Internal Medicine
DX: Z00.00 Encounter for general adult medical examination without abnormal findings (principal); J44.9 Chronic obstructive pulmonary disease, unspecified; I25.10 Atherosclerotic heart disease of native coronary artery without angina pectoris; I10 Essential (primary) hypertension; E78.00 Pure hypercholesterolemia, unspecified; I47.10 Supraventricular tachycardia, unspecified; R73.02 Impaired glucose tolerance (oral); K21.9 Gastro-esophageal reflux disease without esophagitis
CPT/HCPCS: 99397

== ENCOUNTER 2023-07-27 10:59 | Outpatient (AMB) | payer MEDICARE, SELFPAY ==
--- NOTE | 2023-07-27 11:05 | A.OFFVIS_ITS ---
Vital Signs 07/27/23 11:06 Height 5 ft 1 in Weight 142 lb 2 oz BMI 26.9 BP 122/70 Blood Pressure Location Rt brachial Position Sitting Pulse 88 Pulse Source Pulse Oximeter Pulse Oximetry (%) 95 Oxygen Delivery Method Room Air Intake Visit Reasons: COPD: 3 month f/u Allergies ARB-Angiotensin Receptor Antagonist [ANGIOTENSIN RECEPTOR ANTAGONIST] Allergy (Unknown, Verified 07/27/23 11:10) ANAPHYLAXIS beclomethasone [QNASL] Allergy (Unknown, Verified 07/27/23 11:10) blurred vision, headaches budesonide [Symbicort] Allergy (Unknown, Verified 07/27/23 11:10) higher dose problem ciprofloxacin [Cipro] Allergy (Unknown, Verified 07/27/23 11:10) Unknown codeine [Codeine] Allergy (Unknown, Verified 07/27/23 11:10) UNKNOWN digestive enzymes combo no.8 [From Digestive Enzyme (acidoph,pec)] Allergy (Unknown, Verified 07/27/23 11:10) Unknown fluticasone [Flovent HFA] Allergy (Unknown, Verified 07/27/23 11:10) Unknown Lactobacillus acidophilus [From Digestive Enzyme (acidoph,pec)] Allergy (Unknown, Verified 07/27/23 11:10) Unknown lisinopril [LISINOPRIL] Allergy (Unknown, Verified 07/27/23 11:10) ANGIOEDEMA mometasone furoate [Dulera] Allergy (Unknown, Verified 07/27/23 11:10) Unknown nebivolol [Bystolic] Allergy (Unknown, Verified 07/27/23 11:10) Unknown olmesartan [Benicar] Allergy (Unknown, Verified 07/27/23 11:10) Unknown pectin [From Digestive Enzyme (acidoph,pec)] Allergy (Unknown, Verified 07/27/23 11:10) Unknown Sulfa (Sulfonamide Antibiotics) Allergy (Unknown, Verified 07/27/23 11:10) headache, shaking, freezing sensation, upset stomach methenamine Allergy (Verified 07/27/23 11:10) Unknown amoxicillin [From Augmentin] Adverse Reaction (Intermediate, Verified 07/27/23 11:10) abdominal pain clavulanic acid [From Augmentin] Adverse Reaction (Intermediate, Verified 07/27/23 11:10) abdominal pain diltiazem Adverse Reaction (Intermediate, Verified 07/27/23 11:10) NARVAEZ, Blurry vision, fatigue, decreased appetite formoterol [From Symbicort] Adverse Reaction (Intermediate, Verified 07/27/23 11:10) Dizziness umeclidinium [From Incruse Ellipta] Adverse Reaction (Intermediate, Unverified 07/27/23 11:10) Palpitations verapamil Adverse Reaction (Intermediate, Verified 07/27/23 11:10) Blurry Vision nitrofurantoin Allergy (Severe, Uncoded 07/27/23 11:10) Blister estrodiol Allergy (Unknown, Uncoded 07/27/23 11:10) Unknown diltiazem Adverse Reaction (Intermediate, Uncoded 07/27/23 11:10) sleeping HPI HPI COPD: 3 month f/u: Details: Eric is a pleasant 72 year old female, former smoker with 60 pack year history, quit over 30 years ago, with underlying COPD and SVT. She has trialed multiple inhalers resulting in adverse effects including Symbicort, Anoro and albuterol. She has been followed by cardiology with no significant changes on most recent EKG and nuclear stress test unremarkable. She reports intermittent symptoms of dyspnea which resolves with levalbuterol. She denies any cough, wheezing or chest tightness. She reports over the last few weeks and increase in allergy symptoms and has been using Claritin as well as a nasal saline rinse with good effect. Today she presents for a routine visit. [facility] Medical History (Updated 07/27/23 @ 11:15 by Licha Vela NP) Tinnitus SVT (supraventricular tachycardia) Abnormal stress ECG with treadmill Coronary artery calcification seen on CT scan Hypertension Hypercholesterolemia Impaired glucose tolerance COPD (chronic obstructive pulmonary disease) Asthma Environmental and seasonal allergies Personal history of tobacco use GERD (gastroesophageal reflux disease) Constipation Recurrent UTI Dysuria Nocturia more than twice per night Impacted cerumen of both ears Anxiety Vitamin D deficiency History of COVID-19 Contact dermatitis Breast cancer screening by mammogram Surgical History History of colonoscopy History of cholecystectomy History of ERCP History of cataract surgery Family History Father Myocardial infarction Mother Hypertension Stroke Brother In good health Sister In good health Son In good health Daughter In good health Other Substance use disorder Social History Household Members: None Housing: House Do you presently have visiting nurse or other home services: No Alcohol intake: never Patient Tobacco Use Status: Former Tobacco user Quit Date: 1989 Tobacco use type: Cigarette Cigarette Packs Per Day: 3 Years Smoked: 20 +/- quit 1989 e-Cigarette/Vaping Use: Never Used Second Hand Smoke Exposure: No service: No Current occupational status: previously employed and retired 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 Cognitive needs: No Hearing needs: No Vision needs: Yes Female Reproductive History Menstrual Age of Menarche: 12 Review of Systems Const Denies chills, Denies excessive sweating, Denies fever(s), Denies headache(s) and Denies night sweats Eyes Denies dry eyes, Denies irritation and Reports itchy eyes ENT Reports Normal hearing present, Denies headache(s), Reports nasal congestion, Reports nasal discharge and Denies sore throat Card Denies chest pain, Denies chest pain at rest, Denies chest pain with activity, Denies claudication, Denies leg edema, Reports dyspnea on exertion, Denies orthopnea and Denies paroxysmal nocturnal dyspnea Resp Denies chest congestion, Denies cough, Denies hemoptysis, Denies excessive phlegm production, Denies pain on inspiration, Denies pain with cough, Reports dyspnea on exertion, Denies stridor and Denies wheezing Musc Denies myalgias Neuro Reports Normal hearing present and Denies headache(s) Endo Denies excessive sweating Darian/Lymph Denies lymphadenopathy Aller/Immun Reports itchy eyes, Denies seasonal rhinorrhea and Denies wheezing Physical Exam Vital Signs: Last Vital Signs Pulse 88 07/27/23 11:06 BP 122/70 07/27/23 11:06 Pulse Ox 95 07/27/23 11:06 Oxygen Delivery Method Room Air 07/27/23 11:06 BMI result Body Mass Index 26.9 Const General: cooperative, healthy appearing, comfortable, no acute distress, well developed and alert Orientation/consciousness: patient oriented x3 Limitations: no limitations HEENT Head: Yes normal to inspection, Yes normocephalic and Yes atraumatic Ears: hearing grossly normal bilaterally and external ears normal Eyes General: appearance normal, both eyes and all related structures Eyelids: Yes eyelids normal Sclerae: sclerae normal EOM: EOMs intact bilaterally Neck Neck: Yes normal visual inspection and Yes no lymphadenopathy Lymphatic: no lymphadenopathy noted Chest Chest palpation & inspection: normal inspection of the chest Resp Effort & Inspection: normal respiratory effort, able to speak in complete sentences, no audible wheezes, no stridor, not tachypneic, no tripod positioning and no use of accessory muscles Auscultation: diminished lung sounds Cardio Jugular venous distension: no JVD Rate: regular rate Rhythm: abnormal rhythm Skin Other: warm, dry General skin exam: no rashes or lesions noted Neuro General: patient oriented x3 Cranial nerves: Yes Normal hearing present Cognition (Neuro): normal cognition Gait exam (Neuro): Normal gait present Extrem General: Yes normal to inspection, Yes capillary refill normal, Yes no clubbing, cyanosis or edema and Yes no pedal edema Psych Appearance: grossly normal and well kempt Speech and movement: Normal speech and movement present and Clear speech present Affect: normal affect Attitude: cooperative Thought process: Normal thought process present Thought content: Normal thought content present Insight: Good insight present (Psych) Judgement: Good judgement present (Psych) Assessment & Plan Assessment & Plan (1) COPD (chronic obstructive pulmonary disease): Code(s): J44.9 - Chronic obstructive pulmonary disease, unspecified Category: Medical (2) Environmental and seasonal allergies: Code(s): J30.89 - Other allergic rhinitis Category: Medical (3) Pulmonary nodules: Code(s): R91.8 - Other nonspecific abnormal finding of lung field Category: Medical Plan Rosiland reports respiratory symptoms are moderately controlled on current regimen. Discussed importance of using albuterol as well as nebulizer when symptomatic, although patient is reluctant to use medication. Encouraged to use Claritin for allergic symptoms. She is aware to call the office if symptoms become poorly controlled. Will follow-up in [address] chest follow- up for pulmonary nodules. All questions were answered and patient is in agreement of plan. Will follow up in three months or sooner if needed. Coding Level of Care Code Est Pt Level 4 (10258) Diagnoses COPD (chronic obstructive pulmonary disease) J44.9 Environmental and seasonal allergies J30.89 Pulmonary nodules R91.8
[2023-07-27 11:06] VITALS: BP 122/70; PULSE 88; O2SAT 95; BMI 26.9
== END 2023-07-27 11:43 | disposition home or self-care (01) ==
PROVIDERS: PCP Internal Medicine; Visit Provider Nurse Practitioner Family
DX: J44.9 Chronic obstructive pulmonary disease, unspecified (principal); J30.89 Other allergic rhinitis; R91.8 Other nonspecific abnormal finding of lung field
CPT/HCPCS: 99214

== ENCOUNTER → 2023-07-27 10:59 | Outpatient (BNVA) | payer MEDICARE, SELFPAY | PROVIDERS: PCP Internal Medicine; Visit Provider Nurse Practitioner Family | DX: J44.9 Chronic obstructive pulmonary disease, unspecified (principal); J30.89 Other allergic rhinitis; R91.8 Other nonspecific abnormal finding of lung field | CPT/HCPCS: 99212 ==

== ENCOUNTER 2023-08-12 09:24 | Outpatient (REF) | payer MEDICARE, SELFPAY ==
--- NOTE | ~2023-08-12 | MM_ITS ---
EXAMINATION: BONE DENSITOMETRY CLINICAL INDICATION: Age-related osteoporosis without current pathological fracture. COMPARISON: Previous BD dated 09/02/2016 and baseline BD dated 04/06/2007. TECHNIQUE: Using a [employer] DXA System (software version: 13.1) manufactured by [employer], dual-energy x-ray absorptiometry was performed of the lumbar spine and left hip. The images are of good technical quality. Summary results are attached. FINDINGS: LEFT FEMUR, NECK: Current: BMD 0.626 g/cm2, Z-score -1.0, T-score -3.0, osteoporosis. Prior: BMD 0.924 g/cm2. Baseline: BMD 0.918 g/cm2. LEFT FEMUR, TOTAL: Current: BMD 0.709 g/cm2, Z-score -0.6, T-score -2.4, osteopenia, 29.7% decrease from previous, 32.4% decrease from baseline (<5% change is not significant). Prior: BMD 1.009 g/cm2. Baseline: BMD 1.049 g/cm2. AP SPINE L1-L4: Current: BMD 1.220 g/cm2, Z-score 2.2, T-score 0.3, normal, 3.0% increase from previous, 0.8% increase from baseline (<5% change is not significant). Prior: BMD 1.184 g/cm2. Baseline: BMD 1.210 g/cm2. IDENTIFIED RISK FACTORS: Menopause, height loss, low calcium intake. HISTORY OF FRACTURE: None listed. MEDICATIONS: Vitamin D. MM/XR DEXA axial skeleton IMPRESSION: 1. DIAGNOSIS: Osteoporosis based on the lowest T-score value of -3.0 in the femoral neck applying World Health Organization criteria. 2. 10-YEAR FRACTURE RISK PREDICTION, FRAX: According to the guidelines, FRAX calculation should only be performed on patients in the osteopenia bone density category. Therefore, FRAX was not performed on this patient. 3. Treatment Recommendations: NOF guidelines recommend consideration for treatment in postmenopausal women and men age 50 and older presenting with the following: -A hip or vertebral (clinical or morphometric) fracture. -T-score less than or equal to -2.5 at the femoral neck or spine after appropriate evaluation to exclude secondary causes. -Low bone mass at the hip or spine and a 10-year fracture probability by FRAX of greater than or equal to 3% for hip fracture or greater than or equal to 20% for major osteoporotic fracture based on the [place] adapted WHO algorithm. 4. Other Recommendations: All treatment decisions require clinical judgment and consideration of individual patient factors, including patient preferences, comorbidities, previous drug use, risk factors not captured in the FRAX model (e.g. frailty, falls, vitamin D deficiency, increased bone turnover, interval significant decline in bone density) and possible under or overestimation of fracture risk by FRAX. Additional medical evaluation for secondary cause of low bone mineral density may be appropriate. FUTURE SCAN RECOMMENDATION: People with diagnosed cases of osteoporosis or at high risk for fracture should have regular bone mineral density tests. For patients eligible for Medicare, routine testing is allowed once every 2 years. The testing frequency can be increased to one year for patients who have rapidly progressing disease, those who are receiving or discontinuing medical therapy to restore bone mass, or have additional risk factors.
== END 2023-08-12 09:25 | disposition home or self-care (01) ==
LOC: HO.MAMMO 09:24
PROVIDERS: PCP Internal Medicine; Visit Provider Internal Medicine
DX: Z13.820 Encounter for screening for osteoporosis (principal); M81.0 Age-related osteoporosis without current pathological fracture; K21.9 Gastro-esophageal reflux disease without esophagitis; Z78.0 Asymptomatic menopausal state
CPT/HCPCS: 77080

== ENCOUNTER 2023-08-31 14:31 | Outpatient (AMB) | payer MEDICARE, SELFPAY ==
[2023-08-31 14:37] VITALS: BP 123/84; PULSE 69; TEMP 37.1; O2SAT 98; BMI 25.5
--- NOTE | 2023-08-31 14:37 | A.OFFVIS_ITS ---
Vital Signs 08/31/23 14:37 Height 5 ft 1 in Weight 135 lb BMI 25.5 BP 123/84 Blood Pressure Location Rt brachial Position Sitting Pulse 69 Pulse Source Pulse Oximeter Temp 98.7 F Temp Source Oral Pulse Oximetry (%) 98 Oxygen Delivery Method Room Air Intake Visit Reasons: 6 month follow up Allergies ARB-Angiotensin Receptor Antagonist [ANGIOTENSIN RECEPTOR ANTAGONIST] Allergy (Unknown, Verified 08/31/23 14:38) ANAPHYLAXIS beclomethasone [QNASL] Allergy (Unknown, Verified 08/31/23 14:38) blurred vision, headaches budesonide [Symbicort] Allergy (Unknown, Verified 08/31/23 14:38) higher dose problem ciprofloxacin [Cipro] Allergy (Unknown, Verified 08/31/23 14:38) Unknown codeine [Codeine] Allergy (Unknown, Verified 08/31/23 14:38) UNKNOWN digestive enzymes combo no.8 [From Digestive Enzyme (acidoph,pec)] Allergy (Unknown, Verified 08/31/23 14:38) Unknown fluticasone [Flovent HFA] Allergy (Unknown, Verified 08/31/23 14:38) Unknown Lactobacillus acidophilus [From Digestive Enzyme (acidoph,pec)] Allergy (Unknown, Verified 08/31/23 14:38) Unknown lisinopril [LISINOPRIL] Allergy (Unknown, Verified 08/31/23 14:38) ANGIOEDEMA mometasone furoate [Dulera] Allergy (Unknown, Verified 08/31/23 14:38) Unknown nebivolol [Bystolic] Allergy (Unknown, Verified 08/31/23 14:38) Unknown olmesartan [Benicar] Allergy (Unknown, Verified 08/31/23 14:38) Unknown pectin [From Digestive Enzyme (acidoph,pec)] Allergy (Unknown, Verified 08/31/23 14:38) Unknown Sulfa (Sulfonamide Antibiotics) Allergy (Unknown, Verified 08/31/23 14:38) headache, shaking, freezing sensation, upset stomach methenamine Allergy (Verified 08/31/23 14:38) Unknown amoxicillin [From Augmentin] Adverse Reaction (Intermediate, Verified 08/31/23 14:38) abdominal pain clavulanic acid [From Augmentin] Adverse Reaction (Intermediate, Verified 08/31/23 14:38) abdominal pain diltiazem Adverse Reaction (Intermediate, Verified 08/31/23 14:38) NARVAEZ, Blurry vision, fatigue, decreased appetite formoterol [From Symbicort] Adverse Reaction (Intermediate, Verified 08/31/23 14:38) Dizziness umeclidinium [From Incruse Ellipta] Adverse Reaction (Intermediate, Unverified 08/31/23 14:38) Palpitations verapamil Adverse Reaction (Intermediate, Verified 08/31/23 14:38) Blurry Vision loratadine [From Claritin] Adverse Reaction (Verified 08/31/23 14:38) Unknown nitrofurantoin Allergy (Severe, Uncoded 08/31/23 14:38) Blister estrodiol Allergy (Unknown, Uncoded 08/31/23 14:38) Unknown diltiazem Adverse Reaction (Intermediate, Uncoded 08/31/23 14:38) sleeping HPI HPI 6 month follow up: Details: She has had occasional dysuria but otherwise no complaints. She has no hospitalizations Continue to see Urology or us prn need PFSH Medical History (Updated 07/27/23 @ 11:15 by Licha Vela NP) Tinnitus SVT (supraventricular tachycardia) Abnormal stress ECG with treadmill Coronary artery calcification seen on CT scan Hypertension Hypercholesterolemia Impaired glucose tolerance COPD (chronic obstructive pulmonary disease) Asthma Environmental and seasonal allergies Personal history of tobacco use GERD (gastroesophageal reflux disease) Constipation Recurrent UTI Dysuria Nocturia more than twice per night Impacted cerumen of both ears Anxiety Vitamin D deficiency History of COVID-19 Contact dermatitis Breast cancer screening by mammogram Surgical History History of colonoscopy History of cholecystectomy History of ERCP History of cataract surgery Family History Father Myocardial infarction Mother Hypertension Stroke Brother In good health Sister In good health Son In good health Daughter In good health Other Substance use disorder Social History Household Members: None Housing: House Do you presently have visiting nurse or other home services: No Alcohol intake: never Patient Tobacco Use Status: Former Tobacco user Tobacco use type: Cigarette Cigarette Packs Per Day: 3 Years Smoked: 20 +/- quit 1989 e-Cigarette/Vaping Use: Never Used Second Hand Smoke Exposure: No service: No Current occupational status: previously employed and retired 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 She has active urinary sediment with pyuria and hematuria. She has not had serious infections with this bacteria reported fortunately. She may have vaginitis?bacterial or fungal and possible pelvic floor dysfunction with bladder prolapse.? Code(s): R30.0 - Dysuria Category: Medical Plan: n Plan ns Coding Level of Care Code Est Pt Level 3 (68391) Diagnoses Dysuria R30.0
== END 2023-08-31 14:55 | disposition home or self-care (01) ==
PROVIDERS: PCP Internal Medicine; Visit Provider Internal Medicine
DX: R30.0 Dysuria (principal)
CPT/HCPCS: 99213

== ENCOUNTER → 2023-08-31 14:31 | Outpatient (BNVA) | payer MEDICARE, SELFPAY | PROVIDERS: PCP Internal Medicine; Visit Provider Internal Medicine | DX: R30.0 Dysuria (principal) | CPT/HCPCS: 99212 ==

== ENCOUNTER 2023-11-11 09:37 | Outpatient (AMB) | payer MEDICARE, SELFPAY ==
--- NOTE | 2023-11-11 09:43 | A.OFFVIS_ITS ---
Intake Visit Reasons: 6m follow up Intake Note: Patient presents today foR 6M F/U Meds:VITAMIN B COMPLEX Allergies to Antibiotic: Cipro, Sulfa & Amoxicillin Blood Thinner: None [facility] Required: No Allergies ARB-Angiotensin Receptor Antagonist [ANGIOTENSIN RECEPTOR ANTAGONIST] Allergy (Unknown, Verified 11/11/23 09:44) ANAPHYLAXIS beclomethasone [QNASL] Allergy (Unknown, Verified 11/11/23 09:44) blurred vision, headaches budesonide [Symbicort] Allergy (Unknown, Verified 11/11/23 09:44) higher dose problem ciprofloxacin [Cipro] Allergy (Unknown, Verified 11/11/23 09:44) Unknown codeine [Codeine] Allergy (Unknown, Verified 11/11/23 09:44) UNKNOWN digestive enzymes combo no.8 [From Digestive Enzyme (acidoph,pec)] Allergy (Unknown, Verified 11/11/23 09:44) Unknown fluticasone [Flovent HFA] Allergy (Unknown, Verified 11/11/23 09:44) Unknown Lactobacillus acidophilus [From Digestive Enzyme (acidoph,pec)] Allergy (Unknown, Verified 11/11/23 09:44) Unknown lisinopril [LISINOPRIL] Allergy (Unknown, Verified 11/11/23 09:44) ANGIOEDEMA mometasone furoate [Dulera] Allergy (Unknown, Verified 11/11/23 09:44) Unknown nebivolol [Bystolic] Allergy (Unknown, Verified 11/11/23 09:44) Unknown olmesartan [Benicar] Allergy (Unknown, Verified 11/11/23 09:44) Unknown pectin [From Digestive Enzyme (acidoph,pec)] Allergy (Unknown, Verified 11/11/23 09:44) Unknown Sulfa (Sulfonamide Antibiotics) Allergy (Unknown, Verified 11/11/23 09:44) headache, shaking, freezing sensation, upset stomach methenamine Allergy (Verified 11/11/23 09:44) Unknown amoxicillin [From Augmentin] Adverse Reaction (Intermediate, Verified 11/11/23 09:44) abdominal pain clavulanic acid [From Augmentin] Adverse Reaction (Intermediate, Verified 11/11/23 09:44) abdominal pain diltiazem Adverse Reaction (Intermediate, Verified 11/11/23 09:44) NARVAEZ, Blurry vision, fatigue, decreased appetite formoterol [From Symbicort] Adverse Reaction (Intermediate, Verified 11/11/23 09:44) Dizziness umeclidinium [From Incruse Ellipta] Adverse Reaction (Intermediate, Verified 11/11/23 09:44) Palpitations verapamil Adverse Reaction (Intermediate, Verified 11/11/23 09:44) Blurry Vision loratadine [From Claritin] Adverse Reaction (Verified 11/11/23 09:44) Unknown nitrofurantoin Allergy (Severe, Uncoded 11/11/23 09:44) Blister estrodiol Allergy (Unknown, Uncoded 11/11/23 09:44) Unknown diltiazem Adverse Reaction (Intermediate, Uncoded 11/11/23 09:44) sleeping HPI Comments Details: 11/11/2023--Karo is here for follow-up she states she has been doing well. She states that in June she saw her PCP and was treated for UTI but since then she denies any UTI symptoms. She did see urogram and was placed on the medication for the bladder but she stated that she had side effects and stopped the medication and when she went back for follow-up she states she was told that she did not have to come back for an appointment as she was not taking the medication that was prescribed. She has declined any further bladder medication for me at this time. Plan will continue to monitor UTI symptoms. Follow-up in 1 year. Review of chart: 05/12/23- here for office cysto. Karo has been for recurrent. She had previous cystoscopy that noted significant erythematous changes. She complained of painful urination. She was placed on suppressive antibiotics. She states that her painful urination symptoms have resolved. The patient has urinary incontinence and pelvic floor relaxation. She states that her hog feeder is referring her to urogynecology for further treatment options. She states she does not want to try a medication for the bladder. She wants to see urogynecology 1st. Cystoscopy findings: WNL, no suspicious bladder lesions visualized. Erythematous changes previously noted have resolved 04/04/23-- teleheath follow-up of recurrent UTI and dysuria. Eric is a 71-year-old who is followed for recurrent UTI and she was initially evaluated by [facility] on 11/09/22 and was started on estrogen cream. She used estrogen cream for few days but stopped as ?it kept burning.? She had office cysctosocpy on 05/12/22 and finding: erythematous changes. She was placed on antibiotic suppressive therapy Keflex 250 mg QD --which she states helped her, which she currently is off of. She was referred to Infectious Disease for evaluation. In discussion today she states that she was started on Hiprex by the ID physician but it made her feel sick so she stopped the medication. She states that she is feeling pain every time she urinates. In review of her chart there is a urine culture from January, 01/27/23 resulted Klebsiella. The patient was treated with Fosfomycin which she stated did not help Infectious disease recommended no more antibiotics. And prescribed methenamine b.i.d. for urine acidification. As the patient is not tolerating the methenamine and persists with dysuria I will trial another course of antibiotics Ceftin 500 mg twice a day and continue her on Macrobid 100 mg daily for suppressive therapy with follow-up in my office in 3-4 weeks to recheck her urine to send for cytology and repeat office cystoscopy. Renal ultrasound 04/28/2022--left duplicated collecting system negative masses negative stones office cysctosocpy on 05/12/22 and finding: erythematous changes. Urine culture results reviewed?05/12/22, 10/27/22, 01/27/23--positive for Klebsiella pneumoniae. 05/12/23- Plan: Urine cytology. Follow-up in 6 months [facility] Medical History Tinnitus SVT (supraventricular tachycardia) Abnormal stress ECG with treadmill Coronary artery calcification seen on CT scan Hypertension Hypercholesterolemia Impaired glucose tolerance COPD (chronic obstructive pulmonary disease) Asthma Environmental and seasonal allergies Personal history of tobacco use GERD (gastroesophageal reflux disease) Constipation Recurrent UTI Dysuria Nocturia more than twice per night Impacted cerumen of both ears Anxiety Vitamin D deficiency History of COVID-19 Contact dermatitis Breast cancer screening by mammogram Surgical History History of colonoscopy History of cholecystectomy History of ERCP History of cataract surgery Family History Father Myocardial infarction Mother Hypertension Stroke Brother In good health Sister In good health Son In good health Daughter In good health Other Substance use disorder Social History Household Members: None Housing: House Do you presently have visiting nurse or other home services: No Alcohol intake: never Patient Tobacco Use Status: Former Tobacco user Tobacco use type: Cigarette Cigarette Packs Per Day: 3 Years Smoked: 20 +/- quit 1989 e-Cigarette/Vaping Use: Never Used Second Hand Smoke Exposure: No service: No Current occupational status: previously employed and retired 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 Cognitive needs: No Hearing needs: No Vision needs: Yes Female Reproductive History Menstrual Age of Menarche: 12 Review of Systems Const All systems reviewed & are unremarkable except as noted in HPI and below Reports no additional complaints Eyes Reports no additional complaints ENT Reports no additional complaints Card Reports no additional complaints Resp Reports no additional complaints GI Reports no additional complaints Reports as per HPI Musc Reports no additional complaints Skin/Breast Reports system reviewed and no additional complaints, except as documented Neuro Reports no additional complaints Psych Reports no additional complaints Endo Reports no additional complaints Darian/Lymph Reports no additional complaints Aller/Immun Reports no additional complaints Results AMB Urinalysis, Automated 2 UA Leukoctes 70 Jorje/uL Last Edit by MARICHUY Kerr on 11/11/23 09:58 UA Nitrite Negative Last Edit by MARICHUY Kerr on 11/11/23 09:58 UA Urobilinogen 0.2 mg/dL Last Edit by MARICHUY Kerr on 11/11/23 09:5 8 UA Protein 0 mg/dL Last Edit by MARICHUY Kerr on 11/11/23 09:58 UA pH 6.5 Last Edit by MARICHUY Kerr on 11/11/23 09:58 UA Blood 0 Shreyas/uL Last Edit by MARICHUY Kerr on 11/11/23 09:58 UA Specific [place] 1.010 Last Edit by MARICHUY Kerr on 11/11/23 09: 58 UA Ketone Negative Last Edit by MARICHUY Kerr on 11/11/23 09:58 UA Bilirubin 0 mg/dL Last Edit by MARICHUY Kerr on 11/11/23 09:58 UA Glucose 0 mg/dL Last Edit by MARICHUY Kerr on 11/11/23 09:58 Results Reviewed Results Reviewed: Laboratory Last Values Urine pH (Auto) 6.5 11/11/23 09:58 Specific [place] (Auto) 1.010 11/11/23 09:58 Urine Protein (Auto) 0 mg/dL 11/11/23 09:58 Glucose (UA)(Auto) 0 mg/dL 11/11/23 09:58 Urine Ketones (Auto) Negative 11/11/23 09:58 Urine Blood (Auto) 0 Shreyas/uL 11/11/23 09:58 Urine Nitrite (Auto) Negative 11/11/23 09:58 Urine Bilirubin (Auto) 0 mg/dL 11/11/23 09:58 Urine Urobilinogen (Auto) 0.2 mg/dL 11/11/23 09:58 Leukocyte Esterase (Auto) 70 Jorje/uL 11/11/23 09:58 Collected: 05/12/22 Received: 05/12/22 Procedure Result Verified Site Urine Culture Final 05/14/22-725 Organism 1 Klebsiella pneumoniae Quant > 100,000 cfu/mL Kleb pneum M.I.C. RX --------- --- Ampicillin >=32 R Ceftriaxone <=0.25 S Gentamicin <=1 S Levofloxacin 1 I Nitrofurantoin >=512 R Trimethoprim/Sulfamethoxazole <=20 S Collected: 10/27/21 Received: 10/27/21 Procedure Result Verified Site Urine Culture Final 10/29/21-48 Organism 1 Klebsiella pneumoniae Quant > 100,000 cfu/mL Kleb pneum M.I.C. RX --------- --- Ampicillin 16 R Extended Spectrum Beta Lactam NEG - Ceftriaxone <=1 S Gentamicin <=1 S Levofloxacin <=0.12 S Nitrofurantoin 64 I Trimethoprim/Sulfamethoxazole <=20 S Date of Service: 04/29/22 US RETROPERITONEAL LIMITED (RENAL ONLY) CLINICAL INFORMATION: Dysuria. COMPARISON: CT abdomen and pelvis with contrast 06/26/2020. TECHNIQUE: Real-time imaging of the kidneys. FINDINGS: RIGHT KIDNEY: 9.6 x 4.4 x 5.7 cm (SAG x AP x TRV). The kidney is normal in size, contour, and echogenicity. Renal cortical thickness is normal. No renal calculi or hydronephrosis. A 1.7 cm benign-appearing renal cyst, no imaging follow-up recommended. LEFT KIDNEY: 10.2 x 4.9 x 5.1 cm (SAG x AP x TRV). The kidney is normal in size, contour, and echogenicity. Renal cortical thickness is normal. No calculi or focal parenchymal lesions. No hydronephrosis. Duplicated left renal collecting system. IMPRESSION: Duplicated left renal collecting system. No hydronephrosis or nephrolithiasis. Assessment & Plan Assessment & Plan (1) Recurrent UTI: Code(s): N39.0 - Urinary tract infection, site not specified Category: Medical (2) Cystitis: Code(s): N30.90 - Cystitis, unspecified without hematuria Category: Medical Plan She has declined any further bladder medication for me at this time. Plan will continue to monitor UTI symptoms. Follow-up in 1 year Orders: Orders AMB Urinalysis Automated Today Z13.9 - Encounter for screening, unspecified Patient Instructions: The patient had an opportunity to ask questions regarding treatment plan. The patient expressed understanding and agreement with the above treatment plan. The patient is aware they should contact our office by phone for worsening of their current condition or the appearance of new symptoms. Compliance is encouraged with any medications and followup testing that is ordered. It is a privilege to be allowed the opportunity to participate in the urologic care of your patient. If you have any questions or concerns regarding treatment for the above conditions please do not hesitate to contact me. The office telephone contact is [phone]. This note is constructed in part using voice recognition software. While every effort has been made to ensure accuracy shipping/receiving clerk errors may have been inclu ded. Yours sincerely, Bandar Mcdonald MD Coding Level of Care Code Est Pt Level 4 (77961) Diagnoses Recurrent UTI N39.0 Cystitis N30.90
== END 2023-11-11 10:37 | disposition home or self-care (01) ==
PROVIDERS: PCP Internal Medicine; Visit Provider Urology
DX: N39.0 Urinary tract infection, site not specified (principal); N30.90 Cystitis, unspecified without hematuria
CPT/HCPCS: 99214

== ENCOUNTER → 2023-11-11 09:37 | Outpatient (BNVA) | payer MEDICARE, SELFPAY | PROVIDERS: PCP Internal Medicine; Visit Provider Urology | DX: N30.90 Cystitis, unspecified without hematuria (principal) | CPT/HCPCS: 81003; 99212 ==

== ENCOUNTER 2023-12-12 09:46 | Outpatient (REF) | payer MEDICARE, SELFPAY ==
--- NOTE | ~2023-12-12 | CT_ITS ---
EXAMINATION: CT CHEST WITHOUT CONTRAST CLINICAL INFORMATION: Pulmonary nodules. COMPARISON: CT dated January 14, 2023. TECHNIQUE: Multidetector volumetric CT imaging of the chest was done. Axial MIP volume rendering provided. Sagittal and coronal reformatted images were obtained. This CT examination was performed using dose optimization techniques as appropriate, variously including the following: *Automated exposure control *Adjustment of mA and/or kV according to patient size (this includes techniques or standardized protocols for targeted exams where dose is matched to indication/reason for exam; i.e. extremities or head) *Use of iterative reconstruction technique DLP: 125 mGy-cm FINDINGS: Submitted for interpretation on January 26, 2024. LUNGS: No gross pulmonary nodules. No acute airspace disease. No bronchiectasis. No honeycombing. Respiratory Airways patent. MEDIASTINUM: Calcified plaque throughout the thoracic aorta wall and the origin of the main branches. No gross aneurysm in the thoracic aorta. Calcified plaques in the aortic valve and mitral valve. No pericardial effusion. CORONARY ARTERY CALCIFICATION: Calcified plaques in the coronary arteries. PLEURA: No pleural effusion. No pneumothorax. AXILLA: No lymphadenopathy. UPPER ABDOMEN: Calcified plaques in the splenic artery. Calcified plaques in the mesenteric arteries and the abdominal aorta as well as the origin of the main renal arteries. Cystic lesion in the upper pole right kidney. . OSSEOUS STRUCTURES: Multilevel spondylosis without acute fracture or listhesis. No lytic or blastic lesions. Degenerative changes in the shoulders CT/CT chest wo IV con IMPRESSION: No gross pulmonary nodules. No acute airspace disease. Coronary artery disease and atherosclerosis disease. Calcified plaques, mitral valve and aortic valve. Fleischner guidelines were followed. Electronically signed by: Jason Mcgill MD 01/26/2024 02:42 PM [facility]
== END 2023-12-12 09:47 | disposition home or self-care (01) ==
LOC: HO.CT 09:46
PROVIDERS: PCP Internal Medicine; Visit Provider Nurse Practitioner Family
DX: R91.8 Other nonspecific abnormal finding of lung field (principal)
CPT/HCPCS: 71250

== ENCOUNTER → 2023-12-12 09:48 | Outpatient (BNV) | payer MEDICARE, SELFPAY | PROVIDERS: PCP Internal Medicine; Visit Provider Radiology Diagnostic Radiology | DX: R91.8 Other nonspecific abnormal finding of lung field (principal) | CPT/HCPCS: 71250 ==

== ENCOUNTER 2024-01-13 10:59 | Outpatient (AMB) | payer MEDICARE, SELFPAY ==
[2024-01-13 11:26] VITALS: BP 142/76; PULSE 56; O2SAT 93; BMI 26.6
--- NOTE | 2024-01-13 11:26 | MHC.PC.OV ---
Vital Signs 01/13/24 11:26 Height 5 ft 1 in Weight 141 lb BMI 26.6 BP 142/76 H Blood Pressure Location Lt brachial Position Sitting Pulse 56 Pulse Source Pulse Oximeter Pulse Oximetry (%) 93 Oxygen Delivery Method Room Air Intake Visit Reasons: COPD Allergies ARB-Angiotensin Receptor Antagonist [ANGIOTENSIN RECEPTOR ANTAGONIST] Allergy (Unknown, Verified 01/13/24 11:26) ANAPHYLAXIS beclomethasone [QNASL] Allergy (Unknown, Verified 01/13/24 11:26) blurred vision, headaches budesonide [Symbicort] Allergy (Unknown, Verified 01/13/24 11:26) higher dose problem ciprofloxacin [Cipro] Allergy (Unknown, Verified 01/13/24 11:26) Unknown codeine [Codeine] Allergy (Unknown, Verified 01/13/24 11:) UNKNOWN digestive enzymes combo no.8 [From Digestive Enzyme (acidoph,pec)] Allergy (Unknown, Verified 01/13/24 11:26) Unknown fluticasone [Flovent HFA] Allergy (Unknown, Verified 01/13/24 11:26) Unknown Lactobacillus acidophilus [From Digestive Enzyme (acidoph,pec)] Allergy (Unknown, Verified 01/13/24 11:26) Unknown lisinopril [LISINOPRIL] Allergy (Unknown, Verified 01/13/24 11:26) ANGIOEDEMA mometasone furoate [Dulera] Allergy (Unknown, Verified 01/13/24 11:26) Unknown nebivolol [Bystolic] Allergy (Unknown, Verified 01/13/24 11:26) Unknown olmesartan [Benicar] Allergy (Unknown, Verified 01/13/24 11:26) Unknown pectin [From Digestive Enzyme (acidoph,pec)] Allergy (Unknown, Verified 01/13/24 11:26) Unknown Sulfa (Sulfonamide Antibiotics) Allergy (Unknown, Verified 01/13/24 11:26) headache, shaking, freezing sensation, upset stomach methenamine Allergy (Verified 01/13/24 11:26) Unknown amoxicillin [From Augmentin] Adverse Reaction (Intermediate, Verified 01/13/24 11:26) abdominal pain clavulanic acid [From Augmentin] Adverse Reaction (Intermediate, Verified 01/13/24 11:26) abdominal pain diltiazem Adverse Reaction (Intermediate, Verified 01/13/24 11:26) NARVAEZ, Blurry vision, fatigue, decreased appetite formoterol [From Symbicort] Adverse Reaction (Intermediate, Verified 01/13/24 11:26) Dizziness umeclidinium [From Incruse Ellipta] Adverse Reaction (Intermediate, Verified 01/13/24 11:26) Palpitations verapamil Adverse Reaction (Intermediate, Verified 01/13/24 11:26) Blurry Vision loratadine [From Claritin] Adverse Reaction (Verified 01/13/24 11:26) Unknown nitrofurantoin Allergy (Severe, Uncoded 01/13/24 11:26) Blister estrodiol Allergy (Unknown, Uncoded 01/13/24 11:26) Unknown diltiazem Adverse Reaction (Intermediate, Uncoded 01/13/24 11:26) sleeping Medication List - Last Reconciled 01/13/24 by Cassandra Weeks MD amlodipine 5 mg PO BEDTIME atorvastatin 10 mg PO BEDTIME cholecalciferol (vitamin D3) 25 mcg PO DAILY levalbuterol HCl 1.25 mg (3 mL) inhalation Q4-6H PRN multivitamin 1 tab PO DAILY vitamin B complex 1 tab PO DAILY Tobacco use date assessed: 07/14/23 Fall risk assessment: No Falls in past year Last assessed Fall Risk: 01/13/24 Dental Screening Dental Screen Date: 07/14/23 HPI COPD HPI Details 73-YEAR-OLD FEMALE WITH CORONARY ARTERY DISEASE(BY CT SCAN) hypertension hypercholesterolemia impaired glucose tolerance COPD GERD coming in for follow-up. Last seen for physical in July 13. Patient's colonoscopy up-to-date 2017 mammogram bone density up-to-date. Patient had a CT scan of the chest in December 11 results are pending. Patient follows up with urology seen November 10 for recurrent UTI as well as cystitis and continue to monitor. Patient has also seen infectious disease chronic Klebsiella pneumoniae in urine continuing to monitor. Patient has seen Pulmonary in July on albuterol but patient is reluctant to use other medications. Taking allergy medication/ this am after eating became shaky, lightheaded [facility] Medical History Tinnitus SVT (supraventricular tachycardia) Abnormal stress ECG with treadmill Coronary artery calcification seen on CT scan Hypertension Hypercholesterolemia Impaired glucose tolerance COPD (chronic obstructive pulmonary disease) Asthma Environmental and seasonal allergies Personal history of tobacco use GERD (gastroesophageal reflux disease) Constipation Recurrent UTI Dysuria Nocturia more than twice per night Impacted cerumen of both ears Anxiety Vitamin D deficiency History of COVID-19 Contact dermatitis Breast cancer screening by mammogram Surgical History History of colonoscopy History of cholecystectomy History of ERCP History of cataract surgery Family History Father Myocardial infarction Mother Hypertension Stroke Brother In good health Sister In good health Son In good health Daughter In good health Other Substance use disorder Social History Household Members: None Housing: House Do you presently have visiting nurse or other home services: No Alcohol intake: never Patient Tobacco Use Status: Former Tobacco user Tobacco use type: Cigarette Cigarette Packs Per Day: 3 Years Smoked: 20 +/- quit 1989 e-Cigarette/Vaping Use: Never Used Second Hand Smoke Exposure: No service: No Current occupational status: previously employed and retired 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 1. Little interest or pleasure in doing things: not at all 2. Feeling down, depressed, or hopeless: not at all 3. Trouble falling or staying asleep, or sleeping too much: not at all 4. Feeling tired or having little energy: not at all 5. Poor appetite or overeating: not at all 6. Feeling bad about yourself - or that you are a failure or have let yourself or your family down: not at all 7. Trouble concentrating on things, such as reading the newspaper or watching television: not at all 8. Moving or speaking so slowly that other people could have noticed. Or the opposite - being so fidgety or restless that you have been moving around a lot more than usual: not at all 9. Thoughts that you would be better off or of hurting yourself in some way: not at all Total score: 0 Depression Screening Interpretation: Negative Depression Screening Done: Yes 08007 - PHQ-9 Billing: Yes Source: Developed by Drs. Buster Gerber, Skinny Guillen and colleagues, with an educational tony from [employer]. Thrive Questionnaire Date Thrive assessed: 07/14/23 AUDIT C Alcohol Use Questionnaire (AUDIT-C) 1. How often do you have a drink containing alcohol?: Never 3. How often do you have six or more drinks on one occasion?: Never Total Score: 0 Score Reviewed/Action Taken: No SUAD-7 AMB Questionnaire SUAD-7 Date SUAD - 7 assessed: 07/14/23 Source: Developed by Drs. Buster Gerber, Skinny Guillen and colleagues, with an educational tony from [employer]. Physical exam (Primary Care) Vital Signs: Last Vital Signs Pulse 56 01/13/24 11:26 BP 142/76 H 01/13/24 11:26 Pulse Ox 93 01/13/24 11:26 Oxygen Delivery Method Room Air 01/13/24 11:26 BMI result Body Mass Index 26.6 Tobacco/Smoking Status: Tobacco use Status Tobacco use date assessed 07/14/23 01/13/24 11:33 Patient Tobacco Use Status Former Tobacco user 01/13/24 11:33 Tobacco use type Cigarette 01/13/24 11:33 e-Cigarette/Vaping Use Never Used 01/13/24 11:33 PHQ-9: PHQ-9 Score PHQ-9: Total score 0 01/13/24 11:59 Depression Screening Interpretation: Negative Thrive Assessment: Date of Thrive Assessment Date Thrive assessed 07/14/23 01/13/24 11:33 Const General: alert; No acute distress Eyes Conjunctivae: conjunctivae normal Resp Auscultation: clear to auscultation bilaterally Cardio Rate: regular rate Rhythm: regular rhythm GI Inspection: Yes normal to inspection Extrem General: Yes normal to inspection and No edema Coding Level of Care Code Est Pt Level 4 (56951) Diagnoses Coronary artery calcification seen on CT scan I25.10 Primary hypertension I10 Hypertension type: primary hypertension Hypercholesterolemia E78.00 Impaired glucose tolerance R73.02 Pulmonary emphysema, unspecified emphysema type J43.9 COPD type: emphysema Emphysema type: unspecified Pulmonary nodules R91.8 Gastroesophageal reflux disease without esophagitis K21.9 Esophagitis presence: without esophagitis Assessment & Plan Assessment & Plan (1) Coronary artery calcification seen on CT scan: Comment: (Moderate to severe coronary artery calcification on 01/14/[address]) Code(s): I25.10 - Atherosclerotic heart disease of [place] coronary artery without angina pectoris Category: Medical Plan: Control the cholesterol, weight, blood pressure (2) Hypertension: Code(s): I10 - Essential (primary) hypertension Category: Medical Qualifiers: Hypertension type: primary hypertension Qualified Code(s): I10 - Essential (primary) hypertension Plan: Continue with blood pressure medication. Decrease salt intake and exercise on amlodipine 5 mg once a day. BP has been high and advised to monitor BP and record (3) Hypercholesterolemia: Code(s): E78.00 - Pure hypercholesterolemia, unspecified Category: Medical Plan: Avoid fried foods, chicken skin, eggs, butter margarine, pastries and meat. Be it pork or beef they have a lot of cholesterol on atorvastatin 10 mg at bedtime (4) Impaired glucose tolerance: Code(s): R73.02 - Impaired glucose tolerance (oral) Category: Medical Plan: Decrease the amount of carbohydrate intake, pasta, bread, rice and potatoes are all sugar and that is aside from all the sweet stuff, remember that fruits are good but they are Sweet also. (5) COPD (chronic obstructive pulmonary disease): Code(s): J44.9 - Chronic obstructive pulmonary disease, unspecified Category: Medical Qualifiers: COPD type: emphysema Emphysema type: unspecified Qualified Code(s): J43.9 - Emphysema, unspecified Plan: Continue with levalbuterol inhaler as needed. (6) Pulmonary nodules: Comment: November 2023 Code(s): R91.8 - Other nonspecific abnormal finding of lung field Category: Medical Plan: CT scan done November, results pending (7) GERD (gastroesophageal reflux disease): Code(s): K21.9 - Gastro-esophageal reflux disease without esophagitis Category: Medical Qualifiers: Esophagitis presence: without esophagitis Qualified Code(s): K21.9 - Gastro-esophageal reflux disease without esophagitis Plan: Avoid the foods that causes that usually spicy foods, tomato products, juices, coffee, soda and foods that your sensitive to. After eating do not lie down, allow 3-4 hours before in lie down. And keep the head of bed above 30 degrees to avoid the acid from going up. Orders: Orders Comprehensive Met. Panel 3 Months D64.9 - Anemia, unspecified Hemoglobin A1c 3 Months D64.9 - Anemia, unspecified Free T4 (Free Thyroxine) 3 Months D64.9 - Anemia, unspecified Thyroid Stimulating Hormone 3 Months D64.9 - Anemia, unspecified Lipid Panel 3 Months D64.9 - Anemia, unspecified, E78.00 - Pure hypercholesterolemia, unspecified Vitamin B12 and Folate 3 Months D64.9 - Anemia, unspecified Complete Blood Count Auto Diff 3 Months D64.9 - Anemia, unspecified Ferritin 3 Months D64.9 - Anemia, unspecified Vitamin D 25-OH Total 3 Months D64.9 - Anemia, unspecified UA CC w/rflx Micro + Cult 3 Months D64.9 - Anemia, unspecified, R30.0 - Dysuria
== END 2024-01-13 12:14 | disposition home or self-care (01) ==
PROVIDERS: PCP Internal Medicine; Visit Provider Internal Medicine
DX: I25.10 Atherosclerotic heart disease of native coronary artery without angina pectoris (principal); J43.9 Emphysema, unspecified; I10 Essential (primary) hypertension; E78.00 Pure hypercholesterolemia, unspecified; R73.02 Impaired glucose tolerance (oral); R91.8 Other nonspecific abnormal finding of lung field; K21.9 Gastro-esophageal reflux disease without esophagitis

== ENCOUNTER → 2024-01-13 10:59 | Outpatient (BNVA) | payer MEDICARE, SELFPAY | PROVIDERS: PCP Internal Medicine; Visit Provider Internal Medicine | DX: I25.10 Atherosclerotic heart disease of native coronary artery without angina pectoris (principal); I10 Essential (primary) hypertension; E78.00 Pure hypercholesterolemia, unspecified; R73.02 Impaired glucose tolerance (oral); J43.9 Emphysema, unspecified; R91.8 Other nonspecific abnormal finding of lung field; K21.9 Gastro-esophageal reflux disease without esophagitis | CPT/HCPCS: 96127; 99212 ==

== ENCOUNTER 2024-02-01 11:01 | Outpatient (AMB) | payer MEDICARE, SELFPAY ==
[2024-02-01 11:07] VITALS: BP 120/62; PULSE 94; O2SAT 95; BMI 26.7
--- NOTE | 2024-02-01 11:07 | MHC.OFFVIS ---
Vital Signs 02/01/24 11:07 Height 5 ft 1 in Weight 141 lb 4 oz BMI 26.7 BP 120/62 Blood Pressure Location Lt brachial Position Sitting Pulse 94 Pulse Source Pulse Oximeter Pulse Oximetry (%) 95 Oxygen Delivery Method Room Air Intake Visit Reasons: COPD Allergies ARB-Angiotensin Receptor Antagonist [ANGIOTENSIN RECEPTOR ANTAGONIST] Allergy (Unknown, Verified 02/01/24 11:19) ANAPHYLAXIS beclomethasone [QNASL] Allergy (Unknown, Verified 02/01/24 11:19) blurred vision, headaches budesonide [Symbicort] Allergy (Unknown, Verified 02/01/24 11:19) higher dose problem ciprofloxacin [Cipro] Allergy (Unknown, Verified 02/01/24 11:19) Unknown codeine [Codeine] Allergy (Unknown, Verified 02/01/24 11:19) UNKNOWN digestive enzymes combo no.8 [From Digestive Enzyme (acidoph,pec)] Allergy (Unknown, Verified 02/01/24 11:19) Unknown fluticasone [Flovent HFA] Allergy (Unknown, Verified 02/01/24 11:19) Unknown Lactobacillus acidophilus [From Digestive Enzyme (acidoph,pec)] Allergy (Unknown, Verified 02/01/24 11:19) Unknown lisinopril [LISINOPRIL] Allergy (Unknown, Verified 02/01/24 11:19) ANGIOEDEMA mometasone furoate [Dulera] Allergy (Unknown, Verified 02/01/24 11:19) Unknown nebivolol [Bystolic] Allergy (Unknown, Verified 02/01/24 11:19) Unknown olmesartan [Benicar] Allergy (Unknown, Verified 02/01/24 11:19) Unknown pectin [From Digestive Enzyme (acidoph,pec)] Allergy (Unknown, Verified 02/01/24 11:19) Unknown Sulfa (Sulfonamide Antibiotics) Allergy (Unknown, Verified 02/01/24 11:19) headache, shaking, freezing sensation, upset stomach methenamine Allergy (Verified 02/01/24 11:19) Unknown amoxicillin [From Augmentin] Adverse Reaction (Intermediate, Verified 02/01/24 11:19) abdominal pain clavulanic acid [From Augmentin] Adverse Reaction (Intermediate, Verified 02/01/24 11:19) abdominal pain diltiazem Adverse Reaction (Intermediate, Verified 02/01/24 11:19) NARVAEZ, Blurry vision, fatigue, decreased appetite formoterol [From Symbicort] Adverse Reaction (Intermediate, Verified 02/01/24 11:19) Dizziness umeclidinium [From Incruse Ellipta] Adverse Reaction (Intermediate, Verified 02/01/24 11:19) Palpitations verapamil Adverse Reaction (Intermediate, Verified 02/01/24 11:19) Blurry Vision loratadine [From Claritin] Adverse Reaction (Verified 02/01/24 11:19) Unknown nitrofurantoin Allergy (Severe, Uncoded 02/01/24 11:19) Blister estrodiol Allergy (Unknown, Uncoded 02/01/24 11:19) Unknown diltiazem Adverse Reaction (Intermediate, Uncoded 02/01/24 11:19) sleeping HPI HPI COPD: Details: Eric is a pleasant 73 year old female, former smoker with 60 pack year history, quit over 30 years ago, with underlying COPD and SVT. She was previously well controlled for many years on Symbicort but developed adverse reaction and discontinued. She has trialed multiple inhalers resulting in adverse effects including Dulera, Incruse, Stiolto, Anoro and albuterol. She continues with symptoms of dyspnea and chest tightness, using levalbuterol every 2-3 days with suboptimal effect and results in significant tremors. Today she presents to review chest CT. She denies any visits to urgent care or hospitalizations since the last visit related to respiratory distress. [facility] Medical History Tinnitus SVT (supraventricular tachycardia) Abnormal stress ECG with treadmill Coronary artery calcification seen on CT scan Hypertension Hypercholesterolemia Impaired glucose tolerance COPD (chronic obstructive pulmonary disease) Asthma Environmental and seasonal allergies Personal history of tobacco use GERD (gastroesophageal reflux disease) Constipation Recurrent UTI Dysuria Nocturia more than twice per night Impacted cerumen of both ears Anxiety Vitamin D deficiency History of COVID-19 Contact dermatitis Breast cancer screening by mammogram Surgical History History of colonoscopy History of cholecystectomy History of ERCP History of cataract surgery Family History Father Myocardial infarction Mother Hypertension Stroke Brother In good health Sister In good health Son In good health Daughter In good health Other Substance use disorder Social History Household Members: None Housing: House Do you presently have visiting nurse or other home services: No Alcohol intake: never Patient Tobacco Use Status: Former Tobacco user Tobacco use type: Cigarette Cigarette Packs Per Day: 3 Years Smoked: 20 +/- quit 1989 e-Cigarette/Vaping Use: Never Used Second Hand Smoke Exposure: No service: No Current occupational status: previously employed and retired 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 Cognitive needs: No Hearing needs: No Vision needs: Yes Female Reproductive History Menstrual Age of Menarche: 12 Review of Systems Const Denies chills, Denies excessive sweating, Denies fever(s), Denies headache(s) and Denies night sweats Eyes Denies dry eyes, Denies irritation and Reports itchy eyes ENT Reports Normal hearing present, Denies headache(s), Reports nasal congestion, Reports nasal discharge and Denies sore throat Card Denies chest pain, Denies chest pain at rest, Denies chest pain with activity, Denies claudication, Denies leg edema, Reports dyspnea on exertion, Denies orthopnea and Denies paroxysmal nocturnal dyspnea Resp Denies chest congestion, Denies cough, Denies hemoptysis, Denies excessive phlegm production, Denies pain on inspiration, Denies pain with cough, Reports dyspnea on exertion, Denies stridor and Denies wheezing Musc Denies myalgias Neuro Reports Normal hearing present and Denies headache(s) Endo Denies excessive sweating Darian/Lymph Denies lymphadenopathy Aller/Immun Reports itchy eyes, Denies seasonal rhinorrhea and Denies wheezing Physical Exam Vital Signs: Last Vital Signs Pulse 94 02/01/24 11:07 BP 120/62 02/01/24 11:07 Pulse Ox 95 02/01/24 11:07 Oxygen Delivery Method Room Air 02/01/24 11:07 BMI result Body Mass Index 26.7 Const General: cooperative, healthy appearing, comfortable, no acute distress, well developed and alert Orientation/consciousness: patient oriented x3 Limitations: no limitations HEENT Head: Yes normal to inspection, Yes normocephalic and Yes atraumatic Ears: hearing grossly normal bilaterally and external ears normal Eyes General: appearance normal, both eyes and all related structures Eyelids: Yes eyelids normal Sclerae: sclerae normal EOM: EOMs intact bilaterally Neck Neck: Yes normal visual inspection and Yes no lymphadenopathy Lymphatic: no lymphadenopathy noted Chest Chest palpation & inspection: normal inspection of the chest Resp Effort & Inspection: normal respiratory effort, able to speak in complete sentences, no audible wheezes, no stridor, not tachypneic, no tripod positioning and no use of accessory muscles Auscultation: diminished lung sounds Cardio Jugular venous distension: no JVD Rate: regular rate Rhythm: abnormal rhythm Skin Other: warm, dry General skin exam: no rashes or lesions noted Neuro General: patient oriented x3 Cranial nerves: Yes Normal hearing present Cognition (Neuro): normal cognition Gait exam (Neuro): Normal gait present Extrem General: Yes normal to inspection, Yes capillary refill normal, Yes no clubbing, cyanosis or edema and Yes no pedal edema Psych Appearance: grossly normal and well kempt Speech and movement: Normal speech and movement present and Clear speech present Affect: normal affect Attitude: cooperative Thought process: Normal thought process present Thought content: Normal thought content present Insight: Good insight present (Psych) Judgement: Good judgement present (Psych) Assessment & Plan Assessment & Plan (1) COPD (chronic obstructive pulmonary disease): Code(s): J44.9 - Chronic obstructive pulmonary disease, unspecified Category: Medical Qualifiers: COPD type: emphysema Emphysema type: unspecified Qualified Code(s): J43.9 - Emphysema, unspecified (2) Environmental and seasonal allergies: Code(s): J30.89 - Other allergic rhinitis Category: Medical (3) Pulmonary nodules: Comment: November 2023 Code(s): R91.8 - Other nonspecific abnormal finding of lung field Category: Medical Plan Reviewed chest CT which did not reveal any concerning nodules or any other abnormalities. No need for further imaging at this time. Eric reports suboptimal control of respiratory symptoms with levalbuterol. She was agreeable to trial Advair which she does not recall trying in the past. She is aware to monitor for side effects and discontinue if symptoms arise. All questions were answered and patient is in agreement of plan. Will follow up in 6-8 weeks or sooner if needed. Medications: New fluticasone propion-salmeterol 45-21 mcg/actuation (Advair HFA) 1 puff inhalation BID 12 grams 6RF inhalational spacing device (Aerochamber Plus Z Stat spacer) As directed 1 ea 0RF Coding Level of Care Code Est Pt Level 4 (97449) Diagnoses Pulmonary emphysema, unspecified emphysema type J43.9 COPD type: emphysema Emphysema type: unspecified Environmental and seasonal allergies J30.89 Pulmonary nodules R91.8
== END 2024-02-01 12:07 | disposition home or self-care (01) ==
PROVIDERS: PCP Internal Medicine; Visit Provider Nurse Practitioner Family
DX: J43.9 Emphysema, unspecified (principal); J30.89 Other allergic rhinitis; R91.8 Other nonspecific abnormal finding of lung field
CPT/HCPCS: 99214

== ENCOUNTER → 2024-02-01 11:01 | Outpatient (BNVA) | payer MEDICARE, SELFPAY | PROVIDERS: PCP Internal Medicine; Visit Provider Nurse Practitioner Family | DX: J43.9 Emphysema, unspecified (principal); R91.8 Other nonspecific abnormal finding of lung field; J30.89 Other allergic rhinitis; Z87.891 Personal history of nicotine dependence | CPT/HCPCS: 99212 ==

== ENCOUNTER 2024-03-16 13:35 | Outpatient (AMB) | payer MEDICARE, SELFPAY ==
--- NOTE | 2024-03-16 13:51 | MHC.OFFVIS ---
Vital Signs 03/16/24 13:52 Height 5 ft 1 in Weight 142 lb 8 oz BMI 26.9 BP 134/66 Blood Pressure Location Lt brachial Position Sitting Pulse 69 Pulse Source Pulse Oximeter Pulse Oximetry (%) 97 Oxygen Delivery Method Room Air Intake Visit Reasons: COPD Allergies salmeterol [From Advair Diskus] Allergy (Intermediate, Verified 03/16/24 13:55) Palpitations ARB-Angiotensin Receptor Antagonist [ANGIOTENSIN RECEPTOR ANTAGONIST] Allergy (Unknown, Verified 02/01/24 11:19) ANAPHYLAXIS beclomethasone [QNASL] Allergy (Unknown, Verified 02/01/24 11:19) blurred vision, headaches budesonide [Symbicort] Allergy (Unknown, Verified 02/01/24 11:19) higher dose problem ciprofloxacin [Cipro] Allergy (Unknown, Verified 02/01/24 11:19) Unknown codeine [Codeine] Allergy (Unknown, Verified 02/01/24 11:19) UNKNOWN digestive enzymes combo no.8 [From Digestive Enzyme (acidoph,pec)] Allergy (Unknown, Verified 02/01/24 11:19) Unknown fluticasone [Flovent HFA] Allergy (Unknown, Verified 02/01/24 11:19) Unknown Lactobacillus acidophilus [From Digestive Enzyme (acidoph,pec)] Allergy (Unknown, Verified 02/01/24 11:19) Unknown lisinopril [LISINOPRIL] Allergy (Unknown, Verified 02/01/24 11:19) ANGIOEDEMA mometasone furoate [Dulera] Allergy (Unknown, Verified 02/01/24 11:19) Unknown nebivolol [Bystolic] Allergy (Unknown, Verified 02/01/24 11:19) Unknown olmesartan [Benicar] Allergy (Unknown, Verified 02/01/24 11:19) Unknown pectin [From Digestive Enzyme (acidoph,pec)] Allergy (Unknown, Verified 02/01/24 11:19) Unknown Sulfa (Sulfonamide Antibiotics) Allergy (Unknown, Verified 02/01/24 11:19) headache, shaking, freezing sensation, upset stomach methenamine Allergy (Verified 02/01/24 11:19) Unknown amoxicillin [From Augmentin] Adverse Reaction (Intermediate, Verified 02/01/24 11:19) abdominal pain clavulanic acid [From Augmentin] Adverse Reaction (Intermediate, Verified 02/01/24 11:19) abdominal pain diltiazem Adverse Reaction (Intermediate, Verified 02/01/24 11:19) NARVAEZ, Blurry vision, fatigue, decreased appetite formoterol [From Symbicort] Adverse Reaction (Intermediate, Verified 02/01/24 11:19) Dizziness umeclidinium [From Incruse Ellipta] Adverse Reaction (Intermediate, Verified 02/01/24 11:19) Palpitations verapamil Adverse Reaction (Intermediate, Verified 02/01/24 11:19) Blurry Vision loratadine [From Claritin] Adverse Reaction (Verified 02/01/24 11:19) Unknown nitrofurantoin Allergy (Severe, Uncoded 02/01/24 11:19) Blister estrodiol Allergy (Unknown, Uncoded 02/01/24 11:19) Unknown diltiazem Adverse Reaction (Intermediate, Uncoded 02/01/24 11:19) sleeping HPI HPI COPD: Details: Eric is a pleasant 73 year old female, former smoker with 60 pack year history, quit over 30 years ago, with underlying COPD and SVT. She was previously well controlled for 20+ years on Symbicort but developed adverse reaction and discontinued. She has trialed multiple inhalers resulting in adverse effects including Dulera, Incruse, Stiolto, Anoro and albuterol. At the last visit, she was trialed on Advair however developed dizziness and vision changes. She continues with symptoms of dyspnea and chest tightness She can tolerate levalbuterol nebulizer however uses infrequently as she developed significant tremors. She also notes that her insurance will no longer be covering the nebulized from of levalbuterol. She denies any visits to urgent care or hospitalizations since the last visit related to respiratory distress. Of note. she is currently receiving allergen immunotherapy. [facility] Medical History Tinnitus SVT (supraventricular tachycardia) Abnormal stress ECG with treadmill Coronary artery calcification seen on CT scan Hypertension Hypercholesterolemia Impaired glucose tolerance COPD (chronic obstructive pulmonary disease) Asthma Environmental and seasonal allergies Personal history of tobacco use GERD (gastroesophageal reflux disease) Constipation Recurrent UTI Dysuria Nocturia more than twice per night Impacted cerumen of both ears Anxiety Vitamin D deficiency History of COVID-19 Contact dermatitis Breast cancer screening by mammogram Surgical History History of colonoscopy History of cholecystectomy History of ERCP History of cataract surgery Family History Father Myocardial infarction Mother Hypertension Stroke Brother In good health Sister In good health Son In good health Daughter In good health Other Substance use disorder Social History Household Members: None Housing: House Do you presently have visiting nurse or other home services: No Alcohol intake: never Patient Tobacco Use Status: Former Tobacco user Tobacco use type: Cigarette Cigarette Packs Per Day: 3 Years Smoked: 20 +/- quit 1989 e-Cigarette/Vaping Use: Never Used Second Hand Smoke Exposure: No service: No Current occupational status: previously employed and retired 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 Cognitive needs: No Hearing needs: No Vision needs: Yes Female Reproductive History Menstrual Age of Menarche: 12 Review of Systems Const Denies chills, Denies excessive sweating, Denies fever(s), Denies headache(s) and Denies night sweats Eyes Denies dry eyes, Denies irritation and Reports itchy eyes ENT Reports Normal hearing present, Denies headache(s), Reports nasal congestion, Reports nasal discharge and Denies sore throat Card Denies chest pain, Denies chest pain at rest, Denies chest pain with activity, Denies claudication, Denies leg edema, Reports dyspnea on exertion, Denies orthopnea and Denies paroxysmal nocturnal dyspnea Resp Denies chest congestion, Denies hemoptysis, Denies excessive phlegm production, Denies pain on inspiration, Denies pain with cough, Reports dyspnea on exertion, Denies stridor and Denies wheezing Musc Denies myalgias Neuro Reports Normal hearing present and Denies headache(s) Endo Denies excessive sweating Darian/Lymph Denies lymphadenopathy Aller/Immun Reports itchy eyes, Denies seasonal rhinorrhea and Denies wheezing Physical Exam Vital Signs: Last Vital Signs Pulse 69 03/16/24 13:52 BP 134/66 03/16/24 13:52 Pulse Ox 97 03/16/24 13:52 Oxygen Delivery Method Room Air 03/16/24 13:52 BMI result Body Mass Index 26.9 Const General: cooperative, healthy appearing, comfortable, no acute distress, well developed and alert Orientation/consciousness: patient oriented x3 Limitations: no limitations HEENT Head: Yes normal to inspection, Yes normocephalic and Yes atraumatic Ears: hearing grossly normal bilaterally and external ears normal Eyes General: appearance normal, both eyes and all related structures Eyelids: Yes eyelids normal Sclerae: sclerae normal EOM: EOMs intact bilaterally Neck Neck: Yes normal visual inspection and Yes no lymphadenopathy Lymphatic: no lymphadenopathy noted Chest Chest palpation & inspection: normal inspection of the chest Resp Effort & Inspection: normal respiratory effort, able to speak in complete sentences, no audible wheezes, no stridor, not tachypneic, no tripod positioning and no use of accessory muscles Auscultation: diminished lung sounds Cardio Jugular venous distension: no JVD Rate: regular rate Rhythm: abnormal rhythm Skin Other: warm, dry General skin exam: no rashes or lesions noted Neuro General: patient oriented x3 Cranial nerves: Yes Normal hearing present Cognition (Neuro): normal cognition Gait exam (Neuro): Normal gait present Extrem General: Yes normal to inspection, Yes capillary refill normal, Yes no clubbing, cyanosis or edema and Yes no pedal edema Psych Appearance: grossly normal and well kempt Speech and movement: Normal speech and movement present and Clear speech present Affect: normal affect Attitude: cooperative Thought process: Normal thought process present Thought content: Normal thought content present Insight: Good insight present (Psych) Judgement: Good judgement present (Psych) Assessment & Plan Assessment & Plan (1) COPD (chronic obstructive pulmonary disease): Code(s): J44.9 - Chronic obstructive pulmonary disease, unspecified Category: Medical Qualifiers: COPD type: emphysema Emphysema type: unspecified Qualified Code(s): J43.9 - Emphysema, unspecified (2) Environmental and seasonal allergies: Code(s): J30.89 - Other allergic rhinitis Category: Medical (3) Pulmonary nodules: Comment: November 2023 Code(s): R91.8 - Other nonspecific abnormal finding of lung field Category: Medical Plan Eric reports suboptimal control of respiratory symptoms with levalbuterol nebulizer however has been unable to tolerate multiple inhalers. She was agreeable to trial Alvesco, to elimate the LABA component which she is likely reacting to. She is aware to discontinue if adverse reactions develop. Will also attempt to send in levalbuterol MDI as her insurance will no longer be covering levalbuterol nebulizer, which is the only BLAS she can tolerate. She is aware to monitor for side effects and discontinue if symptoms arise. All questions were answered and patient is in agreement of plan. Will follow up in 6-8 weeks or sooner if needed. Medications: New ciclesonide 80 mcg/actuation (Alvesco) 1 puff inhalation Q12H 6.1 grams 3RF levalbuterol tartrate 45 mcg/actuation 1 puff inhalation Q4-6H PRN 15 grams 6RF shortness of breath Discontinued fluticasone propion-salmeterol 45-21 mcg/actuation (Advair HFA) Discontinued Reason: Patient Refused 1 puff inhalation BID 12 grams 6RF Coding Level of Care Code Est Pt Level 4 (28204) Diagnoses Pulmonary emphysema, unspecified emphysema type J43.9 COPD type: emphysema Emphysema type: unspecified Environmental and seasonal allergies J30.89 Pulmonary nodules R91.8
[2024-03-16 13:52] VITALS: BP 134/66; PULSE 69; O2SAT 97; BMI 26.9
== END 2024-03-16 14:40 | disposition home or self-care (01) ==
PROVIDERS: PCP Internal Medicine; Visit Provider Nurse Practitioner Family
DX: J43.9 Emphysema, unspecified (principal); J30.89 Other allergic rhinitis; R91.8 Other nonspecific abnormal finding of lung field
CPT/HCPCS: 99214

== ENCOUNTER → 2024-03-16 13:35 | Outpatient (BNVA) | payer MEDICARE, SELFPAY | PROVIDERS: PCP Internal Medicine; Visit Provider Nurse Practitioner Family | DX: J43.9 Emphysema, unspecified (principal); J30.89 Other allergic rhinitis; R91.8 Other nonspecific abnormal finding of lung field; Z87.891 Personal history of nicotine dependence | CPT/HCPCS: 99212 ==

== ENCOUNTER 2024-03-20 09:14 | Outpatient (REF) | payer MEDICARE, SELFPAY ==
[2024-03-20 11:20] LABS: Appearance Urine Cloudy; Color Urine Yellow; Glucose Urine UA Negative (Negative); Leukocyte Esterase Urine Moderate (2+) (Negative); Nitrite Urine Negative (Negative); PH 7.5 (5.0-9.0); UMIC TRIGGER UA YES; Urine Blood Negative (Negative); Urine Ketones Negative (Negative); Urine Protein Negative (Neg-Trace)
[2024-03-20 11:22] LABS: Bacteria Urine 2+ (None Seen); Hyaline Casts Urine 0-2 /LPF (0-2); RBC Urine 0-2 /HPF (0-2); Squamous Epithelial Cell Urine 0-2 /HPF (0-2); WBC Urine 21-50 /HPF (0-5)
== END 2024-03-20 09:15 | disposition home or self-care (01) ==
LOC: HO.LAB 09:14
PROVIDERS: PCP Internal Medicine; Visit Provider Urology
DX: N39.0 Urinary tract infection, site not specified (principal); B95.2 Enterococcus as the cause of diseases classified elsewhere
CPT/HCPCS: 81001; 87086; 87088; 87186

== ENCOUNTER 2024-04-12 08:48 | Outpatient (REF) | payer MEDICARE, SELFPAY ==
[2024-04-12 10:19] LABS: MANUAL DIFF FLAG NO
[2024-04-12 10:31] LABS: Basophils Absolute Auto 0.1 X10*3/uL (0.0-0.2); Eosinophils Absolute Auto 0.4 X10*3/uL (0.0-0.4); Eosinophils Percent Auto 4.9 % (0-4); Hematocrit 42.1 % (37.0-47.0); Hemoglobin 14.3 g/dl (12.0-16.0); Imm Gran Abs Auto 0.01 X10*3/uL (0.00-0.03); Imm Gran Pct Auto 0.1 % (0.0-0.4); Lymphocytes Absolute Auto 1.7 X10*3/uL (1.2-4.9); Lymphocytes Percent Auto 21.6 % (20-40); Mean Corpuscular Hemoglobin 31.8 pg (27.0-33.0); Mean Corpuscular Volume 93.6 fL (80.0-98.0); Mean Platelet Volume 11.1 fL (9.4-12.3); Monocytes Absolute Auto 0.5 X10*3/uL (0.1-1.2); Monocytes Percent Auto 6.4 % (2-11); Neutrophils Absolute Auto 5.1 x10*3/uL (2.0-8.3); Platelet Count 200 X10*3/uL (160-400); Red Cell Distribution Width 12.2 % (11.0-16.0); White Blood Count 7.7 X10*3/uL (4.8-10.8)
[2024-04-12 10:36] LABS: Estimated Average Glucose 111 mg/dL; Hemoglobin A1C 134.2313 umol/L; Hemoglobin A1c % 5.5 % (<6.0); Total Hemoglobin (HGBA1C) 3670.4774 umol/L
[2024-04-12 10:57] LABS: Alanine Aminotransferase 22 U/L (0-31); Alkaline Phosphatase 66 U/L (39-117); Anion Gap 10 (12-20); Aspartate Amino Transferase 28 U/L (5-31); Bilirubin Total 0.7 mg/dL (0.0-1.0); Blood Urea Nitrogen 12 mg/dL (9-16); Calcium 9.4 mg/dL (8.4-10.2); Carbon Dioxide 28 mmol/L (22-29); Chloride 105 mmol/L (96-108); Cholesterol 182 mg/dL (<200); Estimated Glomerular Filt Rate > 60; Ferritin 153 ng/mL (10-250); Free T4 (Free Thyroxine) 1.05 ng/dL (0.71-1.85); Glucose Random 109 mg/dL (60-115); HDL Cholesterol 54 mg/dL (>40); LDL Cholesterol Calculated 111 mg/dL (<100); Potassium 3.7 mmol/L (3.3-5.1); Sodium 139 mmol/L (135-145); Thyroid Stimulating Hormone 1.11 uIU/mL (0.32-4.0); Total Protein 7.3 g/dL (6.5-8.0); Triglycerides 87 mg/dL (<150); Vitamin D 25-OH Total 46.9 ng/mL (>30)
[2024-04-12 11:05] LABS: Appearance Urine Clear; Color Urine Yellow; Glucose Urine UA Negative (Negative); Leukocyte Esterase Urine Moderate (2+) (Negative); Nitrite Urine Negative (Negative); PH 6.5 (5.0-9.0); Specific Gravity - Urine 1.015 (1.005-1.025); UMIC TRIGGER UACC YES; Urine Blood Negative (Negative); Urine Ketones Negative (Negative); Urine Protein Negative (Neg-Trace)
[2024-04-12 11:06] LABS: Folate 17.5 ng/mL (> or = 4.0); Vitamin B12 736 pg/mL (200-900)
[2024-04-12 11:10] LABS: Bacteria Urine None Seen (None Seen); Hyaline Casts Urine 0-2 /LPF (0-2); RBC Urine 0-2 /HPF (0-2); UACC Culture Trigger YES
== END 2024-04-12 08:49 | disposition home or self-care (01) ==
LOC: HO.10HDL 08:48
PROVIDERS: Visit Provider Internal Medicine
DX: D64.9 Anemia, unspecified (principal); E78.00 Pure hypercholesterolemia, unspecified; R30.0 Dysuria; Z13.1 Encounter for screening for diabetes mellitus
CPT/HCPCS: 36415; 80053; 80061; 81001; 81003; 82306; 82607; 82728; 82746; 83036; 84439; 84443; 85025; 87086

== ENCOUNTER 2024-04-24 22:04 | Emergency (ER) | payer MEDICARE, SELFPAY ==
--- NOTE | 2024-04-24 | ECG_ITS ---
Test Reason : DIZZINESS Blood Pressure : */* mmHG Vent. Rate : 76 BPM Atrial Rate : 76 BPM P-R Int : 160 ms QRS Dur : 74 ms QT Int : 390 ms P-R-T Axes : 69 2 53 degrees QTcB Int : 438 ms Normal sinus rhythm Low voltage QRS Borderline ECG When compared with ECG of 04-May-2023 07:40, Premature atrial complexes are no longer Present Criteria for Septal infarct are no longer Present Referred By: Generic ED Physician Electronically Signed By: Evens Cerrato
[2024-04-24 22:12] VITALS: BP 138/66; PULSE 80; RESP 16; TEMP 36.6; O2SAT 98; BMI 25.5
[2024-04-24 22:42] LABS: MANUAL DIFF FLAG NO
[2024-04-24 22:52] LABS: Basophils Absolute Auto 0.1 X10*3/uL (0.0-0.2); Eosinophils Absolute Auto 0.4 X10*3/uL (0.0-0.4); Eosinophils Percent Auto 5.3 % (0-4); Hematocrit 41.1 % (37.0-47.0); Imm Gran Abs Auto 0.01 X10*3/uL (0.00-0.03); Imm Gran Pct Auto 0.1 % (0.0-0.4); Lymphocytes Absolute Auto 2.1 X10*3/uL (1.2-4.9); Mean Corpuscular HGB Conc 34.1 g/dl (31.0-35.0); Mean Corpuscular Volume 93.8 fL (80.0-98.0); Mean Platelet Volume 10.1 fL (9.4-12.3); Monocytes Absolute Auto 0.6 X10*3/uL (0.1-1.2); Monocytes Percent Auto 7.6 % (2-11); Neutrophils Absolute Auto 4.3 x10*3/uL (2.0-8.3); Platelet Count 232 X10*3/uL (160-400); Red Blood Count 4.38 X10*6/uL (4.20-5.50); Red Cell Distribution Width 12.3 % (11.0-16.0); White Blood Count 7.3 X10*3/uL (4.8-10.8)
[2024-04-24 22:53] LABS: Appearance Urine Clear; Color Urine Yellow; Glucose Urine UA Negative (Negative); Leukocyte Esterase Urine Negative (Negative); Nitrite Urine Negative (Negative); Specific Gravity - Urine <= 1.005 (1.005-1.025); Urine Blood Negative (Negative); Urine Ketones Negative (Negative); Urine Protein Negative (Neg-Trace)
[2024-04-24 22:58] LABS: Bacteria Urine None Seen (None Seen); Hyaline Casts Urine 0-2 /LPF (0-2); RBC Urine 0-2 /HPF (0-2); Squamous Epithelial Cell Urine 0-2 /HPF (0-2); WBC Urine 0-5 /HPF (0-5)
[2024-04-24 22:59] LABS: Alanine Aminotransferase 18 U/L (0-31); Albumin Level 4.1 g/dL (3.5-5.0); Alkaline Phosphatase 78 U/L (39-117); Anion Gap 18 (12-20); Aspartate Amino Transferase 27 U/L (5-31); Bilirubin Total 0.3 mg/dL (0.0-1.0); Blood Urea Nitrogen 12 mg/dL (9-16); Calcium 9.4 mg/dL (8.4-10.2); Carbon Dioxide 26 mmol/L (22-29); Chloride 103 mmol/L (96-108); Creatinine Clr Calc Pharmacy 55.9; Estimated Glomerular Filt Rate > 60; Glucose Random 107 mg/dL (60-115); Sodium 143 mmol/L (135-145); Total Protein 7.4 g/dL (6.5-8.0)
[2024-04-24 23:07] LABS: Troponin-I High Sensitivity < 2.7 ng/L (<3.5-17.0)
[2024-04-24 23:21] LABS: Influenza A PCR NEGATIVE (Negative); Influenza B PCR NEGATIVE (Negative); Resp Syncy Virus RNA Qual PCR NEGATIVE (Negative); SARS COV2 PCR INHOUSE NEGATIVE (Negative)
[2024-04-25 02:21] VITALS: BP 151/67; BP 153/60; PULSE 78; PULSE 84
[2024-04-25 02:23] VITALS: BP 141/73; PULSE 91
--- NOTE | 2024-04-25 03:01 | ED_ITS ---
HPI - Dizziness General Chief Complaint: Dizziness Stated Complaint: dizzy,lightheaded Time Seen by Provider: 04/25/24 01:37 Source: patient and EMS Mode of arrival: EMS Limitations: no limitations History of Present Illness ED Provider: Dr. Licha Arthur HPI Narrative: Patient comes to the emergency room complaining of dizziness. Patient states that approximately 6 hours ago, patient got up from the bathroom, patient started feeling dizzy, lightheaded will palpitations and feeling weak. However, patient did not fall, patient got nervous and called 911. At this time, patient states that she feels much better, has been able to get up to the bathroom walking. Patient reports history of vertigo in the past. Patient states that she did not have any chest pain, reports being chronically short of breath due to COPD. Patient states that she is allergic to all of her inhalers and therefore does not take any meds Related Data Home Medications ?Medication ?Instructions ?Recorded ?Confirmed vitamin B complex 1 tab PO DAILY 04/16/20 01/13/24 multivitamin 1 tab PO DAILY 06/26/20 01/13/24 cholecalciferol (vitamin D3) 25 25 mcg PO DAILY 06/17/22 01/13/24 mcg (1,000 unit) capsule Previous Rx's ?Medication ?Instructions ?Recorded amlodipine 5 mg tablet 5 mg PO BEDTIME #90 tabs 10/15/23 atorvastatin 10 mg tablet 10 mg PO BEDTIME #90 tabs 10/21/23 levalbuterol HCl 1.25 mg/3 mL 1.25 mg (3 mL) inhalation Q4-6H 01/03/24 solution for nebulization PRN shortness of breath or wheezing #75 mL inhalational spacing device #1 ea 02/01/24 (Aerochamber Plus Z Stat spacer) levalbuterol tartrate 45 1 puff inhalation Q4-6H PRN 03/16/24 mcg/actuation aerosol inhaler shortness of breath #15 grams Allergies Allergy/AdvReac Type Severity Reaction Status Date / Time salmeterol Allergy Intermediate Palpitation Verified 04/24/24 22:18 [From Advair Diskus] s ARB-Angiotensin Receptor Allergy Unknown ANAPHYLAXIS Verified 04/24/24 22:18 Antagonist [ANGIOTENSIN RECEPTOR ANTAGONIST] beclomethasone [QNASL] Allergy Unknown blurred Verified 04/24/24 22:18 vision, headaches budesonide [Symbicort] Allergy Unknown higher Verified 04/24/24 22:18 dose problem ciprofloxacin [Cipro] Allergy Unknown Unknown Verified 04/24/24 22:18 codeine [Codeine] Allergy Unknown UNKNOWN Verified 04/24/24 22:18 digestive enzymes combo no.8 Allergy Unknown Unknown Verified 04/24/24 22:18 [From Digestive Enzyme (acidoph,pec)] fluticasone [Flovent HFA] Allergy Unknown Unknown Verified 04/24/24 22:18 Lactobacillus acidophilus Allergy Unknown Unknown Verified 04/24/24 22:18 [From Digestive Enzyme (acidoph,pec)] lisinopril [LISINOPRIL] Allergy Unknown ANGIOEDEMA Verified 04/24/24 22:18 mometasone furoate [Dulera] Allergy Unknown Unknown Verified 04/24/24 22:18 nebivolol [Bystolic] Allergy Unknown Unknown Verified 04/24/24 22:18 olmesartan [Benicar] Allergy Unknown Unknown Verified 04/24/24 22:18 pectin Allergy Unknown Unknown Verified 04/24/24 22:18 [From Digestive Enzyme (acidoph,pec)] Sulfa (Sulfonamide Allergy Unknown headache, Verified 04/24/24 22:18 Antibiotics) shaking, freezing sensation, upset stomach methenamine Allergy Unknown Verified 04/24/24 22:18 amoxicillin [From Augmentin] AdvReac Intermediate abdominal Verified 04/24/24 22:18 pain clavulanic acid AdvReac Intermediate abdominal Verified 04/24/24 22:18 [From Augmentin] pain diltiazem AdvReac Intermediate NARVAEZ, Blurry Verified 04/24/24 22:18 vision, fatigue, decreased appetite formoterol [From Symbicort] AdvReac Intermediate Dizziness Verified 04/24/24 22:18 umeclidinium AdvReac Intermediate Palpitation Verified 04/24/24 22:18 [From Incruse Ellipta] s verapamil AdvReac Intermediate Blurry Verified 04/24/24 22:18 Vision loratadine [From Claritin] AdvReac Unknown Verified 04/24/24 22:18 nitrofurantoin Allergy Severe Blister Uncoded 04/24/24 22:18 estrodiol Allergy Unknown Unknown Uncoded 04/24/24 22:18 diltiazem AdvReac Intermediate sleeping Uncoded 04/24/24 22:18 Review of Systems 2 Review of Systems: Constitutional : No Weight loss, No Fever, No Chills, No Night Sweats, No Fatigue, No Malaise ENT/Mouth : No Hearing loss, No Ear Pain, No Nasal Congestion, No Sinus Pain, No Hoarseness, No sore throat, No Rhinorrhea, No Swallowing Difficulty Eyes: No Eye Pain, No Swelling, No Redness, No Foreign Body, No Discharge, No Vision Changes Cardiovascular : No Chest Pain, No SOB, No Dyspnea on Exertion, No Orthopnea, No Edema, No Palpitations Respiratory : No Cough, No Sputum, No Wheezing, No Smoke Exposure, No Dyspnea Gastrointestinal : No Nausea, No Vomiting, No Diarrhea, No Constipation, No abdominal Pain, No Hematochezia, No Melena Genitourinary : no irregular bleeding, No Dysuria, No Urinary Frequency, No Hematuria, No Urinary Incontinence, No Urgency, No Flank Pain, No Urinary Flow Changes, No Hesitancy Musculoskeletal : No joint pain, No Myalgias, No Joint Swelling Skin : No Skin Lesions, No rash Neuro : No Weakness, No Numbness, No Paresthesias, No Loss of Consciousness, dizziness, no headache Psych : No Anxiety/Panic, No Depression, No SI/HI/AH/VH, No Social Issues, Heme/Lymph: No Bruising, No Bleeding,No Lymphadenopathy Endocrine : No Polyuria, No Polydipsia, No Temperature Intolerance [facility] Past Medical History Medical History Tinnitus SVT (supraventricular tachycardia) Abnormal stress ECG with treadmill Coronary artery calcification seen on CT scan Hypertension Hypercholesterolemia Impaired glucose tolerance COPD (chronic obstructive pulmonary disease) Asthma Environmental and seasonal allergies Personal history of tobacco use GERD (gastroesophageal reflux disease) Constipation Recurrent UTI Dysuria Nocturia more than twice per night Impacted cerumen of both ears Anxiety Vitamin D deficiency History of COVID-19 Contact dermatitis Breast cancer screening by mammogram Surgical History History of colonoscopy History of cholecystectomy History of ERCP History of cataract surgery Family History Family History Father Myocardial infarction Mother Hypertension Stroke Brother In good health Sister In good health Son In good health Daughter In good health Other Substance use disorder Social History Social History Household Members: None Housing: House Do you presently have visiting nurse or other home services: No Alcohol intake: former Year quit: 2018 Patient Tobacco Use Status: Former Tobacco user Tobacco use type: Cigarette Cigarette Packs Per Day: 3 Years Smoked: 20 +/- quit 1990 Smoked in Last 30 Days: No e-Cigarette/Vaping Use: Never Used Second Hand Smoke Exposure: No Use of substances other than those prescribed or required for medical reasons: No Advance Directives: No Advance Directives Information Provided: Yes Do you have a plan to hurt others: No Plan service: No Current occupational status: previously employed and retired 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 Oriented X3. No acute distress. Well-appearing Eyes: Pupils equal, round and reactive to light. ENT: Pharynx normal. Neck: Normal inspection. Neck supple. No lymph nodes noted. No crepitus CVS: Normal heart rate and rhythm. Pulses normal. Normal S1 and S2 Respiratory: No respiratory distress. Breath sounds normal. No Wheezing. No rales Abdomen: Soft and nontender. No rigidity. No distention. Skin: Skin warm and dry. Normal skin color. Normal skin turgor. Extremities: No lower extremity edema. No Lacerations. No Rash Neuro: Oriented X 3. No motor deficit. No sensory deficit. Moving all extremities. No slurred speech. CN 2 through 12 grossly intact Psych: calm, cooperative, normal affect Medical Decision Making Medical Decision Making MDM Narrative: My interpretation of EKG: Normal sinus rhythm, heart rate 76, no ST segment depression or elevation, no T-wave inversion, QTC 438 My interpretation of labs: Normal hematology and chemistry, normal LFTs, troponin negative, serology negative for flu RSV. Urinalysis negative for UTI Patient's daughter is at bedside. She states that the patient has chronic dizziness, she has been seen multiple times for dizziness. Patient was ambulated around the emergency room, patient has normal steady gait, unassisted. Patient states that she did not have any dizziness. Patient states that towards the end she was a bit dizzy, no room spinning, no unsteady gait, no chest pain or shortness of breath. Patient states that within a few seconds it is self-resolved. Since patient reported a bit of dizziness towards the end of the walk, I considered getting a CTA scan of the head and neck to rule out a TIA/CVA. However, patient states that this is her baseline of dizziness. Patient was offered meclizine and a small dose of benzodiazepines, patient declined, patient states that she feels well. Patient declined a prescription either. Differential Diagnosis Differential Diagnoses: The differential diagnosis associated with the presentation includes (Vertigo, BPPV, TIA) Admission/Observation Consideration of admission/observation: Escalation of care including admission/observation considered (Given patient's past medical history and symptoms, observation was considered) Lab Data MDM Lab Attestation statement: I reviewed the patient's lab results. 04/24/24 22:34 04/24/24 22:34 Labs: Lab Results 04/24/24 Range/Units 22:34 WBC 7.3 (4.8-10.8) X10*3/uL RBC 4.38 (4.20-5.50) X10*6/uL Hgb 14.0 (12.0-16.0) g/dl Hct 41.1 (37.0-47.0) % MCV 93.8 (80.0-98.0) fL MCH 32.0 (27.0-33.0) pg MCHC 34.1 (31.0-35.0) g/dl RDW 12.3 (11.0-16.0) % Plt Count 232 (160-400) X10*3/uL MPV 10.1 (9.4-12.3) fL Immature Gran % (Auto) 0.1 (0.0-0.4) % Neut % (Auto) 58.0 (45-73) % Lymph % (Auto) 28.0 (20-40) % [place] % (Auto) 7.6 (2-11) % Eos % (Auto) 5.3 H (0-4) % Baso % (Auto) 1.0 (0-2) % Lymph # (Auto) 2.1 (1.2-4.9) X10*3/uL [place] # (Auto) 0.6 (0.1-1.2) X10*3/uL Eos # (Auto) 0.4 (0.0-0.4) X10*3/uL Baso # (Auto) 0.1 (0.0-0.2) X10*3/uL Abs Immat Gran (auto) 0.01 (0.00-0.03) X10*3/uL Absolute Neuts (auto) 4.3 (2.0-8.3) x10*3/uL Absolute Nucleated RBC 0.000 (0.0-0.012) X10*3/uL Nucleated RBC % (auto) 0.0 (0.0-0.2) /100WBC Sodium 143 (135-145) mmol/L Potassium 4.0 (3.3-5.1) mmol/L Chloride 103 (96-108) mmol/L Carbon Dioxide 26 (22-29) mmol/L Anion Gap 18 (12-20) BUN 12 (9-16) mg/dL Creatinine 0.74 (0.5-1.4) mg/dL Estim Creat Clear Calc 55.9 Estimated GFR > 60 Random Glucose 107 (60-115) mg/dL Calcium 9.4 (8.4-10.2) mg/dL Total Bilirubin 0.3 (0.0-1.0) mg/dL AST 27 (5-31) U/L ALT 18 (0-31) U/L Alkaline Phosphatase 78 (39-117) U/L Troponin I High Sens < 2.7 (<3.5-17.0) ng/L Total Protein 7.4 (6.5-8.0) g/dL Albumin 4.1 (3.5-5.0) g/dL Urine Color Yellow Urine Appearance Clear Urine pH 7.0 (5.0-9.0) Ur Specific [place] <= 1.005 (1.005-1.025) Urine Protein Negative (Neg-Trace) mg/dL Urine Glucose (UA) Negative (Negative) mg/dL Urine Ketones Negative (Negative) mg/dL Urine Blood Negative (Negative) Urine Nitrite Negative (Negative) Ur Leukocyte Esterase Negative (Negative) Urine RBC 0-2 (0-2) /HPF Urine WBC 0-5 (0-5) /HPF Ur Squamous Epith Cells 0-2 (0-2) /HPF Urine Bacteria None Seen (None Seen) Hyaline Casts 0-2 (0-2) /LPF Influenza Type A (PCR) NEGATIVE (Negative) Influenza Type B (PCR) NEGATIVE (Negative) RSV RNA Qual (PCR) NEGATIVE (Negative) SARS-CoV-2 RNA (RT-PCR) NEGATIVE (Negative) Critical Care Time Critical Care Time Critical Care Time: Yes Total Critical Care Time: 30 Attestation: I have personally provided critical care time. Time includes review of lab data, radiology results, discussion with consultants, and monitoring for potential decompensation. Intervention performed as documented. Discharge Plan Discharge Clinical Impression: Dizziness Patient Disposition: Home, Self-Care Instructions: Dizziness (ED) Additional Instructions: Please follow-up with your primary care physician tomorrow. If you have any worsening or new symptoms, please return to the emergency room or call 911 Prescriptions: No Action amlodipine 5 mg tablet 5 mg PO BEDTIME Qty: 90 3RF atorvastatin 10 mg tablet 10 mg PO BEDTIME Qty: 90 3RF levalbuterol HCl 1.25 mg/3 mL solution for nebulization 1.25 mg inhalation Q4-6H PRN (Reason: shortness of breath or wheezing) Qty: 75 6RF multivitamin Tablet 1 tab PO DAILY vitamin B complex Tablet 1 tab PO DAILY cholecalciferol (vitamin D3) 25 mcg (1,000 unit) capsule 25 mcg PO DAILY (DME) Aerochamber Plus Z Stat Spacer See Rx Instructions .Route Qty: 1 0RF Rx Instructions: As directed levalbuterol tartrate 45 mcg/actuation HFA aerosol inhaler 1 puff inhalation Q4-6H PRN (Reason: shortness of breath) Qty: 15 6RF Print Language: Persian
--- NOTE | 2024-04-25 03:06 | PC.NURSE ---
Ambulation trial completed, patient ambulated with a steady gait, patient reported one brief episode of dizziness that quickly resolved. Dr. Arthur notified.
[2024-04-25 03:24] VITALS: BP 151/67; PULSE 78; RESP 13; TEMP 36.9; O2SAT 96
== END 2024-04-25 03:39 | disposition home or self-care (01) ==
PROVIDERS: Emergency Provider Emergency Medicine; PCP Internal Medicine
DX: R42 Dizziness and giddiness (principal); R00.2 Palpitations; I10 Essential (primary) hypertension; J44.9 Chronic obstructive pulmonary disease, unspecified; I47.10 Supraventricular tachycardia, unspecified; Z03.818 Encounter for observation for suspected exposure to other biological agents ruled out
CPT/HCPCS: 0241U; 36415; 80053; 81001; 84484; 85025; 93005; 99212; 99283; 99285

== ENCOUNTER → 2024-04-24 22:33 | Outpatient (BNV) | payer MEDICARE, SELFPAY | PROVIDERS: Emergency Provider Emergency Medicine; PCP Internal Medicine; Visit Provider Internal Medicine Cardiovascular Disease | DX: R42 Dizziness and giddiness (principal) | CPT/HCPCS: 93010 ==

== ENCOUNTER 2024-05-09 10:41 | Outpatient (AMB) | payer MEDICARE, SELFPAY ==
--- NOTE | 2024-05-09 10:48 | A.OFFPC_ITS ---
Vital Signs 05/09/24 11:12 Height 5 ft 1 in Weight 137 lb BMI 25.9 BP 122/52 L Blood Pressure Location Lt brachial Position Sitting Pulse 71 Pulse Source Pulse Oximeter Pulse Oximetry (%) 96 Oxygen Delivery Method Room Air Intake Visit Reasons: 3 month f/u Allergies salmeterol [From Advair Diskus] Allergy (Intermediate, Verified 05/09/24 10:53) Palpitations ARB-Angiotensin Receptor Antagonist [ANGIOTENSIN RECEPTOR ANTAGONIST] Allergy (Unknown, Verified 05/09/24 10:53) ANAPHYLAXIS beclomethasone [QNASL] Allergy (Unknown, Verified 05/09/24 10:53) blurred vision, headaches budesonide [Symbicort] Allergy (Unknown, Verified 05/09/24 10:53) higher dose problem ciprofloxacin [Cipro] Allergy (Unknown, Verified 05/09/24 10:53) Unknown codeine [Codeine] Allergy (Unknown, Verified 05/09/24 10:53) UNKNOWN digestive enzymes combo no.8 [From Digestive Enzyme (acidoph,pec)] Allergy (Unknown, Verified 05/09/24 10:53) Unknown fluticasone [Flovent HFA] Allergy (Unknown, Verified 05/09/24 10:53) Unknown Lactobacillus acidophilus [From Digestive Enzyme (acidoph,pec)] Allergy (Unknown, Verified 05/09/24 10:53) Unknown lisinopril [LISINOPRIL] Allergy (Unknown, Verified 05/09/24 10:53) ANGIOEDEMA mometasone furoate [Dulera] Allergy (Unknown, Verified 05/09/24 10:53) Unknown nebivolol [Bystolic] Allergy (Unknown, Verified 05/09/24 10:53) Unknown olmesartan [Benicar] Allergy (Unknown, Verified 05/09/24 10:53) Unknown pectin [From Digestive Enzyme (acidoph,pec)] Allergy (Unknown, Verified 05/09/24 10:53) Unknown Sulfa (Sulfonamide Antibiotics) Allergy (Unknown, Verified 05/09/24 10:53) headache, shaking, freezing sensation, upset stomach methenamine Allergy (Verified 05/09/24 10:53) Unknown amoxicillin [From Augmentin] Adverse Reaction (Intermediate, Verified 05/09/24 10:53) abdominal pain clavulanic acid [From Augmentin] Adverse Reaction (Intermediate, Verified 05/09/24 10:53) abdominal pain diltiazem Adverse Reaction (Intermediate, Verified 05/09/24 10:53) NARVAEZ, Blurry vision, fatigue, decreased appetite formoterol [From Symbicort] Adverse Reaction (Intermediate, Verified 05/09/24 10:53) Dizziness umeclidinium [From Incruse Ellipta] Adverse Reaction (Intermediate, Verified 05/09/24 10:53) Palpitations verapamil Adverse Reaction (Intermediate, Verified 05/09/24 10:53) Blurry Vision loratadine [From Claritin] Adverse Reaction (Verified 05/09/24 10:53) Unknown nitrofurantoin Allergy (Severe, Uncoded 05/09/24 10:53) Blister estrodiol Allergy (Unknown, Uncoded 05/09/24 10:53) Unknown diltiazem Adverse Reaction (Intermediate, Uncoded 05/09/24 10:53) sleeping Tobacco use date assessed: 05/09/24 Fall risk assessment: No Falls in past year Last assessed Fall Risk: 05/09/24 Dental Screening Dental Screen Date: 05/09/24 Did you have a dental visit in the last 12 months?: No Did you have a dental problem in the last 6 months where you did not have access to dental care?: No Was dental information given to patient?: Patient has dentist HPI 3 month f/u HPI Details The patient is a 73-year-old female presenting with dizziness alongside multiple chronic conditions. The dizziness episodes started around April, with a recent negative workup during an emergency room visit. The dizziness is experienced as a heavy feeling in the head and difficulty maneuvering, leading to occasional episodes of feeling faint. She reports a history of SVT but denies any consistent correlation between the dizziness and her heart rate, which has generally been normal during episodes. She has experienced palpitations only sporadically, with the most recent occurrence coinciding with an ER visit due to dizziness. Blood pressure at home has been occasionally low, with a recorded reading of 112/65 and reports of it occasionally falling into the 90s. The patient also reported high eosinophil levels indicative of allergies, which potentially contribute to the dizziness due to congestion. Hypercholesterolemia management has been a focus due to a history of coronary artery disease with a current LDL of 111, which is higher than recommended for her condition. Previous chest CT scans indicated coronary artery calcification but no pulmonary nodules, which is a resolution from prior concerns. Essential hypertension management includes adjusting amlodipine medication due to low home BP readings. For COPD, she was advised to start on Qvar; however, insurance has been denying coverage, necessitating continued use of a remaining albuterol inhaler. She was also advised to continue monitoring blood pressure, considering her recent low home measurements. [facility] Medical History Tinnitus SVT (supraventricular tachycardia) Abnormal stress ECG with treadmill Coronary artery calcification seen on CT scan Hypertension Hypercholesterolemia Impaired glucose tolerance COPD (chronic obstructive pulmonary disease) Asthma Environmental and seasonal allergies Personal history of tobacco use GERD (gastroesophageal reflux disease) Constipation Recurrent UTI Dysuria Nocturia more than twice per night Impacted cerumen of both ears Anxiety Vitamin D deficiency History of COVID-19 Contact dermatitis Breast cancer screening by mammogram Surgical History History of colonoscopy History of cholecystectomy History of ERCP History of cataract surgery Family History Father Myocardial infarction Mother Hypertension Stroke Brother In good health Sister In good health Son In good health Daughter In good health Other Substance use disorder Social History Household Members: None Housing: House Do you presently have visiting nurse or other home services: No Alcohol intake: former Year quit: 2018 Patient Tobacco Use Status: Former Tobacco user Tobacco use type: Cigarette Cigarette Packs Per Day: 3 Years Smoked: 20 +/- quit 1990 Packs Per Year: 0 e-Cigarette/Vaping Use: Never Used Second Hand Smoke Exposure: No service: No Current occupational status: previously employed and retired 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 1. Little interest or pleasure in doing things: not at all 2. Feeling down, depressed, or hopeless: not at all 3. Trouble falling or staying asleep, or sleeping too much: not at all 4. Feeling tired or having little energy: not at all 5. Poor appetite or overeating: not at all 6. Feeling bad about yourself - or that you are a failure or have let yourself or your family down: not at all 7. Trouble concentrating on things, such as reading the newspaper or watching television: not at all 8. Moving or speaking so slowly that other people could have noticed. Or the opposite - being so fidgety or restless that you have been moving around a lot more than usual: not at all 9. Thoughts that you would be better off or of hurting yourself in some way: not at all Total score: 0 Depression Screening Interpretation: Negative Depression Screening Done: Yes 01778 - PHQ-9 Billing: Yes Source: Developed by Drs. Buster Gerber, Skinny Guillen and colleagues, with an educational tony from [employer]. Thrive Questionnaire Date Thrive assessed: 07/14/23 AUDIT C Alcohol Use Questionnaire (AUDIT-C) 1. How often do you have a drink containing alcohol?: Never 3. How often do you have six or more drinks on one occasion?: Never Total Score: 0 Score Reviewed/Action Taken: No SUAD-7 AMB Questionnaire SUAD-7 Date SUAD - 7 assessed: 05/09/24 Feeling nervous, anxious, or on edge: 0 = Not at all Not being able to stop or control worryin = Not at all Worrying too much about different things: 0 = Not at all Trouble relaxin = Not at all Being so restless that it is hard to sit still: 0 = Not at all Becoming easily annoyed or irritable: 0 = Not at all Feeling afraid as if something awful might happen: 0 = Not at all Total SUAD-7 score (0-4 normal; 5-9 mild; 10-14 moderate; 15-21 severe): 0 Source: Developed by Drs. Buster Gerber, Belkis Kumar, Skinny Singh and colleagues, with an educational tony from [employer]. Physical exam (Primary Care) Vital Signs: Last Vital Signs Pulse 71 05/09/24 11:12 BP 122/52 L 05/09/24 11:12 Pulse Ox 96 05/09/24 11:12 Oxygen Delivery Method Room Air 05/09/24 11:12 BMI result Body Mass Index 25.9 Tobacco/Smoking Status: Tobacco use Status Tobacco use date assessed 05/09/24 05/09/24 10:54 Patient Tobacco Use Status Former Tobacco user 05/09/24 10:50 Tobacco use type Cigarette 05/09/24 10:50 e-Cigarette/Vaping Use Never Used 05/09/24 10:50 PHQ-9: PHQ-9 Score PHQ-9: Total score 0 05/09/24 11:55 Depression Screening Interpretation: Negative Thrive Assessment: Date of Thrive Assessment Date Thrive assessed 07/14/23 05/09/24 10:50 Const General: alert; No acute distress Eyes Conjunctivae: conjunctivae normal Resp Auscultation: clear to auscultation bilaterally Cardio Rate: regular rate Rhythm: regular rhythm GI Inspection: Yes normal to inspection Extrem General: Yes normal to inspection and No edema Coding Level of Care Code Est Pt Level 4 (44238) Diagnoses Primary hypertension I10 Hypertension type: primary hypertension Hypercholesterolemia E78.00 Impaired glucose tolerance R73.02 Pulmonary emphysema, unspecified emphysema type J43.9 COPD type: emphysema Emphysema type: unspecified Pulmonary nodules R91.8 Palpitations R00.2 Additional Codes PHQ-9 - 93454 - PHQ-9 Billing: Yes ([id number]) Assessment & Plan Assessment & Plan (1) Hypertension: Code(s): I10 - Essential (primary) hypertension Category: Medical Qualifiers: Hypertension type: primary hypertension Qualified Code(s): I10 - Essential (primary) hypertension Plan: On amlodipine 5 mg once a day on Continue with blood pressure medication. Decrease salt intake and exercise. discussed to monitor the BP at home (2) Hypercholesterolemia: Code(s): E78.00 - Pure hypercholesterolemia, unspecified Category: Medical Plan: Avoid fried foods, chicken skin, eggs, butter margarine, pastries and meat. Be it pork or beef they have a lot of cholesterol LDL goal of less than 70 and triglyceride of less than 150 on atorvastatin 10 mg at bedtime (3) Impaired glucose tolerance: Code(s): R73.02 - Impaired glucose tolerance (oral) Category: Medical Plan: Decrease the amount of carbohydrate intake, pasta, bread, rice and potatoes are all sugar and that is aside from all the sweet stuff, remember that fruits are good but they are Sweet also. (4) COPD (chronic obstructive pulmonary disease): Code(s): J44.9 - Chronic obstructive pulmonary disease, unspecified Category: Medical Qualifiers: COPD type: emphysema Emphysema type: unspecified Qualified Code(s): J43.9 - Emphysema, unspecified Plan: Patient follows up with Pulmonary on albuterol inhaler and started on QVAR (5) Pulmonary nodules: Comment: November 2023 Code(s): R91.8 - Other nonspecific abnormal finding of lung field Category: Medical Plan: CT scan November 2023No gross pulmonary nodules. No acute airspace disease. Coronary artery disease and atherosclerosis disease. Calcified plaques, mitral valve and aortic valve. (6) Palpitations: Code(s): R00.2 - Palpitations Category: Medical Plan: Patient is being followed up by [facility] frequent SVT Plan - Increase atorvastatin to 20 mg nightly to target an LDL goal of less than 70 in light of coronary artery disease, with patient instructed to double dose until prescription adjustment. - Review and potentially adjust hypertension management by reducing amlodipine dosage due to lower home BP readings; monitor BP at home. - Continue trials of allergy medications like Claritin or Shantell to alleviate symptoms possibly contributing to dizziness. - Plan for an EKG and potential Holter monitor to investigate the skipped beats and correlate with episodes of dizziness. - Ensure thorough completion and documentation for preventative screenings, including scheduling a colonoscopy. - Known follow-up with cardiology is planned for June; pulmonary and neurology follow-ups are in progress. - Discussed continued trials of inhalers with insurance for COPD management, maintaining albuterol as an interim solution. - Reinforce lifestyle modifications inclusive of diet adjustments for lipid management and ensuring adherence to the prescribed therapy. Orders: Orders Lipid Panel 3 Months E78.00 - Pure hypercholesterolemia, unspecified Comprehensive Met. Panel 3 Months E78.00 - Pure hypercholesterolemia, unspecified Medications: Changed From atorvastatin 10 mg PO BEDTIME 90 tabs 3RF To atorvastatin 20 mg PO BEDTIME 90 tabs 3RF
[2024-05-09 11:12] VITALS: BP 122/52; PULSE 71; O2SAT 96; BMI 25.9
--- OUTSIDE RECORDS SUMMARY | 2024-05-09 11:17 | XMS_ITS | Patient Health Record ---
Author Organization [facility] Address [address] [place] [id number] Care Team Providers Care Police Aide Name Role Phone Cassandra Weeks MD Primary Care Provider Jesse Shannon Jr Unavailable Ayden Chawla Unavailable Unavailable ALLERGIES Allergen (clinical drug ingredient) Drug/Non Drug Allergy documented on EMR Reaction Allergy Type Onset Date Status codeine Codeine Sulfate Unknown Drug Allergy A ctive many blood pressure,inhalers and cholesterol meds (uncoded) Unknown Allergy Active REASON FOR REFERRAL No Information MEDICATIONS Medication SIG (Take, Route, Frequency, Duration) Notes Start Date End Date Status Fish Oil 1200 MG 1 capsule Orally Onc e a day Active Symbicort 80-4.5 MCG/ACT 2 puffs Inhalat ion Twice a day Active Aspir-81 81 MG 1 tablet Orally Once a day Active Atorvastatin Calcium 10 MG 1 tablet Oral ly Once a day Active amLODIPine Besylate 5 MG 1 tablet Orally Once a day Active Fortify Daily Probiotic - Orally Active Centrum Silver - Orally Act ana laura Vitamin D3 2000 UNIT 1 capsule Orally On ce a day Active Super B Complex/Vitamin C - Orally Active SOCIAL HISTORY Tobacco Use: Social History Observation Description Date Details (start date - stop date) Former Smoker NA - NA Sex Assigned At : Social History Observation Description Sex Assigned At Unknown Tobacco Use/Smoking Question Answer Notes Patient is a former smoker How long has it been since you last smoked? > 10 years Alcohol Screen Question Answer Notes Did you have a drink contain ing alcohol in the past year? Yes How often did you have a dri nk containing alcohol in the past year? Monthly or less (1 point) How many drinks did you have on a typical day when you were drinking in the past year? 1 or 2 drinks (0 point) How often did you have 6 or more drinks on one occasion in the past year? Never (0 point) Points 1 Interpretation Negative PROBLEMS Problem Type ICD Code Onset Dates Problem Status W/U Status Risk SNOMED Code Notes Problem Encounter for screening for malignant neoplasm of colon (Z12.11) Active confirmed 677025477 Problem Preprocedural examination (Z01.818) Active confirmed 296956423 Problem Aspirin long-term use (Z79.82) Active confirmed 492766969 Problem Other postprocedural complications and disorders of digestive system (K91.89) Active confirmed 929961624 PLAN OF TREATMENT Pending Test Test Name Order Date XR KUB 07/08/2020 Future Test Test Name Order Date COLONOSCOPY 12/22/2016 ERCP CHANGE OF STENT OR TUBE 07/08/2020 Insurance Providers Payer Name Payer Address Payer Phone Subscriber Number Group Number Insured Name Patient Relationship to Insured Coverage Start Date Coverage End Date [facility] [address] [place], [place] 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
== END 2024-05-09 11:56 | disposition home or self-care (01) ==
PROVIDERS: PCP Internal Medicine; Visit Provider Internal Medicine
DX: I10 Essential (primary) hypertension (principal); E78.00 Pure hypercholesterolemia, unspecified; R73.02 Impaired glucose tolerance (oral); J43.9 Emphysema, unspecified; R91.8 Other nonspecific abnormal finding of lung field; R00.2 Palpitations

== ENCOUNTER → 2024-05-09 10:41 | Outpatient (BNVA) | payer MEDICARE, SELFPAY | PROVIDERS: PCP Internal Medicine; Visit Provider Internal Medicine | DX: I10 Essential (primary) hypertension (principal); E78.00 Pure hypercholesterolemia, unspecified; R73.02 Impaired glucose tolerance (oral); J43.9 Emphysema, unspecified; R91.8 Other nonspecific abnormal finding of lung field; R00.2 Palpitations | CPT/HCPCS: 96127; 99212 ==

== ENCOUNTER 2024-06-01 07:58 | Outpatient (AMB) | payer MEDICARE, SELFPAY ==
--- OUTSIDE RECORDS SUMMARY | 2024-06-01 08:02 | XMS_ITS | Patient Health Record ---
Author Organization [facility] Address [address] [place] [id number] Care Team Providers Care Apartment Leasing Specialist Name Role Phone Cassandra Weeks MD Primary Care Provider Jesse Shannon Jr Unavailable Ayden Chawla Unavailable Unavailable Allergies Allergen (clinical drug ingredient) Drug/Non Drug Allergy documented on EMR Reaction Allergy Type Onset Date Status codeine Codeine Sulfate Unknown Drug Allergy A ctive many blood pressure,inhalers and cholesterol meds (uncoded) Unknown Allergy Active Reason For Referral No Information Medications Medication SIG (Take, Route, Frequency, Duration) Notes [...] Super B Complex/Vitamin C - Orally Active Social History Tobacco Use: Social History Observation Description Date Details (start date - stop date) Former Smoker NA - NA Tobacco Use/Smoking Question Answer Notes Patient is [...] Never (0 point) Points 1 Interpretation Negative Section Notes: Nonsmoker > 10 yrs; Heavy Et [place] after her 10 yrs ago, but now just a rare beer Problems Problem Type SNOMED Code ICD Code Onset Dates Problem Status W/U Status Risk Notes Problem 398517413 Encounter for screening for malignant neoplasm of colon (Z12.11) Active confirmed Problem 316047539 Other postprocedural complications and disorders of digestive system (K91.89) Active confirmed Problem 314600353 Preprocedural examination (Z01.818) Active confirmed Problem 927830994 Aspirin long-ter m use (Z79.82) Active confirmed Plan Of Treatment Pending Test Test Name Order Date XR KUB 07/08/2020 Future Test Test Name Order Date COLONOSCOPY 12/22/2016 ERCP CHANGE OF STENT OR TUBE 07/08/2020 Insurance Providers Payer Name Payer Address Payer Phone Subscriber Number Group Number Insured Name Patient Relationship to Insured Coverage Start Date Coverage End Date [facility] [address] [place], [place] 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
--- NOTE | 2024-06-01 08:16 | MHC.OFFVIS ---
Vital Signs 06/01/24 08:17 Height 5 ft 1 in Weight 139 lb 12.369 oz BMI 26.4 BP 130/52 L Blood Pressure Location Lt brachial Position Sitting Pulse 106 H Pulse Source Monitor Intake Visit Reasons: 1 yr f/up-irregular heart beats, km pt Slab Stripper Required: No Allergies salmeterol [From Advair Diskus] Allergy (Intermediate, Verified 06/01/24 08:19) Palpitations ARB-Angiotensin Receptor Antagonist [ANGIOTENSIN RECEPTOR ANTAGONIST] Allergy (Unknown, Verified 06/01/24 08:19) ANAPHYLAXIS beclomethasone [QNASL] Allergy (Unknown, Verified 06/01/24 08:19) blurred vision, headaches budesonide [Symbicort] Allergy (Unknown, Verified 06/01/24 08:19) higher dose problem ciprofloxacin [Cipro] Allergy (Unknown, Verified 06/01/24 08:19) Unknown codeine [Codeine] Allergy (Unknown, Verified 06/01/24 08:19) UNKNOWN digestive enzymes combo no.8 [From Digestive Enzyme (acidoph,pec)] Allergy (Unknown, Verified 06/01/24 08:19) Unknown fluticasone [Flovent HFA] Allergy (Unknown, Verified 06/01/24 08:19) Unknown Lactobacillus acidophilus [From Digestive Enzyme (acidoph,pec)] Allergy (Unknown, Verified 06/01/24 08:19) Unknown lisinopril [LISINOPRIL] Allergy (Unknown, Verified 06/01/24 08:19) ANGIOEDEMA mometasone furoate [Dulera] Allergy (Unknown, Verified 06/01/24 08:19) Unknown nebivolol [Bystolic] Allergy (Unknown, Verified 06/01/24 08:19) Unknown olmesartan [Benicar] Allergy (Unknown, Verified 06/01/24 08:19) Unknown pectin [From Digestive Enzyme (acidoph,pec)] Allergy (Unknown, Verified 06/01/24 08:19) Unknown Sulfa (Sulfonamide Antibiotics) Allergy (Unknown, Verified 06/01/24 08:19) headache, shaking, freezing sensation, upset stomach methenamine Allergy (Verified 06/01/24 08:19) Unknown amoxicillin [From Augmentin] Adverse Reaction (Intermediate, Verified 06/01/24 08:19) abdominal pain clavulanic acid [From Augmentin] Adverse Reaction (Intermediate, Verified 06/01/24 08:19) abdominal pain diltiazem Adverse Reaction (Intermediate, Verified 06/01/24 08:19) NARVAEZ, Blurry vision, fatigue, decreased appetite formoterol [From Symbicort] Adverse Reaction (Intermediate, Verified 06/01/24 08:19) Dizziness umeclidinium [From Incruse Ellipta] Adverse Reaction (Intermediate, Verified 06/01/24 08:19) Palpitations verapamil Adverse Reaction (Intermediate, Verified 06/01/24 08:19) Blurry Vision loratadine [From Claritin] Adverse Reaction (Verified 06/01/24 08:19) Unknown nitrofurantoin Allergy (Severe, Uncoded 06/01/24 08:19) Blister estrodiol Allergy (Unknown, Uncoded 06/01/24 08:19) Unknown diltiazem Adverse Reaction (Intermediate, Uncoded 06/01/24 08:19) sleeping Medication List - Last Reconciled 06/01/24 by PAULINE DhaliwalC albuterol sulfate 90 mcg/actuation 2 puffs inhalation Q4-6H PRN amlodipine 5 mg PO BEDTIME atorvastatin 20 mg PO BEDTIME cholecalciferol (vitamin D3) 25 mcg PO DAILY inhalational spacing device (Aerochamber Plus Z Stat spacer) As directed levalbuterol HCl 1.25 mg (3 mL) inhalation Q4-6H PRN multivitamin 1 tab PO DAILY vitamin B complex 1 tab PO DAILY HPI HPI 1 yr f/up-irregular heart beats, km pt: Details: Eric is a 73 yo female with PMH of HTN, HLD, impaired fasting glucose, asthma, SVT, PACs who presents for followup. Last visit was 07/13/23. Today she reports that she has notice episodes of rapid heartbeat. She has not had any lightheadedness, presyncope, syncope. She has had an increase in her asthma symptoms recently since she does not have her steroid inhaler. She has been using her rescue inhaler more often. She continues to have 2 pieces of dark chocolate each day as well as 2 coffees per day. No chest discomfort at rest or with activity. No PND, orthopnea or edema. She has been mostly sedentary recently due to her asthma exacerbation. Taking all meds as directed. She is not interested in trying any new medications for her heart rate at this time. [facility] Medical History Tinnitus SVT (supraventricular tachycardia) Abnormal stress ECG with treadmill Coronary artery calcification seen on CT scan Hypertension Hypercholesterolemia Impaired glucose tolerance COPD (chronic obstructive pulmonary disease) Asthma Environmental and seasonal allergies Personal history of tobacco use GERD (gastroesophageal reflux disease) Constipation Recurrent UTI Dysuria Nocturia more than twice per night Impacted cerumen of both ears Anxiety Vitamin D deficiency History of COVID-19 Contact dermatitis Breast cancer screening by mammogram Surgical History History of colonoscopy History of cholecystectomy History of ERCP History of cataract surgery Family History Father Myocardial infarction Mother Hypertension Stroke Brother In good health Sister In good health Son In good health Daughter In good health Other Substance use disorder Social History Household Members: None Housing: House Do you presently have visiting nurse or other home services: No Alcohol intake: former Year quit: 2018 Patient Tobacco Use Status: Former Tobacco user Tobacco use type: Cigarette Cigarette Packs Per Day: 3 Years Smoked: 20 +/- quit 1989 e-Cigarette/Vaping Use: Never Used Second Hand Smoke Exposure: No service: No Current occupational status: previously employed and retired 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 Cognitive needs: No Hearing needs: No Vision needs: Yes Female Reproductive History Menstrual Age of Menarche: 12 Review of Systems Const All systems reviewed & are unremarkable except as noted in HPI and below ENT Denies dizziness Card Denies chest pain, Denies chest pain at rest, Denies chest pain with activity, Reports rapid heart rate, Denies pedal edema, Denies edema, Denies leg edema, Denies lightheadedness, Denies palpitations, Reports dyspnea and Reports dyspnea on exertion Resp Denies cough, Reports dyspnea and Reports dyspnea on exertion GI Denies hematochezia and Denies change in stool character Musc Denies abnormal gait, Denies limited range of motion, Denies muscle cramps, Denies muscle weakness, Denies numbness, Denies radiating pain into limb, Denies stiffness and Denies tingling Neuro Denies abnormal gait, Denies dizziness, Denies numbness and Denies tingling Endo Denies palpitations Physical Exam Vital Signs: Last Vital Signs Pulse 106 H 06/01/24 08:17 BP 130/52 L 06/01/24 08:17 BMI result Body Mass Index 26.4 Const General: cooperative, healthy appearing, comfortable and no acute distress Orientation/consciousness: patient oriented x3 HEENT Head: Yes normal to inspection Eyes Sclerae: sclerae normal Neck Neck: Yes normal visual inspection and Yes no JVD Carotids: normal carotid upstroke Chest Chest palpation & inspection: normal inspection of the chest Resp Effort & Inspection: normal respiratory effort Auscultation: clear to auscultation bilaterally, no crackles, no rales, no rhonchi and no wheezes Cardio Jugular venous distension: no JVD Rate: regular rate Rhythm: regular rhythm Heart sounds: S1 normal heart sound present, S2 normal heart sound present, no murmurs and no rubs Peripheral pulses: Peripheral pulses 2+ throughout GI Inspection: Yes normal to inspection Skin General skin exam: no rashes or lesions noted Neuro General: patient oriented x3 Extrem General: Yes normal to inspection, No no pedal edema and No calf tenderness Psych Appearance: grossly normal Mental Status: mental status grossly normal Speech and movement: Normal speech and movement present Office Procedures EKG Details: Today, read by me, sinus tachycardia with frequent PACs, short NV interval, could be ectopic atrial rhythm, rate 106, [id number], Complete Assessment & Plan Assessment & Plan (1) Palpitations: Code(s): R00.2 - Palpitations Category: Medical Plan: History of heart palpitations. Holter monitor done 09/29/2021 for 6 days shows sinus rhythm with average heart rate 80 per, very frequent runs of SVT, longest episode 52 minutes, initially thought to be possible AFib however upon Dr. Lee review seems to be more likely narrow complex tachycardia, frequent PACs, 13.75%. Echocardiogram done 02/02/2022 showed EF 55-60%, moderate mitral annular calcification. EKG done today is showing sinus rhythm with frequent PACs/atrial tachycardia, rate 106. She does notice heart palpitations. She has been using her asthma rescue inhaler more often and continues to consume daily caffeine.She is waiting for her steroid inhaler to get approved then the use of her rescue inhaler will be less. In the past she has been tolerant to beta shanon and calcium channel blockers for heart rate control. Suggested she retry diltiazem low dose 30 mg b.i.d.. She declines due to concern of potential side effects. Instructed her to reduce caffeine intake. Suggested milk chocolate and decaf coffee. Emergency care if ever needed for sustained palpitations. Will update echo prior to next visit. Cardiology follow-up in 6 months, sooner if needed. (2) SVT (supraventricular tachycardia): Code(s): I47.1 - Supraventricular tachycardia Category: Medical Plan: As above (3) Shortness of breath: Code(s): R06.02 - Shortness of breath Category: Medical Plan: Reports of shortness of breath with activity. Does have history of asthma. Underwent an exercise stress test 06/21/22 with exercise 3 minutes 30 seconds with moderate shortness of breath and need to stop. Test was nondiagnostic. She then underwent a nuclear stress test with exercise 5 minutes, mild shortness of breath and no EKG changes of ischemia, normal myocardial perfusion imaging. Between the test her asthma medication was adjusted and she was newly on montelukast which was helping her shortness of breath. At this point she reports her breathing as being stable. She does have some shortness of breath with it activity but overall much improved. No clear cardiac cause for this symptom. (4) Coronary artery calcification seen on CT scan: Comment: (Moderate to severe coronary artery calcification on 01/14/[address]) Code(s): I25.10 - Atherosclerotic heart disease of [place] coronary artery without angina pectoris Category: Medical Plan: Known coronary calcification on CT scan. Nuclear stress test 07/02/2022 showed normal myocardial perfusion imaging. No anginal symptoms. She is on atorvastatin with ideal LDL goal less than 70. She is on amlodipine for blood pressure control. Blood pressure today 130/52. Recommend use of aspirin however she is reluctant to try any new medications due to numerous adverse effects from meds. Signs and symptoms of angina reviewed with her. Plan Time spent on chart review, documentation, interview, assessment Orders: Orders CA echo transthoracic complete Today I47.1 - Supraventricular tachycardia, R00.2 - Palpitations Coding Level of Care Code Est Pt Level 4 (53588) Complex EM visit Add On G2211 Diagnoses Palpitations R00.2 SVT (supraventricular tachycardia) I47.1 Shortness of breath R06.02 Coronary artery calcification seen on CT scan I25.10 CPT Codes EKG - CPT: [id number], Complete ([id number]) Time Spent (min) 28
[2024-06-01 08:17] VITALS: BP 130/52; PULSE 106; BMI 26.4
== END 2024-06-01 08:53 | disposition home or self-care (01) ==
LOC: HO.HCS 07:59
PROVIDERS: PCP Internal Medicine; Visit Provider Nurse Practitioner Family
DX: R00.2 Palpitations (principal); I47.10 Supraventricular tachycardia, unspecified; R06.02 Shortness of breath; I25.10 Atherosclerotic heart disease of native coronary artery without angina pectoris
CPT/HCPCS: 93010; 99214; G2211

== ENCOUNTER 2024-06-01 11:51 | Outpatient (REF) | payer MEDICARE, SELFPAY | END 2024-06-01 11:52 | disposition home or self-care (01) | LOC: HO.MAMMO 11:51 | PROVIDERS: PCP Internal Medicine; Visit Provider Internal Medicine | DX: Z12.31 Encounter for screening mammogram for malignant neoplasm of breast (principal) | CPT/HCPCS: 77063; 77067; 93005; 99212 ==

== ENCOUNTER → 2024-06-01 12:30 | Outpatient (BNV) | payer MEDICARE, SELFPAY | PROVIDERS: PCP Internal Medicine; Visit Provider Internal Medicine | DX: Z12.31 Encounter for screening mammogram for malignant neoplasm of breast (principal) | CPT/HCPCS: 77063; 77067 ==

== ENCOUNTER 2024-06-05 10:46 | Outpatient (AMB) | payer MEDICARE, SELFPAY ==
--- NOTE | 2024-06-05 11:02 | MHC.OFFVIS ---
Vital Signs 06/05/24 11:03 Height 5 ft 1 in Weight 141 lb BMI 26.6 BP 128/60 Blood Pressure Location Rt brachial Position Sitting Pulse 108 H Pulse Source Pulse Oximeter Pulse Oximetry (%) 98 Oxygen Delivery Method Room Air Intake Visit Reasons: COPD Telegraph Operator Required: No Allergies salmeterol [From Advair Diskus] Allergy (Intermediate, Verified 06/05/24 11:06) Palpitations ARB-Angiotensin Receptor Antagonist [ANGIOTENSIN RECEPTOR ANTAGONIST] Allergy (Unknown, Verified 06/05/24 11:06) ANAPHYLAXIS beclomethasone [QNASL] Allergy (Unknown, Verified 06/05/24 11:06) blurred vision, headaches budesonide [Symbicort] Allergy (Unknown, Verified 06/05/24 11:06) higher dose problem ciprofloxacin [Cipro] Allergy (Unknown, Verified 06/05/24 11:06) Unknown codeine [Codeine] Allergy (Unknown, Verified 06/05/24 11:06) UNKNOWN digestive enzymes combo no.8 [From Digestive Enzyme (acidoph,pec)] Allergy (Unknown, Verified 06/05/24 11:06) Unknown fluticasone [Flovent HFA] Allergy (Unknown, Verified 06/05/24 11:06) Unknown Lactobacillus acidophilus [From Digestive Enzyme (acidoph,pec)] Allergy (Unknown, Verified 06/05/24 11:06) Unknown lisinopril [LISINOPRIL] Allergy (Unknown, Verified 06/05/24 11:06) ANGIOEDEMA mometasone furoate [Dulera] Allergy (Unknown, Verified 06/05/24 11:06) Unknown nebivolol [Bystolic] Allergy (Unknown, Verified 06/05/24 11:06) Unknown olmesartan [Benicar] Allergy (Unknown, Verified 06/05/24 11:06) Unknown pectin [From Digestive Enzyme (acidoph,pec)] Allergy (Unknown, Verified 06/05/24 11:06) Unknown Sulfa (Sulfonamide Antibiotics) Allergy (Unknown, Verified 06/05/24 11:06) headache, shaking, freezing sensation, upset stomach methenamine Allergy (Verified 06/05/24 11:06) Unknown amoxicillin [From Augmentin] Adverse Reaction (Intermediate, Verified 06/05/24 11:06) abdominal pain clavulanic acid [From Augmentin] Adverse Reaction (Intermediate, Verified 06/05/24 11:06) abdominal pain diltiazem Adverse Reaction (Intermediate, Verified 06/05/24 11:06) NARVAEZ, Blurry vision, fatigue, decreased appetite formoterol [From Symbicort] Adverse Reaction (Intermediate, Verified 06/05/24 11:06) Dizziness umeclidinium [From Incruse Ellipta] Adverse Reaction (Intermediate, Verified 06/05/24 11:06) Palpitations verapamil Adverse Reaction (Intermediate, Verified 06/05/24 11:06) Blurry Vision loratadine [From Claritin] Adverse Reaction (Verified 06/05/24 11:06) Unknown nitrofurantoin Allergy (Severe, Uncoded 06/05/24 11:06) Blister estrodiol Allergy (Unknown, Uncoded 06/05/24 11:06) Unknown diltiazem Adverse Reaction (Intermediate, Uncoded 06/05/24 11:06) sleeping Medication List - Last Reconciled 06/05/24 by Caitlin Andres, GETTERING FILAMENT MACHINE OPERATOR albuterol sulfate 90 mcg/actuation 2 puffs inhalation Q4-6H PRN amlodipine 5 mg PO BEDTIME atorvastatin 20 mg PO BEDTIME cholecalciferol (vitamin D3) 25 mcg PO DAILY inhalational spacing device (Aerochamber Plus Z Stat spacer) As directed levalbuterol HCl 1.25 mg (3 mL) inhalation Q4-6H PRN multivitamin 1 tab PO DAILY vitamin B complex 1 tab PO DAILY HPI HPI COPD: Details: Eric is a pleasant 73 year old female, former smoker with 60 pack year history, quit over 30 years ago, with underlying COPD and SVT. She was previously well controlled for 20+ years on Symbicort but developed adverse reaction and discontinued. She has trialed multiple inhalers resulting in adverse effects including Dulera, Incruse, Stiolto, Anoro, Advair, [place] and albuterol. Side effects include tremors, tachycardia, blurred vision, headaches and dizziness. She continues with symptoms of dyspnea and chest tightness. She can tolerate levalbuterol nebulizer however uses infrequently as she develops significant tremors. She denies any visits to urgent care or hospitalizations since the last visit related to respiratory distress. She continues to receive receiving allergen immunotherapy. She notes over the last two weeks increased productive cough and chest congestion. Denies fevers, chills or sick contacts. [facility] Medical History Tinnitus SVT (supraventricular tachycardia) Abnormal stress ECG with treadmill Coronary artery calcification seen on CT scan Hypertension Hypercholesterolemia Impaired glucose tolerance COPD (chronic obstructive pulmonary disease) Asthma Environmental and seasonal allergies Personal history of tobacco use GERD (gastroesophageal reflux disease) Constipation Recurrent UTI Dysuria Nocturia more than twice per night Impacted cerumen of both ears Anxiety Vitamin D deficiency History of COVID-19 Contact dermatitis Breast cancer screening by mammogram Surgical History History of colonoscopy History of cholecystectomy History of ERCP History of cataract surgery Family History Father Myocardial infarction Mother Hypertension Stroke Brother In good health Sister In good health Son In good health Daughter In good health Other Substance use disorder Social History Household Members: None Housing: House Do you presently have visiting nurse or other home services: No Alcohol intake: former Year quit: 2018 Patient Tobacco Use Status: Former Tobacco user Tobacco use type: Cigarette Cigarette Packs Per Day: 3 Years Smoked: 20 +/- quit 1989 e-Cigarette/Vaping Use: Never Used Second Hand Smoke Exposure: No service: No Current occupational status: previously employed and retired 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 Cognitive needs: No Hearing needs: No Vision needs: Yes Female Reproductive History Menstrual Age of Menarche: 12 Review of Systems Const Denies chills, Denies excessive sweating, Denies fever(s) and Denies night sweats Eyes Denies dry eyes, Denies irritation and Reports itchy eyes ENT Reports Normal hearing present, Reports nasal congestion, Reports nasal discharge and Denies sore throat Card Denies chest pain, Denies chest pain at rest, Denies chest pain with activity, Denies claudication, Denies leg edema, Reports dyspnea on exertion, Denies orthopnea and Denies paroxysmal nocturnal dyspnea Resp Denies chest congestion, Denies hemoptysis, Denies excessive phlegm production, Denies pain on inspiration, Denies pain with cough, Reports dyspnea on exertion and Denies stridor Musc Denies myalgias Neuro Reports Normal hearing present Endo Denies excessive sweating Darian/Lymph Denies lymphadenopathy Aller/Immun Reports itchy eyes and Denies seasonal rhinorrhea Physical Exam Vital Signs: Last Vital Signs Pulse 108 H 06/05/24 11:03 BP 128/60 06/05/24 11:03 Pulse Ox 98 06/05/24 11:03 Oxygen Delivery Method Room Air 06/05/24 11:03 BMI result Body Mass Index 26.6 Const General: cooperative, healthy appearing, comfortable, no acute distress, well developed and alert Orientation/consciousness: patient oriented x3 Limitations: no limitations HEENT Head: Yes normal to inspection, Yes normocephalic and Yes atraumatic Ears: hearing grossly normal bilaterally and external ears normal Eyes General: appearance normal, both eyes and all related structures Eyelids: Yes eyelids normal Sclerae: sclerae normal EOM: EOMs intact bilaterally Neck Neck: Yes normal visual inspection and Yes no lymphadenopathy Lymphatic: no lymphadenopathy noted Chest Chest palpation & inspection: normal inspection of the chest Resp Other: harsh cough throughout visit, Effort & Inspection: normal respiratory effort, able to speak in complete sentences, no audible wheezes, Actively coughing, no stridor, not tachypneic, no tripod positioning and no use of accessory muscles Auscultation: wheezes and diminished lung sounds Cardio Jugular venous distension: no JVD Rate: regular rate Rhythm: abnormal rhythm Skin Other: warm, dry General skin exam: no rashes or lesions noted Neuro General: patient oriented x3 Cranial nerves: Yes Normal hearing present Cognition (Neuro): normal cognition Gait exam (Neuro): Normal gait present Extrem General: Yes normal to inspection, Yes capillary refill normal, Yes no clubbing, cyanosis or edema and Yes no pedal edema Psych Appearance: grossly normal and well kempt Speech and movement: Normal speech and movement present and Clear speech present Affect: normal affect Attitude: cooperative Thought process: Normal thought process present Thought content: Normal thought content present Insight: Good insight present (Psych) Judgement: Good judgement present (Psych) Assessment & Plan Assessment & Plan (1) COPD (chronic obstructive pulmonary disease): Code(s): J44.9 - Chronic obstructive pulmonary disease, unspecified Category: Medical Qualifiers: COPD type: emphysema Emphysema type: unspecified Qualified Code(s): J43.9 - Emphysema, unspecified (2) Environmental and seasonal allergies: Code(s): J30.89 - Other allergic rhinitis Category: Medical (3) Pulmonary nodules: Comment: November 2023 Code(s): R91.8 - Other nonspecific abnormal finding of lung field Category: Medical Plan Will treat bronchitic symptoms with doxycycline and prednisone. Unfortunately, Eric reports suboptimal control of respiratory symptoms with levalbuterol nebulizer however has been unable to tolerate multiple inhalers. We have attempted to send in multiple inhalers all which result in an adverse effect however all the symptoms she reports with inhaler use are symptoms she has on a frequent basis including dizziness and palpitations. She has been under the care of cardiology however per last visit, does not want to trial any rate controlling medications and will be evaluated by neurology for persistent dizziness. Of note, PCP also changing antihypertensives to see if this will improve frequency of dizziness. Awaiting Qvar approval, as this is the only ICS left that she has not trialed. Will start with one inhalation per day and if tolerates, increase to BID. She is aware to monitor for side effects and discontinue if symptoms arise. All questions were answered and patient is in agreement of plan. Will follow up in 6-8 weeks or sooner if needed. Medications: New doxycycline hyclate 100 mg PO BID 14 caps 0RF prednisone 20 mg PO DAILY 5 tabs 0RF Coding Level of Care Code Est Pt Level 4 (46789) Diagnoses Pulmonary emphysema, unspecified emphysema type J43.9 COPD type: emphysema Emphysema type: unspecified Environmental and seasonal allergies J30.89 Pulmonary nodules R91.8
[2024-06-05 11:03] VITALS: BP 128/60; PULSE 108; O2SAT 98; BMI 26.6
--- OUTSIDE RECORDS SUMMARY | 2024-06-05 12:46 | XMS_ITS | Patient Health Record ---
Author Organization [facility] Address [address] [place] [id number] Care Team Providers Care Personnel Security Specialist Name Role Phone Cassandra Weeks MD [...] Problem Status W/U Status Risk Notes Problem [id number] Encounter for screening for malignant neoplasm of colon (Z12.11) Active confirmed Problem [id number] Other postprocedural complications and disorders of digestive system (K91.89) Active confirmed Problem [id number] Preprocedural examination (Z01.818) Active confirmed Problem [id number] Aspirin long-ter m use (Z79.82) Active confirmed Plan Of Treatment Pending Test Test Name Order Date XR KUB 07/08/2020 Future Test Test Name Order Date COLONOSCOPY 12/22/2016 ERCP CHANGE OF STENT OR TUBE 07/08/2020 Insurance Providers Payer Name Payer Address Payer Phone Subscriber Number Group Number Insured Name Patient Relationship to Insured Coverage Start Date Coverage End Date [facility] [address] [place], [place] [id number] 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
== END 2024-06-05 11:31 | disposition home or self-care (01) ==
LOC: HO.HPSW 10:46
PROVIDERS: PCP Internal Medicine; Visit Provider Nurse Practitioner Family
DX: J43.9 Emphysema, unspecified (principal); J30.89 Other allergic rhinitis; R91.8 Other nonspecific abnormal finding of lung field
CPT/HCPCS: 99214

== ENCOUNTER → 2024-06-05 10:46 | Outpatient (BNVA) | payer MEDICARE, SELFPAY | PROVIDERS: PCP Internal Medicine; Visit Provider Nurse Practitioner Family | DX: J43.9 Emphysema, unspecified (principal); J30.89 Other allergic rhinitis; R91.8 Other nonspecific abnormal finding of lung field | CPT/HCPCS: 99212 ==

== ENCOUNTER → 2024-06-28 12:24 | Outpatient (REF) | payer MEDICARE, SELFPAY ==
--- NOTE | 2024-06-28 12:27 | CA_ITS ---
Transthoracic Echocardiogram Patient (Last, First, Middle): Eric Broderick J Gender: Female Date of : 1950 Age: 73 Procedure Date: 06/28/2024 Procedure Type: Transthoracic Echocardiogram Location: OP Height: 154.94 cm Weight: 63.96 kg BSA: 1.63 m2 Heart Rate: 81 bpm BP: 128 / 60 mmHg Spray Blender: DEION Referring MD: Keira Walker CREDIT CONTROL ASSISTANT-C Organizational Psychologist: Chris Jones MD Symptoms: I47.1 - Supraventricular tachycardia Study Quality: Adequate ECG Rhythm: Sinus Conclusions: - 1. Hyperdynamic LV ejection fraction greater than 70% with impaired relaxation filling pattern 2. Severe mitral annular calcification with mild mitral regurgitation 3. Upper limits of normal RV systolic pressure 4. No gross pericardial effusion Findings Left Ventricle Normal left ventricular cavity size. There is normal left ventricular wall thickness. The left ventricular systolic function is hyperdynamic. There is systolic anterior motion of the chordae of the mitral valve. Spectral Doppler is indicative of an impaired relaxation filling pattern. E/E prime ratio is between 8 and 15 consistent with indeterminate filling pressures. There is mild septal asymmetric hypertrophy. Right Ventricle Normal right ventricular cavity size and systolic function. Atria Both atria are normal in size. There is lipomatous hypertrophy of the interatrial septum. There is no evidence of interatrial shunt. Aortic Valve There is mild calcification of the aortic valve. There is no aortic valve stenosis. There is no aortic valve regurgitation. Mitral Valve There is mild anterior and severe posterior mitral leaflet thickening. There is mild mitral valve regurgitation. There is no mitral valve stenosis. Pulmonic Valve The pulmonic valve is likely normal. There is trace to mild pulmonic valve regurgitation. Tricuspid Valve Normal tricuspid valve structure. There is mild tricuspid valve regurgitation. Normal right atrial pressure. There is no evidence of pulmonary hypertension. Great Vessels There is no dilatation of the ascending aorta measuring 3.40 cm. Venous The inferior vena cava is normal in size and collapses greater than 50% with inspiration. Pericardium/Pleural There is no evidence of pericardial effusion. Prior Study Comparison No significant change compared to prior study dated: 02/02/2022. Measurements 2D Linear Measurements IVSd: 0.76 0.6-0.9/0.6-1.0 cm LVIDd: 4.41 3.9-5.3/4.2-5.9 cm LVIDd Index: 2.71 2.4-3.2/2.2-3.1 cm/m2 LVIDs: 2.48 2.0-3.6 cm LVPWd: 0.55 0.7-1.1 cm LA Diam: 3.10 2.7-3.8/3.0-4.0 cm LAIDs Index: 1.90 1.5-2.3 cm/m2 LV Mass: 105.13 67-162/88-224 g LV Mass Index: 64.50 43-95/49-115 g/m2 LVOT Diam: 2.00 3.0+(-)1.3 cm 2D Systolic Function EF 4C: 69.40 >55% EF 2C: 72.60 >55% EF BiP: 71.00 >55% Mitral Valve MV VTI: 0.32 MV Pk Gomez: 1.41 MV Mn Gomez: 0.96 MV Pk Grad: 8.00 MV Mn Grad: 4.00 MV Pk E: 1.08 MV PK A: 1.28 MV Decel Time: 228.00 E/A: 0.80 E'Lateral: 7.83 E'Medial: 5.87 E/E' Med: 18.40 E/E' Lat: 13.80 PHT: 67.00 MVA PHT: 3.28 MVA Continuity: 2.15 Decel [place]: 4.75 Aortic Valve AoV Pk Gomez: 1.48 AoV Mn Gomez: 1.09 AoV VTI: 0.34 AoV Pk Grad: 9.00 Aov Mn Grad: 5.00 JYOTI Cont.VTI: 1.97 LVOT LVOT Pk Gomez: 0.94 LVOT Mn Gomez: 0.66 LVOT VTI: 0.22 LVOT Pk Grad: 4.00 LVOT Mn Grad: 2.00 LVOT Diam: 2.00 LVOT Area: 3.14 Diastolic Function MV Pk E: 1.08 MV Pk A: 1.28 E/A: 0.80 E'Medial: 5.87 E/E' Med: 18.40 E' Laterial: 7.83 E/E' Lat: 13.80 Right Ventricle TAPSE (mm): 26.10 TVS' Gomez: 14.50 Tricuspid Valve TR Pk Gomez: 2.92 TR Pk Grad: 34.00 RA Press: 3.00 RVSP: 37.00 Great Vessels Aorta Sinus of Valsalva: 3.00 2.0-3.5 cm Ao Asc: 3.40 2.1-3.4 cm Pulmonary Valve PV Pk Gomez: 0.95 Peak PV Grad: 4.00 Updated in Other Vendor System with Status of Final Chris Jones MD electronically signed on 06/29/2024 2:35:34 PM with status of Final
--- OUTSIDE RECORDS SUMMARY | 2024-06-28 14:53 | XMS_ITS | Patient Health Record ---
Author Organization [facility] Address [address] [place] [id number] Care Team Providers Care Conservation Technician Name Role Phone Cassandra Weeks MD Primary [...] Problem Status W/U Status Risk Notes Problem [id number] Encounter for screening for malignant neoplasm of colon (Z12.11) Active confirmed Problem 659870402 Other postprocedural complications and disorders of digestive system (K91.89) Active confirmed Problem 810757172 Preprocedural examination (Z01.818) Active confirmed Problem 968019381 Aspirin long-ter m use (Z79.82) Active confirmed Plan Of Treatment Pending Test Test Name Order Date XR KUB 07/08/2020 Future Test Test Name Order Date COLONOSCOPY 12/22/2016 ERCP CHANGE OF STENT OR TUBE 07/08/2020 Insurance Providers Payer Name Payer Address Payer Phone Subscriber Number Group Number Insured Name Patient Relationship to Insured Coverage Start Date Coverage End Date [facility] [address] [place], [place] 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
== END ==
LOC: HO.CARD 12:24
PROVIDERS: PCP Internal Medicine; Visit Provider Nurse Practitioner Family
DX: R00.2 Palpitations (principal); I47.10 Supraventricular tachycardia, unspecified
CPT/HCPCS: 93306

== ENCOUNTER → 2024-06-28 12:27 | Outpatient (BNV) | payer MEDICARE, SELFPAY | PROVIDERS: PCP Internal Medicine; Visit Provider Internal Medicine Cardiovascular Disease | DX: I35.0 Nonrheumatic aortic (valve) stenosis (principal); I34.81 Nonrheumatic mitral (valve) annulus calcification; I34.0 Nonrheumatic mitral (valve) insufficiency | CPT/HCPCS: 93306 ==

== ENCOUNTER 2024-07-04 12:46 | Emergency (ER) | payer MEDICARE, SELFPAY ==
--- NOTE | ~2024-07-04 | XR_ITS ---
EXAMINATION: XR CHEST CLINICAL INFORMATION: cough COMPARISON: April 27, 2023. TECHNIQUE: Frontal view of the chest was obtained. FINDINGS: Pulmonary reticular pattern. No gross consolidation, pleural effusion or pneumothorax. Probable old healed rib fractures in the anterior aspect of the right lower hemithorax. Arty mediastinal silhouette size is normal. Altered level thoracic spondylosis. XR/XR chest 1V IMPRESSION: Chronic interstitial lung disease. Electronically signed by: Jason Mcgill MD 07/04/2024 02:10 PM EDT
--- NOTE | 2024-07-04 13:01 | ECG_ITS ---
Test Reason : DIZZINESS Blood Pressure : */* mmHG Vent. Rate : 72 BPM Atrial Rate : 72 BPM P-R Int : 162 ms QRS Dur : 72 ms QT Int : 414 ms P-R-T Axes : 60 0 54 degrees QTcB Int : 453 ms Normal sinus rhythm Low voltage QRS Borderline ECG When compared with ECG of 24-Apr-2024 22:33, No significant change was found Referred By: Samantha Thomson Electronically Signed By: ANÍBAL DYKES MD
--- NOTE | 2024-07-04 13:01 | ED.DIZZY ---
HPI - Dizziness General Chief Complaint: Dizziness Stated Complaint: anxiety, N/D, dizziness, headache [id number] Time Seen by Provider: 07/04/24 12:51 Source: patient, EMS and old records reviewed Mode of arrival: EMS Limitations: no limitations History of Present Illness ED Provider: SULLY HPI Narrative: 73 yo female with PMH of asthma, SVT, tinnitus, anxiety, COPD not on home O2, HTN, HLD, UTI here with c/o a few days of loose stools - no GIB, dizziness worse with turning head and moving, anxiety, feels shaky. She called 911 as she took her neb today and felt more shaky and felt she couldn't drive. No CP, abdominal pain, n/v, fevers. She states she is just feeling off. The dizziness is more feeling lightheaded not spinning. MD elicited complaint: lightheadedness Pertinent past history: other (tinnitus) Onset (ago): day(s) (few) Timing: sudden onset and intermittent Severity: moderate Description: lightheadedness Context: change in body position History of similar symptoms: Yes Exacerbating factors: change in body position Relieving factors: remaining still Associated symptoms: other (shakes, cough, nausea, loose stools) Related Data Home Medications ?Medication ?Instructions ?Recorded ?Confirmed vitamin B complex 1 tab PO DAILY 04/16/20 06/05/24 multivitamin 1 tab PO DAILY 06/26/20 06/05/24 cholecalciferol (vitamin D3) 25 25 mcg PO DAILY 06/17/22 06/05/24 mcg (1,000 unit) capsule Previous Rx's ?Medication ?Instructions ?Recorded amlodipine 5 mg tablet 5 mg PO BEDTIME #90 tabs 10/15/23 inhalational spacing device #1 ea 02/01/24 (Aerochamber Plus Z Stat spacer) levalbuterol HCl 1.25 mg/3 mL 1.25 mg (3 mL) inhalation Q4-6H 04/25/24 solution for nebulization PRN shortness of breath or wheezing #90 mL atorvastatin 20 mg tablet 20 mg PO BEDTIME #90 tabs 05/09/24 doxycycline hyclate 100 mg capsule 100 mg PO BID #14 caps 06/05/24 prednisone 20 mg tablet 20 mg PO DAILY #5 tabs 06/05/24 albuterol sulfate 90 mcg/actuation 2 puff inhalation Q4-6H PRN 06/26/24 aerosol inhaler shortness of breath or wheezing #1 ea Allergies Allergy/AdvReac Type Severity Reaction Status Date / Time salmeterol Allergy Intermediate Palpitation Verified 07/04/24 13:10 [From Advair Diskus] s ARB-Angiotensin Receptor Allergy Unknown ANAPHYLAXIS Verified 07/04/24 13:10 Antagonist [ANGIOTENSIN RECEPTOR ANTAGONIST] beclomethasone [QNASL] Allergy Unknown blurred Verified 07/04/24 13:10 vision, headaches budesonide [Symbicort] Allergy Unknown higher Verified 07/04/24 13:10 dose problem ciprofloxacin [Cipro] Allergy Unknown Unknown Verified 07/04/24 13:10 codeine [Codeine] Allergy Unknown UNKNOWN Verified 07/04/24 13:10 digestive enzymes combo no.8 Allergy Unknown Unknown Verified 07/04/24 13:10 [From Digestive Enzyme (acidoph,pec)] fluticasone [Flovent HFA] Allergy Unknown Unknown Verified 07/04/24 13:10 Lactobacillus acidophilus Allergy Unknown Unknown Verified 07/04/24 13:10 [From Digestive Enzyme (acidoph,pec)] lisinopril [LISINOPRIL] Allergy Unknown ANGIOEDEMA Verified 07/04/24 13:10 mometasone furoate [Dulera] Allergy Unknown Unknown Verified 07/04/24 13:10 nebivolol [Bystolic] Allergy Unknown Unknown Verified 07/04/24 13:10 olmesartan [Benicar] Allergy Unknown Unknown Verified 07/04/24 13:10 pectin Allergy Unknown Unknown Verified 07/04/24 13:10 [From Digestive Enzyme (acidoph,pec)] Sulfa (Sulfonamide Allergy Unknown headache, Verified 07/04/24 13:10 Antibiotics) shaking, freezing sensation, upset stomach methenamine Allergy Unknown Verified 07/04/24 13:10 amoxicillin [From Augmentin] AdvReac Intermediate abdominal Verified 07/04/24 13:10 pain clavulanic acid AdvReac Intermediate abdominal Verified 07/04/24 13:10 [From Augmentin] pain diltiazem AdvReac Intermediate NARVAEZ, Blurry Verified 07/04/24 13:10 vision, fatigue, decreased appetite formoterol [From Symbicort] AdvReac Intermediate Dizziness Verified 07/04/24 13:10 umeclidinium AdvReac Intermediate Palpitation Verified 07/04/24 13:10 [From Incruse Ellipta] s verapamil AdvReac Intermediate Blurry Verified 07/04/24 13:10 Vision loratadine [From Claritin] AdvReac Unknown Verified 07/04/24 13:10 nitrofurantoin Allergy Severe Blister Uncoded 07/04/24 13:10 estrodiol Allergy Unknown Unknown Uncoded 07/04/24 13:10 diltiazem AdvReac Intermediate sleeping Uncoded 07/04/24 13:10 Review of Systems Review of Systems: Constitutional : No Fever, No Chills, No Fatigue, pos shaking ENT/Mouth : No sore throat, No Rhinorrhea Eyes: No Eye Pain, No Swelling, No Redness Cardiovascular : No Chest Pain, No SOB, No Dyspnea on Exertion Respiratory : pos Cough, No Sputum Gastrointestinal : No Nausea, No Vomiting, pos Diarrhea, No abdominal Pain Genitourinary : No Dysuria, No Urinary Frequency, No Hematuria, Musculoskeletal : No joint pain, No Myalgias, No Joint Swelling Skin : No Skin Lesions, No rash Neuro : No Weakness, No Numbness, pos Dizziness, no Headache Psych : pos Anxiety/Panic, No Depression All other systems reviewed and are negative PMFSH Past Medical History Attestation statement: The following information was validated with the patient. Source: old records reviewed Medical History Tinnitus SVT (supraventricular tachycardia) Abnormal stress ECG with treadmill Coronary artery calcification seen on CT scan Hypertension Hypercholesterolemia Impaired glucose tolerance COPD (chronic obstructive pulmonary disease) Asthma Environmental and seasonal allergies Personal history of tobacco use GERD (gastroesophageal reflux disease) Constipation Recurrent UTI Dysuria Nocturia more than twice per night Impacted cerumen of both ears Anxiety Vitamin D deficiency History of COVID-19 Contact dermatitis Breast cancer screening by mammogram Surgical History History of colonoscopy History of cholecystectomy History of ERCP History of cataract surgery Family History Family History Father Myocardial infarction Mother Hypertension Stroke Brother In good health Sister In good health Son In good health Daughter In good health Other Substance use disorder Social History Social History Household Members: None Housing: House Do you presently have visiting nurse or other home services: No Alcohol intake: former Year quit: 2018 Patient Tobacco Use Status: Former Tobacco user Tobacco use type: Cigarette Cigarette Packs Per Day: 3 Years Smoked: 20 +/- quit 1990 Smoked in Last 30 Days: No e-Cigarette/Vaping Use: Never Used Second Hand Smoke Exposure: No Use of substances other than those prescribed or required for medical reasons: No Advance Directives: No Advance Directives Information Provided: Yes Do you have a plan to hurt others: No Plan service: No Current occupational status: previously employed and retired 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 Oriented X3. No acute distress. anxious shaking Eyes: Pupils equal, round and reactive to light. mild horizontal nystagmus looking to right, dizziness worse when looking to right, no visual field deficits ENT: Pharynx normal. Neck: Normal inspection. Neck supple. CVS: Normal heart rate and rhythm. Pulses normal. Respiratory: No respiratory distress. Breath sounds normal. Abdomen: Soft and nontender. Skin: Skin warm and dry. Normal skin color. Normal skin turgor. Extremities: No lower extremity edema. No calf ttp Neuro: Oriented X 3. No motor deficit. No sensory deficit. CN2-12 intact NIH Stroke Scale Internal: Initial- Upon Arrival Level of Consciousness: Alert Level of Consciousness Questions: Answers both questions correctly Level of Consciousness Commands: Performs both tasks correctly Best Gaze: Normal Visual: No visual loss Facial Palsy: Normal Motor Arm (Right): No drift Motor Arm (Left): No drift Motor Leg (Right): No drift Motor Leg (Left): No drift Limb Ataxia: Absent Sensory: Normal Best Language: No aphasia Dysarthia: Normal Extinction and Inattention: No abnormality Score: 0 Medications Administered Discontinued Medications Generic Name Dose Route Start Last Admin Trade Name Freq PRN Reason Stop Dose Admin Meclizine HCl 25 mg 07/04/24 13:00 07/04/24 14:59 Meclizine Hcl 25 Mg Tablet PO 07/04/24 13:01 Not Given ONCE ONE Medical Decision Making Medical Decision Making [facility] Narrative: 73 yo female with PMH of asthma, SVT, tinnitus, anxiety, COPD not on home O2, HTN, HLD, UTI here with c/o vague lightheadedness, loose stools, feeling shaky. She has no fevers, no CP, she has no neuro deficits and it is worse with turning head and movements this seems atypical for stroke - it has also been 3 days. She doesn't reported any concerning ACS/VTE symptoms and no obvious infection. At this time EKG, ortho, labs, meclizine and reassess. Differential Diagnosis Differential Diagnoses: The differential diagnosis associated with the presentation includes no other neuro deficits - posterior stroke unlikely and it is positional with nystagmus looking to right vertigo anxiety labrynthits dehydration viral illness Admission/Observation Consideration of admission/observation: Escalation of care including admission/observation considered no infectious finding neg cxr, neg CRP, neg ortho, normal UA feels better eating and drinking steady gait thinks her albuterol made her shaky will try to Rx xopenex Lab Data [facility] Lab Attestation statement: I reviewed the patient's lab results. 07/04/24 13:36 07/04/24 13:36 Labs: Lab Results 07/04/24 07/04/24 Range/Units 13:36 13:43 WBC 7.9 (4.8-10.8) X10*3/uL RBC 4.38 (4.20-5.50) X10*6/uL Hgb 13.8 (12.0-16.0) g/dl Hct 40.3 (37.0-47.0) % MCV 92.0 (80.0-98.0) fL MCH 31.5 (27.0-33.0) pg MCHC 34.2 (31.0-35.0) g/dl RDW 11.9 (11.0-16.0) % Plt Count 227 (160-400) X10*3/uL MPV 10.1 (9.4-12.3) fL Immature Gran % (Auto) 0.3 (0.0-0.4) % Neut % (Auto) 77.6 H (45-73) % Lymph % (Auto) 14.2 L (20-40) % [place] % (Auto) 6.0 (2-11) % Eos % (Auto) 1.1 (0-4) % Baso % (Auto) 0.8 (0-2) % Lymph # (Auto) 1.1 L (1.2-4.9) X10*3/uL [place] # (Auto) 0.5 (0.1-1.2) X10*3/uL Eos # (Auto) 0.1 (0.0-0.4) X10*3/uL Baso # (Auto) 0.1 (0.0-0.2) X10*3/uL Abs Immat Gran (auto) 0.02 (0.00-0.03) X10*3/uL Absolute Neuts (auto) 6.1 (2.0-8.3) x10*3/uL Absolute Nucleated RBC 0.000 (0.0-0.012) X10*3/uL Nucleated RBC % (auto) 0.0 (0.0-0.2) /100WBC VBG pH 7.40 (7.32-7.43) VBG pCO2 49 mmHg VBG pO2 36 mmHg VBG HCO3 31 H (22-26) mmol/L VBG O2 Saturation 58.0 % VBG Base Excess 5.5 mmol/L Sodium 136 (135-145) mmol/L Potassium 4.2 (3.3-5.1) mmol/L Chloride 103 (96-108) mmol/L Carbon Dioxide 27 (22-29) mmol/L Anion Gap 10 L (12-20) BUN 8 L (9-16) mg/dL Creatinine 0.72 (0.5-1.4) mg/dL Estim Creat Clear Calc 57.4 Estimated GFR > 60 Random Glucose 121 H (60-115) mg/dL Calcium 9.7 (8.4-10.2) mg/dL Magnesium 2.0 (1.6-2.6) mg/dL Total Bilirubin 0.5 (0.0-1.0) mg/dL Direct Bilirubin 0.2 (0.0-0.5) mg/dL AST 29 (5-31) U/L ALT 19 (0-31) U/L Alkaline Phosphatase 81 (39-117) U/L Troponin I High Sens < 2.7 (<3.5-17.0) ng/L C-Reactive Protein 0.20 (< or = 0.50) mg/dL Total Protein 7.0 (6.5-8.0) g/dL Albumin 4.1 (3.5-5.0) g/dL Urine Color Yellow Urine Appearance Clear Urine pH 6.5 (5.0-9.0) Ur Specific [place] <= 1.005 (1.005-1.025) Urine Protein Negative (Neg-Trace) mg/dL Urine Glucose (UA) Negative (Negative) mg/dL Urine Ketones Negative (Negative) mg/dL Urine Blood Negative (Negative) Urine Nitrite Negative (Negative) Ur Leukocyte Esterase Negative (Negative) Influenza Type A (PCR) NEGATIVE (Negative) Influenza Type B (PCR) NEGATIVE (Negative) RSV RNA Qual (PCR) NEGATIVE (Negative) SARS-CoV-2 RNA (RT-PCR) NEGATIVE (Negative) Independent Interpretation I performed an independent interpretation of an: EKG and Plain X-Ray (normal ) Interpretation: Rate: 72 Rhythm: NSR [place]: left Normal P waves. Normal [place]SH[place]. Normal QRS complex. ST T wave : poor r wave progression, no SOL, nonspecific ST T wave changes in ant leads qTC: 453 prior studies: no acute ischemia, chronic low voltage The study has been interpreted contemporaneously by me. . Radiology Impression Discussion of test interpretation with radiology: I have reviewed the radiologist's reading. Independent Historian Clinical information obtained from an independent historian. History obtained from or confirmed by: EMS External Record Review External record reviewed: Outpatient record Prescription Management I considered prescription management with: Other Discharge Plan Discharge Clinical Impression: Dizziness Patient Disposition: Home, Self-Care Instructions: Dizziness (ED) Additional Instructions: labs reassuring EKG normal chest xray normal vital signs normal when standing please rest and stay hydrated return for any worsening symptoms or concerns. we did try to order that new nebulizer medication but your insurance does not cover it. You may have to ask your primary care doctor. It works the same as albuterol but makes you less shaky Prescriptions: No Action amlodipine 5 mg tablet 5 mg PO BEDTIME Qty: 90 3RF albuterol sulfate 90 mcg/actuation HFA aerosol inhaler 2 puff inhalation Q4-6H PRN (Reason: shortness of breath or wheezing) Qty: 1 3RF multivitamin Tablet 1 tab PO DAILY vitamin B complex Tablet 1 tab PO DAILY cholecalciferol (vitamin D3) 25 mcg (1,000 unit) capsule 25 mcg PO DAILY (DME) Aerochamber Plus Z Stat Spacer See Rx Instructions .Route Qty: 1 0RF Rx Instructions: As directed atorvastatin 20 mg tablet 20 mg PO BEDTIME Qty: 90 3RF levalbuterol HCl 1.25 mg/3 mL solution for nebulization 1.25 mg inhalation Q4-6H PRN (Reason: shortness of breath or wheezing) Qty: 90 0RF doxycycline hyclate 100 mg capsule 100 mg PO BID Qty: 14 0RF prednisone 20 mg tablet 20 mg PO DAILY Qty: 5 0RF Print Language: Icelandic
[2024-07-04 13:06] VITALS: BP 148/60; BP 155/75; PULSE 80; PULSE 82; RESP 16; TEMP 36.7; O2SAT 97; O2SAT 98; BMI 25.4
[2024-07-04 13:17] VITALS: BP 148/75; PULSE 73
[2024-07-04 13:21] VITALS: BP 151/72; PULSE 72
[2024-07-04 13:26] VITALS: BP 155/75; PULSE 77
[2024-07-04 13:41] LABS: MANUAL DIFF FLAG NO
[2024-07-04 13:43] LABS: Basophils Absolute Auto 0.1 X10*3/uL (0.0-0.2); Basophils Percent Auto 0.8 % (0-2); Eosinophils Absolute Auto 0.1 X10*3/uL (0.0-0.4); Eosinophils Percent Auto 1.1 % (0-4); Hematocrit 40.3 % (37.0-47.0); Hemoglobin 13.8 g/dl (12.0-16.0); Imm Gran Abs Auto 0.02 X10*3/uL (0.00-0.03); Imm Gran Pct Auto 0.3 % (0.0-0.4); Lymphocytes Absolute Auto 1.1 X10*3/uL (1.2-4.9); Lymphocytes Percent Auto 14.2 % (20-40); Mean Corpuscular HGB Conc 34.2 g/dl (31.0-35.0); Mean Corpuscular Hemoglobin 31.5 pg (27.0-33.0); Mean Platelet Volume 10.1 fL (9.4-12.3); Monocytes Absolute Auto 0.5 X10*3/uL (0.1-1.2); Neutrophils Absolute Auto 6.1 x10*3/uL (2.0-8.3); Neutrophils Percent Auto 77.6 % (45-73); Platelet Count 227 X10*3/uL (160-400); Red Blood Count 4.38 X10*6/uL (4.20-5.50); Red Cell Distribution Width 11.9 % (11.0-16.0); White Blood Count 7.9 X10*3/uL (4.8-10.8)
[2024-07-04 13:46] LABS: Appearance Urine Clear; Color Urine Yellow; Glucose Urine UA Negative (Negative); Leukocyte Esterase Urine Negative (Negative); Nitrite Urine Negative (Negative); PH 6.5 (5.0-9.0); Specific Gravity - Urine <= 1.005 (1.005-1.025); Urine Blood Negative (Negative); Urine Ketones Negative (Negative); Urine Protein Negative (Neg-Trace)
[2024-07-04 13:48] LABS: VBG Base Excess 5.5 mmol/L; VBG HCO3 31 mmol/L (22-26); VBG pCO2 49 mmHg; VBG pO2 36 mmHg
[2024-07-04 13:51] LABS: Venous Blood Gas 7.401
[2024-07-04 14:00] VITALS: BP 144/72; PULSE 75; RESP 15; TEMP 36.8; O2SAT 98
[2024-07-04 14:02] LABS: Alanine Aminotransferase 19 U/L (0-31); Albumin Level 4.1 g/dL (3.5-5.0); Alkaline Phosphatase 81 U/L (39-117); Anion Gap 10 (12-20); Aspartate Amino Transferase 29 U/L (5-31); Bilirubin Direct 0.2 mg/dL (0.0-0.5); Bilirubin Total 0.5 mg/dL (0.0-1.0); Blood Urea Nitrogen 8 mg/dL (9-16); Calcium 9.7 mg/dL (8.4-10.2); Carbon Dioxide 27 mmol/L (22-29); Chloride 103 mmol/L (96-108); Creatinine Clr Calc Pharmacy 57.4; Estimated Glomerular Filt Rate > 60; Glucose Random 121 mg/dL (60-115); Potassium 4.2 mmol/L (3.3-5.1); Sodium 136 mmol/L (135-145)
[2024-07-04 14:11] LABS: Troponin-I High Sensitivity < 2.7 ng/L (<3.5-17.0)
[2024-07-04 14:20] LABS: Influenza A PCR NEGATIVE (Negative); Influenza B PCR NEGATIVE (Negative); Resp Syncy Virus RNA Qual PCR NEGATIVE (Negative); SARS COV2 PCR INHOUSE NEGATIVE (Negative)
[2024-07-04 16:48] VITALS: BP 142/56; PULSE 87; RESP 19; TEMP 36.8; O2SAT 96
--- OUTSIDE RECORDS SUMMARY | 2024-07-04 17:11 | XMS_ITS | Patient Health Record ---
Author Organization [facility] Address [address] [place] [id number] Care Team Providers Care Administrative Services Coordinator Name Role Phone Cassandra Weeks MD Primary [...] Problem Status W/U Status Risk Notes Problem [id number] Encounter for screening for malignant neoplasm of colon (Z12.11) Active confirmed Problem 384763289 Other postprocedural complications and disorders of digestive system (K91.89) Active confirmed Problem 555253708 Preprocedural examination (Z01.818) Active confirmed Problem 534042959 Aspirin long-ter m use (Z79.82) Active confirmed Plan Of Treatment Pending Test Test Name Order Date XR KUB 07/08/2020 Future Test Test Name Order Date COLONOSCOPY 12/22/2016 ERCP CHANGE OF STENT OR TUBE 07/08/2020 Insurance Providers Payer Name Payer Address Payer Phone Subscriber Number Group Number Insured Name Patient Relationship to Insured Coverage Start Date Coverage End Date [facility] [address] [place], [place] [id number] [phone] [id number] 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
== END 2024-07-04 16:54 | disposition home or self-care (01) ==
PROVIDERS: Emergency Provider Emergency Medicine; PCP Internal Medicine
DX: R42 Dizziness and giddiness (principal); R05.9 Cough, unspecified; R29.700 NIHSS score 0; Z03.818 Encounter for observation for suspected exposure to other biological agents ruled out; I10 Essential (primary) hypertension; E78.00 Pure hypercholesterolemia, unspecified; J45.909 Unspecified asthma, uncomplicated; Z87.891 Personal history of nicotine dependence; Z79.02 Long term (current) use of antithrombotics/antiplatelets; Z79.899 Other long term (current) drug therapy
CPT/HCPCS: 0241U; 36415; 71045; 80048; 80076; 81003; 82803; 83735; 84484; 85025; 86140; 93005; 99283; 99285

== ENCOUNTER → 2024-07-04 13:01 | Outpatient (BNV) | payer MEDICARE, SELFPAY | PROVIDERS: Emergency Provider Emergency Medicine; PCP Internal Medicine; Visit Provider Internal Medicine Cardiovascular Disease | DX: R42 Dizziness and giddiness (principal) | CPT/HCPCS: 93010 ==

== ENCOUNTER → 2024-07-04 13:01 | Outpatient (BNV) | payer MEDICARE, SELFPAY | PROVIDERS: Emergency Provider Emergency Medicine; PCP Internal Medicine; Visit Provider Radiology Diagnostic Radiology | DX: J84.9 Interstitial pulmonary disease, unspecified (principal) | CPT/HCPCS: 71045 ==

== ENCOUNTER 2024-07-09 07:36 | Outpatient (REF) | payer MEDICARE, SELFPAY ==
[2024-07-09 08:39] LABS: Appearance Urine Clear; Color Urine Yellow; Glucose Urine UA Negative (Negative); Leukocyte Esterase Urine Trace (Negative); Nitrite Urine Negative (Negative); PH 6.5 (5.0-9.0); UMIC TRIGGER UACC YES; Urine Blood Negative (Negative); Urine Ketones Negative (Negative); Urine Protein Negative (Neg-Trace)
[2024-07-09 08:42] LABS: Bacteria Urine None Seen (None Seen); Hyaline Casts Urine 0-2 /LPF (0-2); RBC Urine 0-2 /HPF (0-2); Squamous Epithelial Cell Urine 0-2 /HPF (0-2); WBC Urine 0-5 /HPF (0-5)
[2024-07-09 09:08] LABS: Alanine Aminotransferase 18 U/L (0-31); Albumin Level 4.1 g/dL (3.5-5.0); Alkaline Phosphatase 77 U/L (39-117); Anion Gap 13 (12-20); Aspartate Amino Transferase 27 U/L (5-31); Bilirubin Total 0.5 mg/dL (0.0-1.0); Blood Urea Nitrogen 10 mg/dL (9-16); Calcium 9.4 mg/dL (8.4-10.2); Carbon Dioxide 27 mmol/L (22-29); Chloride 104 mmol/L (96-108); Cholesterol 183 mg/dL (<200); Estimated Glomerular Filt Rate > 60; Glucose Random 112 mg/dL (60-115); HDL Cholesterol 57 mg/dL (>40); LDL Cholesterol Calculated 106 mg/dL (<100); Potassium 3.7 mmol/L (3.3-5.1); Sodium 140 mmol/L (135-145); Total Protein 7.1 g/dL (6.5-8.0); Triglycerides 100 mg/dL (<150)
[2024-07-09 09:27] LABS: Free T4 (Free Thyroxine) 1.05 ng/dL (0.71-1.85)
== END 2024-07-09 07:37 | disposition home or self-care (01) ==
LOC: HO.LAB 07:36
PROVIDERS: PCP Internal Medicine; Visit Provider Internal Medicine
DX: E78.00 Pure hypercholesterolemia, unspecified (principal); I47.10 Supraventricular tachycardia, unspecified
CPT/HCPCS: 36415; 80053; 80061; 81001; 84439; 84443

== ENCOUNTER 2024-07-18 10:56 | Outpatient (AMB) | payer MEDICARE, SELFPAY ==
[2024-07-18 11:00] VITALS: BP 136/60; PULSE 50; TEMP 36.2; O2SAT 98; BMI 26.2
--- NOTE | 2024-07-18 11:00 | A.OFFPC_ITS ---
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 Consumer Insights Required: No Accompanied by: Self / Same As Patient Allergies salmeterol [From Advair Diskus] Allergy (Intermediate, Verified 07/18/24 11:) Palpitations ARB-Angiotensin Receptor Antagonist [ANGIOTENSIN RECEPTOR ANTAGONIST] Allergy (Unknown, Verified 07/18/24 11:) ANAPHYLAXIS beclomethasone [QNASL] Allergy (Unknown, Verified 07/18/24 11:) blurred vision, headaches budesonide [Symbicort] Allergy (Unknown, Verified 07/18/24 11:) higher dose problem ciprofloxacin [Cipro] Allergy (Unknown, Verified 07/18/24 11:) Unknown codeine [Codeine] Allergy (Unknown, Verified 07/18/24 11:) UNKNOWN digestive enzymes combo no.8 [From Digestive Enzyme (acidoph,pec)] Allergy (Unknown, Verified 07/18/24 11:01) Unknown fluticasone [Flovent HFA] Allergy (Unknown, Verified 07/18/24 11:01) Unknown Lactobacillus acidophilus [From Digestive Enzyme (acidoph,pec)] Allergy (Unknown, Verified 07/18/24 11:01) Unknown lisinopril [LISINOPRIL] Allergy (Unknown, Verified 07/18/24 11:01) ANGIOEDEMA mometasone furoate [Dulera] Allergy (Unknown, Verified 07/18/24 11:01) Unknown nebivolol [Bystolic] Allergy (Unknown, Verified 07/18/24 11:01) Unknown olmesartan [Benicar] Allergy (Unknown, Verified 07/18/24 11:01) Unknown pectin [From Digestive Enzyme (acidoph,pec)] Allergy (Unknown, Verified 07/18/24 11:01) Unknown Sulfa (Sulfonamide Antibiotics) Allergy (Unknown, Verified 07/18/24 11:01) headache, shaking, freezing sensation, upset stomach methenamine Allergy (Verified 07/18/24 11:01) Unknown amoxicillin [From Augmentin] Adverse Reaction (Intermediate, Verified 07/18/24 11:01) abdominal pain clavulanic acid [From Augmentin] Adverse Reaction (Intermediate, Verified 07/18/24 11:01) abdominal pain diltiazem Adverse Reaction (Intermediate, Verified 07/18/24 11:01) NARVAEZ, Blurry vision, fatigue, decreased appetite formoterol [From Symbicort] Adverse Reaction (Intermediate, Verified 07/18/24 11:01) Dizziness umeclidinium [From Incruse Ellipta] Adverse Reaction (Intermediate, Verified 07/18/24 11:01) Palpitations verapamil Adverse Reaction (Intermediate, Verified 07/18/24 11:01) Blurry Vision loratadine [From Claritin] Adverse Reaction (Verified 07/18/24 11:01) Unknown nitrofurantoin Allergy (Severe, Uncoded 07/18/24 11:01) Blister estrodiol Allergy (Unknown, Uncoded 07/18/24 11:01) Unknown diltiazem Adverse Reaction (Intermediate, Uncoded 07/18/24 11:01) sleeping Medication List - Last Reconciled 07/18/24 by Cassandra Weeks MD albuterol sulfate 90 mcg/actuation 2 puffs inhalation Q4-6H PRN cholecalciferol (vitamin D3) 25 mcg PO DAILY inhalational spacing device (Aerochamber Plus Z Stat spacer) As directed levalbuterol HCl 1.25 mg (3 mL) inhalation Q4-6H PRN multivitamin 1 tab PO DAILY vitamin B complex 1 tab PO DAILY Tobacco use date assessed: 05/09/24 Fall risk assessment: No Falls in past year Last assessed Fall Risk: 07/18/24 Dental Screening Dental Screen Date: 07/18/24 Did you have a dental visit in the last 12 months?: No Did you have a dental problem in the last 6 months where you did not have access to dental care?: No Was dental information given to patient?: No (Pt have dentures.) COUNT INCLUDES THE [facility] Medical History (Updated 07/18/24 @ 11:44 by Cassandra Weeks MD) Asthma Tinnitus SVT (supraventricular tachycardia) Abnormal stress ECG with treadmill Coronary artery calcification seen on CT scan Hypertension Hypercholesterolemia Impaired glucose tolerance COPD (chronic obstructive pulmonary disease) Environmental and seasonal allergies Personal history of tobacco use GERD (gastroesophageal reflux disease) Constipation Recurrent UTI Dysuria Nocturia more than twice per night Impacted cerumen of both ears Anxiety Vitamin D deficiency History of COVID-19 Contact dermatitis Breast cancer screening by mammogram Surgical History History of colonoscopy History of cholecystectomy History of ERCP History of cataract surgery Family History Father Myocardial infarction Mother Hypertension Stroke Brother In good health Sister In good health Son In good health Daughter In good health Other Substance use disorder Social History Household Members: None Housing: House Do you presently have visiting nurse or other home services: No Alcohol intake: former Year quit: 2018 Patient Tobacco Use Status: Former Tobacco user Tobacco use type: Cigarette Cigarette Packs Per Day: 3 Years Smoked: 20 +/- quit 1989 e-Cigarette/Vaping Use: Never Used Second Hand Smoke Exposure: No service: No Current occupational status: previously employed and retired 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 Buster Gerber, Belkis Kumar, Skinny Singh and colleagues, with an educational tony from [employer]. Review of Systems Const Denies poor appetite and Denies weakness Eyes Denies no additional complaints ENT Reports Normal hearing present, Denies dizziness, Denies nasal congestion, Denies tinnitus and Denies sore throat Card Denies chest pain, Denies syncope, Denies rapid heart rate and Denies dyspnea Resp Denies cough and Denies dyspnea GI Denies change in stool character, Reports constipation, Denies diarrhea, Denies nausea and Denies vomiting Denies urinary frequency, Denies difficulty voiding and Denies dysuria Neuro Reports Normal hearing present, Denies confusion, Denies dizziness, Denies syncope and Denies weakness Psych Denies confusion Physical exam (Primary Care) Vital Signs: Last Vital Signs Temp 97.1 F 07/18/24 11:00 Pulse 50 07/18/24 11:00 BP 136/60 07/18/24 11:00 Pulse Ox 98 07/18/24 11:00 Oxygen Delivery Method Room Air 07/18/24 11:00 BMI result Body Mass Index 26.2 Tobacco/Smoking Status: Tobacco use Status Tobacco use date assessed 05/09/24 07/18/24 11:01 Patient Tobacco Use Status Former Tobacco user 07/18/24 11:01 Tobacco use type Cigarette 07/18/24 11:01 e-Cigarette/Vaping Use Never Used 07/18/24 11:01 Thrive Assessment: Date of Thrive Assessment Date Thrive assessed 07/14/23 07/18/24 11:01 Const General: No confusion Orientation/consciousness: No confusion HENMT Head: Yes normocephalic Ears: external ears normal and TM's normal bilaterally Face and sinus: Yes normal facial exam Mouth: moist mucous membranes Throat: Yes tonsils normal Eyes Conjunctivae: conjunctivae normal Pupils: Equal, round and reactive pupils present and Pupil accommodation reflex normal Direct Ophthalmoscopy: normal light reflex Neck Neck: No lymphadenopathy Thyroid: Thyroid normal Chest Chest palpation & inspection: normal inspection of the chest Resp Effort & Inspection: normal respiratory effort and no audible wheezes Auscultation: clear to auscultation bilaterally, no crackles, no wheezes and lung sounds not diminished Cardio Rate: regular rate Rhythm: regular rhythm Peripheral pulses: radial pulses present and dorsalis pedis present GI Palpation (GI): no masses Auscultation: normal bowel sounds and normoactive bowel sounds Rectal Exam - Female: deferred Skin General skin exam: no rashes or lesions noted Rashes: no rashes Neuro General: No confusion Cranial nerves: Yes Equal, round and reactive pupils present and Yes Normal hearing present Cognition (Neuro): normal cognition Gait exam (Neuro): Normal gait present Motor exam (neuro): 5/5 motor strength present throughout Deep tendon reflexes (DTR's): Right brachioradialis reflex intensity grade: 2+, Left brachioradialis reflex intensity grade: 2+, Right patellar reflex intensity grade: 2+ and Left patellar reflex intensity grade: 2+ Extrem General: No edema Coding Level of Care Code Est Pt Prev Care >65y(24283) Diagnoses Annual physical exam Z00.00 Coronary artery calcification seen on CT scan I25.10 Primary hypertension I10 Hypertension type: primary hypertension Hypercholesterolemia E78.00 Impaired glucose tolerance R73.02 Pulmonary emphysema, unspecified emphysema type J43.9 COPD type: emphysema Emphysema type: unspecified Gastroesophageal reflux disease without esophagitis K21.9 Esophagitis presence: without esophagitis Assessment & Plan Assessment & Plan (1) Annual physical exam: Code(s): Z00.00 - Encounter for general adult medical examination without abnormal findings Category: Medical Plan: Patient is advised to eat healthy, keep well hydrated, keep active and have adequate sleep. (2) Coronary artery calcification seen on CT scan: Comment: (Moderate to severe coronary artery calcification on 01/14/[address]) Code(s): I25.10 - Atherosclerotic heart disease of [place] coronary artery without angina pectoris Category: Medical Plan: Patient has seen Cardiology and was advised aspirin and cholesterol-lowering drugs. LDL goal of less than 70. Patient has declined aspirin (3) Hypertension: Code(s): I10 - Essential (primary) hypertension Category: Medical Qualifiers: Hypertension type: primary hypertension Qualified Code(s): I10 - Essential (primary) hypertension Plan: Continue with blood pressure medication. Decrease salt intake and exercise patient on amlodipine 5 mg once a day (4) Hypercholesterolemia: Code(s): E78.00 - Pure hypercholesterolemia, unspecified Category: Medical Plan: Avoid fried foods, chicken skin, eggs, butter margarine, pastries and meat. Be it pork or beef they have a lot of cholesterol LDL goal of less than 70 and triglyceride of less than 150. Patient on atorvastatin 20 mg at bedtime (5) Impaired glucose tolerance: Code(s): R73.02 - Impaired glucose tolerance (oral) Category: Medical Plan: Decrease the amount of carbohydrate intake, pasta, bread, rice and potatoes are all sugar and that is aside from all the sweet stuff, remember that fruits are good but they are Sweet also. (6) COPD (chronic obstructive pulmonary disease): Code(s): J44.9 - Chronic obstructive pulmonary disease, unspecified Category: Medical Qualifiers: COPD type: emphysema Emphysema type: unspecified Qualified Code(s): J43.9 - Emphysema, unspecified Plan: Continue with albuterol inhaler and has been recommended the controller. QVAR (7) GERD (gastroesophageal reflux disease): Code(s): K21.9 - Gastro-esophageal reflux disease without esophagitis Category: Medical Qualifiers: Esophagitis presence: without esophagitis Qualified Code(s): K21.9 - Gastro-esophageal reflux disease without esophagitis Plan: Avoid the foods that causes that usually spicy foods, tomato products, juices, coffee, soda and foods that your sensitive to. After eating do not lie down, allow 3-4 hours before in lie down. And keep the head of bed above 30 degrees to avoid the acid from going up. Plan History of Present Illness The patient is a 73-year-old female presenting for an annual physical exam and wellness visit. She maintains a complex medical history of GERD, COPD, hypertension, hypercholesterolemia, and coronary artery disease. Recent symptoms include dizziness attributed to benign positional vertigo, exacerbated by low blood pressure readings. Her antihypertensive regimen includes amlodipine 5 mg daily, which may be contributing to her symptomatic dizziness and has thus been considered for adjustment. Cholesterol management with atorvastatin 20 mg has shown limited success in lowering LDL to target levels. The patient reports associated myalgia and considering alternative lipid-lowering options due to adverse side effects on the current regime. Aside from these chronic conditions, her ongoing management includes osteoporosis, for which she is monitored with regular bone density tests. Ultimately, integrated management of her chronic conditions, adjustments to medication regimens, and lifestyle counseling remain pivotal aspects of today's wellness checkup. Health Maintenance - Cardiovascular health with a focus on lowering LDL to below 70. - Recent bone density review conducted in July 2023 for osteoporosis monitoring. - Latest mammogram in May 2024. - Colonoscopy last done in 2016 with no current note of abnormalities. - Advised adequate hydration but recommended limiting evening fluid intake. - Blood sugar management emphasized with dietary restrictions on sugary foods. Social History - Former smoker, abstained for several years. - No use of alcohol or recreational drugs. - Routine daily physical activity restricted by current vertigo symptoms. - Recent dietary habits include intake of sugary foods notably ice cream despite recent elevated blood sugar levels. Review of Systems - Cardiovascular: Reports palpitations and has experienced panic attacks. - Respiratory: Denies shortness of breath but reports using albuterol inhaler frequently due to asthma/COPD. - Gastrointestinal: Reports GERD, denies nausea or vomiting; states feeling of phlegm in throat but denies dysphagia. - Neurological: Reports dizziness and occasional lightheadedness. - Musculoskeletal: Reports increased myalgia with atorvastatin. - Endocrine: Reports dry throat, managing blood sugar levels with awareness of recent fluctuations. - Genitourinary: Reports frequent urination at night. - Ophthalmologic: Recent minor hearing obstruction noted, increased floaters in vision. Physical Exam General: Cooperative, overweight, healthy appearing, comfortable, no acute distress and well developed Orientation: Patient oriented x3 Limitations: No limitations Head: Normal to inspection Ears: Hearing slightly impaired in the right ear, recent hearing test showed a little blockage but not enough to affect hearing significantly Nose: Normal external nose present Face and sinus: Normal facial exam Eyes: Appearance normal, both eyes and all related structures, no pain noted, small tear mentioned but not concerning Neck: Normal visual inspection and Yes full ROM Respiratory: Normal respiratory effort and able to speak in complete sentences. Clear to auscultation bilaterally Cardiovascular: Regular rate and rhythm. Normal S1 and S2 GI: Normal to inspection. Soft to palpation and nontender Skin: No rashes or lesions noted Neuro: Patient oriented x3, reports lightheadedness with quick movements, possibly related to blood pressure medication Extremities: Normal to inspection, no pain noted during examination Results - Labs: Recent lipid panel shows LDL at 106; blood sugar at 112, indicated mild elevation. - Echocardiogram (June 2024): Hyperdynamic left ventricular ejection fraction of 70%, severe mitral and aortic calcification with mild mitral regurgitation. - Previous Holter monitor (2021) indicated normal sinus rhythm with frequent supraventricular tachycardia. Plan The current plan includes adjusting her hypercholesterolemia management from atorvastatin to rosuvastatin to address intolerance concerns while preserving cardiovascular health, with a follow-up test scheduled. We are discontinuing amlodipine to evaluate its contribution to her dizziness, monitoring her blood pressure closely. Asthma and COPD management continue with the albuterol inhaler, requiring pulmonary follow-up, while lifestyle recommendations focus on dietary management for elevated blood sugar and modified drinking habits to address nocturia. The management strategy integrates these chronic issues alongside promoting general wellness. Patient was informed and verbally consented to the use of an ambient scribe for clinic note documentation during this visit. Discussion Notes I discussed the need to manage her LDL cholesterol levels aggressively, given her existing coronary artery disease, and the switch from atorvastatin to rosuvastatin to mitigate muscle pain was agreed upon; a follow-up lipid profile is planned. We explored options for managing her hypertension and dizziness, electing to temporarily discontinue amlodipine and closely monitor her response. The discussion also covered the importance of reducing nocturnal fluid intake to improve sleep quality and addressing elevated glucose levels through dietary changes. Further input from her delivery table feeder is needed to optimize asthma/COPD control with controller medications. We planned follow-up visits to reassess her ongoing and new interventions. Patient Instructions - Stop taking amlodipine and monitor your blood pressure regularly. - Start rosuvastatin 5 mg as prescribed; follow-up lipid tests in three months. - Limit fluids in the evening to improve sleep. - Continue using your albuterol inhaler as needed, but consult your delivery table feeder. - Monitor sugar intake, avoid sugary foods like ice cream. - Report any new or worsening symptoms or side effects. - Continue with current health maintenance screenings and follow-ups. - Practice caution with changes in posture to reduce dizziness. Orders: Orders Comprehensive Met. Panel 3 Months E78.00 - Pure hypercholesterolemia, unspecified Lipid Panel 3 Months E78.00 - Pure hypercholesterolemia, unspecified Medications: New rosuvastatin 5 mg PO DAILY 30 tabs 3RF E78.00 - Pure hypercholesterolemia, unspecified Discontinued amlodipine Discontinued Reason: Doctor's Order 5 mg PO BEDTIME 90 tabs 3RF
== END 2024-07-18 12:12 | disposition home or self-care (01) ==
LOC: HO.HMCH 10:57
PROVIDERS: PCP Internal Medicine; Visit Provider Internal Medicine
DX: Z00.00 Encounter for general adult medical examination without abnormal findings (principal); J43.9 Emphysema, unspecified; I25.10 Atherosclerotic heart disease of native coronary artery without angina pectoris; I10 Essential (primary) hypertension; E78.00 Pure hypercholesterolemia, unspecified; R73.02 Impaired glucose tolerance (oral); K21.9 Gastro-esophageal reflux disease without esophagitis

== ENCOUNTER → 2024-07-18 10:56 | Outpatient (BNVA) | payer MEDICARE, SELFPAY | PROVIDERS: PCP Internal Medicine; Visit Provider Internal Medicine | DX: Z00.01 Encounter for general adult medical examination with abnormal findings (principal); I25.10 Atherosclerotic heart disease of native coronary artery without angina pectoris; I10 Essential (primary) hypertension; E78.00 Pure hypercholesterolemia, unspecified; R73.02 Impaired glucose tolerance (oral); J43.9 Emphysema, unspecified; K21.9 Gastro-esophageal reflux disease without esophagitis; Z87.891 Personal history of nicotine dependence | CPT/HCPCS: 99397 ==

== ENCOUNTER 2024-08-03 09:25 | Outpatient (AMB) | payer MEDICARE, SELFPAY ==
--- NOTE | 2024-08-03 09:37 | A.OFFVIS_ITS ---
Vital Signs 08/03/24 09:40 Height 5 ft 1 in Weight 138 lb 2 oz BMI 26.1 BP 134/66 Blood Pressure Location Rt brachial Position Sitting Pulse 80 Pulse Source Pulse Oximeter Pulse Oximetry (%) 94 Oxygen Delivery Method Room Air Intake Visit Reasons: COPD Allergies salmeterol [From Advair Diskus] Allergy (Intermediate, Verified 08/03/24 09:44) Palpitations ARB-Angiotensin Receptor Antagonist [ANGIOTENSIN RECEPTOR ANTAGONIST] Allergy (Unknown, Verified 08/03/24:44) ANAPHYLAXIS beclomethasone [QNASL] Allergy (Unknown, Verified 08/03/24 09:44) blurred vision, headaches budesonide [Symbicort] Allergy (Unknown, Verified 08/03/24:44) higher dose problem ciprofloxacin [Cipro] Allergy (Unknown, Verified 08/03/24:44) Unknown codeine [Codeine] Allergy (Unknown, Verified 08/03/24:44) UNKNOWN digestive enzymes combo no.8 [From Digestive Enzyme (acidoph,pec)] Allergy (Unknown, Verified 08/03/24:44) Unknown fluticasone [Flovent HFA] Allergy (Unknown, Verified 08/03/24 09:44) Unknown Lactobacillus acidophilus [From Digestive Enzyme (acidoph,pec)] Allergy (Unknown, Verified 08/03/24:44) Unknown lisinopril [LISINOPRIL] Allergy (Unknown, Verified 08/03/24:44) ANGIOEDEMA mometasone furoate [Dulera] Allergy (Unknown, Verified 08/03/24:44) Unknown nebivolol [Bystolic] Allergy (Unknown, Verified 08/03/24:44) Unknown olmesartan [Benicar] Allergy (Unknown, Verified 08/03/24 09:44) Unknown pectin [From Digestive Enzyme (acidoph,pec)] Allergy (Unknown, Verified 08/03/24:44) Unknown Sulfa (Sulfonamide Antibiotics) Allergy (Unknown, Verified 08/03/24:44) headache, shaking, freezing sensation, upset stomach methenamine Allergy (Verified 08/03/24 09:44) Unknown amoxicillin [From Augmentin] Adverse Reaction (Intermediate, Verified 08/03/24 0 9:44) abdominal pain clavulanic acid [From Augmentin] Adverse Reaction (Intermediate, Verified 08/03/24 09:44) abdominal pain diltiazem Adverse Reaction (Intermediate, Verified 08/03/24 09:44) NARVAEZ, Blurry vision, fatigue, decreased appetite formoterol [From Symbicort] Adverse Reaction (Intermediate, Verified 08/03/24 09:44) Dizziness rosuvastatin Adverse Reaction (Intermediate, Unverified 08/03/24 09:44) joint pains umeclidinium [From Incruse Ellipta] Adverse Reaction (Intermediate, Verified 08/03/24 09:44) Palpitations verapamil Adverse Reaction (Intermediate, Verified 08/03/24 09:44) Blurry Vision loratadine [From Claritin] Adverse Reaction (Verified 08/03/24 09:44) Unknown nitrofurantoin Allergy (Severe, Uncoded 08/03/24:44) Blister estrodiol Allergy (Unknown, Uncoded 08/03/24 09:44) Unknown diltiazem Adverse Reaction (Intermediate, Uncoded 08/03/24 09:44) sleeping HPI HPI COPD: Details: Eric is a pleasant 73 year old female, former smoker with 60 pack year history, quit over 30 years ago, with underlying COPD and SVT. She was previously well controlled for 20+ years on Symbicort but developed adverse reaction and discontinued. She has trialed multiple inhalers resulting in adverse effects including Dulera, Incruse, Stiolto, Anoro, Advair, Alvesco and albuterol. Side effects include tremors, tachycardia, blurred vision, headaches and dizziness. She continues with symptoms of dyspnea and chest tightness. She can tolerate levalbuterol nebulizer however uses infrequently as she develops significant tremors, now insurance no longer covering. She denies any visits to urgent care or hospitalizations since the last visit related to respiratory distress. She continues to receive receiving allergen immunotherapy, unsure of effectiveness. At the last visit she reported increased productive cough and chest congestion, treated with doxycycline and prednisone, denies chest congestion at this time, mucous now white. Unfortunately, Eric reports suboptimal control of respiratory symptoms with levalbuterol nebulizer however has been unable to tolerate multiple inhalers. We have attempted to send in multiple inhalers all which result in an adverse effect however all the symptoms she reports with inhaler use are symptoms she has on a frequent basis including dizziness and palpitations. She has been under the care of cardiology however per last visit, does not want to trial any rate controlling medications, recent echo revealed severe mitral calcifications and has upcoming appt to further discuss with cardiology. She will also be evaluated by neurology for persistent dizziness. PCP also discontinued antihypertensives to see if this will improve frequency of dizziness. She continues to report dyspnea on exertion, wheezing and intermittent dry cough. She has been without levalbuterol neb and previously could tolerate albuterol MDI intermittently but has since developed hypertension and increased tremors with use. [facility] Medical History (Updated 07/18/24 @ 11:44 by Cassandra Weeks MD) Asthma Tinnitus SVT (supraventricular tachycardia) Abnormal stress ECG with treadmill Coronary artery calcification seen on CT scan Hypertension Hypercholesterolemia Impaired glucose tolerance COPD (chronic obstructive pulmonary disease) Environmental and seasonal allergies Personal history of tobacco use GERD (gastroesophageal reflux disease) Constipation Recurrent UTI Dysuria Nocturia more than twice per night Impacted cerumen of both ears Anxiety Vitamin D deficiency History of COVID-19 Contact dermatitis Breast cancer screening by mammogram Surgical History History of colonoscopy History of cholecystectomy History of ERCP History of cataract surgery Family History Father Myocardial infarction Mother Hypertension Stroke Brother In good health Sister In good health Son In good health Daughter In good health Other Substance use disorder Social History Household Members: None Housing: House Do you presently have visiting nurse or other home services: No Alcohol intake: former Year quit: 2018 Patient Tobacco Use Status: Former Tobacco user Tobacco use type: Cigarette Cigarette Packs Per Day: 3 Years Smoked: 20 +/- quit 1989 e-Cigarette/Vaping Use: Never Used Second Hand Smoke Exposure: No service: No Current occupational status: previously employed and retired 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 Cognitive needs: No Hearing needs: No Vision needs: Yes Female Reproductive History Menstrual Age of Menarche: 12 Review of Systems Const Denies chills, Denies excessive sweating, Denies fever(s) and Denies night sweats Eyes Denies dry eyes, Denies irritation and Reports itchy eyes ENT Reports Normal hearing present, Reports nasal congestion, Reports nasal discharge and Denies sore throat Card Denies chest pain, Denies chest pain at rest, Denies chest pain with activity, Denies claudication, Denies leg edema, Reports dyspnea on exertion, Denies orthopnea and Denies paroxysmal nocturnal dyspnea Resp Denies chest congestion, Denies hemoptysis, Denies excessive phlegm production, Denies pain on inspiration, Denies pain with cough, Reports dyspnea on exertion and Denies stridor Musc Denies myalgias Neuro Reports Normal hearing present Endo Denies excessive sweating Darian/Lymph Denies lymphadenopathy Aller/Immun Reports itchy eyes and Denies seasonal rhinorrhea Physical Exam Vital Signs: Last Vital Signs Pulse 80 08/03/24 09:40 BP 134/66 08/03/24 09:40 Pulse Ox 94 08/03/24 09:40 Oxygen Delivery Method Room Air 08/03/24 09:40 BMI result Body Mass Index 26.1 Const General: cooperative, healthy appearing, comfortable, no acute distress, well developed and alert Orientation/consciousness: patient oriented x3 Limitations: no limitations HEENT Head: Yes normal to inspection, Yes normocephalic and Yes atraumatic Ears: hearing grossly normal bilaterally and external ears normal Eyes General: appearance normal, both eyes and all related structures Eyelids: Yes eyelids normal Sclerae: sclerae normal EOM: EOMs intact bilaterally Neck Neck: Yes normal visual inspection and Yes no lymphadenopathy Lymphatic: no lymphadenopathy noted Chest Chest palpation & inspection: normal inspection of the chest Resp Effort & Inspection: normal respiratory effort, able to speak in complete sentences, no audible wheezes, Actively coughing, no stridor, not tachypneic, no tripod positioning and no use of accessory muscles Auscultation: diminished lung sounds Cardio Jugular venous distension: no JVD Rate: regular rate Rhythm: abnormal rhythm Skin Other: warm, dry General skin exam: no rashes or lesions noted Neuro General: patient oriented x3 Cranial nerves: Yes Normal hearing present Cognition (Neuro): normal cognition Gait exam (Neuro): Normal gait present Extrem General: Yes normal to inspection, Yes capillary refill normal, Yes no clubbing, cyanosis or edema and Yes no pedal edema Psych Appearance: grossly normal and well kempt Speech and movement: Normal speech and movement present and Clear speech present Affect: normal affect Attitude: cooperative Thought process: Normal thought process present Thought content: Normal thought content present Insight: Good insight present (Psych) Judgement: Good judgement present (Psych) Assessment & Plan Assessment & Plan (1) COPD (chronic obstructive pulmonary disease): Code(s): J44.9 - Chronic obstructive pulmonary disease, unspecified Category: Medical Qualifiers: COPD type: emphysema Emphysema type: unspecified Qualified Code(s): J43.9 - Emphysema, unspecified (2) Environmental and seasonal allergies: Code(s): J30.89 - Other allergic rhinitis Category: Medical (3) Pulmonary nodules: Comment: November 2023 Code(s): R91.8 - Other nonspecific abnormal finding of lung field Category: Medical Plan Unfortunately, patient has trialed multiple inhalers, all resulting in side effects and can not tolerate. She has been able to tolerate levalbuterol in the past as it is the only medication that does not result in significant tremors, tachycardia, tremors or hypertension. Will attempt to send in levalbuterol MDI and neb due to h/o SVT and unable to tolerate albuterol. She is aware there may be issues obtaining due to insurance coverage and was given [employer] coupons in office. She is aware to call if symptoms change. All questions were answered and patient is in agreement of plan. Will follow up in 3 months or sooner if needed. Medications: New levalbuterol tartrate 45 mcg/actuation 1 puff inhalation Q4-6H PRN 15 grams 3RF shortness of breath Refilled levalbuterol HCl 1.25 mg (3 mL) inhalation Q4-6H PRN 75 mL 3RF shortness of breath or wheezing J44.9 - Chronic obstructive pulmonary disease, unspecified, J45.20 - Mild intermittent asthma, uncomplicated Coding Level of Care Code Est Pt Level 4 (88609) Diagnoses Pulmonary emphysema, unspecified emphysema type J43.9 COPD type: emphysema Emphysema type: unspecified Environmental and seasonal allergies J30.89 Pulmonary nodules R91.8
[2024-08-03 09:40] VITALS: BP 134/66; PULSE 80; O2SAT 94; BMI 26.1
--- OUTSIDE RECORDS SUMMARY | 2024-08-03 09:43 | XMS_ITS | Patient Health Record ---
Author Organization [facility] Address [address] [place] [id number] Care Team Providers Care Academic Department Chair Name Role Phone Cassandra Weeks MD Primary Care Provider Jesse Shannon Jr Unavailable [phone] Ayden Chawla Unavailable Unavailable Allergies Allergen (clinical [...] Problem Status W/U Status Risk Notes Problem 145331470 Encounter for screening for malignant neoplasm of colon (Z12.11) Active confirmed Problem [id number] Other postprocedural complications and disorders of digestive system (K91.89) Active confirmed Problem [id number] Preprocedural examination (Z01.818) Active confirmed Problem 425242491 Aspirin long-ter m use (Z79.82) Active confirmed Plan Of Treatment Pending Test Test Name Order Date XR KUB 07/08/2020 Future Test Test Name Order Date COLONOSCOPY 12/22/2016 ERCP CHANGE OF STENT OR TUBE 07/08/2020 Insurance Providers Payer Name Payer Address Payer Phone Subscriber Number Group Number Insured Name Patient Relationship to Insured Coverage Start Date Coverage End Date [facility] [address] [place], [place] 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
== END 2024-08-03 10:18 | disposition home or self-care (01) ==
LOC: HO.HPSW 09:30
PROVIDERS: PCP Internal Medicine; Visit Provider Nurse Practitioner Family
DX: J43.9 Emphysema, unspecified (principal); J30.89 Other allergic rhinitis; R91.8 Other nonspecific abnormal finding of lung field
CPT/HCPCS: 99214

== ENCOUNTER → 2024-08-03 09:25 | Outpatient (BNVA) | payer MEDICARE, SELFPAY | PROVIDERS: PCP Internal Medicine; Visit Provider Nurse Practitioner Family | DX: J43.9 Emphysema, unspecified (principal); J45.20 Mild intermittent asthma, uncomplicated; J30.89 Other allergic rhinitis; R91.8 Other nonspecific abnormal finding of lung field; Z87.891 Personal history of nicotine dependence; Z79.899 Other long term (current) drug therapy | CPT/HCPCS: 99212 ==

== ENCOUNTER 2024-09-12 08:31 | Outpatient (AMB) | payer MEDICARE, SELFPAY ==
--- OUTSIDE RECORDS SUMMARY | 2024-09-12 08:49 | XMS_ITS | Patient Health Record ---
Author Organization [facility] Address [address] [place] [id number] Care Team Providers Care Tourism Radio Presenter Name Role Phone Cassandra Weeks MD Primary Care Provider Jesse Shannon Jr Unavailable [phone] Ayden Chawla Unavailable Unavailable Allergies Allergen (clinical [...] Problem Status W/U Status Risk Notes Problem [id number] Encounter for screening for malignant neoplasm of colon (Z12.11) Active confirmed Problem 392850510 Other postprocedural complications and disorders of digestive system (K91.89) Active confirmed Problem 096998898 Preprocedural examination (Z01.818) Active confirmed Problem 583656986 Aspirin long-ter m use (Z79.82) Active confirmed Plan Of Treatment Pending Test Test Name Order Date XR KUB 07/08/2020 Future Test Test Name Order Date COLONOSCOPY 12/22/2016 ERCP CHANGE OF STENT OR TUBE 07/08/2020 Insurance Providers Payer Name Payer Address Payer Phone Subscriber Number Group Number Insured Name Patient Relationship to Insured Coverage Start Date Coverage End Date [facility] [address] [place], [place] [id number] [phone] [id number] 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
[2024-09-12 08:59] VITALS: BP 120/68; PULSE 73; O2SAT 96; BMI 26.3
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
== END 2024-09-12 10:32 | disposition home or self-care (01) ==
LOC: HO.HSMS 08:32
PROVIDERS: PCP Internal Medicine; Visit Provider Nurse Practitioner Family
DX: R42 Dizziness and giddiness (principal); R51.9 Headache, unspecified; R25.1 Tremor, unspecified
CPT/HCPCS: 99204

== ENCOUNTER → 2024-09-12 08:31 | Outpatient (BNVA) | payer MEDICARE, SELFPAY | PROVIDERS: PCP Internal Medicine; Visit Provider Nurse Practitioner Family | DX: R42 Dizziness and giddiness (principal); R25.1 Tremor, unspecified; R51.9 Headache, unspecified | CPT/HCPCS: 99202 ==

== ENCOUNTER 2024-09-17 08:36 | Outpatient (AMB) | payer MEDICARE, SELFPAY ==
--- OUTSIDE RECORDS SUMMARY | 2024-09-17 08:48 | XMS_ITS | Patient Health Record ---
Author Organization [facility] Address [address] [place] [id number] Care Team Providers Care Nuclear Fuel Enrichment Technician Name Role Phone Cassandra Weeks MD [...] Problem Status W/U Status Risk Notes Problem [id number] Encounter for screening for malignant neoplasm of colon (Z12.11) Active confirmed Problem [id number] Other postprocedural complications and disorders of digestive system (K91.89) Active confirmed Problem [id number] Preprocedural examination (Z01.818) Active confirmed Problem [id number] Aspirin long-ter m use (Z79.82) Active confirmed Plan Of Treatment Pending Test Test Name Order Date XR KUB 07/08/2020 Future Test Test Name Order Date COLONOSCOPY 12/22/2016 ERCP CHANGE OF STENT OR TUBE 07/08/2020 Insurance Providers Payer Name Payer Address Payer Phone Subscriber Number Group Number Insured Name Patient Relationship to Insured Coverage Start Date Coverage End Date [facility] [address] [place], [place] [id number] 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
[2024-09-17 09:32] VITALS: BP 182/78; PULSE 68; BMI 25.7
--- NOTE | 2024-09-17 09:32 | MHC.OFFVIS ---
Vital Signs 09/17/24 09:32 09/17/24 09:37 09/17/24 09:37 Height 5 ft 1 in Weight 136 lb 3.931 oz BMI 25.7 BP 182/78 H 183/70 H 162/70 H Blood Pressure Location Lt brachial Lt brachial Rt brachial Position Sitting Standing Supine Pulse 68 68 70 Pulse Source Pulse Oximeter Pulse Oximeter Intake Visit Reasons: f/u pt req sooner appt Sand Buffer Required: No Allergies salmeterol (From Advair Diskus) Allergy (Intermediate, Verified 09/17/24 09:48) Palpitations ARB-Angiotensin Receptor Antagonist (ANGIOTENSIN RECEPTOR ANTAGONIST) Allergy (Unknown, Verified 09/17/24 09:48) ANAPHYLAXIS beclomethasone (QNASL) Allergy (Unknown, Verified 09/17/24 09:48) blurred vision, headaches budesonide (Symbicort) Allergy (Unknown, Verified 09/17/24 09:48) higher dose problem ciprofloxacin (Cipro) Allergy (Unknown, Verified 09/17/24 09:48) Unknown codeine (Codeine) Allergy (Unknown, Verified 09/17/24 09:48) UNKNOWN digestive enzymes combination no.8 (From Digestive Enzyme (acidoph,pec)) Allergy (Unknown, Verified 09/17/24 09:48) Unknown fluticasone (Flovent HFA) Allergy (Unknown, Verified 09/17/24 09:48) Unknown Lactobacillus acidophilus (From Digestive Enzyme (acidoph,pec)) Allergy (Unknown, Verified 09/17/24 09:48) Unknown lisinopril (LISINOPRIL) Allergy (Unknown, Verified 09/17/24 09:48) ANGIOEDEMA mometasone furoate (Dulera) Allergy (Unknown, Verified 09/17/24 09:48) Unknown nebivolol (Bystolic) Allergy (Unknown, Verified 09/17/24 09:48) Unknown olmesartan (Benicar) Allergy (Unknown, Verified 09/17/24 09:48) Unknown pectin (From Digestive Enzyme (acidoph,pec)) Allergy (Unknown, Verified 09/17/24 09:48) Unknown Sulfa (Sulfonamide Antibiotics) Allergy (Unknown, Verified 09/17/24 09:48) headache, shaking, freezing sensation, upset stomach methenamine Allergy (Verified 09/17/24 09:48) Unknown amoxicillin (From Augmentin) Adverse Reaction (Intermediate, Verified 09/17/24 09:48) abdominal pain clavulanic acid (From Augmentin) Adverse Reaction (Intermediate, Verified 09/17/24 09:48) abdominal pain diltiazem Adverse Reaction (Intermediate, Verified 09/17/24 09:48) NARVAEZ, Blurry vision, fatigue, decreased appetite formoterol (From Symbicort) Adverse Reaction (Intermediate, Verified 09/17/24 09:48) Dizziness rosuvastatin Adverse Reaction (Intermediate, Verified 09/17/24 09:48) joint pains umeclidinium (From Incruse Ellipta) Adverse Reaction (Intermediate, Verified 09/17/24 09:48) Palpitations verapamil Adverse Reaction (Intermediate, Verified 09/17/24 09:48) Blurry Vision loratadine (From Claritin) Adverse Reaction (Verified 09/17/24 09:48) Unknown nitrofurantoin Allergy (Severe, Uncoded 09/17/24 09:48) Blister estrodiol Allergy (Unknown, Uncoded 09/17/24 09:48) Unknown diltiazem Adverse Reaction (Intermediate, Uncoded 09/17/24 09:48) sleeping HPI HPI f/u pt req sooner appt: Details: Eric is a 73 yo female with PMH of HTN, HLD, impaired fasting glucose, asthma, SVT, PACs who presents for followup. Today she reports that she is concerned about her shortness of breath and her blood pressure readings. She tells me that her home blood pressures have been ranging 90s to low 100s systolic and she brings a log. She has not had lightheadedness, presyncope, syncope or falls. She has some shortness of breath with activity, no recent worsening. She wonders if her heart is contributing to this symptom. She says her hands and feet are cold and she is asking if she is getting good blood flow through her body. She does feel some heart palpitations at times. It is not her primary concern today. No chest discomfort at rest or with activity. No PND, orthopnea or edema. She has been mostly sedentary. Taking all meds as directed. She is not interested taking any new medications at this time. [facility] Medical History (Updated 09/17/24 @ 12:09 by Licha Stucenski, ENGRAVER PICTURE) Asthma Tinnitus SVT (supraventricular tachycardia) Abnormal stress ECG with treadmill Coronary artery calcification seen on CT scan Hypertension Hypercholesterolemia Impaired glucose tolerance COPD (chronic obstructive pulmonary disease) Environmental and seasonal allergies Personal history of tobacco use GERD (gastroesophageal reflux disease) Constipation Recurrent UTI Dysuria Nocturia more than twice per night Impacted cerumen of both ears Anxiety Vitamin D deficiency History of COVID-19 Contact dermatitis Breast cancer screening by mammogram Surgical History History of colonoscopy History of cholecystectomy History of ERCP History of cataract surgery Family History Father Myocardial infarction Mother Hypertension Stroke Brother In good health Sister In good health Son In good health Daughter In good health Other Substance use disorder Social History Household Members: None Housing: House Do you presently have visiting nurse or other home services: No Alcohol intake: former Year quit: 2018 Patient Tobacco Use Status: Former Tobacco user Tobacco use type: Cigarette Cigarette Packs Per Day: 3 Years Smoked: 20 +/- quit 1989 e-Cigarette/Vaping Use: Never Used Second Hand Smoke Exposure: No service: No Current occupational status: previously employed and retired 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 Cognitive needs: No Hearing needs: No Vision needs: Yes Female Reproductive History Menstrual Age of Menarche: 12 Review of Systems ENT Reports dizziness Card Denies chest pain, Denies chest pain at rest, Denies chest pain with activity, Denies rapid heart rate, Denies pedal edema, Denies edema, Denies leg edema, Denies lightheadedness, Denies palpitations, Denies dyspnea, Denies dyspnea on exertion and Denies orthopnea Resp Denies cough, Denies dyspnea and Denies dyspnea on exertion GI Denies hematochezia and Denies change in stool character Musc Denies abnormal gait, Reports limited range of motion, Reports muscle cramps, Denies muscle weakness, Denies numbness, Denies radiating pain into limb, Denies stiffness and Denies tingling Neuro Denies abnormal gait, Reports dizziness, Denies numbness and Denies tingling Endo Denies palpitations Physical Exam Vital Signs: Last Vital Signs Pulse 70 09/17/24 09:37 BP 162/70 H 09/17/24 09:37 BMI result Body Mass Index 25.7 Assessment & Plan Assessment & Plan (1) Shortness of breath: Code(s): R06.02 - Shortness of breath Category: Medical Plan: Reports of shortness of breath with activity, in patient with history of asthma. Underwent an exercise stress test 06/21/22 with exercise 3 minutes 30 seconds with moderate shortness of breath and need to stop. Test was nondiagnostic. Nuclear stress test 07/02/22 with exercise 5 minutes, mild shortness of breath and no EKG changes of ischemia, normal myocardial perfusion imaging. Between the test her asthma medication was adjusted and breathing had improved. She follows with pulmonology and breathing has been stable. Recent chest x-ray is showing findings suggesting interstitial lung disease. She tells me she still has some shortness of breath with activity. It seems her shortness of breath is more likely pulmonary related. Reviewed this with her. (2) Palpitations: Code(s): R00.2 - Palpitations Category: Medical Plan: History of heart palpitations with prior Holter monitor 09/2021 showing frequent episodes of SVT, longest 52 minutes. She has been intolerant to beta-blockers and calcium channel blockers in the past. She does report occasional heart palpitations. Reviewed the need to reduce all caffeine intake, stay well hydrated. She does have an albuterol inhaler which can increase the frequency of heart palpitations. On last visit suggested she retry diltiazem at low dose and she declined. (3) SVT (supraventricular tachycardia): Code(s): I47.1 - Supraventricular tachycardia Category: Medical Plan: As above (4) Coronary artery calcification seen on CT scan: Comment: (Moderate to severe coronary artery calcification on 01/14/[address]) Code(s): I25.10 - Atherosclerotic heart disease of nikolai coronary artery without angina pectoris Category: Medical Plan: Known coronary calcification on CT scan. Nuclear stress test 07/02/2022 showed normal myocardial perfusion imaging. She does have stable shortness, no chest discomfort. Continue med management for stable CAD. Continue atorvastatin with ideal LDL goal less than 70. Continue amlodipine for blood pressure control. Recommend use of aspirin however she is reluctant to try any new medications due to numerous adverse effects from meds. Signs and symptoms of angina reviewed with her. (5) Hypertension: Code(s): I10 - Essential (primary) hypertension Category: Medical Qualifiers: Hypertension type: primary hypertension Qualified Code(s): I10 - Essential (primary) hypertension Plan: Blood pressure goal less than 130/80. Blood pressure elevated in the office today., recheck done by me 148/62. She tells me that in the waiting room she had a panic attack. She says this happens frequently she when she leaves the house. Home blood pressures reviewed and show good control with systolic ranging mostly in the low 100s. She is on low-dose amlodipine 2.5 mg daily. No changes made. Plan I discussed with the patient the importance of monitoring blood pressure at home and comparing it with office readings to ensure accuracy. We reviewed the current management of supraventricular tachycardia and the normal results of the nuclear stress test, indicating no immediate changes are needed. I will coordinate with the physician office assistant to address therecent chest xray showing interstitial lung disease and determine if further testing is required. The mitral valve calcification was explained, noting that no intervention is necessary at this time. We addressed the patient's panic attacks, discussing potential triggers and ensuring support is available. Patient Instructions: - Monitor blood pressure at home and bring readings to appointments. - Continue taking amlodipine 2.5 mg daily, and report any side effects. - Follow up with physician office assistant as advised. - Identify and avoid triggers for panic attacks. Patient was informed and verbally consented to the use of an ambient scribe for clinic note documentation during this visit. Visit time spent on chart review, interview, assessment, orders, documentation. Coding Level of Care Code Est Pt Level 4 (97109) Complex EM visit Add On G2211 Diagnoses Shortness of breath R06.02 Palpitations R00.2 SVT (supraventricular tachycardia) I47.1 Coronary artery calcification seen on CT scan I25.10 Primary hypertension I10 Hypertension type: primary hypertension
[2024-09-17 09:37] VITALS: BP 162/70; BP 183/70; PULSE 68; PULSE 70
== END 2024-09-17 10:17 | disposition home or self-care (01) ==
LOC: HO.HCS 08:37
PROVIDERS: PCP Internal Medicine; Visit Provider Nurse Practitioner Family
DX: R06.02 Shortness of breath (principal); R00.2 Palpitations; I47.10 Supraventricular tachycardia, unspecified; I25.10 Atherosclerotic heart disease of native coronary artery without angina pectoris; I10 Essential (primary) hypertension
CPT/HCPCS: 99214; G2211

== ENCOUNTER → 2024-09-17 08:36 | Outpatient (BNVA) | payer MEDICARE, SELFPAY | PROVIDERS: PCP Internal Medicine; Visit Provider Nurse Practitioner Family | DX: R06.02 Shortness of breath (principal); R00.2 Palpitations; I47.10 Supraventricular tachycardia, unspecified; I25.10 Atherosclerotic heart disease of native coronary artery without angina pectoris; I10 Essential (primary) hypertension | CPT/HCPCS: 99212 ==

== ENCOUNTER 2024-10-19 07:37 | Outpatient (REF) | payer MEDICARE, SELFPAY ==
--- OUTSIDE RECORDS SUMMARY | 2024-10-19 07:39 | XMS_ITS | Patient Health Record ---
Author Organization [facility] Address [address] [place] [id number] Care Team Providers Care Display Mechanic Name Role Phone Cassandra Weeks MD Primary Care Provider Jesse Shannon Jr Unavailable [phone] Ayden Chawla Unavailable Unavailable Allergies Allergen (clinical [...] Problem Status W/U Status Risk Notes Problem [id number] Encounter for screening for malignant neoplasm of colon (Z12.11) Active confirmed Problem [id number] Other postprocedural complications and disorders of digestive system (K91.89) Active confirmed Problem 882545190 Preprocedural examination (Z01.818) Active confirmed Problem [id number] Aspirin long-ter m use (Z79.82) Active confirmed Plan Of Treatment Pending Test Test Name Order Date XR KUB 07/08/2020 Future Test Test Name Order Date COLONOSCOPY 12/22/2016 ERCP CHANGE OF STENT OR TUBE 07/08/2020 Insurance Providers Payer Name Payer Address Payer Phone Subscriber Number Group Number Insured Name Patient Relationship to Insured Coverage Start Date Coverage End Date 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
--- OUTSIDE RECORDS SUMMARY | 2024-10-19 07:39 | XMS_ITS | Clinical Summary ---
Author Organization [facility] Address [address] [place], [place] [id number] Phone Care Team Providers Care Stripper Apprentice Name Role Phone Cassandra Weeks MD Primary Care Provider Allergies Active Allergy Reactions Criticality Noted Date Comments Sulfamethoxazole-Trimethoprim 2017 Olmesartan 02/23/2018 Nebivolol 02/23/2018 Ciprofloxacin 02/23/2018 Codeine 02/09/2017 Diltiazem Hcl 02/23/2018 Mometasone-Formoterol 02/23/2018 Digestive Enzymes 02/23/2018 Fluticasone 02/23/2018 Inhaled Anesthetics (Halogen Based) 02/09/2017 Lisinopril 02/23/2018 Nitrofurantoin Rash Medium 04/19/2023 Beclomethasone Dipropionate 02/24/20 18 Spironolactone 02/23/2018 Budesonide-Formoterol 02/23/2018 Medications amLODIPine (NORVASC) 5 MG tablet 1 tablet Active cholecalciferol , vitamin D3, (VITAMIN D3) 1,000 unit capsule Active jr-gcg-agixp acid-lutein (CENTRUM SILVER) 400-250 mcg Chew Active L.neelam,acid,ferm ,rhm-B.bif,long (CONTROLLED DELIVERY PROBIOTIC) 126 mg (2 billion cell) TaDE Active atorvastatin (LIPITOR) 10 MG tablet Take 10 mg by mouth nightly at bedtime. at bedtime. 1 Active SYMBICORT 80-4.5 mcg/actuation inhaler Inhale 2 puffs into the lungs 2 (two) times a day. 1 Active multivitamins-m inerals-folic kyxv-yintlfc-dp tein (CENTRUM SILVER) 0.4 mg-300 mcg- 250 mcg Tab Active albuterol 90 mcg/actuation inhaler INHALE 2 PUFFS BY MOUTH EVERY 6 HOURS NEEDED FOR SHORTNESS OF BREATH OR WHEEZING 3 Active ascorbic acid, vitamin C, (VITAMIN C) 500 MG tablet TAKE 1 TABLET BY MOUTH DAILY FOR 90 DAYS 3 Active estradioL (VAGIFEM) 10 mcg Tab INSERT ONE TABLET IN THE VAGINA AT BEDTIME EVERY TUESDAY AND Tuesday 3 Active BREO ELLIPTA 100-25 mcg/dose inhaler INHALE 1 PUFF BY MOUTH INTO THE LUNGS EVERY DAY IF SYMPTOMS OF DIZZINESS OR HEART RACING DEVELOP DISCONTIUE 3 Active methenamine (HIPREX) 1 gram tablet Take 1 tablet by mouth every morning. 3 Active amLODIPine (NORVASC) 5 MG tablet 1 tablet Orally Once a day Active vitamin B complex, vit C no.4 (SUPER B COMPLEX + C ORAL) Take by mouth. 4 Active amLODIPine (NORVASC) 2.5 MG tablet Take 2.5 mg by mouth nightly at bedtime. at bedtime. Active amoxicillin (AMOXIL) 500 MG capsule Take 1 capsule (500 mg total) by mouth 3 (three) times a day for 10 days. Take w food, yogurt, probiotics. Finish all. 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 She is decided to do her further follow-up with you as I am cutting back as of 21 March. Assessment & Plan (02/23/2018 10:14 AM EST): Fair control today. I told her to watch her salt intake and did tell her that the new goals are 130/80. If her blood pressure needs to be treated further I did mention to her the possibility of a combination agent with hydrochlorothiazide and amlodipine. Assessment & Plan (02/09/2017 10:31 AM EST): Borderline control today but she monitors this at home and her systolics are generally in the 1 teens. I've made no medication changes. Atypical chest pain 02/09/2017 Assessment & Plan (02/26/2019 10:43 AM EST): No episodes. Assessment & Plan (02/09/2017 10:32 AM EST): No episodes over the past 12 months. Palpitations 02/09/2017 Assessment & Plan (02/26/2019 10:43 AM EST): Essentially resolved. Assessment & Plan (02/09/2017 10:32 AM EST): Minimal and well tolerated. Pure hypercholesterolemia 02/09/2017 Assessment & Plan (02/23/2018 10:15 AM EST): Now no longer on her statin. I do appreciate it if you could have her new lipid profile forwarded. Assessment & Plan (02/09/2017 10:32 AM EST): Remains on her statin. If you have a chance and could forward her profile I would appreciate it. Encounters Date Type Department Care Team Description 10/07/2024 Telephone [facility] [address] [id number] Bambi Sarmiento FNP 10/06/2024 10:10 AM EDT Office Visit [facility] at [address] [id number] Bambi Sarmiento FNP Right otitis media, unspecified otitis media type (Primary Dx) from Last 3 Months Immunizations Immunization Administration Dates Next Due COVID-19 (Pre-01/10) Pfizer Vaccine, Bivalent 12 + 12/19/2021 Influenza High-Dose Quadrivalent Preservative Fr ee IM 12/19/2021,11/07/2020 Influenza High-Dose Trivalent Preservative Free IM 11/22/2016,11/07/2014 Influenza Quadrivalent w/ Preservative IM 2017 Influenza Trivalent Adjuvanted Preservative free IM 11/16/2018,11/09/2016 Influenza Trivalent Preservative Free IM 020,10/28/2015 Pneumococcal conjugate PCV13 12/05/2015 Pneumococcal polysaccharide PPSV23 04/16/2020, Td (adult),2 Lf Tetanus Toxoid, PF, Adsorbed Zoster recombinant 11/26/2017 Family History Medical History Relation Comments CV disease Father Heart attack Father Relation Status Comments Father Social History Tobacco Use Types Packs/Day Years Used Date Smoking Tobacco: Former Cigarettes Q uit: 02/10/1992 Smokeless Tobacco: Never Tobacco Cessation:Counseling Given: Not Answered Alcohol Use Standard Drinks/Week Comments No 0 (1 standard drink = 0.6 oz pur e alcohol) Education Answer Date Recorded Are you interested in more education? Not on alessandro e 07/16/2022 Are you concerned about learning? Not on file 07/16/2022 No 07/16/2022 No 07/16/2022 Digital Access Answer Date Recorded No 08/14/2022 No 08/14/2022 Reliable internet access at home? Not on file 08/14/2022 Device with a working camera? Not on file Comments Unknown Sex and Gender Information Value Date Recorded Sex Assigned at Not on file Legal Sex Female 10:02 PM EDT Gender Identity Not on file Sexual Orientation Not on file Last Filed Vital Signs Vital Sign Reading Time Taken Comments Blood Pressure 149/76 10/06/2024 9:57 AM EDT Pulse 74 10/06/2024 9:57 AM EDT Temperature 36.7 C (98.1 F) 10/06/2024 9:57 AM EDT Respiratory Rate 16 10/06/2024 9:57 AM EDT Oxygen Saturation 96% 10/06/2024 9:57 AM EDT Inhaled Oxygen Concentration - - Weight 60.8 kg (134 lb) 04/19/2023 5:44 PM EST Height 154.9 cm (5' 1 ) 04/19/2023 5:44 PM EST Body Mass Index 25.32 04/19/2023 5:44 PM EST Plan of Treatment Health Maintenance Due Date Last Done Comments LIPID PANEL 1949 DEPRESSION SCREENING 1961 HEPATITIS C SCREENING 11/07/1967 MAMMOGRAM 1989 COLOGUARD 1994 COLONOSCOPY 1994 COLORECTAL CANCER SCREENING 1994 FIT TEST 1994 FOBT 1994 SIGMOIDOSCOPY 1994 VIRTUAL COLONOSCOPY 1994 OSTEOPOROSIS SCREENING INITIAL (ONE-TIME) 2014 ZOSTER VACCINES (2 of 2) 01/21/2018 11/26/2017 COVID-19 VACCINE ( season) 2024 01/20/2024, 12/27/2022, 12/19/2021, Additional history exists BLOOD PRESSURE 04/08/2025 10/06/2024 SMOKING Hx and SMOKELESS TOBACCO SCREENING 10/06/2025 10/06/2024 Adult Td,Tdap Booster 04/13/2029 04/13/2019 PNEUMOCOCCAL VACCINES (50+ years) Completed 04/16/2020, 12/05/2015, 11/07/2014 RSV VACCINE Completed 03/23/2023 HEPATITIS A VACCINES Aged Out No long er eligible based on patient's age to complete this topic HIB VACCINES Aged Out No longer eligi ble based on patient's age to complete this topic MENINGOCOCCAL VACCINES (ACWY) Aged Out No longer eligible based on patient's age to complete this topic MENINGOCOCCAL VACCINES (B) Aged Out N o longer eligible based on patient's age to complete this topic Medical Devices Not on file Insurance [place] P[place] BLUE REPLACEMENT MEDICARE PPO BLUE REPLACEMENT MEDICARE PPO BLUE REPLACEMENT MEDICARE PPO BLUE REPLACEMENT MEDICARE PPO BLUE REPLACEMENT MEDICARE PPO BLUE REPLACEMENT MEDICARE PPO BLUE REPLACEMENT [place] [address] MEDICARE PPO BLUE REPLACEMENT [facility] MEDICARE PPO BLUE REPLACEMENT Care Teams Stripper Apprentice Relationship Specialty Start Date End Date Cassandra Weeks MD [address] [place] [id number] PCP - General 01/03/17 Additional Source Comments The information contained in this document represents components of the legal health record. It is not the complete legal health record.[facility]
[2024-10-19 07:55] LABS: MANUAL DIFF FLAG NO
[2024-10-19 08:12] LABS: Hematocrit 40.2 % (37.0-47.0); Hemoglobin 13.9 g/dl (12.0-16.0); Imm Gran Abs Auto 0.01 X10*3/uL (0.00-0.03); Imm Gran Pct Auto 0.2 % (0.0-0.4); Lymphocytes Absolute Auto 1.5 X10*3/uL (1.2-4.9); Mean Corpuscular HGB Conc 34.6 g/dl (31.0-35.0); Mean Corpuscular Hemoglobin 31.3 pg (27.0-33.0); Mean Corpuscular Volume 90.5 fL (80.0-98.0); NRBC Abs Auto 0.000 X10*3/uL (0.0-0.012); NRBC Pct Auto 0.0 /100WBC (0.0-0.2); Platelet Count 264 X10*3/uL (160-400); Red Blood Count 4.44 X10*6/uL (4.20-5.50); White Blood Count 6.2 X10*3/uL (4.8-10.8)
[2024-10-19 08:27] LABS: Hemoglobin A1C 128.9925 umol/L; Total Hemoglobin (HGBA1C) 3686.1383 umol/L
[2024-10-19 08:51] LABS: Alanine Aminotransferase 20 U/L (0-31); Albumin Level 4.2 g/dL (3.5-5.0); Alkaline Phosphatase 67 U/L (39-117); Anion Gap 12 (12-20); Aspartate Amino Transferase 27 U/L (5-31); Blood Urea Nitrogen 9 mg/dL (9-16); Calcium 9.3 mg/dL (8.4-10.2); Carbon Dioxide 27 mmol/L (22-29); Chloride 102 mmol/L (96-108); Cholesterol 241 mg/dL (<200); Estimated Glomerular Filt Rate > 60; HDL Cholesterol 51 mg/dL (>40); Potassium 4.1 mmol/L (3.3-5.1); Sodium 137 mmol/L (135-145); Total Protein 6.9 g/dL (6.5-8.0); Triglycerides 100 mg/dL (<150)
[2024-10-19 09:39] LABS: Appearance Urine Clear; Glucose Urine UA Negative (Negative); PH 7.0 (5.0-9.0); Specific Gravity - Urine 1.010 (1.005-1.025); UMIC TRIGGER UACC YES
[2024-10-19 09:52] LABS: Free T4 (Free Thyroxine) 1.03 ng/dL (0.71-1.85); Thyroid Stimulating Hormone 1.24 uIU/mL (0.32-4.0)
[2024-10-19 10:05] LABS: UACC Culture Trigger YES
== END 2024-10-19 07:38 | disposition home or self-care (01) ==
LOC: HO.LAB 07:37
PROVIDERS: PCP Internal Medicine; Visit Provider Internal Medicine
DX: Z11.2 Encounter for screening for other bacterial diseases (principal); Z13.89 Encounter for screening for other disorder; I25.10 Atherosclerotic heart disease of native coronary artery without angina pectoris; E78.00 Pure hypercholesterolemia, unspecified
CPT/HCPCS: 36415; 80053; 80061; 81001; 81003; 83036; 84439; 84443; 85025; 87086

== ENCOUNTER 2024-10-20 14:54 | Outpatient (REF) | payer MEDICARE, SELFPAY ==
--- NOTE | ~2024-10-20 | MR_ITS ---
EXAMINATION: MR ANGIOGRAPHY NECK WITHOUT AND WITH CONTRAST CLINICAL INFORMATION: Atherosclerotic heart disease of the [place] lions. COMPARISON: Correlated to ultrasound carotid Doppler dated July 13, 2022. TECHNIQUE: MRA of the neck was obtained using routine sequences without and with contrast. Intravenous contrast: Gadolinium based without reported immediate complications 10.0 mL. The degree of stenosis determined by criteria similar to NASCET. FINDINGS: Limited by patient's breathing motion artifact. Right CCA: Normal patency. No focal stenosis. No intimal flap. Right ICA: Normal patency. Mild focal irregularity at representing less than 50% stenosis. No intimal flap. Left CCA: Normal patency. Origin from a, trunk with the brachiocephalic vessel. No focal stenosis. No intimal flap. Left ICA: Normal patency. Focal irregularity at the proximal segment representing less than 60% stenosis. No intimal flap. V1/V2 segments: Normal patency. No focal stenosis. No intimal flap. Codominant vertebral arteries. Tortuosity in the origin from the subclavian arteries. MR/MR angio neck wo/w con IMPRESSION: Less than 60% stenosis at the ICAs. No dissection. Codominant vertebral arteries. Common trunk brachiocephalic and left CCA. Electronically signed by: Jason Mcgill MD 10/22/2024 09:50 AM EDT
--- NOTE | ~2024-10-20 | MR_ITS ---
EXAMINATION: MR ANGIOGRAPHY BRAIN WITHOUT CONTRAST CLINICAL INFORMATION: Atherosclerotic heart disease of [place]. COMPARISON: None available. TECHNIQUE: 3-D gydj-om-gsybbx. Maximum intensity projections [place]. No IV contrast. FINDINGS: Anterior cerebral circulation: ICAs: No focal stenosis. No abrupt cut off. There is a 3.5 mm, lobulated, cephalad and medial oriented, flow signal abnormality at the supraclinoid segment/left ophthalmic artery origin region, left ICA. MCA's: No flow signal gap or abrupt cut off. Bifurcation/trifurcation demonstrated no flow signal irregularity. ACAs: No flow signal gap or abrupt cut off. Small caliber of the left DULCE. Anterior communicating artery flow signal is present. Ophthalmic arteries flow signal is present. Left posterior communicating artery flow signal is present. Posterior cerebral circulation: V3/V4 segments: No flow signal gap or intimal flap. Left and right posterior inferior cerebral arteries flow signal is not fully depicted. Basilar artery flow signal is present without flow signal gap or intimal flap. Anterior inferior cerebral arteries flow signal is present. Superior cerebellar arteries flow signal is present without abrupt cut off. broadcast operations director: Hypoplastic/left P1 segment. No flow signal gap or abrupt cut off. 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 Electronically signed by: Jason Mcgill MD 10/22/2024 09:43 AM EDT
--- NOTE | ~2024-10-20 | MR_ITS ---
EXAMINATION: MR BRAIN WITHOUT THEN WITH IV CONTRAST HISTORY: I25.10 - Atherosclerotic heart disease of [place] coronary artery without... TECHNIQUE: Sagittal T1, and axial T1, FLAIR, T2, gradient echo, and diffusion weighted MR images of the brain were obtained. In addition, high resolution T2-weighted images were obtained through the internal auditory canals. Subsequently, axial T1-weighted images were obtained after the administration of intravenous gadolinium. 10 mL Gadavist was administered. COMPARISON: Correlation is made with an unenhanced head CT dated 05/04/2023. FINDINGS: The pituitary is normal in size. The cerebellar tonsils are normally located. There is mild prominence of the ventricular system and cortical sulci, consistent with atrophy. Scattered periventricular and subcortical white matter hyperintensities are noted on the FLAIR and T2-weighted images which are nonspecific, but often seen in the setting of small vessel ischemic disease. There is no mass effect or midline shift. No intra or extra-axial fluid collections are identified. There are no foci of restricted diffusion. There is no abnormal contrast enhancement. The bilateral 7th and 8th nerve complexes are unremarkable in appearance. Normal vascular flow voids are noted in the basilar and carotid arteries. There is mucosal thickening in the ethmoid and bilateral maxillary sinuses. MR/MR head/brain wo/w con IMPRESSION: No acute intracranial abnormality. Electronically signed by: Buster Olson MD 10/22/2024 08:22 AM EDT
== END 2024-10-20 14:55 | disposition home or self-care (01) ==
LOC: HO.MRI 14:54
PROVIDERS: PCP Internal Medicine; Visit Provider Nurse Practitioner Family
DX: R25.1 Tremor, unspecified (principal); R42 Dizziness and giddiness; G45.3 Amaurosis fugax; R51.9 Headache, unspecified; H93.19 Tinnitus, unspecified ear; I10 Essential (primary) hypertension; I25.10 Atherosclerotic heart disease of native coronary artery without angina pectoris
CPT/HCPCS: 70544; 70549; 70553; A9585

== ENCOUNTER → 2024-10-20 15:09 | Outpatient (BNV) | payer MEDICARE, SELFPAY | PROVIDERS: PCP Internal Medicine; Visit Provider Radiology Diagnostic Radiology | DX: I65.22 Occlusion and stenosis of left carotid artery (principal); I25.10 Atherosclerotic heart disease of native coronary artery without angina pectoris; I67.1 Cerebral aneurysm, nonruptured | CPT/HCPCS: 70544; 70549; 70553 ==

== ENCOUNTER 2024-11-01 13:00 | Outpatient (RCR) | payer MEDICARE, SELFPAY ==
[2024-10-05 10:59] VITALS: BP 147/73; PULSE 75
--- NOTE | 2024-10-05 12:04 | MHC.PT.EP ---
[facility] [place] Office [place] Office [place] Office [address] Laxmi Subramanian [address] [phone] F: [phone] F: [phone] F: [phone] F: [phone] Physical Therapy Plan of Care Date of Evaluation: 10/05/24 Date of Surgery: NA Diagnosis: BPPV Assessment: Eric is a 73 year old female who is referred to PT for BPPV . She reports of having sudden onset of room spinning dizziness about 1 week back. She reported of having dizziness with supine <> sit and it lasts only for a few seconds. She denies any nausea or vomiting. On PT examination she presented with intact saccades, intact visual tracking, negative VBI, negative DVA, intact smooth pursuit and positive for L PC BPPV. She lives alone and is independent with all ADLS but does them slowly due to dizziness. She would benefit from skilled PT to address the aforementioned impairments and improve tolerance to functional activities. Frequency and Duration: The patient will be seen 2/week for 4 weeks Short Term Goals: Care Home Goals: Patient to be educated on symptoms and indications to return to therapy when needed min 4 weeks. Pt will be negative for nystagmus or reports of vertigo in all diagnostic positions bilaterally to resolution of BPPV in 4 weeks. Patient to be able to functionally move in all planes and directions without provocation of dizziness to show return to PLOF in 4 weeks. Treatment Plan: Modalities to reduce pain, spasms and effusion. Manual therapy to restore motion and function. Therapeutic exercise to improve strength and flexibility. Neuromuscular re-education for posture and balance. Therapeutic activities to return to functional activities of daily living. Electronically signed by: Nathalie Alba PT DPT Please sign and return to therapist. Thank you for your referral.
--- NOTE | 2024-12-03 13:38 | MHC.PT.DC ---
[facility] [place] [facility] [place] [facility] [place] [facility] [address] Laxmi Subramanian [address] [phone] F: [phone] F: [phone] F: [phone] F: [phone] Physical Therapy Discharge Report Diagnosis: BPPV Date of Surgery: NA Date of Evaluation: 10/05/24 Date of Discharge: 12/03/24 Treatments to Date: 3 Cancellations to Date: 2 No Shows to Date: 0 Discharge Status: Achieved Goals Improved Function Independent with HEP Discharge Summary: Eric has had no symptoms of vestibular dysfunction in a over a month. She is therefore being d/c from PT. Electronically signed by: Nathalie Alba PT DPT Please sign and return to therapist. Thank you for your referral.
== END 2024-12-03 13:38 | disposition home or self-care (01) ==
LOC: HO.PT 13:00
PROVIDERS: PCP Internal Medicine; Visit Provider Nurse Practitioner Family
DX: H81.10 Benign paroxysmal vertigo, unspecified ear (principal)
CPT/HCPCS: 95992; 97112; 97161

== ENCOUNTER 2024-11-06 08:57 | Outpatient (AMB) | payer MEDICARE, SELFPAY ==
--- NOTE | 2024-11-06 08:55 | MHC.OFFVIS ---
Vital Signs 11/06/24 09:00 Height 5 ft 1 in Weight 134 lb 6 oz BMI 25.4 BP 130/58 L Blood Pressure Location Rt brachial Position Sitting Pulse 82 Pulse Source Pulse Oximeter Pulse Oximetry (%) 96 Oxygen Delivery Method Room Air Intake Visit Reasons: COPD Allergies salmeterol (From Advair Diskus) Allergy (Intermediate, Verified 11/06/24 09:05) Palpitations ARB-Angiotensin Receptor Antagonist (ANGIOTENSIN RECEPTOR ANTAGONIST) Allergy (Unknown, Verified 11/06/24 09:05) ANAPHYLAXIS beclomethasone (QNASL) Allergy (Unknown, Verified 11/06/24 09:05) blurred vision, headaches budesonide (Symbicort) Allergy (Unknown, Verified 11/06/24 09:05) higher dose problem ciprofloxacin (Cipro) Allergy (Unknown, Verified 11/06/24 09:05) Unknown codeine (Codeine) Allergy (Unknown, Verified 11/06/24 09:05) UNKNOWN digestive enzymes combination no.8 (From Digestive Enzyme (acidoph,pec)) Allergy (Unknown, Verified 11/06/24 09:05) Unknown fluticasone (Flovent HFA) Allergy (Unknown, Verified 11/06/24 09:05) Unknown Lactobacillus acidophilus (From Digestive Enzyme (acidoph,pec)) Allergy (Unknown, Verified 11/06/24 09:05) Unknown lisinopril (LISINOPRIL) Allergy (Unknown, Verified 11/06/24 09:05) ANGIOEDEMA mometasone furoate (Dulera) Allergy (Unknown, Verified 11/06/24 09:05) Unknown nebivolol (Bystolic) Allergy (Unknown, Verified 11/06/24 09:05) Unknown olmesartan (Benicar) Allergy (Unknown, Verified 11/06/24 09:05) Unknown pectin (From Digestive Enzyme (acidoph,pec)) Allergy (Unknown, Verified 11/06/24 09:05) Unknown Sulfa (Sulfonamide Antibiotics) Allergy (Unknown, Verified 11/06/24 09:05) headache, shaking, freezing sensation, upset stomach methenamine Allergy (Verified 11/06/24 09:05) Unknown amoxicillin (From Augmentin) Adverse Reaction (Intermediate, Verified 11/06/24 09:05) abdominal pain clavulanic acid (From Augmentin) Adverse Reaction (Intermediate, Verified 11/06/24 09:05) abdominal pain diltiazem Adverse Reaction (Intermediate, Verified 11/06/24 09:05) NARVAEZ, Blurry vision, fatigue, decreased appetite formoterol (From Symbicort) Adverse Reaction (Intermediate, Verified 11/06/24 09:05) Dizziness rosuvastatin Adverse Reaction (Intermediate, Verified 11/06/24 09:05) joint pains umeclidinium (From Incruse Ellipta) Adverse Reaction (Intermediate, Verified 11/06/24 09:05) Palpitations verapamil Adverse Reaction (Intermediate, Verified 11/06/24 09:05) Blurry Vision loratadine (From Claritin) Adverse Reaction (Verified 11/06/24 09:05) Unknown nitrofurantoin Allergy (Severe, Uncoded 11/06/24 09:05) Blister estrodiol Allergy (Unknown, Uncoded 11/06/24 09:05) Unknown diltiazem Adverse Reaction (Intermediate, Uncoded 11/06/24 09:05) sleeping HPI HPI COPD: Details: Eric is a pleasant 74 year old female, former 60 pack year smoker, quit over 30 years ago, with underlying COPD and SVT. She was previously well controlled for 20+ years on Symbicort but developed adverse reaction and discontinued. She has trialed multiple inhalers resulting in adverse effects including Dulera, Incruse, Stiolto, Anoro, Advair, [place] and albuterol. Side effects include tremors, tachycardia, blurred vision, headaches and dizziness. At this time, she has been using Levalbuterol MDI one inhalation QD with moderate effect. She also has nebulized therapy but has not used. She denies any visits to urgent care or hospitalizations since the last visit related to respiratory distress. [facility] Medical History (Updated 09/17/24 @ 12:09 by Licha Vela NP) Asthma Tinnitus SVT (supraventricular tachycardia) Abnormal stress ECG with treadmill Coronary artery calcification seen on CT scan Hypertension Hypercholesterolemia Impaired glucose tolerance COPD (chronic obstructive pulmonary disease) Environmental and seasonal allergies Personal history of tobacco use GERD (gastroesophageal reflux disease) Constipation Recurrent UTI Dysuria Nocturia more than twice per night Impacted cerumen of both ears Anxiety Vitamin D deficiency History of COVID-19 Contact dermatitis Breast cancer screening by mammogram Surgical History History of colonoscopy History of cholecystectomy History of ERCP History of cataract surgery Family History Father Myocardial infarction Mother Hypertension Stroke Brother In good health Sister In good health Son In good health Daughter In good health Other Substance use disorder Social History Household Members: None Housing: House Do you presently have visiting nurse or other home services: No Alcohol intake: former Year quit: 2018 Patient Tobacco Use Status: Former Tobacco user Tobacco use type: Cigarette Cigarette Packs Per Day: 3 Years Smoked: 20 +/- quit 1989 e-Cigarette/Vaping Use: Never Used Second Hand Smoke Exposure: No service: No Current occupational status: previously employed and retired 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 Cognitive needs: No Hearing needs: No Vision needs: Yes Female Reproductive History Menstrual Age of Menarche: 12 Review of Systems Const Denies chills, Denies excessive sweating, Denies fever(s) and Denies night sweats Eyes Denies dry eyes, Denies irritation and Reports itchy eyes ENT Reports Normal hearing present Card Denies chest pain, Denies chest pain at rest, Denies chest pain with activity, Denies claudication, Denies leg edema, Reports dyspnea on exertion, Denies orthopnea and Denies paroxysmal nocturnal dyspnea Resp Denies chest congestion, Denies hemoptysis, Denies excessive phlegm production, Denies pain on inspiration, Denies pain with cough, Reports dyspnea on exertion and Denies stridor Musc Denies myalgias Neuro Reports Normal hearing present Endo Denies excessive sweating Darian/Lymph Denies lymphadenopathy Aller/Immun Reports itchy eyes and Denies seasonal rhinorrhea Physical Exam Vital Signs: Last Vital Signs Pulse 82 11/06/24 09:00 BP 130/58 L 11/06/24 09:00 Pulse Ox 96 11/06/24 09:00 Oxygen Delivery Method Room Air 11/06/24 09:00 BMI result Body Mass Index 25.4 Const General: cooperative, healthy appearing, comfortable, no acute distress, well developed and alert Orientation/consciousness: patient oriented x3 Limitations: no limitations HEENT Head: Yes normal to inspection, Yes normocephalic and Yes atraumatic Ears: hearing grossly normal bilaterally and external ears normal Eyes General: appearance normal, both eyes and all related structures Eyelids: Yes eyelids normal Sclerae: sclerae normal EOM: EOMs intact bilaterally Neck Neck: Yes normal visual inspection and Yes no lymphadenopathy Lymphatic: no lymphadenopathy noted Chest Chest palpation & inspection: normal inspection of the chest Resp Effort & Inspection: normal respiratory effort, able to speak in complete sentences, no audible wheezes, no cough, no stridor, not tachypneic, no tripod positioning and no use of accessory muscles Auscultation: clear to auscultation bilaterally Cardio Jugular venous distension: no JVD Rate: regular rate Rhythm: abnormal rhythm Skin Other: warm, dry General skin exam: no rashes or lesions noted Neuro General: patient oriented x3 Cranial nerves: Yes Normal hearing present Cognition (Neuro): normal cognition Gait exam (Neuro): Normal gait present Extrem General: Yes normal to inspection, Yes capillary refill normal, Yes no clubbing, cyanosis or edema and Yes no pedal edema Psych Appearance: grossly normal and well kempt Speech and movement: Normal speech and movement present and Clear speech present Affect: normal affect Attitude: cooperative Thought process: Normal thought process present Thought content: Normal thought content present Insight: Good insight present (Psych) Judgement: Good judgement present (Psych) Assessment & Plan Assessment & Plan (1) COPD (chronic obstructive pulmonary disease): Code(s): J44.9 - Chronic obstructive pulmonary disease, unspecified Category: Medical Qualifiers: COPD type: emphysema Emphysema type: unspecified Qualified Code(s): J43.9 - Emphysema, unspecified (2) Environmental and seasonal allergies: Code(s): J30.89 - Other allergic rhinitis Category: Medical (3) Pulmonary nodules: Comment: November 2023 Code(s): R91.8 - Other nonspecific abnormal finding of lung field Category: Medical Plan Patient has trialed multiple inhalers, all resulting in side effects and can not tolerate. She has been moderately controlled using levalbuterol MDI once daily, able to tolerate. If symptoms become more persistent advised to increase use of Levalbuterol. She is aware to call if symptoms change. Prior CXR revealed chronic interstitial changes and has Chest CT scheduled for December. All questions were answered and patient is in agreement of plan. Will follow up to review results or sooner if needed. Coding Level of Care Code Est Pt Level 4 (15368) Diagnoses Pulmonary emphysema, unspecified emphysema type J43.9 COPD type: emphysema Emphysema type: unspecified Environmental and seasonal allergies J30.89 Pulmonary nodules R91.8
[2024-11-06 09:00] VITALS: BP 130/58; PULSE 82; O2SAT 96; BMI 25.4
--- OUTSIDE RECORDS SUMMARY | 2024-11-06 09:49 | XMS_ITS | Clinical Summary ---
Author Organization [facility] Address [address] [place], [place] [id number] Phone Care Team Providers Care Wall Crane Operator Name Role Phone Cassandra Weeks MD Primary Care Provider [phone] Allergies Active Allergy Reactions Criticality Noted Date [...] D3, (VITAMIN D3) 1,000 unit capsule Active th-ibl-sxnkf acid-lutein (CENTRUM SILVER) 400-250 mcg Chew Active L.neelam,acid,ferm ,rhm-B.bif,long (CONTROLLED DELIVERY PROBIOTIC) 126 mg (2 billion cell) TaDE Active atorvastatin (LIPITOR) 10 MG tablet Take 10 mg by mouth nightly at bedtime. at bedtime. 1 Active SYMBICORT 80-4.5 mcg/actuation inhaler Inhale 2 puffs into the lungs 2 (two) times a day. 1 Active multivitamins-m inerals-folic uzyx-sirwrxc-tl tein (CENTRUM SILVER) 0.4 mg-300 mcg- 250 [...] Noted Date Diagnosed Date Anxiety 08/20/2022 08/20/2022 alf current use of aspirin 08/20/2022 08/20/2022 Other [...] 10/07/2024 Telephone [facility] [address] [address] Bambi Sarmiento FNP 10/06/2024 10:10 AM EDT Office Visit [facility] [address] [address] Bambi Sarmiento FNP Right otitis media, unspecified otitis media type (Primary Dx) from Last 3 Months Immunizations Immunization Administration Dates Next Due COVID-19 (Pre-01/10) Pfizer Vaccine, Bivalent 12 + 12/19/2021 INFLUENZA, SPLIT VIRUS, TRIVALENT PF 11/22/2019, 10/28/2015 Influenza High-Dose Quadrivalent Preservative Fr ee IM 12/19/2021,11/07/2020 Influenza High-Dose Trivalent Preservative Free IM 11/22/2016,11/07/2014 Influenza Quadrivalent w/ Preservative IM 2017 Influenza Trivalent Adjuvanted Preservative free IM 11/16/2018,11/09/2016 Pneumococcal conjugate PCV13 12/05/2015 Pneumococcal polysaccharide PPSV23 [...] PPO BLUE REPLACEMENT MEDICARE PPO BLUE REPLACEMENT [facility] MEDICARE PPO BLUE REPLACEMENT [facility] MEDICARE PPO BLUE REPLACEMENT Care Teams Wall Crane Operator Relationship Specialty Start Date End Date Cassandra Weeks MD [address] [place] [phone] PCP - General 01/03/17 Additional Source Comments The information contained in this document represents components of the legal health record. It is not the complete legal health record.[facility]
--- OUTSIDE RECORDS SUMMARY | 2024-11-06 09:49 | XMS_ITS | Patient Health Record ---
Author Organization [facility] Address [address] [place] [phone] Care Team Providers Care Medical Laboratory Manager Name Role Phone Cassandra Weeks MD Primary [...] Problem Status W/U Status Risk Notes Problem [id number] Encounter for screening for malignant neoplasm of colon (Z12.11) Active confirmed Problem 061584740 Other postprocedural complications and disorders of digestive system (K91.89) Active confirmed Problem 818674920 Preprocedural examination (Z01.818) Active confirmed Problem 302113342 Aspirin long-ter m use (Z79.82) Active confirmed Plan Of Treatment Pending Test Test Name Order Date XR KUB 07/08/2020 Future Test Test Name Order Date COLONOSCOPY 12/22/2016 ERCP CHANGE OF STENT OR TUBE 07/08/2020 Insurance Providers Payer Name Payer Address Payer Phone Subscriber Number Group Number Insured Name Patient Relationship to Insured Coverage Start Date Coverage End Date [facility] [address] [place], [place] [id number] DRE PAINTER Self - patient is the insured Medical (General) History Medical History History ICD Code Denies [place],DM,CVA,renal disease Colonoscopy in 11/2006--hyper plastic polyps, diverticulosis, internal hemorrhoids HTN Hyperlipidemia Panic attacks Asthma Surgical History Surgery Date(Month/Year) Foot surgery Cataracts planned for 01/06/17
== END 2024-11-06 09:39 | disposition home or self-care (01) ==
PROVIDERS: PCP Internal Medicine; Visit Provider Nurse Practitioner Family
DX: J43.9 Emphysema, unspecified (principal); J30.89 Other allergic rhinitis; R91.8 Other nonspecific abnormal finding of lung field
CPT/HCPCS: 99214

== ENCOUNTER → 2024-11-06 08:57 | Outpatient (BNVA) | payer MEDICARE, SELFPAY | PROVIDERS: PCP Internal Medicine; Visit Provider Nurse Practitioner Family | DX: J44.9 Chronic obstructive pulmonary disease, unspecified (principal); J45.20 Mild intermittent asthma, uncomplicated; J43.9 Emphysema, unspecified; R91.8 Other nonspecific abnormal finding of lung field; J30.89 Other allergic rhinitis | CPT/HCPCS: 99212 ==

== ENCOUNTER 2024-11-08 09:11 | Outpatient (AMB) | payer MEDICARE, SELFPAY ==
--- OUTSIDE RECORDS SUMMARY | 2024-11-08 10:14 | XMS_ITS | Patient Health Record ---
Author Organization [facility] Address [address] [place] [phone] Care Team Providers Care Crime Scene Investigator Name Role Phone Cassandra Weeks MD Primary [...] Problem Status W/U Status Risk Notes Problem [id number] Encounter for screening for malignant neoplasm of colon (Z12.11) Active confirmed Problem 351877193 Other postprocedural complications and disorders of digestive system (K91.89) Active confirmed Problem 239482592 Preprocedural examination (Z01.818) Active confirmed Problem 436317820 Aspirin long-ter m use (Z79.82) Active confirmed Plan Of Treatment Pending Test Test Name Order Date XR KUB 07/08/2020 Future Test Test Name Order Date COLONOSCOPY 12/22/2016 ERCP CHANGE OF STENT OR TUBE 07/08/2020 Insurance Providers Payer Name Payer Address Payer Phone Subscriber Number Group Number Insured Name Patient Relationship to Insured Coverage Start Date Coverage End Date [facility] [address] [place], [place] [id number] 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
--- OUTSIDE RECORDS SUMMARY | 2024-11-08 10:14 | XMS_ITS | Clinical Summary ---
Author Organization [facility] Address [address] [facility] [facility] [address] [place], [place] [id number] Phone Care Team Providers Care Vp Analytics Name Role Phone Cassandra Weeks MD Primary Care Provider [phone] Allergies Active Allergy Reactions Criticality Noted Date [...] D3, (VITAMIN D3) 1,000 unit capsule Active vz-kan-tzotm acid-lutein (CENTRUM SILVER) 400-250 mcg Chew Active L.neelam,acid,ferm ,rhm-B.bif,long (CONTROLLED DELIVERY PROBIOTIC) 126 mg (2 billion cell) TaDE Active atorvastatin (LIPITOR) 10 MG tablet Take 10 mg by mouth nightly at bedtime. at bedtime. 1 Active SYMBICORT 80-4.5 mcg/actuation inhaler Inhale 2 puffs into the lungs 2 (two) times a day. 1 Active multivitamins-m inerals-folic tumx-mmexmzg-cu tein (CENTRUM SILVER) 0.4 mg-300 mcg- 250 [...] Noted Date Diagnosed Date Anxiety 08/20/2022 08/20/2022 longterm current use of aspirin 08/20/2022 08/20/2022 Other [...] 10/07/2024 Telephone [facility] [address] [address] Bambi Sarmiento FNP 10/06/2024 10:10 AM EDT Office Visit [facility] [address] [address] Bambi Sarmiento FNP Right otitis media, unspecified [...] PPO BLUE REPLACEMENT MEDICARE PPO BLUE REPLACEMENT [facility] MEDICARE PPO BLUE REPLACEMENT [facility] MEDICARE PPO BLUE REPLACEMENT Care Teams Vp Analytics Relationship Specialty Start Date End Date Cassandra Weeks MD [address] [place] [phone] PCP - General 01/03/17 Additional Source Comments The information contained in this document represents components of the legal health record. It is not the complete legal health record.[facility]
== END 2024-11-08 09:28 | disposition home or self-care (01) ==
LOC: HO.HMGAL 09:11
PROVIDERS: PCP Internal Medicine; Visit Provider Registered Nurse Emergency
DX: J30.89 Other allergic rhinitis (principal)
CPT/HCPCS: 95117; 95165

== ENCOUNTER 2024-11-09 09:36 | Outpatient (AMB) | payer MEDICARE, SELFPAY ==
--- OUTSIDE RECORDS SUMMARY | 2024-11-09 09:39 | XMS_ITS | Patient Health Record ---
Author Organization [facility] Address [address] [place] [phone] Care Team Providers Care Instructional Coach Name Role Phone Cassandra Weeks MD Primary [...] Problem Status W/U Status Risk Notes Problem [id number] Encounter for screening for malignant neoplasm of colon (Z12.11) Active confirmed Problem 948445823 Other postprocedural complications and disorders of digestive system (K91.89) Active confirmed Problem 289525564 Preprocedural examination (Z01.818) Active confirmed Problem 613767093 Aspirin long-ter m use (Z79.82) Active confirmed Plan Of Treatment Pending Test Test Name Order Date XR KUB 07/08/2020 Future Test Test Name Order Date COLONOSCOPY 12/22/2016 ERCP CHANGE OF STENT OR TUBE 07/08/2020 Insurance Providers Payer Name Payer Address Payer Phone Subscriber Number Group Number Insured Name Patient Relationship to Insured Coverage Start Date Coverage End Date [facility] [address] [place], [place] [id number] 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
--- OUTSIDE RECORDS SUMMARY | 2024-11-09 09:39 | XMS_ITS | Clinical Summary ---
Author Organization [facility] Address [address] [place], [place] [address] Phone Care Team Providers Care Motor Operator Name Role Phone Cassandra Weeks MD Primary Care Provider [phone] Allergies Active Allergy Reactions Criticality Noted Date [...] D3, (VITAMIN D3) 1,000 unit capsule Active vf-hrv-gczob acid-lutein (CENTRUM SILVER) 400-250 mcg Chew Active L.neelam,acid,ferm ,rhm-B.bif,long (CONTROLLED DELIVERY PROBIOTIC) 126 mg (2 billion cell) TaDE Active atorvastatin (LIPITOR) 10 MG tablet Take 10 mg by mouth nightly at bedtime. at bedtime. 1 Active SYMBICORT 80-4.5 mcg/actuation inhaler Inhale 2 puffs into the lungs 2 (two) times a day. 1 Active multivitamins-m inerals-folic lmkz-gdgjzgw-gp tein (CENTRUM SILVER) 0.4 mg-300 mcg- 250 [...] Noted Date Diagnosed Date Anxiety 08/20/2022 08/20/2022 shelter current use of aspirin 08/20/2022 08/20/2022 Other [...] 10/07/2024 Telephone [facility] [address] [address] Bambi Sarmiento FNP 10/06/2024 10:10 AM EDT Office Visit [facility] [address] [address] Bambi Sarmiento FNP Right otitis media, unspecified [...] PPO BLUE REPLACEMENT MEDICARE PPO BLUE REPLACEMENT [facility] MEDICARE PPO BLUE REPLACEMENT [facility] MEDICARE PPO BLUE REPLACEMENT Care Teams Motor Operator Relationship Specialty Start Date End Date Cassandra Weeks MD [address] [place] [phone] PCP - General 01/03/17 Additional Source Comments The information contained in this document represents components of the legal health record. It is not the complete legal health record.[facility]
--- NOTE | 2024-11-09 10:30 | A.OFFVIS_ITS ---
Intake Visit Reasons: 1y follow up Intake Note: Patient presents today for 1y follow up Urology Meds:VITAMIN B COMPLEX Allergies to Antibiotic: Cipro, Sulfa & Amoxicillin Blood Thinner: None Car Hop Required: No Allergies salmeterol (From Advair Diskus) Allergy (Intermediate, Verified 11/09/24 10:31) Palpitations ARB-Angiotensin Receptor Antagonist (ANGIOTENSIN RECEPTOR ANTAGONIST) Allergy (Unknown, Verified 11/09/24 10:31) ANAPHYLAXIS beclomethasone (QNASL) Allergy (Unknown, Verified 11/09/24 10:31) blurred vision, headaches budesonide (Symbicort) Allergy (Unknown, Verified 11/09/24 10:31) higher dose problem ciprofloxacin (Cipro) Allergy (Unknown, Verified 11/09/24 10:31) Unknown codeine (Codeine) Allergy (Unknown, Verified 11/09/24 10:31) UNKNOWN digestive enzymes combination no.8 (From Digestive Enzyme (acidoph,pec)) Allergy (Unknown, Verified 11/09/24 10:31) Unknown fluticasone (Flovent HFA) Allergy (Unknown, Verified 11/09/24 10:31) Unknown Lactobacillus acidophilus (From Digestive Enzyme (acidoph,pec)) Allergy (Unknown, Verified 11/09/24 10:31) Unknown lisinopril (LISINOPRIL) Allergy (Unknown, Verified 11/09/24 10:31) ANGIOEDEMA mometasone furoate (Dulera) Allergy (Unknown, Verified 11/09/24 10:31) Unknown nebivolol (Bystolic) Allergy (Unknown, Verified 11/09/24 10:31) Unknown olmesartan (Benicar) Allergy (Unknown, Verified 11/09/24 10:31) Unknown pectin (From Digestive Enzyme (acidoph,pec)) Allergy (Unknown, Verified 11/09/24 10:31) Unknown Sulfa (Sulfonamide Antibiotics) Allergy (Unknown, Verified 11/09/24 10:31) headache, shaking, freezing sensation, upset stomach methenamine Allergy (Verified 11/09/24 10:31) Unknown amoxicillin (From Augmentin) Adverse Reaction (Intermediate, Verified 11/09/24 10:31) abdominal pain clavulanic acid (From Augmentin) Adverse Reaction (Intermediate, Verified 11/09/24 10:31) abdominal pain diltiazem Adverse Reaction (Intermediate, Verified 11/09/24 10:31) NARVAEZ, Blurry vision, fatigue, decreased appetite formoterol (From Symbicort) Adverse Reaction (Intermediate, Verified 11/09/24 10:31) Dizziness rosuvastatin Adverse Reaction (Intermediate, Verified 11/09/24 10:31) joint pains umeclidinium (From Incruse Ellipta) Adverse Reaction (Intermediate, Verified 11/09/24 10:31) Palpitations verapamil Adverse Reaction (Intermediate, Verified 11/09/24 10:31) Blurry Vision loratadine (From Claritin) Adverse Reaction (Verified 11/09/24 10:31) Unknown nitrofurantoin Allergy (Severe, Uncoded 11/06/24 09:05) Blister estrodiol Allergy (Unknown, Uncoded 11/06/24 09:05) Unknown diltiazem Adverse Reaction (Intermediate, Uncoded 11/06/24 09:05) sleeping Medication List - Last Reconciled 11/09/24 by Bandar Mcdonald MD albuterol sulfate 90 mcg/actuation 2 puffs inhalation Q4-6H PRN amlodipine 2.5 mg PO BEDTIME cholecalciferol (vitamin D3) 25 mcg PO DAILY inhalational spacing device (Aerochamber Plus Z Stat spacer) As directed levalbuterol HCl 1.25 mg (3 mL) inhalation Q4-6H PRN levalbuterol tartrate 45 mcg/actuation 1 puff inhalation Q4-6H PRN multivitamin 1 tab PO DAILY pravastatin 10 mg PO BEDTIME vitamin B complex 1 tab PO DAILY HPI Comments Details: 11/09/24--Karo is a 74-year-old female she has been followed due to chronic cystitis. She is here for 1 year follow-up. Urinalysis today leukocytes trace, nitrite negative, blood negative, bladder scan PVR 95 mL. The patient states she has been doing well since she was last seen. Denies any UTI symptoms. She complains of nocturia every hour. In discussion she does have some swelling in her feet. She also notes that the nighttime symptoms have occurred since her change in cholesterol medication, the pravastatin. I have discussed elevating her legs prior to bedtime. She is not interested in any new medications at this time. We will continue to monitor follow-up in 9-10 months the patient will call if symptoms worsen. 11/11/2023--Karo is here for follow-up she states she has been doing well. She states that in June she saw her PCP and was treated for UTI but since then she denies any UTI symptoms. She did see urogram and was placed on the medication for the bladder but she stated that she had side effects and stopped the medication and when she went back for follow-up she states she was told that she did not have to come back for an appointment as she was not taking the medication that was prescribed. She has declined any further bladder medication for me at this time. Plan will continue to monitor UTI symptoms. Follow-up in 1 year. 05/12/23- here for office cysto. Karo has been for recurrent. She had previous cystoscopy that noted significant erythematous changes. She complained of painful urination. She was placed on suppressive antibiotics. She states that her painful urination symptoms have resolved. The patient has urinary incontinence and pelvic floor relaxation. She states that her lan analyst is referring her to urogynecology for further treatment options. She states she does not want to try a medication for the bladder. She wants to see urogynecology 1st. Cystoscopy findings: WNL, no suspicious bladder lesions visualized. Erythematous changes previously noted have resolved 04/04/23-- teleheath follow-up of recurrent UTI and dysuria. Eric is a 71-year-old who is followed for recurrent UTI and she was initially evaluated by [facility] on 11/09/22 and was started on estrogen cream. She used estrogen cream for few days but stopped as ?it kept burning.? She had office cysctosocpy on 05/12/22 and finding: erythematous changes. She was placed on antibiotic suppressive therapy Keflex 250 mg QD --which she states helped her, which she currently is off of. She was referred to Infectious Disease for evaluation. In discussion today she states that she was started on Hiprex by the ID physician but it made her feel sick so she stopped the medication. She states that she is feeling pain every time she urinates. In review of her chart there is a urine culture from January, 01/27/23 resulted Klebsiella. The patient was treated with Fosfomycin which she stated did not help Infectious disease recommended no more antibiotics. And prescribed methenamine b.i.d. for urine acidification. As the patient is not tolerating the methenamine and persists with dysuria I will trial another course of antibiotics Ceftin 500 mg twice a day and continue her on Macrobid 100 mg daily for suppressive therapy with follow-up in my office in 3-4 weeks to recheck her urine to send for cytology and repeat office cystoscopy. Renal ultrasound 04/28/2022--left duplicated collecting system negative masses negative stones office cysctosocpy on 05/12/22 and finding: erythematous changes. Urine culture results reviewed?05/12/22, 10/27/22, 01/27/23--positive for Klebsiella pneumoniae. 05/12/23- Plan: Urine cytology. Follow-up in 6 months [facility] Medical History Asthma Tinnitus SVT (supraventricular tachycardia) Abnormal stress ECG with treadmill Coronary artery calcification seen on CT scan Hypertension Hypercholesterolemia Impaired glucose tolerance COPD (chronic obstructive pulmonary disease) Environmental and seasonal allergies Personal history of tobacco use GERD (gastroesophageal reflux disease) Constipation Recurrent UTI Dysuria Nocturia more than twice per night Impacted cerumen of both ears Anxiety Vitamin D deficiency History of COVID-19 Contact dermatitis Breast cancer screening by mammogram Surgical History History of colonoscopy History of cholecystectomy History of ERCP History of cataract surgery Family History Father Myocardial infarction Mother Hypertension Stroke Brother In good health Sister In good health Son In good health Daughter In good health Other Substance use disorder Social History Household Members: None Housing: House Do you presently have visiting nurse or other home services: No Alcohol intake: former Year quit: 2018 Patient Tobacco Use Status: Former Tobacco user Tobacco use type: Cigarette Cigarette Packs Per Day: 3 Years Smoked: 20 +/- quit 1989 e-Cigarette/Vaping Use: Never Used Second Hand Smoke Exposure: No service: No Current occupational status: previously employed and retired 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 Cognitive needs: No Hearing needs: No Vision needs: Yes Female Reproductive History Menstrual Age of Menarche: 12 Review of Systems Const All systems reviewed & are unremarkable except as noted in HPI and below Reports no additional complaints Eyes Reports no additional complaints ENT Reports no additional complaints Card Reports no additional complaints Resp Reports no additional complaints GI Reports no additional complaints Reports as per HPI Musc Reports no additional complaints Skin/Breast Reports system reviewed and no additional complaints, except as documented Neuro Reports no additional complaints Psych Reports no additional complaints Endo Reports no additional complaints Darian/Lymph Reports no additional complaints Aller/Immun Reports no additional complaints Assessment & Plan Assessment & Plan (1) History of recurrent UTIs: Code(s): Z87.440 - Personal history of urinary (tract) infections Category: Medical (2) Chronic cystitis: Code(s): N30.20 - Other chronic cystitis without hematuria Category: Medical (3) Nocturia: Code(s): R35.1 - Nocturia Category: Medical Plan Denies any UTI symptoms. She complains of nocturia every hour. In discussion she does have some swelling in her feet. She also notes that the nighttime symptoms have occurred since her change in cholesterol medication, the pravastatin. I have discussed elevating her legs prior to bedtime. She is not interested in any new medications at this time. We will continue to monitor follow-up in 9-10 months the patient will call if symptoms worsen. Patient Instructions: The patient had an opportunity to ask questions regarding treatment plan. The patient expressed understanding and agreement with the above treatment plan. The patient is aware they should contact our office by phone for worsening of their current condition or the appearance of new symptoms. Compliance is encouraged with any medications and followup testing that is ordered. It is a privilege to be allowed the opportunity to participate in the urologic care of your patient. If you have any questions or concerns regarding treatment for the above conditions please do not hesitate to contact me. The office telephone contact is [phone]. This note is constructed in part using voice recognition software. While every effort has been made to ensure accuracy parking lot signaler errors may have been in cluded. Yours sincerely, Bandar Mcdonald MD Coding Level of Care Code Est Pt Level 3 (82735) Complex EM visit Add On G2211 Diagnoses History of recurrent UTIs Z87.440 Chronic cystitis N30.20 Nocturia R35.1
== END 2024-11-09 11:25 | disposition home or self-care (01) ==
LOC: HO.HUSH 09:37
PROVIDERS: PCP Internal Medicine; Visit Provider Urology
DX: Z87.440 Personal history of urinary (tract) infections (principal); N30.20 Other chronic cystitis without hematuria; R35.1 Nocturia; Z13.9 Encounter for screening, unspecified
CPT/HCPCS: 99213; G2211

== ENCOUNTER → 2024-11-09 09:36 | Outpatient (BNVA) | payer MEDICARE, SELFPAY | PROVIDERS: PCP Internal Medicine; Visit Provider Urology | DX: R35.1 Nocturia (principal); N30.20 Other chronic cystitis without hematuria; Z87.440 Personal history of urinary (tract) infections | CPT/HCPCS: 81003; 99212 ==

== ENCOUNTER 2024-11-14 09:45 | Outpatient (AMB) | payer MEDICARE, SELFPAY ==
[2024-11-14 09:47] VITALS: BP 132/68; PULSE 78; TEMP 36.2; O2SAT 95; BMI 25.1
--- NOTE | 2024-11-14 09:47 | A.OFFPC_ITS ---
Vital Signs 11/14/24 09:47 Height 5 ft 1 in Weight 133 lb BMI 25.1 BP 132/68 Blood Pressure Location Lt brachial Position Sitting Pulse 78 Pulse Source Pulse Oximeter Temp 97.1 F Temp Source Temporal Artery Scan Pulse Oximetry (%) 95 Oxygen Delivery Method Room Air Intake Visit Reasons: dizziness, BPPV Allergies salmeterol (From Advair Diskus) Allergy (Intermediate, Verified 11/14/24 09:47) Palpitations ARB-Angiotensin Receptor Antagonist (ANGIOTENSIN RECEPTOR ANTAGONIST) Allergy (Unknown, Verified 11/14/24 09:47) ANAPHYLAXIS beclomethasone (QNASL) Allergy (Unknown, Verified 11/14/24 09:47) blurred vision, headaches budesonide (Symbicort) Allergy (Unknown, Verified 11/14/24 09:47) higher dose problem ciprofloxacin (Cipro) Allergy (Unknown, Verified 11/14/24 09:47) Unknown codeine (Codeine) Allergy (Unknown, Verified 11/14/24 09:47) UNKNOWN digestive enzymes combination no.8 (From Digestive Enzyme (acidoph,pec)) Allergy (Unknown, Verified 11/14/24 09:47) Unknown fluticasone (Flovent HFA) Allergy (Unknown, Verified 11/14/24 09:47) Unknown Lactobacillus acidophilus (From Digestive Enzyme (acidoph,pec)) Allergy (Unknown, Verified 11/14/24 09:47) Unknown lisinopril (LISINOPRIL) Allergy (Unknown, Verified 11/14/24 09:47) ANGIOEDEMA mometasone furoate (Dulera) Allergy (Unknown, Verified 11/14/24 09:47) Unknown nebivolol (Bystolic) Allergy (Unknown, Verified 11/14/24 09:47) Unknown olmesartan (Benicar) Allergy (Unknown, Verified 11/14/24 09:47) Unknown pectin (From Digestive Enzyme (acidoph,pec)) Allergy (Unknown, Verified 11/14/24 09:47) Unknown Sulfa (Sulfonamide Antibiotics) Allergy (Unknown, Verified 11/14/24 09:47) headache, shaking, freezing sensation, upset stomach methenamine Allergy (Verified 11/14/24 09:47) Unknown amlodipine Adverse Reaction (Intermediate, Unverified 11/14/24 10:57) neck pressure amoxicillin (From Augmentin) Adverse Reaction (Intermediate, Verified 11/14/24 09:47) abdominal pain clavulanic acid (From Augmentin) Adverse Reaction (Intermediate, Verified 11/14/24 09:47) abdominal pain diltiazem Adverse Reaction (Intermediate, Verified 11/14/24 09:47) NARVAEZ, Blurry vision, fatigue, decreased appetite formoterol (From Symbicort) Adverse Reaction (Intermediate, Verified 11/14/24 09:47) Dizziness rosuvastatin Adverse Reaction (Intermediate, Verified 11/14/24 09:47) joint pains umeclidinium (From Incruse Ellipta) Adverse Reaction (Intermediate, Verified 11/14/24 09:47) Palpitations verapamil Adverse Reaction (Intermediate, Verified 11/14/24 09:47) Blurry Vision loratadine (From Claritin) Adverse Reaction (Verified 11/14/24 09:47) Unknown nitrofurantoin Allergy (Severe, Uncoded 11/14/24 09:47) Blister estrodiol Allergy (Unknown, Uncoded 11/14/24 09:47) Unknown diltiazem Adverse Reaction (Intermediate, Uncoded 11/14/24 09:47) sleeping Medication List - Last Reconciled 11/14/24 by Cassandra Weeks MD albuterol sulfate 90 mcg/actuation 2 puffs inhalation Q4-6H PRN amlodipine 2.5 mg PO BEDTIME cholecalciferol (vitamin D3) 25 mcg PO DAILY ezetimibe (Zetia) 10 mg PO DAILY inhalational spacing device (Aerochamber Plus Z Stat spacer) As directed levalbuterol HCl 1.25 mg (3 mL) inhalation Q4-6H PRN levalbuterol tartrate 45 mcg/actuation 1 puff inhalation Q4-6H PRN multivitamin 1 tab PO DAILY pravastatin 10 mg PO BEDTIME vitamin B complex 1 tab PO DAILY Tobacco use date assessed: 11/14/24 Fall risk assessment: No Falls in past year Last assessed Fall Risk: 11/14/24 Dental Screening Dental Screen Date: 11/14/24 Did you have a dental visit in the last 12 months?: No Did you have a dental problem in the last 6 months where you did not have access to dental care?: No Was dental information given to patient?: Patient has dentist [facility] Medical History Asthma Tinnitus SVT (supraventricular tachycardia) Abnormal stress ECG with treadmill Coronary artery calcification seen on CT scan Hypertension Hypercholesterolemia Impaired glucose tolerance COPD (chronic obstructive pulmonary disease) Environmental and seasonal allergies Personal history of tobacco use GERD (gastroesophageal reflux disease) Constipation Recurrent UTI Dysuria Nocturia more than twice per night Impacted cerumen of both ears Anxiety Vitamin D deficiency History of COVID-19 Contact dermatitis Breast cancer screening by mammogram Surgical History History of colonoscopy History of cholecystectomy History of ERCP History of cataract surgery Family History Father Myocardial infarction Mother Hypertension Stroke Brother In good health Sister In good health Son In good health Daughter In good health Other Substance use disorder Social History Household Members: None Housing: House Do you presently have visiting nurse or other home services: No Alcohol intake: former Year quit: 2018 Patient Tobacco Use Status: Former Tobacco user Tobacco use type: Cigarette Cigarette Packs Per Day: 3 Years Smoked: 20 +/- quit 1989 e-Cigarette/Vaping Use: Never Used Second Hand Smoke Exposure: No service: No Current occupational status: previously employed and retired 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 1. Little interest or pleasure in doing things: not at all 2. Feeling down, depressed, or hopeless: not at all 3. Trouble falling or staying asleep, or sleeping too much: nearly every day 4. Feeling tired or having little energy: nearly every day 5. Poor appetite or overeating: several days 6. Feeling bad about yourself - or that you are a failure or have let yourself or your family down: not at all 7. Trouble concentrating on things, such as reading the newspaper or watching television: not at all 8. Moving or speaking so slowly that other people could have noticed. Or the opposite - being so fidgety or restless that you have been moving around a lot more than usual: not at all 9. Thoughts that you would be better off or of hurting yourself in some way: not at all Total score: 7 Depression Screening Interpretation: Positive Depression Screening Done: Yes Source: Developed by Drs. Buster Gerber, Belkis Kumar, Skinny Singh and colleagues, with an educational tony from [employer]. Thrive Questionnaire Date Thrive assessed: 11/14/24 I am a: Patient What is your living situation today?: I choose not to answer this question Within the past 12 months, did the food you bought not last and you didn't have the money to get more?: I choose not to answer this question Within the past 12 months, did you worry whether your food would run out before you got money to buy more?: I choose not to answer this question Do you have trouble paying for medicines?: I choose not to answer this question Do you have trouble getting transportation to medical appointments?: I choose not to answer this question Do you have trouble paying your heating and electricity bill?: I choose not to answer this question Do you have trouble taking care of your child, family member or friend?: I choose not to answer this question Do you have trouble with day-to-day activities such as bathing, preparing meals, shopping, managing finances, etc.?: I choose not to answer this question Are you currently unemployed and looking for a job?: I choose not to answer this question Are you interested in more education?: I choose not to answer this question Please select the resources that you would like help with: None Currently or been in a relationship where the following occur: I choose not to answer THRIVE Score: 0 AUDIT C Alcohol Use Questionnaire (AUDIT-C) 1. How often do you have a drink containing alcohol?: Never 3. How often do you have six or more drinks on one occasion?: Never Total Score: 0 SUAD-7 AMB Questionnaire SUAD-7 Date SUAD - 7 assessed: 05/09/24 Feeling nervous, anxious, or on edge: 1 = Several days Not being able to stop or control worryin = Several days Worrying too much about different things: 0 = Not at all Trouble relaxin = Not at all Being so restless that it is hard to sit still: 0 = Not at all Becoming easily annoyed or irritable: 0 = Not at all Feeling afraid as if something awful might happen: 0 = Not at all Total SUAD-7 score (0-4 normal; 5-9 mild; 10-14 moderate; 15-21 severe): 2 Source: Developed by Drs. Buster Gerber, Belkis Kumar, Skinny Singh and colleagues, with an educational tony from [employer]. Physical exam (Primary Care) Vital Signs: Last Vital Signs Temp 97.1 F 11/14/24 09:47 Pulse 78 11/14/24 09:47 BP 132/68 11/14/24 09:47 Pulse Ox 95 11/14/24 09:47 Oxygen Delivery Method Room Air 11/14/24 09:47 BMI result Body Mass Index 25.1 Tobacco/Smoking Status: Tobacco use Status Tobacco use date assessed 11/14/24 11/14/24 10:06 Patient Tobacco Use Status Former Tobacco user 11/14/24 09:48 Tobacco use type Cigarette 11/14/24 09:48 e-Cigarette/Vaping Use Never Used 11/14/24 09:48 PHQ-9: PHQ-9 Score PHQ-9: Total score 7 11/14/24 10:43 Depression Screening Interpretation: Positive Thrive Assessment: Date of Thrive Assessment Date Thrive assessed 11/14/24 11/14/24 10:06 Currently or been in a relationship where the following occur: I choose not to answer Const General: alert; No acute distress Eyes Conjunctivae: conjunctivae normal Resp Auscultation: clear to auscultation bilaterally Cardio Rate: regular rate Rhythm: regular rhythm GI Inspection: Yes normal to inspection Extrem General: Yes normal to inspection and No edema Coding Level of Care Code Est Pt Level 4 (48638) Complex EM visit Add On G2211 Diagnoses Primary hypertension I10 Hypertension type: primary hypertension Coronary artery calcification seen on CT scan I25.10 Hypercholesterolemia E78.00 Impaired glucose tolerance R73.02 Gastroesophageal reflux disease without esophagitis K21.9 Esophagitis presence: without esophagitis Pulmonary emphysema, unspecified emphysema type J43.9 COPD type: emphysema Emphysema type: unspecified Pulmonary nodules R91.8 Cerebral aneurysm I67.1 Assessment & Plan Assessment & Plan (1) Hypertension: Code(s): I10 - Essential (primary) hypertension Category: Medical Qualifiers: Hypertension type: primary hypertension Qualified Code(s): I10 - Essential (primary) hypertension Plan: Continue with blood pressure medication. Decrease salt intake and exercise on amlodipine 2.5 mg once a day (2) Coronary artery calcification seen on CT scan: Comment: (Moderate to severe coronary artery calcification on 01/14/[address]) Code(s): I25.10 - Atherosclerotic heart disease of mohegan coronary artery without angina pectoris Category: Medical Plan: Patient was advised aspirin due to the coronary artery CT. Control the cholesterol, weight, blood pressure, (3) Hypercholesterolemia: Code(s): E78.00 - Pure hypercholesterolemia, unspecified Category: Medical Plan: Avoid fried foods, chicken skin, eggs, butter margarine, pastries and meat. Be it pork or beef they have a lot of cholesterol patient placed on pravastatin 10 mg once a day patient was advised to have the LDL goal of less than 70. (4) Impaired glucose tolerance: Code(s): R73.02 - Impaired glucose tolerance (oral) Category: Medical Plan: Decrease the amount of carbohydrate intake, pasta, bread, rice and potatoes are all sugar and that is aside from all the sweet stuff, remember that fruits are good but they are Sweet also. (5) GERD (gastroesophageal reflux disease): Code(s): K21.9 - Gastro-esophageal reflux disease without esophagitis Category: Medical Qualifiers: Esophagitis presence: without esophagitis Qualified Code(s): K21.9 - Gastro-esophageal reflux disease without esophagitis Plan: Avoid the foods that causes that usually spicy foods, tomato products, juices, coffee, soda and foods that your sensitive to. After eating do not lie down, allow 3-4 hours before in lie down. And keep the head of bed above 30 degrees to avoid the acid from going up. (6) COPD (chronic obstructive pulmonary disease): Code(s): J44.9 - Chronic obstructive pulmonary disease, unspecified Category: Medical Qualifiers: COPD type: emphysema Emphysema type: unspecified Qualified Code(s): J43.9 - Emphysema, unspecified Plan: Patient follows up with Pulmonary on levalbuterol (7) Pulmonary nodules: Comment: November 2023 Code(s): R91.8 - Other nonspecific abnormal finding of lung field Category: Medical Plan: Cat scan scheduled for December this year (8) Cerebral aneurysm: Comment: 8/93164.5 mm cerebral aneurysm, supraclinoid segment left ICA near left ophthalmic artery origin. For patients with unruptured intracranial aneurysms th at are not treated with open surgery or endovascular methods, we suggest that they be monitored with computed tomography angiography (CTA) or magnetic resonance angiography (MRA) annually for two to three years, and every two to five years thereafter if the aneurysm is clinically and radiographically stable [ Code(s): I67.1 - Cerebral aneurysm, nonruptured Category: Medical Plan: Incidental finding on MRA Plan History of Present Illness The patient is a 74-year-old female presenting for a follow-up visit after being last seen in June for a physical examination. The patient has a history of pulmonary nodules identified in November 2023 and is under surveillance for these nodules. She also has Chronic Obstructive Pulmonary Disease (COPD) and was seen by pulmonary specialists in November 06. The patient cannot tolerate multiple inhalers and is currently using levalbuterol once daily. The patient has a history of hypertension and is currently taking clonidine for management. She also has hypercholesterolemia and was previously on atorvastatin and rosuvastatin but experienced joint pains. Currently, she is on pravastatin but reports side effects such as sore muscles and itching. The patient has coronary artery disease and was advised to take aspirin, which she declined. She underwent a nuclear stress test in 2022, which showed normal myocardial perfusion. The patient follows up with urology for chronic cystitis and is on allergy desensitization therapy. A recent MRA of the neck showed less than 60% stenosis of the internal carotid arteries, and an MRA of the head revealed a 3.5 mm cerebral aneurysm in the supraclinoid segment of the left internal carotid artery. The aneurysm is being monitored, and the patient has been advised that it is not a cause for immediate concern. The patient has interstitial lung disease as noted on a recent chest X-ray. She also has a history of supraventricular tachycardia (SVT) and vertigo, for which vestibular therapy was advised. Health Maintenance - Colon cancer screening with stool test completed in 2016 - Mammogram completed in May 2024 - Bone density test completed in July 2023 Social History Review of Systems - Respiratory: Reports difficulty tolerating multiple inhalers, currently using levalbuterol once daily. - Neurological: Reports vertigo, advised vestibular therapy. - Musculoskeletal: Reports joint pains with previous statin use, currently experiencing sore muscles and itching with pravastatin. - Cardiovascular: Denies chest pain, reports normal myocardial perfusion on nuclear stress test. Physical Exam Results - Labs: Normal blood count, normal electrolytes, elevated blood sugar, normal hemoglobin A1c, normal liver function, high LDL cholesterol at 170 mg/dL, normal thyroid function. - Imaging: MRA of the neck showing less than 60% stenosis of the internal carotid arteries, MRA of the head revealing a 3.5 mm cerebral aneurysm in the supraclinoid segment of the left internal carotid artery. - Imaging: Chest X-ray indicating interstitial lung disease. - Cardiac: Nuclear stress test in 2022 showing normal myocardial perfusion. Plan Patient was informed and verbally consented to the use of an ambient scribe for clinic note documentation during this visit. 1. Pulmonary Nodules The patient is under surveillance for pulmonary nodules identified in November 2023, with a follow-up CAT scan scheduled for December. 2. Chronic Obstructive Pulmonary Disease (Copd) The patient is currently managed with levalbuterol once daily due to intolerance to multiple inhalers. 3. Hypertension The patient is currently on clonidine for hypertension management. 4. Hypercholesterolemia The patient is currently on pravastatin but experiencing side effects; a switch to ezetimibe was discussed to manage cholesterol levels. 5. Coronary Artery Disease The patient was advised to take aspirin due to coronary artery disease, but she declined. 6. Chronic Cystitis The patient continues to follow up with urology for chronic cystitis management. 7. Cerebral Aneurysm The cerebral aneurysm is being monitored, and the patient has been advised that it is not a cause for immediate concern. 8. Interstitial Lung Disease The patient has interstitial lung disease as noted on a recent chest X-ray. 9. Supraventricular Tachycardia (Svt) The patient has a history of SVT, and management options were not discussed in detail during this visit. 10. Vertigo The patient was advised to undergo vestibular therapy to address vertigo symptoms. Discussion Notes During the visit, I discussed the patient's elevated cholesterol levels and the potential switch to ezetimibe due to side effects from pravastatin. We also reviewed the management of her hypertension and the possibility of changing her medication due to adverse effects. The patient was informed about the surveillance of her cerebral aneurysm and reassured that it is not an immediate concern. Patient Instructions - Continue using levalbuterol once daily for COPD management. - Monitor blood pressure regularly and report any adverse effects from medications. - Follow up with urology for chronic cystitis management. - Undergo vestibular therapy for vertigo as advised. - Await further instructions regarding cholesterol management and potential switch to ezetimibe. Orders: Orders Comprehensive Met. Panel 3 Months E78.00 - Pure hypercholesterolemia, unspecified Lipid Panel 3 Months E78.00 - Pure hypercholesterolemia, unspecified Medications: New ezetimibe (Zetia) 10 mg PO DAILY 30 tabs 4RF E78.00 - Pure hypercholesterolemia, unspecified metoprolol succinate ER 25 mg PO DAILY 30 tabs 2RF I10 - Essential (primary) hypertension Refilled pravastatin 10 mg PO BEDTIME 30 tabs 2RF I25.10 - Atherosclerotic heart disease of mohegan coronary artery without angina pectoris Discontinued amlodipine Discontinued Reason: Patient Refused 2.5 mg PO BEDTIME 90 tabs 0RF
--- OUTSIDE RECORDS SUMMARY | 2024-11-14 10:26 | XMS_ITS | Patient Health Record ---
Author Organization [facility] Address [address] [place] [id number] Care Team Providers Care Manager Target Name Role Phone Cassandra Weeks MD Primary [...] Problem Status W/U Status Risk Notes Problem [id number] Encounter for screening for malignant neoplasm of colon (Z12.11) Active confirmed Problem [id number] Other postprocedural complications and disorders of digestive system (K91.89) Active confirmed Problem 588165195 Preprocedural examination (Z01.818) Active confirmed Problem 318599969 Aspirin long-ter m use (Z79.82) Active confirmed Plan Of Treatment Pending Test Test Name Order Date XR KUB 07/08/2020 Future Test Test Name Order Date COLONOSCOPY 12/22/2016 ERCP CHANGE OF STENT OR TUBE 07/08/2020 Insurance Providers Payer Name Payer Address Payer Phone Subscriber Number Group Number Insured Name Patient Relationship to Insured Coverage Start Date Coverage End Date [facility] [address] [place], [place] [id number] [phone] [id number] 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
--- OUTSIDE RECORDS SUMMARY | 2024-11-14 10:26 | XMS_ITS | Clinical Summary ---
Author Organization [facility] Address [address] [place], [place] [id number] Phone Care Team Providers Care Handle Bar Assembler Name Role Phone Cassandra Weeks MD Primary Care Provider [phone] Allergies Active Allergy Reactions Criticality Noted Date [...] D3, (VITAMIN D3) 1,000 unit capsule Active zp-fpg-xxgqq acid-lutein (CENTRUM SILVER) 400-250 mcg Chew Active L.neelam,acid,ferm ,rhm-B.bif,long (CONTROLLED DELIVERY PROBIOTIC) 126 mg (2 billion cell) TaDE Active atorvastatin (LIPITOR) 10 MG tablet Take 10 mg by mouth nightly at bedtime. at bedtime. 1 Active SYMBICORT 80-4.5 mcg/actuation inhaler Inhale 2 puffs into the lungs 2 (two) times a day. 1 Active multivitamins-m inerals-folic oegz-mvsrrap-an tein (CENTRUM SILVER) 0.4 mg-300 mcg- 250 [...] Noted Date Diagnosed Date Anxiety 08/20/2022 08/20/2022 halfway current use of aspirin 08/20/2022 08/20/2022 Other [...] 10/07/2024 Telephone [facility] [address] [address] Bambi Sarmiento FNP 10/06/2024 10:10 AM EDT Office Visit [facility] [address] [address] Bambi Sarmiento FNP Right otitis media, unspecified [...] PPO BLUE REPLACEMENT MEDICARE PPO BLUE REPLACEMENT [facility] MEDICARE PPO BLUE REPLACEMENT [facility] MEDICARE PPO BLUE REPLACEMENT Care Teams Handle Bar Assembler Relationship Specialty Start Date End Date Cassandra Weeks MD [address] [place] [phone] PCP - General 01/03/17 Additional Source Comments The information contained in this document represents components of the legal health record. It is not the complete legal health record.[facility]
== END 2024-11-14 11:03 | disposition home or self-care (01) ==
LOC: HO.HMCH 09:46
PROVIDERS: PCP Internal Medicine; Visit Provider Internal Medicine
DX: I10 Essential (primary) hypertension (principal); I25.10 Atherosclerotic heart disease of native coronary artery without angina pectoris; J43.9 Emphysema, unspecified; E78.00 Pure hypercholesterolemia, unspecified; R73.02 Impaired glucose tolerance (oral); K21.9 Gastro-esophageal reflux disease without esophagitis; R91.8 Other nonspecific abnormal finding of lung field; I67.1 Cerebral aneurysm, nonruptured

== ENCOUNTER → 2024-11-14 09:45 | Outpatient (BNVA) | payer MEDICARE, SELFPAY | PROVIDERS: PCP Internal Medicine; Visit Provider Internal Medicine | DX: I10 Essential (primary) hypertension (principal); I25.10 Atherosclerotic heart disease of native coronary artery without angina pectoris; E78.00 Pure hypercholesterolemia, unspecified; R73.02 Impaired glucose tolerance (oral); K21.9 Gastro-esophageal reflux disease without esophagitis; J43.9 Emphysema, unspecified; R91.8 Other nonspecific abnormal finding of lung field; I67.1 Cerebral aneurysm, nonruptured; N30.20 Other chronic cystitis without hematuria; R42 Dizziness and giddiness | CPT/HCPCS: 96127; 99212 ==

== ENCOUNTER 2024-12-03 09:23 | Outpatient (AMB) | payer MEDICARE, SELFPAY ==
--- OUTSIDE RECORDS SUMMARY | 2024-12-03 11:08 | XMS_ITS | Patient Health Record ---
Author Organization [facility] Address [address] [place] [phone] Care Team Providers Care Licensed Funeral Director Name Role Phone Cassandra Weeks MD Primary [...] Problem Status W/U Status Risk Notes Problem [id number] Encounter for screening for malignant neoplasm of colon (Z12.11) Active confirmed Problem 545408303 Other postprocedural complications and disorders of digestive system (K91.89) Active confirmed Problem 348321058 Preprocedural examination (Z01.818) Active confirmed Problem 707832323 Aspirin long-ter m use (Z79.82) Active confirmed Plan Of Treatment Pending Test Test Name Order Date XR KUB 07/08/2020 Future Test Test Name Order Date COLONOSCOPY 12/22/2016 ERCP CHANGE OF STENT OR TUBE 07/08/2020 Insurance Providers Payer Name Payer Address Payer Phone Subscriber Number Group Number Insured Name Patient Relationship to Insured Coverage Start Date Coverage End Date [facility] [address] [place], [place] [id number] 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
== END 2024-12-03 09:59 | disposition home or self-care (01) ==
LOC: HO.HMGAL 09:23
PROVIDERS: PCP Internal Medicine; Visit Provider Registered Nurse Emergency
DX: J30.89 Other allergic rhinitis (principal)
CPT/HCPCS: 95117; 95165

== ENCOUNTER 2024-12-19 12:45 | Outpatient (REF) | payer MEDICARE, SELFPAY ==
--- NOTE | ~2024-12-19 | CT_ITS ---
EXAMINATION: CT CHEST WITHOUT CONTRAST CLINICAL INFORMATION: Abnormal findings on imaging. R 93.89 COMPARISON: December 12, 2023. TECHNIQUE: Multidetector volumetric CT imaging of the chest was done. Axial MIP volume rendering provided. Sagittal and coronal reformatted images were obtained. This CT examination was performed using dose optimization techniques as appropriate, variously including the following: *Automated exposure control *Adjustment of mA and/or kV according to patient size (this includes techniques or standardized protocols for targeted exams where dose is matched to indication/reason for exam; i.e. extremities or head) *Use of iterative reconstruction technique DLP: 109 mGy centimeter. FINDINGS: LOOK OUT TOWER FIRE WATCHER: Patient's large body habitus. Hyperinflated lungs. Cardiomediastinal silhouette size is normal. Multilevel spondylosis. Vascular clips right upper quadrant abdomen likely cholecystectomy. Upper extremities at the both sides of the head. LUNGS: Subsegmental atelectasis versus scarring, right middle lung lobe. No gross consolidation. No gross pulmonary nodules. No bronchiectasis. No honeycombing. Airway is patent. MEDIASTINUM: No lymphadenopathy. No pericardial effusion. Heart is not enlarged. Calcified plaques throughout the thoracic aorta wall and its main branches. Calcified plaques in the coronary arteries. Calcified mitral valve. No pneumomediastinum. The thyroid gland is not enlarged. CORONARY ARTERY CALCIFICATION: Calcified plaques. PLEURA: No pleural effusion. No pneumothorax. No calcified pleural plaques. AXILLA: No lymphadenopathy. UPPER ABDOMEN: Small hiatal hernia. Calcified plaques in the splenic artery and the included abdominal aorta wall. OSSEOUS STRUCTURES: Multilevel spondylosis without acute fracture or gross listhesis. Osteopenia versus osteoporosis. No acute fracture, scapular or the clavicles no of the sternum. No acute rib fracture. CT/CT chest wo IV con IMPRESSION: No acute airspace disease. No discrete pulmonary nodules. Coronary artery disease and atherosclerosis disease. Calcified mitral valve. Fleischner guidelines were followed. Electronically signed by: Jason Mcgill MD 12/19/2024 01:15 PM EDT
--- OUTSIDE RECORDS SUMMARY | 2024-12-19 14:05 | XMS_ITS | Clinical Summary ---
Author Organization [facility] Address [address] [facility] [address] [place], [place] [address] Phone Care Team Providers Care Vegetable Farming Supervisor Name Role Phone Cassandra Weeks MD Primary Care Provider [phone] Allergies Active Allergy Reactions Criticality Noted Date [...] D3, (VITAMIN D3) 1,000 unit capsule Active ay-xni-eavwd acid-lutein (CENTRUM SILVER) 400-250 mcg Chew Active L.neelam,acid,ferm ,rhm-B.bif,long (CONTROLLED DELIVERY PROBIOTIC) 126 mg (2 billion cell) TaDE Active atorvastatin (LIPITOR) 10 MG tablet Take 10 mg by mouth nightly at bedtime. at bedtime. 1 Active SYMBICORT 80-4.5 mcg/actuation inhaler Inhale 2 puffs into the lungs 2 (two) times a day. 1 Active multivitamins-m inerals-folic elrt-yomccfy-qh tein (CENTRUM SILVER) 0.4 mg-300 mcg- 250 [...] mouth nightly at bedtime. at bedtime. 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 use of aspirin 08/20/2022 08/20/2022 Other [...] Type Department Care Team Description 10/07/2024 Telephone [facility] at [address] [address] Bambi Sarmiento FNP 10/06/2024 10:10 AM EDT Office Visit [facility] at [address] [address] Bambi Sarmiento FNP Right otitis media, unspecified [...] DEPRESSION SCREENING 1961 HEPATITIS C SCREENING 11/07/1967 COLOGUARD 1994 COLONOSCOPY 1994 COLORECTAL CANCER SCREENING 1994 FIT TEST 1994 FOBT 1994 SIGMOIDOSCOPY 1994 VIRTUAL COLONOSCOPY 1994 OSTEOPOROSIS SCREENING INITIAL (ONE-TIME) 2014 ZOSTER VACCINES (2 of 2) 01/21/2018 11/26/2017 INFLUENZA VACCINE (#1) 2024 , 12/27/2022, 12/19/2021, Additional history exists COVID-19 VACCINE ( season) 2024 01/20/2024, 12/27/2022, [...] PPO BLUE REPLACEMENT MEDICARE PPO BLUE REPLACEMENT [facility] MEDICARE PPO BLUE REPLACEMENT [facility] MEDICARE PPO BLUE REPLACEMENT Care Teams Vegetable Farming Supervisor Relationship Specialty Start Date End Date Cassandra Weeks MD [address] [place] [id number] PCP - General 01/03/17 Additional Source Comments The information contained in this document represents components of the legal health record. It is not the complete legal health record.[facility]
== END 2024-12-19 12:46 | disposition home or self-care (01) ==
LOC: HO.CT 12:45
PROVIDERS: PCP Internal Medicine; Visit Provider Nurse Practitioner Family
DX: R93.89 Abnormal findings on diagnostic imaging of other specified body structures (principal)
CPT/HCPCS: 71250

== ENCOUNTER → 2024-12-19 12:49 | Outpatient (BNV) | payer MEDICARE, SELFPAY | PROVIDERS: PCP Internal Medicine; Visit Provider Radiology Diagnostic Radiology | DX: I25.10 Atherosclerotic heart disease of native coronary artery without angina pectoris (principal); I34.81 Nonrheumatic mitral (valve) annulus calcification | CPT/HCPCS: 71250 ==

== ENCOUNTER 2025-01-02 10:25 | Outpatient (AMB) | payer MEDICARE, SELFPAY ==
--- OUTSIDE RECORDS SUMMARY | 2025-01-02 12:20 | XMS_ITS | Clinical Summary ---
Author Organization [facility] Address [address] [facility] [address] [place], [place] [address] Phone Care Team Providers Care Beverage Manager Name Role Phone Cassandra Weeks MD Primary Care Provider [phone] Allergies Active Allergy Reactions Criticality Noted Date [...] D3, (VITAMIN D3) 1,000 unit capsule Active qv-yte-ljzzj acid-lutein (CENTRUM SILVER) 400-250 mcg Chew Active L.neelam,acid,ferm ,rhm-B.bif,long (CONTROLLED DELIVERY PROBIOTIC) 126 mg (2 billion cell) TaDE Active atorvastatin (LIPITOR) 10 MG tablet Take 10 mg by mouth nightly at bedtime. at bedtime. 1 Active SYMBICORT 80-4.5 mcg/actuation inhaler Inhale 2 puffs into the lungs 2 (two) times a day. 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 08/20/2022 08/20/2022 Other [...] Department Care Team Description 10/07/2024 Telephone [facility] at [address] [address] Bambi Sarmiento FNP 10/06/2024 10:10 AM EDT Office Visit [facility] at [address] [address] Bambi Sarmiento FNP Right otitis media, unspecified [...] PPO BLUE REPLACEMENT MEDICARE PPO BLUE REPLACEMENT [facility] MEDICARE PPO BLUE REPLACEMENT [facility] MEDICARE PPO BLUE REPLACEMENT Care Teams Beverage Manager Relationship Specialty Start Date End Date Cassandra Weeks MD [address] [place] [phone] PCP - General 01/03/17 Additional Source Comments The information contained in this document represents components of the legal health record. It is not the complete legal health record.[facility]
--- OUTSIDE RECORDS SUMMARY | 2025-01-02 12:20 | XMS_ITS | Patient Health Record ---
Author Organization [facility] Address [address] [place] [phone] Care Team Providers Care Quill Cleaner Name Role Phone Cassandra Weeks MD Primary Care Provider Jesse Shannon Jr Unavailable [phone] Ayden Chawla Unavailable Unavailable Allergies Allergen [...] Problem Status W/U Status Risk Notes Problem Screening for malignant neoplasm of colon (629550232) Encounter for screening for malignant neoplasm of colon (Z12.11) Active confirmed Problem Disorder of digestive system (96296479) Other postprocedural complications and disorders of digestive system (K91.89) Active confirmed Problem Preprocedural examination (993283274357900) Preprocedural examination (Z01.818) Active confirmed Problem Long-term current use of aspirin (021695742216328) Aspirin long-term use (Z79.82) Active confirmed Plan Of Treatment Pending Test Test Name Order Date XR KUB 07/08/2020 Future Test Test Name Order Date COLONOSCOPY 12/22/2016 ERCP CHANGE OF STENT OR TUBE 07/08/2020 Insurance Providers Payer Name Payer Address Payer Phone Subscriber Number Group Number Insured Name Patient Relationship to Insured Coverage Start Date Coverage End Date [facility] [address] [place], [place] [id number] DRE PAINTER Self - patient is the insured Medical (General) History Medical History History ICD Code Denies [place],DM,CVA,renal disease Colonoscopy in 11/2006--hyper plastic polyps, diverticulosis, internal hemorrhoids HTN Hyperlipidemia Panic attacks Asthma Surgical History Surgery Date(Month/Year) Foot surgery Cataracts planned for 01/06/17
== END 2025-01-02 10:26 | disposition home or self-care (01) ==
LOC: HO.HMGAL 10:25
PROVIDERS: PCP Internal Medicine; Visit Provider Registered Nurse Emergency
DX: J30.89 Other allergic rhinitis (principal)
CPT/HCPCS: 95117; 95165

== ENCOUNTER 2025-01-28 09:43 | Outpatient (AMB) | payer MEDICARE, SELFPAY ==
--- OUTSIDE RECORDS SUMMARY | 2025-01-28 11:05 | XMS_ITS | Clinical Summary ---
Author Organization [facility] Address [address] [facility] [address] [place], [place] [address] Phone Care Team Providers Care Green Meat Grader Name Role Phone Cassandra Weeks MD Primary Care Provider [phone] Allergies Active Allergy Reactions Criticality Noted Date [...] D3, (VITAMIN D3) 1,000 unit capsule Active re-zxz-klpcl acid-lutein (CENTRUM SILVER) 400-250 mcg Chew Active L.neelam,acid,ferm ,rhm-B.bif,long (CONTROLLED DELIVERY PROBIOTIC) 126 mg (2 billion cell) TaDE Active atorvastatin (LIPITOR) 10 MG tablet Take 10 mg by mouth nightly at bedtime. at bedtime. 1 Active SYMBICORT 80-4.5 mcg/actuation inhaler Inhale 2 puffs into the lungs 2 (two) times a day. 1 Active multivitamins-m inerals-folic tfoa-vbqetnl-cn tein (CENTRUM SILVER) 0.4 mg-300 mcg- 250 [...] Noted Date Diagnosed Date Anxiety 08/20/2022 08/20/2022 [facility] current use of aspirin 08/20/2022 08/20/2022 Other [...] forward her profile I would appreciate it. Immunizations Immunization Administration Dates Next Due COVID-19 [...] 12/27/2022, 12/19/2021, Additional history exists COVID-19 VACCINE (2024- season) 2024 01/20/2024, 12/27/2022, 12/19/2021, Additional history [...] on patient's age to complete this topic IPV VACCINES Aged Out No longer eligi ble based on patient's age to complete this topic MENINGOCOCCAL VACCINES (ACWY) Aged Out No longer eligible based on patient's age to complete this topic MENINGOCOCCAL VACCINES (B) Aged Out N o longer eligible based on patient's age to complete this topic Medical Devices Not on file Insurance MEDICARE PPO BLUE REPLACEMENT MEDICARE PPO BLUE REPLACEMENT MEDICARE PPO BLUE REPLACEMENT MEDICARE PPO BLUE REPLACEMENT MEDICARE PPO BLUE REPLACEMENT MEDICARE PPO BLUE REPLACEMENT MEDICARE PPO BLUE REPLACEMENT MEDICARE PPO BLUE REPLACEMENT [employer] [place] MEDICARE PPO BLUE REPLACEMENT Care Teams Green Meat Grader Relationship Specialty Start Date End Date Cassandra Weeks MD [address] [place] [phone] PCP - General 01/03/17 Additional Source Comments The information contained in this document represents components of the legal health record. It is not the complete legal health record.[facility]
== END 2025-01-28 09:44 | disposition home or self-care (01) ==
LOC: HO.HMGAL 09:43
PROVIDERS: PCP Internal Medicine; Visit Provider Registered Nurse Emergency
DX: J30.89 Other allergic rhinitis (principal)
CPT/HCPCS: 95117; 95165

== ENCOUNTER 2025-01-29 09:14 | Outpatient (AMB) | payer MEDICARE, SELFPAY ==
--- NOTE | 2025-01-29 09:37 | A.OFFVIS_ITS ---
Vital Signs 01/29/25 09:38 Height 5 ft 1 in Weight 131 lb BMI 24.7 BP 128/62 Blood Pressure Location Rt brachial Position Sitting Pulse 46 L Pulse Source Pulse Oximeter Pulse Oximetry (%) 97 Oxygen Delivery Method Room Air Intake Visit Reasons: COPD Allergies salmeterol (From Advair Diskus) Allergy (Intermediate, Verified 01/30/25 15:14) Palpitations ARB-Angiotensin Receptor Antagonist (ANGIOTENSIN RECEPTOR ANTAGONIST) Allergy (Unknown, Verified 01/30/25 15:14) ANAPHYLAXIS beclomethasone (QNASL) Allergy (Unknown, Verified 01/30/25 15:14) blurred vision, headaches budesonide (Symbicort) Allergy (Unknown, Verified 01/30/25 15:14) higher dose problem ciprofloxacin (Cipro) Allergy (Unknown, Verified 01/30/25 15:14) Unknown codeine (Codeine) Allergy (Unknown, Verified 01/30/25 15:14) UNKNOWN digestive enzymes combination no.8 (From Digestive Enzyme (acidoph,pec)) Allergy (Unknown, Verified 01/30/25 15:14) Unknown fluticasone (Flovent HFA) Allergy (Unknown, Verified 01/30/25 15:14) Unknown Lactobacillus acidophilus (From Digestive Enzyme (acidoph,pec)) Allergy (Unknown, Verified 01/30/25 15:14) Unknown lisinopril (LISINOPRIL) Allergy (Unknown, Verified 01/30/25 15:14) ANGIOEDEMA mometasone furoate (Dulera) Allergy (Unknown, Verified 01/30/25 15:14) Unknown nebivolol (Bystolic) Allergy (Unknown, Verified 01/30/25 15:14) Unknown olmesartan (Benicar) Allergy (Unknown, Verified 01/30/25 15:14) Unknown pectin (From Digestive Enzyme (acidoph,pec)) Allergy (Unknown, Verified 01/30/25 15:14) Unknown Sulfa (Sulfonamide Antibiotics) Allergy (Unknown, Verified 01/30/25 15:14) headache, shaking, freezing sensation, upset stomach methenamine Allergy (Verified 01/30/25 15:14) Unknown amlodipine Adverse Reaction (Intermediate, Verified 01/30/25 15:14) neck pressure amoxicillin (From Augmentin) Adverse Reaction (Intermediate, Verified 01/30/25 15:14) abdominal pain clavulanic acid (From Augmentin) Adverse Reaction (Intermediate, Verified 01/30/25 15:14) abdominal pain diltiazem Adverse Reaction (Intermediate, Verified 01/30/25 15:14) NARVAEZ, Blurry vision, fatigue, decreased appetite formoterol (From Symbicort) Adverse Reaction (Intermediate, Verified 01/30/25 15:14) Dizziness rosuvastatin Adverse Reaction (Intermediate, Verified 01/30/25 15:14) joint pains umeclidinium (From Incruse Ellipta) Adverse Reaction (Intermediate, Verified 01/30/25 15:14) Palpitations verapamil Adverse Reaction (Intermediate, Verified 01/30/25 15:14) Blurry Vision loratadine (From Claritin) Adverse Reaction (Verified 01/30/25 15:14) Unknown nitrofurantoin Allergy (Severe, Uncoded 01/29/25 09:41) Blister estrodiol Allergy (Unknown, Uncoded 01/29/25 09:41) Unknown diltiazem Adverse Reaction (Intermediate, Uncoded 01/29/25 09:41) sleeping HPI HPI COPD: Details: Eric is a pleasant 74 year old female, former 60 pack year smoker, quit over 30 years ago, with underlying COPD and SVT. Today she is accompanied by daughter. She was previously well controlled for 20+ years on Symbicort but developed adverse reaction and discontinued. She has trialed multiple inhalers resulting in adverse effects including Dulera, Incruse, Stiolto, Anoro, Advair, Alvesco and albuterol. Side effects include tremors, tachycardia, blurred vision, headaches and dizziness. At this time, she has been using Levalbuterol MDI one inhalation QD with moderate effect as well as SCIT through ENT. She continues to report ongoing dyspnea however reluctant to retrial alternative medications due to side effects. Since the last visit patient admitted to [facility] 01/18-01/20 for CVA. 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 Her symptoms improved significantly. MRI brain showed multiple small foci of acute versus early subacute infarcts. Neurology recommended to continue aspirin and statin. Patient has been seen by physical medicine rehab, does not need any therapy at this time. Echo was pending and recommendations made for follow up with cardiology. [place] [facility] [place] and message sent to clarify if patient should be seen sooner than Reza appointment. [facility] Medical History (Updated 01/31/25 @ 10:17 by Fabi Collins PA-C) Asthma Tinnitus SVT (supraventricular tachycardia) Abnormal stress ECG with treadmill Coronary artery calcification seen on CT scan Hypertension Hypercholesterolemia Impaired glucose tolerance COPD (chronic obstructive pulmonary disease) Environmental and seasonal allergies Personal history of tobacco use GERD (gastroesophageal reflux disease) Constipation Recurrent UTI Dysuria Nocturia more than twice per night Impacted cerumen of both ears Anxiety Vitamin D deficiency History of COVID-19 Contact dermatitis Breast cancer screening by mammogram Surgical History History of colonoscopy History of cholecystectomy History of ERCP History of cataract surgery Family History Father Myocardial infarction Mother Hypertension Stroke Brother In good health Sister In good health Son In good health Daughter In good health Other Substance use disorder Social History Household Members: None Housing: House Do you presently have visiting nurse or other home services: No Alcohol intake: former Year quit: 2018 Patient Tobacco Use Status: Former Tobacco user Tobacco use type: Cigarette Cigarette Packs Per Day: 3 Years Smoked: 20 +/- quit 1990 Packs Per Year: 0 e-Cigarette/Vaping Use: Never Used Second Hand Smoke Exposure: No service: No Current occupational status: previously employed and retired 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 Cognitive needs: No Hearing needs: No Vision needs: Yes Female Reproductive History Menstrual Age of Menarche: 12 Review of Systems Const Denies chills, Denies excessive sweating, Denies fever(s) and Denies night sweats Eyes Denies dry eyes, Denies irritation and Reports itchy eyes ENT Reports Normal hearing present Card Denies chest pain, Denies chest pain at rest, Denies chest pain with activity, Denies claudication, Denies leg edema, Reports dyspnea on exertion, Denies orthopnea and Denies paroxysmal nocturnal dyspnea Resp Denies chest congestion, Denies hemoptysis, Denies excessive phlegm production, Denies pain on inspiration, Denies pain with cough, Reports dyspnea on exertion and Denies stridor Musc Denies myalgias Neuro Reports Normal hearing present Endo Denies excessive sweating Darian/Lymph Denies lymphadenopathy Aller/Immun Reports itchy eyes and Denies seasonal rhinorrhea Physical Exam Vital Signs: Last Vital Signs Pulse 46 L 01/29/25 09:38 BP 128/62 01/29/25 09:38 Pulse Ox 97 01/29/25 09:38 Oxygen Delivery Method Room Air 01/29/25 09:38 BMI result Body Mass Index 24.7 rechecked HR 62bpm Const General: cooperative, healthy appearing, comfortable, no acute distress, well developed and alert Orientation/consciousness: patient oriented x3 Limitations: no limitations HEENT Head: Yes normal to inspection, Yes normocephalic and Yes atraumatic Ears: hearing grossly normal bilaterally and external ears normal Eyes General: appearance normal, both eyes and all related structures Eyelids: Yes eyelids normal Sclerae: sclerae normal EOM: EOMs intact bilaterally Neck Neck: Yes normal visual inspection and Yes no lymphadenopathy Lymphatic: no lymphadenopathy noted Chest Chest palpation & inspection: normal inspection of the chest Resp Effort & Inspection: normal respiratory effort, able to speak in complete sentences, no audible wheezes, no cough, no stridor, not tachypneic, no tripod positioning and no use of accessory muscles Auscultation: clear to auscultation bilaterally Cardio Jugular venous distension: no JVD Rate: regular rate Rhythm: abnormal rhythm Skin Other: warm, dry General skin exam: no rashes or lesions noted Neuro General: patient oriented x3 Cranial nerves: Yes Normal hearing present Cognition (Neuro): normal cognition Gait exam (Neuro): Normal gait present Extrem General: Yes normal to inspection, Yes capillary refill normal, Yes no clubbing, cyanosis or edema and Yes no pedal edema Psych Appearance: grossly normal and well kempt Speech and movement: Normal speech and movement present and Clear speech present Affect: normal affect Attitude: cooperative Thought process: Normal thought process present Thought content: Normal thought content present Insight: Good insight present (Psych) Judgement: Good judgement present (Psych) Results Reviewed Results Reviewed: [address] [address] [address] Scan Report Signed Patient: Eric Broderick MR#: [id number] : 1950 Acct:[id number] Age/Sex: 74 / F ADM Date: 12/19/24 Loc: HO.CT Attending Dr: Licha Vela NP Ordering Physician: Licha Vela NP Date of Service: 12/19/24 Procedure(s): CT chest wo IV con Accession Number(s): [id number] cc: Cassandra Weeks MD; Licha Vela NP~ Report Number: [id number]: Total DLP = 109.00 mGy-cm Reason for Exam: R93.89 - Abnormal findings on diagnostic imaging of other specified body... EXAMINATION: CT CHEST WITHOUT CONTRAST CLINICAL INFORMATION: Abnormal findings on imaging. R 93.89 COMPARISON: December 12, 2023. TECHNIQUE: Multidetector volumetric CT imaging of the chest was done. Axial MIP volume rendering provided. Sagittal and coronal reformatted images were obtained. This CT examination was performed using dose optimization techniques as appropriate, variously including the following: *Automated exposure control *Adjustment of mA and/or kV according to patient size (this includes techniques or standardized protocols for targeted exams where dose is matched to indication/reason for exam; i.e. extremities or head) *Use of iterative reconstruction technique DLP: 109 mGy centimeter. FINDINGS: PARALEGALS: Patient's large body habitus. Hyperinflated lungs. Cardiomediastinal silhouette size is normal. Multilevel spondylosis. Vascular clips right upper quadrant abdomen likely cholecystectomy. Upper extremities at the both sides of the head. LUNGS: Subsegmental atelectasis versus scarring, right middle lung lobe. No gross consolidation. No gross pulmonary nodules. No bronchiectasis. No honeycombing. Airway is patent. MEDIASTINUM: No lymphadenopathy. No pericardial effusion. Heart is not enlarged. Calcified plaques throughout the thoracic aorta wall and its main branches. Calcified plaques in the coronary arteries. Calcified mitral valve. No pneumomediastinum. The thyroid gland is not enlarged. CORONARY ARTERY CALCIFICATION: Calcified plaques. PLEURA: No pleural effusion. No pneumothorax. No calcified pleural plaques. AXILLA: No lymphadenopathy. UPPER ABDOMEN: Small hiatal hernia. Calcified plaques in the splenic artery and the included abdominal aorta wall. OSSEOUS STRUCTURES: Multilevel spondylosis without acute fracture or gross listhesis. Osteopenia versus osteoporosis. No acute fracture, scapular or the clavicles no of the sternum. No acute rib fracture. CT/CT chest wo IV con IMPRESSION: No acute airspace disease. No discrete pulmonary nodules. Coronary artery disease and atherosclerosis disease. Calcified mitral valve. Fleischner guidelines were followed. Electronically signed by: Jason Mcgill MD 12/19/2024 01:15 PM EDT RP Dictated By: Jason Christie MD Signed By: <Electronically signed by Jason Garcia MD in OV> 12/19/24 1315 DD/ 1255 TD/TT: 12/19/24 1305 Container Washer: Assessment & Plan Assessment & Plan (1) COPD (chronic obstructive pulmonary disease): Code(s): J44.9 - Chronic obstructive pulmonary disease, unspecified Category: Medical Qualifiers: COPD type: emphysema Emphysema type: unspecified Qualified Code(s): J43.9 - Emphysema, unspecified (2) Environmental and seasonal allergies: Code(s): J30.89 - Other allergic rhinitis Category: Medical (3) Pulmonary nodules: Comment: November 2023 Code(s): R91.8 - Other nonspecific abnormal finding of lung field Category: Medical Plan Patient has trialed multiple inhalers, all resulting in side effects and can not tolerate. She has been moderately controlled using levalbuterol MDI once daily, able to tolerate, advised to continue. If symptoms become more persistent advised to increase use of Levalbuterol. She is aware to call if symptoms change. Reviewed chest CT which did not demonstrate and findings of ILD. Message sent to cardiology to see if patient should be seen sooner. All questions were answered and patient is in agreement of plan. Will follow up in three months or sooner if needed. Coding Level of Care Code Est Pt Level 4 (20594) Diagnoses Pulmonary emphysema, unspecified emphysema type J43.9 COPD type: emphysema Emphysema type: unspecified Environmental and seasonal allergies J30.89 Pulmonary nodules R91.8
[2025-01-29 09:38] VITALS: BP 128/62; PULSE 46; O2SAT 97; BMI 24.7
--- OUTSIDE RECORDS SUMMARY | 2025-01-29 09:56 | XMS_ITS | Clinical Summary ---
Author Organization [facility] Address [address] [place], [place] [address] Phone Care Team Providers Care Atm Servicer Name Role Phone Cassandra Weeks MD Primary Care Provider [phone] Allergies Active Allergy Reactions Criticality Noted Date [...] D3, (VITAMIN D3) 1,000 unit capsule Active kd-wwx-gehko acid-lutein (CENTRUM SILVER) 400-250 mcg Chew Active L.neelam,acid,ferm ,rhm-B.bif,long (CONTROLLED DELIVERY PROBIOTIC) 126 mg (2 billion cell) TaDE Active atorvastatin (LIPITOR) 10 MG tablet Take 10 mg by mouth nightly at bedtime. at bedtime. 1 Active SYMBICORT 80-4.5 mcg/actuation inhaler Inhale 2 puffs into the lungs 2 (two) times a day. 1 Active multivitamins-m inerals-folic qhlg-cxrtjwx-hm tein (CENTRUM SILVER) 0.4 mg-300 mcg- 250 [...] [place]ACEMENT Care Teams Atm Servicer Relationship Specialty Start Date End Date Cassandra Weeks MD [address] [place] [id number] PCP - General 01/03/17 Additional Source Comments The information contained in this document represents components of the legal health record. It is not the complete legal health record.[facility]
--- OUTSIDE RECORDS SUMMARY | 2025-01-29 09:57 | XMS_ITS | Patient Health Record ---
Author Organization [facility] Address [address] [place] [id number] Care Team Providers Care Field Artillery Basic Name Role Phone Cassandra Weeks MD Primary [...] Problem Screening for malignant neoplasm of colon (985302057) Encounter for screening for malignant neoplasm of colon (Z12.11) Active confirmed Problem Disorder of digestive system (21661723) Other postprocedural complications and disorders of digestive system (K91.89) Active confirmed Problem Preprocedural examination (627177436457551) Preprocedural examination (Z01.818) Active confirmed Problem Long-term current use of aspirin (107015095984538) Aspirin long-term use (Z79.82) Active confirmed Plan Of Treatment Pending Test Test Name Order Date XR KUB 07/08/2020 Future Test Test Name Order Date COLONOSCOPY 12/22/2016 ERCP CHANGE OF STENT OR TUBE 07/08/2020 Insurance Providers Payer Name Payer Address Payer Phone Subscriber Number Group Number Insured Name Patient Relationship to Insured Coverage Start Date Coverage End Date [facility] [address] [place], [place] [id number] [phone] [id number] 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
== END 2025-01-29 10:35 | disposition home or self-care (01) ==
PROVIDERS: PCP Internal Medicine; Visit Provider Nurse Practitioner Family
DX: J43.9 Emphysema, unspecified (principal); J30.89 Other allergic rhinitis; R91.8 Other nonspecific abnormal finding of lung field
CPT/HCPCS: 99214

== ENCOUNTER → 2025-01-29 09:14 | Outpatient (BNVA) | payer MEDICARE, SELFPAY | PROVIDERS: PCP Internal Medicine; Visit Provider Nurse Practitioner Family | DX: J43.9 Emphysema, unspecified (principal); J30.89 Other allergic rhinitis; R91.8 Other nonspecific abnormal finding of lung field | CPT/HCPCS: 99212 ==

== ENCOUNTER 2025-01-30 15:10 | Outpatient (AMB) | payer MEDICARE, SELFPAY ==
--- NOTE | 2025-01-30 15:11 | A.OFFPC_ITS ---
Vital Signs 01/30/25 15:12 01/30/25 16:39 Height 5 ft 1 in Weight 132 lb 4 oz BMI 25.0 BP 130/70 160/82 H Blood Pressure Location Lt brachial Lt brachial Position Sitting Sitting Pulse 56 Pulse Source Pulse Oximeter Temp 97.3 F Temp Source Temporal Artery Scan Pulse Oximetry (%) 95 Oxygen Delivery Method Room Air Intake Visit Reasons: Lulastate 01/20 Allergies salmeterol (From Advair Diskus) Allergy (Intermediate, Verified 01/30/25 15:14) Palpitations ARB-Angiotensin Receptor Antagonist (ANGIOTENSIN RECEPTOR ANTAGONIST) Allergy (Unknown, Verified 01/30/25 15:14) ANAPHYLAXIS beclomethasone (QNASL) Allergy (Unknown, Verified 01/30/25 15:14) blurred vision, headaches budesonide (Symbicort) Allergy (Unknown, Verified 01/30/25 15:14) higher dose problem ciprofloxacin (Cipro) Allergy (Unknown, Verified 01/30/25 15:14) Unknown codeine (Codeine) Allergy (Unknown, Verified 01/30/25 15:14) UNKNOWN digestive enzymes combination no.8 (From Digestive Enzyme (acidoph,pec)) Allergy (Unknown, Verified 01/30/25 15:14) Unknown fluticasone (Flovent HFA) Allergy (Unknown, Verified 01/30/25 15:14) Unknown Lactobacillus acidophilus (From Digestive Enzyme (acidoph,pec)) Allergy (Unknown, Verified 01/30/25 15:14) Unknown lisinopril (LISINOPRIL) Allergy (Unknown, Verified 01/30/25 15:14) ANGIOEDEMA mometasone furoate (Dulera) Allergy (Unknown, Verified 01/30/25 15:14) Unknown nebivolol (Bystolic) Allergy (Unknown, Verified 01/30/25 15:14) Unknown olmesartan (Benicar) Allergy (Unknown, Verified 01/30/25 15:14) Unknown pectin (From Digestive Enzyme (acidoph,pec)) Allergy (Unknown, Verified 01/30/25 15:14) Unknown Sulfa (Sulfonamide Antibiotics) Allergy (Unknown, Verified 01/30/25 15:14) headache, shaking, freezing sensation, upset stomach methenamine Allergy (Verified 01/30/25 15:14) Unknown amlodipine Adverse Reaction (Intermediate, Verified 01/30/25 15:14) neck pressure amoxicillin (From Augmentin) Adverse Reaction (Intermediate, Verified 01/30/25 15:14) abdominal pain clavulanic acid (From Augmentin) Adverse Reaction (Intermediate, Verified 01/30/25 15:14) abdominal pain diltiazem Adverse Reaction (Intermediate, Verified 01/30/25 15:14) NARVAEZ, Blurry vision, fatigue, decreased appetite formoterol (From Symbicort) Adverse Reaction (Intermediate, Verified 01/30/25 15:14) Dizziness rosuvastatin Adverse Reaction (Intermediate, Verified 01/30/25 15:14) joint pains umeclidinium (From Incruse Ellipta) Adverse Reaction (Intermediate, Verified 01/30/25 15:14) Palpitations verapamil Adverse Reaction (Intermediate, Verified 01/30/25 15:14) Blurry Vision loratadine (From Claritin) Adverse Reaction (Verified 01/30/25 15:14) Unknown nitrofurantoin Allergy (Severe, Uncoded 01/29/25 09:41) Blister estrodiol Allergy (Unknown, Uncoded 01/29/25 09:41) Unknown diltiazem Adverse Reaction (Intermediate, Uncoded 01/29/25 09:41) sleeping Medication List - Last Reconciled 01/30/25 by Fabi Collins PA-C albuterol sulfate 90 mcg/actuation 2 puffs inhalation Q4-6H PRN aspirin (Adult Aspirin Regimen) 81 mg PO DAILY cholecalciferol (vitamin D3) 25 mcg PO DAILY ezetimibe (Zetia) 10 mg PO DAILY inhalational spacing device (Aerochamber Plus Z Stat spacer) As directed levalbuterol HCl 1.25 mg (3 mL) inhalation Q4-6H PRN levalbuterol tartrate 45 mcg/actuation 1 puff inhalation Q4-6H PRN metoprolol succinate ER 25 mg PO DAILY multivitamin 1 tab PO DAILY pravastatin 10 mg PO BEDTIME vitamin B complex 1 tab PO DAILY Tobacco use date assessed: 01/30/25 Fall risk assessment: No Falls in past year Last assessed Fall Risk: 11/14/24 Dental Screening Dental Screen Date: 01/30/25 Did you have a dental visit in the last 12 months?: No Did you have a dental problem in the last 6 months where you did not have access to dental care?: No Was dental information given to patient?: Patient has dentist HPI [facility] 01/20 HPI Details 74 year old female with past medical his tory of GERD, anemia, COPD, hypercholesterolemia, hypertension last seen by Dr. Weeks 10/2024 coming in for hospital follow up. In review of the notes, patient was seen in 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 Stroke workup while in the ED MRI revealing acute vs early subacute infarcts recommended by neurology to continue on ASA and statin. Patient was deemed stable and d/c home 01/20/2025. Presenting for a follow-up after a recent hospitalization. She denies any new weakness, facial droop, or difficulty speaking since discharge. She also reports frequent pulsating vision and an increase in floaters, which worsen after using her inhaler. [facility] Medical History (Updated 01/30/25 @ 16:35 by Fabi Collins PA-C) Asthma Tinnitus SVT (supraventricular tachycardia) Abnormal stress ECG with treadmill Coronary artery calcification seen on CT scan Hypertension Hypercholesterolemia Impaired glucose tolerance COPD (chronic obstructive pulmonary disease) Environmental and seasonal allergies Personal history of tobacco use GERD (gastroesophageal reflux disease) Constipation Recurrent UTI Dysuria Nocturia more than twice per night Impacted cerumen of both ears Anxiety Vitamin D deficiency History of COVID-19 Contact dermatitis Breast cancer screening by mammogram Surgical History History of colonoscopy History of cholecystectomy History of ERCP History of cataract surgery Family History Father Myocardial infarction Mother Hypertension Stroke Brother In good health Sister In good health Son In good health Daughter In good health Other Substance use disorder Social History Household Members: None Housing: House Do you presently have visiting nurse or other home services: No Alcohol intake: former Year quit: 2018 Patient Tobacco Use Status: Former Tobacco user Tobacco use type: Cigarette Cigarette Packs Per Day: 3 Years Smoked: 20 +/- quit 1989 e-Cigarette/Vaping Use: Never Used Second Hand Smoke Exposure: No service: No Current occupational status: previously employed and retired 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 1. Little interest or pleasure in doing things: not at all 2. Feeling down, depressed, or hopeless: not at all 3. Trouble falling or staying asleep, or sleeping too much: nearly every day 4. Feeling tired or having little energy: nearly every day 5. Poor appetite or overeating: several days 6. Feeling bad about yourself - or that you are a failure or have let yourself or your family down: not at all 7. Trouble concentrating on things, such as reading the newspaper or watching television: not at all 8. Moving or speaking so slowly that other people could have noticed. Or the opposite - being so fidgety or restless that you have been moving around a lot more than usual: not at all 9. Thoughts that you would be better off or of hurting yourself in some way: not at all Total score: 7 Depression Screening Interpretation: Positive Depression Screening Done: Yes Source: Developed by Drs. Buster Gerber, Belkis Kumar, Skinny Singh and colleagues, with an educational tony from [employer]. Thrive Questionnaire Date Thrive assessed: 11/14/24 I am a: Patient What is your living situation today?: I choose not to answer this question Within the past 12 months, did the food you bought not last and you didn't have the money to get more?: I choose not to answer this question Within the past 12 months, did you worry whether your food would run out before you got money to buy more?: I choose not to answer this question Do you have trouble paying for medicines?: I choose not to answer this question Do you have trouble getting transportation to medical appointments?: I choose not to answer this question Do you have trouble paying your heating and electricity bill?: I choose not to answer this question Do you have trouble taking care of your child, family member or friend?: I choose not to answer this question Do you have trouble with day-to-day activities such as bathing, preparing meals, shopping, managing finances, etc.?: I choose not to answer this question Are you currently unemployed and looking for a job?: I choose not to answer this question Are you interested in more education?: I choose not to answer this question Please select the resources that you would like help with: None Currently or been in a relationship where the following occur: I choose not to answer THRIVE Score: 0 AUDIT C Alcohol Use Questionnaire (AUDIT-C) 1. How often do you have a drink containing alcohol?: Never 3. How often do you have six or more drinks on one occasion?: Never Total Score: 0 SUAD-7 AMB Questionnaire SUAD-7 Date SUAD - 7 assessed: 05/09/24 Feeling nervous, anxious, or on edge: 1 = Several days Not being able to stop or control worryin = Several days Worrying too much about different things: 0 = Not at all Trouble relaxin = Not at all Being so restless that it is hard to sit still: 0 = Not at all Becoming easily annoyed or irritable: 0 = Not at all Feeling afraid as if something awful might happen: 0 = Not at all Total SUAD-7 score (0-4 normal; 5-9 mild; 10-14 moderate; 15-21 severe): 2 Source: Developed by Drs. Bustre Gerber, Belkis Kumar, Skinny Singh and colleagues, with an educational tony from [employer]. Review of Systems Const Denies body aches, Denies chills, Denies fever(s), Denies headache(s) and Denies poor appetite Eyes Reports no additional complaints ENT Denies dysphagia, Denies dizziness, Denies headache(s) and Denies odynophagia Card Denies chest pain, Denies syncope, Denies edema, Denies irregular heart rhythm, Denies lightheadedness and Denies dyspnea Resp Denies cough and Denies dyspnea GI Denies abdominal pain, Denies constipation, Denies dysphagia, Denies diarrhea, Denies nausea, Denies odynophagia and Denies vomiting Reports no additional complaints Musc Reports no additional complaints and Denies abnormal gait Skin/Breast Reports system reviewed and no additional complaints, except as documented Neuro Denies abnormal gait, Denies dizziness, Denies syncope and Denies headache(s) Psych Reports no additional complaints Physical exam (Primary Care) Vital Signs: Last Vital Signs Temp 97.3 F 01/30/25 15:12 Pulse 56 01/30/25 15:12 BP 130/70 01/30/25 15:12 Pulse Ox 95 01/30/25 15:12 Oxygen Delivery Method Room Air 01/30/25 15:12 BMI result Body Mass Index 25.0 Tobacco/Smoking Status: Tobacco use Status Tobacco use date assessed 01/30/25 01/30/25 15:20 Patient Tobacco Use Status Former Tobacco user 01/30/25 15:20 Tobacco use type Cigarette 01/30/25 15:20 e-Cigarette/Vaping Use Never Used 01/30/25 15:20 PHQ-9: PHQ-9 Score PHQ-9: Total score 7 01/30/25 15:21 Depression Screening Interpretation: Positive Thrive Assessment: Date of Thrive Assessment Date Thrive assessed 11/14/24 01/30/25 15:20 Currently or been in a relationship where the following occur: I choose not to answer Const General: cooperative, healthy appearing, comfortable and no acute distress Orientation/consciousness: patient oriented x3 HENMT Head: Yes normocephalic Ears: hearing grossly normal bilaterally General nose exam: Normal external nose present Eyes General: appearance normal, both eyes and all related structures Conjunctivae: conjunctivae normal Pupils: Equal, round and reactive pupils present Neck Neck: Yes full ROM and Yes no lymphadenopathy Resp Effort & Inspection: normal respiratory effort Auscultation: clear to auscultation bilaterally, no crackles, no rales, no rhonchi and no wheezes Cardio Rate: regular rate Rhythm: abnormal rhythm Skin General skin exam: no rashes or lesions noted Neuro General: patient oriented x3 Cranial nerves: Yes CN's II-XII intact bilaterally, Yes Equal, round and reactive pupils present, Yes Bilaterally intact EOM present, Yes Nystagmus not present, Yes Normal facial strength present, Yes Midline tongue present, Yes Symmetric palate elevation present and Yes Ability to bilaterally elevate shoulders present Gait exam (Neuro): Normal gait present Motor exam (neuro): 5/5 motor strength present throughout Coordination: myukcd-xw-oifh test normal Romberg Test: Negative Extrem General: Yes normal to inspection, Yes full ROM and No edema Psych Affect: normal affect Attitude: cooperative Insight: Good insight present (Psych) Judgement: Good judgement present (Psych) Office Procedures EKG Details: EKG was reviewed by both myself and Dr. Weeks which revealed sinus arrhythmia with PVCs without evidence of atrial fibrillation, a flutter or ischemia. 31493-[id number], Complete Coding Level of Care Code Est Pt Level 4 (01807) Diagnoses Primary hypertension I10 Hypertension type: primary hypertension Hypercholesterolemia E78.00 Impaired glucose tolerance R73.02 Pulmonary emphysema, unspecified emphysema type J43.9 COPD type: emphysema Emphysema type: unspecified CVA (cerebral vascular accident) I63.9 CPT Codes EKG - CPT: 69082-Rtrtqslxozzumyvuy, Complete ([id number]) Assessment & Plan Assessment & Plan (1) Hypertension: Code(s): I10 - Essential (primary) hypertension Category: Medical Qualifiers: Hypertension type: primary hypertension Qualified Code(s): I10 - Essential (primary) hypertension Plan: Continue on current blood pressure medication. Avoid salt intake and encourage healthy diet and regular exercise. Blood pressure elevated in the office today 160/72 when retaken. Plan to increase metoprolol to a full tablet daily as she has been taking half a tablet. (2) Hypercholesterolemia: Code(s): E78.00 - Pure hypercholesterolemia, unspecified Category: Medical Plan: Avoid foods that are high in cholesterol such as red meat, fried foods, eggs and baked goods. Triglyceride goal of less than 150 and LDL goal of less than 70. Continue on pravastatin and Zetia. Last LDL 67 (3) Impaired glucose tolerance: Code(s): R73.02 - Impaired glucose tolerance (oral) Category: Medical Plan: Decrease the amount of carbohydrates such as pasta, bread, rice, and potatoes and limit the amount of sweets. Although fruits are generally healthy they should be eaten in moderation as they are still high in sugar. A1c in the hospital 5.8% (4) COPD (chronic obstructive pulmonary disease): Code(s): J44.9 - Chronic obstructive pulmonary disease, unspecified Category: Medical Qualifiers: COPD type: emphysema Emphysema type: unspecified Qualified Code(s): J43.9 - Emphysema, unspecified Plan: Continue to follow with pulmonology and continue on current inhaler. (5) CVA (cerebral vascular accident): Comment: MRI 12/2024 revealing acute vs early subacute infarcts Code(s): I63.9 - Cerebral infarction, unspecified Category: Medical Plan: Advised by Neurology to stay on aspirin and pravastatin. LDL goal less than 70, blood pressure goal less than 130/80 and continued on metoprolol and A1c goal less than 7%. Consideration was made for Holter monitor while admitted for concern of AFib. 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 Plan This note was constructed using voice recognition software. While every effort has been made to ensure accuracy and wood cutter, still areas may have been included sometimes these areas may affect the content or meeting of the given symptoms. Total time spent caring for the patient today was 30 minutes. This includes time spent before the visit reviewing the chart, time spent during the visit, and time spent after the visit and documentation. Patient was informed and verbally consented to the use of an ambient scribe for clinic note documentation during this visit.
[2025-01-30 15:12] VITALS: BP 130/70; PULSE 56; TEMP 36.3; O2SAT 95; BMI 25.0
[2025-01-30 16:39] VITALS: BP 160/82
--- OUTSIDE RECORDS SUMMARY | 2025-01-30 18:27 | XMS_ITS | Patient Health Record ---
Author Organization [facility] Address [address] [place] [id number] Care Team Providers Care Allocations Clerk Name Role Phone Cassandra Weeks MD Primary [...] Problem Screening for malignant neoplasm of colon (589274493) Encounter for screening for malignant neoplasm of colon (Z12.11) Active confirmed Problem Disorder of digestive system (17663219) Other postprocedural complications and disorders of digestive system (K91.89) Active confirmed Problem Preprocedural examination (647041025988627) Preprocedural examination (Z01.818) Active confirmed Problem Long-term current use of aspirin (319071834385050) Aspirin long-term use (Z79.82) Active confirmed Plan Of Treatment Pending Test Test Name Order Date XR KUB 07/08/2020 Future Test Test Name Order Date COLONOSCOPY 12/22/2016 ERCP CHANGE OF STENT OR TUBE 07/08/2020 Insurance Providers Payer Name Payer Address Payer Phone Subscriber Number Group Number Insured Name Patient Relationship to Insured Coverage Start Date Coverage End Date [facility] [address] [place], [place] [id number] 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
--- OUTSIDE RECORDS SUMMARY | 2025-01-30 18:27 | XMS_ITS | Clinical Summary ---
Author Organization [facility] Address [address] [place], [place] [id number] Phone Care Team Providers Care Machinist Outside Name Role Phone Cassandra Weeks MD Primary Care Provider [phone] Allergies Active Allergy Reactions Criticality Noted Date [...] D3, (VITAMIN D3) 1,000 unit capsule Active qz-sxi-gxvvn acid-lutein (CENTRUM SILVER) 400-250 mcg Chew Active L.neelam,acid,ferm ,rhm-B.bif,long (CONTROLLED DELIVERY PROBIOTIC) 126 mg (2 billion cell) TaDE Active atorvastatin (LIPITOR) 10 MG tablet Take 10 mg by mouth nightly at bedtime. at bedtime. 1 Active SYMBICORT 80-4.5 mcg/actuation inhaler Inhale 2 puffs into the lungs 2 (two) times a day. 1 Active multivitamins-m inerals-folic krmt-ghhjjsk-hp tein (CENTRUM SILVER) 0.4 mg-300 mcg- 250 [...] Noted Date Diagnosed Date Anxiety 08/20/2022 08/20/2022 care home current use of aspirin 08/20/2022 08/20/2022 Other [...] [place] Care Teams Machinist Outside Relationship Specialty Start Date End Date Cassandra Weeks MD [address] [place] [id number] PCP - General 01/03/17 Additional Source Comments The information contained in this document represents components of the legal health record. It is not the complete legal health record.[facility]
== END 2025-01-30 16:22 | disposition home or self-care (01) ==
LOC: HO.HMCH 15:11
PROVIDERS: PCP Internal Medicine
DX: I10 Essential (primary) hypertension (principal); E78.00 Pure hypercholesterolemia, unspecified; R73.02 Impaired glucose tolerance (oral); J43.9 Emphysema, unspecified; I63.9 Cerebral infarction, unspecified

== ENCOUNTER → 2025-01-30 15:10 | Outpatient (BNVA) | payer MEDICARE, SELFPAY | PROVIDERS: PCP Internal Medicine | DX: I10 Essential (primary) hypertension (principal); I49.8 Other specified cardiac arrhythmias; E78.00 Pure hypercholesterolemia, unspecified; R73.02 Impaired glucose tolerance (oral); J43.9 Emphysema, unspecified; Z87.891 Personal history of nicotine dependence; Z86.73 Personal history of transient ischemic attack (TIA), and cerebral infarction without residual deficits; Z13.31 Encounter for screening for depression | CPT/HCPCS: 93005; 96127; 99212 ==

== ENCOUNTER → 2025-02-04 13:22 | Outpatient (REF) | payer MEDICARE, SELFPAY | LOC: HO.CARD 13:22 | PROVIDERS: PCP Internal Medicine; Visit Provider Nurse Practitioner Family | DX: I49.1 Atrial premature depolarization (principal); R00.2 Palpitations; I63.9 Cerebral infarction, unspecified | CPT/HCPCS: 93270 ==

== ENCOUNTER → 2025-02-04 13:24 | Outpatient (BNV) | payer MEDICARE, SELFPAY | PROVIDERS: PCP Internal Medicine; Visit Provider Internal Medicine Cardiovascular Disease | DX: I49.1 Atrial premature depolarization (principal) | CPT/HCPCS: 93272 ==

== ENCOUNTER 2025-02-25 09:57 | Outpatient (AMB) | payer MEDICARE, SELFPAY | END 2025-02-25 09:58 | disposition home or self-care (01) | LOC: HO.HMGAL 09:57 | PROVIDERS: PCP Internal Medicine; Visit Provider Registered Nurse Emergency | DX: J30.89 Other allergic rhinitis (principal) | CPT/HCPCS: 95117; 95165 ==

== ENCOUNTER 2025-03-04 12:34 | Outpatient (AMB) | payer MEDICARE, SELFPAY ==
[2025-03-04 12:39] VITALS: BP 140/62; PULSE 81; RESP 18; O2SAT 99; BMI 25.3
--- NOTE | 2025-03-04 12:39 | MHC.PC.OV ---
Vital Signs 03/04/25 12:39 Height 5 ft 1 in Weight 134 lb BMI 25.3 BP 140/62 H Blood Pressure Location Lt brachial Position Sitting Respiration 18 Pulse 81 Pulse Source Pulse Oximeter Temp Source Temporal Artery Scan Pulse Oximetry (%) 99 Oxygen Delivery Method Room Air Intake Visit Reasons: 3 mo hypercholesterol, HTN Interventional Radiologist Required: No Accompanied by: Self / Same As Patient Allergies salmeterol (From Advair Diskus) Allergy (Intermediate, Verified 03/04/25 12:40) Palpitations ARB-Angiotensin Receptor Antagonist (ANGIOTENSIN RECEPTOR ANTAGONIST) Allergy (Unknown, Verified 03/04/25 12:40) ANAPHYLAXIS beclomethasone (QNASL) Allergy (Unknown, Verified 03/04/25 12:40) blurred vision, headaches budesonide (Symbicort) Allergy (Unknown, Verified 03/04/25 12:40) higher dose problem ciprofloxacin (Cipro) Allergy (Unknown, Verified 03/04/25 12:40) Unknown codeine (Codeine) Allergy (Unknown, Verified 03/04/25 12:40) UNKNOWN digestive enzymes combination no.8 (From Digestive Enzyme (acidoph,pec)) Allergy (Unknown, Verified 03/04/25 12:40) Unknown fluticasone (Flovent HFA) Allergy (Unknown, Verified 03/04/25 12:40) Unknown Lactobacillus acidophilus (From Digestive Enzyme (acidoph,pec)) Allergy (Unknown, Verified 03/04/25 12:40) Unknown lisinopril (LISINOPRIL) Allergy (Unknown, Verified 03/04/25 12:40) ANGIOEDEMA mometasone furoate (Dulera) Allergy (Unknown, Verified 03/04/25 12:40) Unknown nebivolol (Bystolic) Allergy (Unknown, Verified 03/04/25 12:40) Unknown olmesartan (Benicar) Allergy (Unknown, Verified 03/04/25 12:40) Unknown pectin (From Digestive Enzyme (acidoph,pec)) Allergy (Unknown, Verified 03/04/25 12:40) Unknown Sulfa (Sulfonamide Antibiotics) Allergy (Unknown, Verified 03/04/25 12:40) headache, shaking, freezing sensation, upset stomach methenamine Allergy (Verified 03/04/25 12:40) Unknown amlodipine Adverse Reaction (Intermediate, Verified 03/04/25 12:40) neck pressure amoxicillin (From Augmentin) Adverse Reaction (Intermediate, Verified 03/04/25 12:40) abdominal pain clavulanic acid (From Augmentin) Adverse Reaction (Intermediate, Verified 03/04/25 12:40) abdominal pain diltiazem Adverse Reaction (Intermediate, Verified 03/04/25 12:40) NARVAEZ, Blurry vision, fatigue, decreased appetite formoterol (From Symbicort) Adverse Reaction (Intermediate, Verified 03/04/25 12:40) Dizziness rosuvastatin Adverse Reaction (Intermediate, Verified 03/04/25 12:40) joint pains umeclidinium (From Incruse Ellipta) Adverse Reaction (Intermediate, Verified 03/04/25 12:40) Palpitations verapamil Adverse Reaction (Intermediate, Verified 03/04/25 12:40) Blurry Vision loratadine (From Claritin) Adverse Reaction (Verified 03/04/25 12:40) Unknown nitrofurantoin Allergy (Severe, Uncoded 01/29/25 09:41) Blister estrodiol Allergy (Unknown, Uncoded 01/29/25 09:41) Unknown diltiazem Adverse Reaction (Intermediate, Uncoded 01/29/25 09:41) sleeping Medication List - Last Reconciled 03/04/25 by Cassandra Weeks MD albuterol sulfate 90 mcg/actuation 2 puffs inhalation Q4-6H PRN aspirin (Adult Aspirin Regimen) 81 mg PO DAILY cholecalciferol (vitamin D3) 25 mcg PO DAILY ezetimibe (Zetia) 10 mg PO DAILY inhalational spacing device (Aerochamber Plus Z Stat spacer) As directed levalbuterol HCl 1.25 mg (3 mL) inhalation Q4-6H PRN levalbuterol tartrate 45 mcg/actuation 1 puff inhalation Q4-6H PRN metoprolol succinate ER 25 mg PO DAILY multivitamin 1 tab PO DAILY pravastatin 10 mg PO BEDTIME vitamin B complex 1 tab PO DAILY Tobacco use date assessed: 03/04/25 Fall risk assessment: No Falls in past year Last assessed Fall Risk: 03/04/25 Dental Screening Dental Screen Date: 03/04/25 Did you have a dental visit in the last 12 months?: No Did you have a dental problem in the last 6 months where you did not have access to dental care?: No Was dental information given to patient?: No HPI HPI Comments History of Present Illness Details History of Present Illness The patient is a 74-year-old female presenting for a follow-up visit for management of chronic conditions, including GERD, COPD, hypertension, and hypercholesterolemia. The patient has a history of a cerebrovascular accident and was hospitalized in the ER in December 2024 for a thalamic artery aneurysm with subsequent right upper extremity numbness. An MRI at that time revealed early/acute infarcts, and neurology recommended continuing aspirin and a statin. A CT scan has also shown coronary artery calcification. For management of her COPD, she follows up with pulmonology and is prescribed levalbuterol as needed, which she reports using twice a day, as she is sensitive to other medications. A CT of the chest was performed in December 2024. Regarding her hypertension, she checks her blood pressure at home and notes it is often low, only being high during office visits. She was previously advised to increase her metoprolol and was taking a full tablet, but reports taking half a tablet at home. Laboratory work from January 2025 showed an LDL of 63 mg/dL, triglycerides of 70 mg/dL, and a hemoglobin A1c of 5.3%. Previous labs from October 2024 showed a high LDL cholesterol of 170 mg/dL, fasting blood sugar of 107 mg/dL, and a hemoglobin A1c of 5.4%. Her health maintenance screenings include a colonoscopy in 2016, a mammogram in May 2024, and a bone density scan in July 2023. She received the flu shot while in the hospital and had a shingles shot last year. She has not had the recent COVID shot. The patient's gallbladder has been removed. Health Maintenance - Last colonoscopy was in 2016. - Last mammogram was in May 2024. - Last bone density scan was in July 2023. - Immunizations: Patient received a flu shot in the hospital and a shingles shot last year but has not received a recent COVID shot. - Cardiovascular risk reduction: The patient is on aspirin, pravastatin, and Zetia. - Diet: Recommended to eat a variety of foods. - Hydration: Patient reports drinking 8-10 glasses of water per day and was advised to stay well hydrated. Social History - Nutrition: Patient drinks 8 to 10 glasses of water a day. - Functional Status: Patient is having a hard time with parking and may require a handicap placard. Results - Labs from January 2025: LDL 63 mg/dL, triglycerides 70 mg/dL, and A1c 5.3%. - Labs from October 2024: LDL 170 mg/dL, blood sugar 107 mg/dL, and A1c 5.4%. - Labs from October 19: Normal blood count, electrolytes, and renal function with blood sugar at 1.04 and later 1.08. - Imaging from December 2024: MRI revealed early/acute infarcts. - Imaging from December 2024: CT chest was performed. - Diagnostics: Patient is on her last day of wearing a heart monitor (event monitor). [facility] Medical History Asthma Tinnitus SVT (supraventricular tachycardia) Abnormal stress ECG with treadmill Coronary artery calcification seen on CT scan Hypertension Hypercholesterolemia Impaired glucose tolerance COPD (chronic obstructive pulmonary disease) Environmental and seasonal allergies Personal history of tobacco use GERD (gastroesophageal reflux disease) Constipation Recurrent UTI Dysuria Nocturia more than twice per night Impacted cerumen of both ears Anxiety Vitamin D deficiency History of COVID-19 Contact dermatitis Breast cancer screening by mammogram Surgical History History of colonoscopy History of cholecystectomy History of ERCP History of cataract surgery Family History Father Myocardial infarction Mother Hypertension Stroke Brother In good health Sister In good health Son In good health Daughter In good health Other Substance use disorder Social History Household Members: None Housing: House Do you presently have visiting nurse or other home services: No Alcohol intake: former Year quit: 2018 Patient Tobacco Use Status: Former Tobacco user Tobacco use type: Cigarette Cigarette Packs Per Day: 3 Years Smoked: 20 +/- quit 1989 e-Cigarette/Vaping Use: Never Used Second Hand Smoke Exposure: No service: No Current occupational status: previously employed and retired 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 Cognitive needs: No Hearing needs: No Vision needs: Yes Female Reproductive History Menstrual Age of Menarche: 12 Questionnaire Thrive Questionnaire Date Thrive assessed: 03/04/25 I am a: Patient What is your living situation today?: I choose not to answer this question Within the past 12 months, did the food you bought not last and you didn't have the money to get more?: I choose not to answer this question Within the past 12 months, did you worry whether your food would run out before you got money to buy more?: I choose not to answer this question Do you have trouble paying for medicines?: I choose not to answer this question Do you have trouble getting transportation to medical appointments?: I choose not to answer this question Do you have trouble paying your heating and electricity bill?: I choose not to answer this question Do you have trouble taking care of your child, family member or friend?: I choose not to answer this question Do you have trouble with day-to-day activities such as bathing, preparing meals, shopping, managing finances, etc.?: I choose not to answer this question Are you currently unemployed and looking for a job?: I choose not to answer this question Are you interested in more education?: I choose not to answer this question Please select the resources that you would like help with: None Currently or been in a relationship where the following occur: I choose not to answer THRIVE Score: 0 SUAD-7 AMB Questionnaire SUAD-7 Date SUAD - 7 assessed: 05/09/24 Source: Developed by Drs. Buster Gerber, Belkis Kumar, Skinny Singh and colleagues, with an educational tony from [employer]. Review of Systems Narrative Review of Systems - Eyes: Reports floaters and blurry vision after taking medication. - HEENT: Reports painful right ear for a couple of days. - HEENT: Reports pressure in the sinuses. - HEENT: Denies discharge from the ear. - HEENT: Denies sore throat. - Cardiovascular: Denies dizziness. - Respiratory: Reports shortness of breath. - Respiratory: Reports coughing with deep breathing. - Gastrointestinal: Reports crampy stomach pain after eating for the past week, which started after eating spinach. - Gastrointestinal: Denies heartburn. - Gastrointestinal: Denies gassiness. - Gastrointestinal: Reports normal bowel movements. - Gastrointestinal: Denies nausea and vomiting. Physical exam (Primary Care) Vital Signs: Last Vital Signs Pulse 81 03/04/25 12:39 Resp 18 03/04/25 12:39 BP 140/62 H 03/04/25 12:39 Pulse Ox 99 03/04/25 12:39 Oxygen Delivery Method Room Air 03/04/25 12:39 BMI result Body Mass Index 25.3 Tobacco/Smoking Status: Tobacco use Status Tobacco use date assessed 03/04/25 03/04/25 12:50 Patient Tobacco Use Status Former Tobacco user 03/04/25 12:50 Tobacco use type Cigarette 03/04/25 12:50 e-Cigarette/Vaping Use Never Used 03/04/25 12:50 Thrive Assessment: Date of Thrive Assessment Date Thrive assessed 03/04/25 03/04/25 12:50 Currently or been in a relationship where the following occur: I choose not to answer Narrative Physical Exam - Cardiovascular: Heart auscultation reveals a regular rhythm with extra beats and skipped beats. - Respiratory: Lungs auscultated. - HEENT: Examination of the ears is normal. - HEENT: No pain on tragal pressure or auricular pull on the left ear. - HEENT: Tingling sensation with auricular pull but no pain with tragal pressure on the right ear. - HEENT: Oropharynx examination reveals good color. - Abdomen: Tenderness to palpation in the right upper quadrant. - Abdomen: No tenderness to palpation in the lower abdomen. Const General: alert; No acute distress Eyes Conjunctivae: conjunctivae normal Resp Auscultation: clear to auscultation bilaterally Cardio Rate: regular rate Rhythm: regular rhythm GI Inspection: Yes normal to inspection Extrem General: Yes normal to inspection and No edema Coding Level of Care Code Est Pt Level 4 (82479) Diagnoses Coronary artery calcification seen on CT scan I25.10 Primary hypertension I10 Hypertension type: primary hypertension Hypercholesterolemia E78.00 Impaired glucose tolerance R73.02 Gastroesophageal reflux disease without esophagitis K21.9 Esophagitis presence: without esophagitis CVA (cerebral vascular accident) I63.9 Pulmonary emphysema, unspecified emphysema type J43.9 COPD type: emphysema Emphysema type: unspecified Personal history of tobacco use Z87.891 Assessment & Plan Assessment & Plan (1) Coronary artery calcification seen on CT scan: Comment: (Moderate to severe coronary artery calcification on 01/14/[address]) Code(s): I25.10 - Atherosclerotic heart disease of [place] coronary artery without angina pectoris Category: Medical Plan: Control the cholesterol, weight, blood pressure, continue with taking aspirin 81 mg once a day (2) Hypertension: Code(s): I10 - Essential (primary) hypertension Category: Medical Qualifiers: Hypertension type: primary hypertension Qualified Code(s): I10 - Essential (primary) hypertension Plan: Continue with blood pressure medication. Decrease salt intake and exercise continue with metoprolol 25 mg once a day (3) Hypercholesterolemia: Code(s): E78.00 - Pure hypercholesterolemia, unspecified Category: Medical Plan: Avoid fried foods, chicken skin, eggs, butter margarine, pastries and meat. Be it pork or beef they have a lot of cholesterol LDL goal of less than 70 and triglyceride of less than 150 on Zetia and pravastatin 10 mg once a day (4) Impaired glucose tolerance: Code(s): R73.02 - Impaired glucose tolerance (oral) Category: Medical Plan: Decrease the amount of carbohydrate intake, pasta, bread, rice and potatoes are all sugar and that is aside from all the sweet stuff, remember that fruits are good but they are Sweet also. (5) GERD (gastroesophageal reflux disease): Code(s): K21.9 - Gastro-esophageal reflux disease without esophagitis Category: Medical Qualifiers: Esophagitis presence: without esophagitis Qualified Code(s): K21.9 - Gastro-esophageal reflux disease without esophagitis Plan: Avoid the foods that causes that usually spicy foods, tomato products, juices, coffee, soda and foods that your sensitive to. After eating do not lie down, allow 3-4 hours before in lie down. And keep the head of bed above 30 degrees to avoid the acid from going up. (6) CVA (cerebral vascular accident): Comment: MRI 12/2024 revealing acute vs early subacute infarcts Code(s): I63.9 - Cerebral infarction, unspecified Category: Medical Plan: Control the cholesterol, weight, blood pressure, patient on aspirin (7) COPD (chronic obstructive pulmonary disease): Code(s): J44.9 - Chronic obstructive pulmonary disease, unspecified Category: Medical Qualifiers: COPD type: emphysema Emphysema type: unspecified Qualified Code(s): J43.9 - Emphysema, unspecified Plan: Continue with levalbuterol as needed (8) Personal history of tobacco use: Code(s): Z87.891 - Personal history of nicotine dependence Category: Social Hx Plan: Continue with levalbuterol as needed Plan Plan Patient was informed and verbally consented to the use of an ambient scribe for clinic note documentation during this visit. 1. Hypercholesterolemia The lipid panel from January 2025 shows LDL is at goal at 63 mg/dL and triglycerides are at goal at 70 mg/dL. She will continue taking pravastatin 10 mg once a day and Zetia. 2. Hypertension The patient reports low blood pressure readings at home. She is currently taking metoprolol 25 mg once a day. She will bring her home blood pressure machine to the next appointment to compare readings, as there is concern for overtreatment. Medication may be adjusted if her machine confirms low readings. She was advised to continue monitoring her blood pressure at home. 3. Chronic Obstructive Pulmonary Disease (Copd) The patient will continue using levalbuterol as needed for her COPD. She reports using it twice daily, which is not the ideal treatment, but she cannot tolerate other long-acting medications due to side effects. 4. History Of Cerebrovascular Accident The patient will continue taking aspirin 81 mg once a day for secondary prevention of stroke. 5. Arrhythmia The patient is completing an event monitor study today to evaluate her symptoms of shortness of breath and arrhythmia. Physical exam revealed a regular rhythm with extra beats and skipped beats. She will follow up on the results on the . Discussion included the possibility of an ablation if atrial fibrillation is found. 6. Otalgia The patient reports right ear pain for a couple of days. Physical examination of the ears was normal. 7. Abdominal Pain The patient reports crampy stomach pain for about a week, especially after eating. On exam, she has tenderness in the right upper quadrant. The patient was advised to eat a variety of foods and stay well hydrated to see if symptoms resolve. 8. Allergic Rhinitis The patient reports sinus pressure. Elap-fky-uxuhqhm nasal sprays like Flonase, Nasacort, or Nasonex were recommended, though she notes a past reaction to Flonase. Saline sinus rinses were also suggested as a non-medicated option. 9. Mobility Issues The patient reports difficulty that may necessitate a handicap placard for parking. She was instructed to request the paperwork at checkout to be completed. Discussion Notes I reviewed the patient's recent lab results from January, noting that her LDL and triglycerides are at goal. I discussed the management of her COPD, acknowledging that while levalbuterol twice daily is not ideal, it is her only tolerated option due to side effects from long-acting inhalers. We discussed her blood pressure management extensively, as her home readings are low, suggesting possible overtreatment. I explained the risks of hypotension, such as passing out, and the importance of our goal being around 120/80 mmHg. I asked her to bring in her home BP machine to the next visit so we can compare its readings with ours before making any adjustments to her metoprolol. I addressed her new complaint of right ear pain, and my exam did not show any definitive signs of infection. Regarding her sinus pressure, I recommended lael-trn-jhizroc nasal sprays or a saline sinus rinse as potential remedies. For her recent stomach cramps, I advised maintaining hydration and a varied diet, as there were no other concerning symptoms like nausea or vomiting. I noted on my exam that her heart rhythm had extra and skipped beats, and I expressed my interest in the results of her event monitor, which she completes today. We discussed that if the monitor reveals a condition like atrial fibrillation, an ablation could be a treatment option that might also help her breathing. I agreed to complete paperwork for a [employer] parking placard to assist with her mobility challenges. Patient Instructions - Continue all your current medications as prescribed, including aspirin 81 mg, metoprolol 25 mg, pravastatin 10 mg, Zetia, and levalbuterol as needed. - Continue to check your blood pressure at home. - Please bring your home blood pressure machine to your next appointment so we can check it for accuracy. - For sinus pressure, you can try an [id number]-[id number] nasal spray like Nasonex or Nasacort, or use a saline sinus rinse. - We will follow up on the results of your heart monitor test after the . - For your stomach cramps, try to eat a variety of foods and continue to drink plenty of fluids (8-10 glasses of water daily). - At the front office help, ask for the handicap placard application form. Fill out your portion and give it to the staff so it can be completed for you. - Maintain a healthy lifestyle by staying hydrated and keeping active.
== END 2025-03-04 13:44 | disposition home or self-care (01) ==
LOC: HO.HMCH 12:34
PROVIDERS: PCP Internal Medicine; Visit Provider Internal Medicine
DX: I25.10 Atherosclerotic heart disease of native coronary artery without angina pectoris (principal); I63.9 Cerebral infarction, unspecified; J43.9 Emphysema, unspecified; I10 Essential (primary) hypertension; E78.00 Pure hypercholesterolemia, unspecified; R73.02 Impaired glucose tolerance (oral); K21.9 Gastro-esophageal reflux disease without esophagitis; Z87.891 Personal history of nicotine dependence

== ENCOUNTER → 2025-03-04 12:34 | Outpatient (BNVA) | payer MEDICARE, SELFPAY | PROVIDERS: PCP Internal Medicine; Visit Provider Internal Medicine | DX: E78.00 Pure hypercholesterolemia, unspecified (principal); I10 Essential (primary) hypertension; J43.9 Emphysema, unspecified; I49.9 Cardiac arrhythmia, unspecified; H92.01 Otalgia, right ear; R10.9 Unspecified abdominal pain; I25.10 Atherosclerotic heart disease of native coronary artery without angina pectoris; K21.9 Gastro-esophageal reflux disease without esophagitis; R73.02 Impaired glucose tolerance (oral); Z86.73 Personal history of transient ischemic attack (TIA), and cerebral infarction without residual deficits; Z87.891 Personal history of nicotine dependence; Z74.09 Other reduced mobility | CPT/HCPCS: 99212 ==

== ENCOUNTER 2025-03-12 15:05 | Outpatient (AMB) | payer MEDICARE, SELFPAY ==
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
[2025-03-12 15:49] VITALS: BP 150/64; PULSE 67; O2SAT 96; BMI 25.4
--- OUTSIDE RECORDS SUMMARY | 2025-03-12 16:24 | XMS_ITS | Clinical Summary ---
Author Organization [facility] Address [address] [place], [place] [id number] Phone Care Team Providers Care Daycare Worker Name Role Phone Cassandra Weeks MD Primary Care Provider [phone] Allergies Active Allergy Reactions Criticality Noted Date [...] D3, (VITAMIN D3) 1,000 unit capsule Active fb-mur-ceyoi acid-lutein (CENTRUM SILVER) 400-250 mcg Chew Active L.neelam,acid,ferm ,rhm-B.bif,long (CONTROLLED DELIVERY PROBIOTIC) 126 mg (2 billion cell) TaDE Active atorvastatin (LIPITOR) 10 MG tablet Take 10 mg by mouth nightly at bedtime. at bedtime. 1 Active SYMBICORT 80-4.5 mcg/actuation inhaler Inhale 2 puffs into the lungs 2 (two) times a day. 1 Active multivitamins-m inerals-folic mufo-idtcwks-zt tein (CENTRUM SILVER) 0.4 mg-300 mcg- 250 [...] Noted Date Diagnosed Date Anxiety 08/20/2022 08/20/2022 [facility] current use of aspirin 08/20/2022 08/20/2022 Other [...] topic Medical Devices Not on file Insurance [facility] MEDICARE PPO BLUE REPLACEMENT [facility] MEDICARE PPO BLUE REPLACEMENT MEDICARE PPO BLUE REPLACEMENT MEDICARE PPO BLUE REPLACEMENT MEDICARE PPO BLUE REPLACEMENT MEDICARE PPO BLUE REPLACEMENT MEDICARE PPO BLUE REPLACEMENT MEDICARE PPO BLUE REPLACEMENT [employer] [place] MEDICARE PPO BLUE REPLACEMENT Care Teams Daycare Worker Relationship Specialty Start Date End Date Cassandra Weeks MD [address] [place] [phone] PCP - General 01/03/17 Additional Source Comments The information contained in this document represents components of the legal health record. It is not the complete legal health record.[facility]
--- OUTSIDE RECORDS SUMMARY | 2025-03-12 16:24 | XMS_ITS | Patient Health Record ---
Author Organization [facility] Address [address] [place] [phone] Care Team Providers Care Stamp Machine Servicer Name Role Phone Cassandra Weeks MD Primary Care Provider Jesse Shannon Jr Unavailable Ayden Chawla Unavailable Unavailable Allergies Allergen (clinical drug ingredient) Drug/Non Drug Allergy documented on EMR Reaction Allergy Type Onset Date Status many blood pressure,inhalers and cholesterol meds (uncoded) Unknown Allergy Active codeine Codeine Sulfate Unknown Drug Allergy A ctive Reason For Referral No Information Medications Medication SIG (Take, Route, Frequency, Duration) Notes Start Date End Date Status Fish Oil 1200 MG Capsule Delayed Release 1 capsule Orally Once a day Active Symbicort 80-4.5 MCG/ACT Aerosol 2 puffs Inhalation Twice a day Active Aspir-81 81 MG Tablet Delayed Release 1 tablet Orally Once a day Active Atorvastatin Calcium 10 MG Tablet 1 tablet Orally Once a day Active amLODIPine Besylate 5 MG Tablet 1 tablet Orally Once a day Active Fortify Daily Probiotic - Capsule Orally Active Centrum Silver - Tablet Orally Active Vitamin D3 2000 UNIT Capsule 1 capsule Orally Once a day Active Super B Complex/Vitamin C - Tablet Orally Active Social History Tobacco Use: Social History Observation Description Date Details (start date - stop date) Former Smoker NA - NA Social History Drugs/Alcohol: Social Info Question Answer Notes Alcohol Screen Did you have a drink containing alcohol in the past year? Yes How often did you have a drink containing alcohol in the past year? Monthly or less (1 point) How many drinks did you have on a typical day when you were drinking in the past year? 1 or 2 drinks (0 point) How often did you have 6 or more drinks on one occasion in the past year? Never (0 point) Points 1 Interpretation Negative Tobacco Use: Social Info Question Answer Notes Tobacco Use/Smoking Patient is a former smoker How long has it been since you last smoked? > 10 years Additional Details Category Social Info Options Details Miscellaneous: Marital status: --sol spencer of melanoma of the rectum in his 50's Occupation: retired Section Notes: Nonsmoker > 10 yrs; Heavy Et [place] after her 10 yrs ago, but now just a rare beer Problems Problem Type SNOMED Code ICD Code Onset Dates Problem Status W/U Status Risk Notes Problem Screening for malignant neoplasm of colon (108913443) Encounter for screening for malignant neoplasm of colon (Z12.11) Active confirmed Problem Disorder of digestive system (12866854) Other postprocedural complications and disorders of digestive system (K91.89) Active confirmed Problem Preprocedural examination (401757047864029) Preprocedural examination (Z01.818) Active confirmed Problem Long-term current use of aspirin (094581169886459) Aspirin long-term use (Z79.82) Active confirmed Plan Of Treatment Pending Test Test Name Order Date XR KUB 07/08/2020 Future Test Test Name Order Date COLONOSCOPY 12/22/2016 ERCP CHANGE OF STENT OR TUBE 07/08/2020 Insurance Providers Payer Name Payer Address Payer Phone Subscriber Number Group Number Insured Name Patient Relationship to Insured Coverage Start Date Coverage End Date [facility] [address] [place], [place] [id number] 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
== END 2025-03-13 08:53 | disposition home or self-care (01) ==
LOC: HO.HSMS 15:06
PROVIDERS: PCP Internal Medicine; Visit Provider Nurse Practitioner Family
DX: I69.10 Unspecified sequelae of nontraumatic intracerebral hemorrhage (principal); R42 Dizziness and giddiness; R51.9 Headache, unspecified; R25.1 Tremor, unspecified; R06.83 Snoring; G47.19 Other hypersomnia
CPT/HCPCS: 99214

== ENCOUNTER → 2025-03-12 15:05 | Outpatient (BNVA) | payer MEDICARE, SELFPAY | PROVIDERS: PCP Internal Medicine; Visit Provider Nurse Practitioner Family | DX: I63.9 Cerebral infarction, unspecified (principal); R42 Dizziness and giddiness; R51.9 Headache, unspecified; R25.1 Tremor, unspecified; R06.83 Snoring; G47.19 Other hypersomnia | CPT/HCPCS: 99212 ==

== ENCOUNTER 2025-03-18 09:29 | Outpatient (AMB) | payer MEDICARE, SELFPAY ==
--- NOTE | 2025-03-18 09:54 | A.OFFVIS_ITS ---
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 Accompanied by: Daughter Allergies salmeterol (From Advair Diskus) Allergy (Intermediate, Verified 03/12/25 15:11) Palpitations ARB-Angiotensin Receptor Antagonist (ANGIOTENSIN RECEPTOR ANTAGONIST) Allergy (Unknown, Verified 03/12/25 15:11) ANAPHYLAXIS beclomethasone (QNASL) Allergy (Unknown, Verified 03/12/25 15:11) blurred vision, headaches budesonide (Symbicort) Allergy (Unknown, Verified 03/12/25 15:11) higher dose problem ciprofloxacin (Cipro) Allergy (Unknown, Verified 03/12/25 15:11) Unknown codeine (Codeine) Allergy (Unknown, Verified 03/12/25 15:11) UNKNOWN digestive enzymes combination no.8 (From Digestive Enzyme (acidoph,pec)) Allergy (Unknown, Verified 03/12/25 15:11) Unknown fluticasone (Flovent HFA) Allergy (Unknown, Verified 03/12/25 15:11) Unknown Lactobacillus acidophilus (From Digestive Enzyme (acidoph,pec)) Allergy (Unknown, Verified 03/12/25 15:11) Unknown lisinopril (LISINOPRIL) Allergy (Unknown, Verified 03/12/25 15:11) ANGIOEDEMA mometasone furoate (Dulera) Allergy (Unknown, Verified 03/12/25 15:11) Unknown nebivolol (Bystolic) Allergy (Unknown, Verified 03/12/25 15:11) Unknown olmesartan (Benicar) Allergy (Unknown, Verified 03/12/25 15:11) Unknown pectin (From Digestive Enzyme (acidoph,pec)) Allergy (Unknown, Verified 03/12/25 15:11) Unknown Sulfa (Sulfonamide Antibiotics) Allergy (Unknown, Verified 03/12/25 15:11) headache, shaking, freezing sensation, upset stomach methenamine Allergy (Verified 03/12/25 15:11) Unknown amlodipine Adverse Reaction (Intermediate, Verified 03/12/25 15:11) neck pressure amoxicillin (From Augmentin) Adverse Reaction (Intermediate, Verified 03/12/25 15:11) abdominal pain clavulanic acid (From Augmentin) Adverse Reaction (Intermediate, Verified 03/12/25 15:11) abdominal pain diltiazem Adverse Reaction (Intermediate, Verified 03/12/25 15:11) NARVAEZ, Blurry vision, fatigue, decreased appetite formoterol (From Symbicort) Adverse Reaction (Intermediate, Verified 03/12/25 15:11) Dizziness rosuvastatin Adverse Reaction (Intermediate, Verified 03/12/25 15:11) joint pains umeclidinium (From Incruse Ellipta) Adverse Reaction (Intermediate, Verified 03/12/25 15:11) Palpitations verapamil Adverse Reaction (Intermediate, Verified 03/12/25 15:11) Blurry Vision loratadine (From Claritin) Adverse Reaction (Verified 03/12/25 15:11) Unknown nitrofurantoin Allergy (Severe, Uncoded 01/29/25 09:41) Blister estrodiol Allergy (Unknown, Uncoded 01/29/25 09:41) Unknown diltiazem Adverse Reaction (Intermediate, Uncoded 01/29/25 09:41) sleeping Medication List - Last Reconciled 03/18/25 by ALFREDO Dhaliwal albuterol sulfate 90 mcg/actuation 2 puffs inhalation Q4-6H PRN aspirin (Adult Aspirin Regimen) 81 mg PO DAILY cholecalciferol (vitamin D3) 25 mcg PO DAILY diltiazem HCl (Cardizem) 30 mg PO BID 30 days ezetimibe (Zetia) 10 mg PO DAILY inhalational spacing device (Aerochamber Plus Z Stat spacer) As directed levalbuterol HCl 1.25 mg (3 mL) inhalation Q4-6H PRN levalbuterol tartrate 45 mcg/actuation 1 puff inhalation Q4-6H PRN metoprolol succinate ER 25 mg PO DAILY multivitamin 1 tab PO DAILY pravastatin 10 mg PO BEDTIME vitamin B complex 1 tab PO DAILY HPI HPI 6 mth f/up: Details: The patient is a 74 year old female presenting for follow-up of palpitations, supraventricular tachycardia (SVT), premature atrial contractions (PACs), and hypertension. Her past medical history is also significant for asthma/ COPD, hyperlipidemia, impaired fasting glucose, mild CAD and anxiety. A quality assurance monitor body from 02/04/2025 revealed sinus rhythm with an average heart rate of 76, frequent PACs at 8.4%, and symptoms correlated with isolated PACs, atrial couplets, and isolated PVCs. She reports feeling palpitations as a fast heartbeat that can last a couple of minutes, causing dizziness and a sensation of near-syncope. She is currently taking metoprolol 25 mg but reports it causes her to feel dizzy and lightheaded. Her home blood pressure readings have been low, sometimes with a systolic pressure below 100 mmHg, and her pulse has been recorded as low as 48 bpm but usually in the normal range. Daughter present and states patient was hospitalized at [facility] where an MRA showed five mini-strokes or TIAs, which a neurosurgeon determined were not from her carotid arteries. During that hospital stay, there was suspicion of atrial fibrillation due to an irregular pulse, but it was never formally diagnosed, and it was not seen on her recent heart monitor. She currently takes baby aspirin. [facility] Medical History Asthma Tinnitus SVT (supraventricular tachycardia) Abnormal stress ECG with treadmill Coronary artery calcification seen on CT scan Hypertension Hypercholesterolemia Impaired glucose tolerance COPD (chronic obstructive pulmonary disease) Environmental and seasonal allergies Personal history of tobacco use GERD (gastroesophageal reflux disease) Constipation Recurrent UTI Dysuria Nocturia more than twice per night Impacted cerumen of both ears Anxiety Vitamin D deficiency History of COVID-19 Contact dermatitis Breast cancer screening by mammogram Surgical History History of colonoscopy History of cholecystectomy History of ERCP History of cataract surgery Family History Father Myocardial infarction Mother Hypertension Stroke Brother In good health Sister In good health Son In good health Daughter In good health Other Substance use disorder Social History Household Members: None Housing: House Do you presently have visiting nurse or other home services: No Alcohol intake: former Year quit: 2018 Patient Tobacco Use Status: Former Tobacco user Tobacco use type: Cigarette Cigarette Packs Per Day: 3 Years Smoked: 20 +/- quit 1989 e-Cigarette/Vaping Use: Never Used Second Hand Smoke Exposure: No service: No Current occupational status: previously employed and retired 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 Cognitive needs: No Hearing needs: No Vision needs: Yes Female Reproductive History Menstrual Age of Menarche: 12 Review of Systems Const All systems reviewed & are unremarkable except as noted in HPI and below Denies chills, Denies fatigue, Denies fever(s), Denies frequent falls, Denies weakness, Denies weight gain and Denies weight loss ENT Reports dizziness Card Details: heart palpitations Denies chest pain, Denies leg edema, Denies lightheadedness, Denies palpitations, Denies dyspnea and Denies dyspnea on exertion Resp Denies cough, Denies dyspnea and Denies dyspnea on exertion GI Denies hematochezia Musc Denies abnormal gait, Denies muscle weakness, Denies numbness, Denies radiating pain into limb and Denies tingling Neuro Denies abnormal gait, Reports dizziness, Denies frequent falls, Denies numbness, Denies tingling and Denies weakness Endo Denies fatigue and Denies palpitations Physical Exam Vital Signs: Last Vital Signs Pulse 62 03/18/25 09:56 BP 140/72 H 03/18/25 09:56 BMI result Body Mass Index 24.9 Const General: cooperative, healthy appearing, comfortable and no acute distress Orientation/consciousness: patient oriented x3 HEENT Head: Yes normal to inspection Eyes Sclerae: sclerae normal Neck Neck: Yes normal visual inspection and Yes no JVD Carotids: normal carotid upstroke Chest Chest palpation & inspection: normal inspection of the chest Resp Effort & Inspection: normal respiratory effort Auscultation: clear to auscultation bilaterally, no crackles, no rales, no rhonchi and no wheezes Cardio Jugular venous distension: no JVD Rate: regular rate Rhythm: regular rhythm Heart sounds: S1 normal heart sound present, S2 normal heart sound present, no murmurs and no rubs Peripheral pulses: Peripheral pulses 2+ throughout GI Inspection: Yes normal to inspection Skin General skin exam: no rashes or lesions noted Neuro General: patient oriented x3 Extrem General: Yes normal to inspection, No no pedal edema and No calf tenderness Psych Appearance: grossly normal Mental Status: mental status grossly normal Speech and movement: Normal speech and movement present Assessment & Plan Assessment & Plan (1) Palpitations: Code(s): R00.2 - Palpitations Category: Medical Plan: History of heart palpitations with prior Holter monitor 09/2021 showing frequent episodes of SVT, longest 52 minutes. She had been intolerant to beta-blockers and calcium channel blockers in the past. Repeat cardiac event monitor done to evaluate heart palpitations and lightheadedness showing frequent PVCs. Her symptoms correlated with PAC, atrial couplets and PVCs. Reviewed this with her in detail. She is on metoprolol currently which she says is making her feel lightheaded. Will have her stop metoprolol and start on low-dose diltiazem with plan to increase dose as tolerated. Reviewed the need to reduce all caffeine intake, stay well hydrated. (2) Shortness of breath: Code(s): R06.02 - Shortness of breath Category: Medical Plan: Prior Reports of shortness of breath with activity, in patient with history of asthma. Underwent an exercise stress test 06/21/22 with exercise 3 minutes 30 seconds with moderate shortness of breath and need to stop. Test was nondiagnos tic. Nuclear stress test 07/02/22 with exercise 5 minutes, mild shortness of breath and no EKG changes of ischemia, normal myocardial perfusion imaging. Between the test her asthma medication was adjusted and breathing had improved. She follows with pulmonology and breathing has been stable. (3) SVT (supraventricular tachycardia): Code(s): I47.1 - Supraventricular tachycardia Category: Medical Plan: As above (4) Coronary artery calcification seen on CT scan: Comment: (Moderate to severe coronary artery calcification on 01/14/[address]) Code(s): I25.10 - Atherosclerotic heart disease of agdaag[place] coronary artery without angina pectoris Category: Medical Plan: Known coronary calcification on CT scan. Nuclear stress test 07/02/2022 showed normal myocardial perfusion imaging. She does have stable shortness, no chest discomfort. Continue med management for stable CAD. Continue atorvastatin with ideal LDL goal less than 70. Continue amlodipine for blood pressure control. Continue aspirin. Signs and symptoms of angina reviewed with her. (5) Hypertension: Code(s): I10 - Essential (primary) hypertension Category: Medical Qualifiers: Hypertension type: primary hypertension Qualified Code(s): I10 - Essential (primary) hypertension Plan: Blood pressure goal less than 130/80. Blood pressure elevated in the office today. Home blood pressures run on the low side with systolic at times less than 100. Reviewed good hydration. No med changes made at this time. Plan I explained to the patient that her recent heart monitor showed a normal underlying rhythm with frequent premature ventricular contractions (PVCs) and some premature atrial contractions (PACs). I confirmed that the symptoms she recorded correlated with these early beats. I reassured her that these isolated beats do not cause passing out, though the anxiety associated with them can cause lightheadedness. We discussed that her current medication, metoprolol, seems to be causing dizziness and low blood pressure without fully controlling her palpitations. I recommended stopping metoprolol and trying diltiazem, which she has taken in the past. I provided instructions on how to taper the metoprolol and titrate the diltiazem, starting with a low, short-acting dose twice daily, with the goal of reducing her symptoms without side effects. We also addressed her history of TIAs and the undocumented suspicion of atrial fibrillation from a prior hospitalization. I explained that a confirmed diagnosis of atrial fibrillation would change her management, as it would require a stronger blood thinner than her current aspirin to reduce stroke risk. I stated that I will obtain and review records from that hospitalization to investigate this further. I agreed to communicate my findings via a phone call that includes her daughter, and we scheduled a follow-up appointment in six weeks. Patient Instructions: - After you stop the metoprolol, you will start a new heart medicine called diltiazem. - Start by taking one diltiazem pill twice a day to see if it helps reduce your feelings of a fluttering heart (palpitations). - If taking the pill twice a day is helping but not enough, you can increase it to one pill three times a day. - Continue taking one baby aspirin every day. - Keep checking your blood pressure and heart rate at home, as you have been doing. - Expect a phone call from our office to discuss the findings from your previous hospital stay. Your daughter will be included in this call. - Schedule a follow-up appointment in about six weeks. Patient was informed and verbally consented to the use of an ambient scribe for clinic note documentation during this visit. Visit time spent on chart review, interview, assessment, orders, documentation. Coding Level of Care Code Est Pt Level 4 (92775) Add On Problem Visit Only Diagnoses Palpitations R00.2 Shortness of breath R06.02 SVT (supraventricular tachycardia) I47.1 Coronary artery calcification seen on CT scan I25.10 Primary hypertension I10 Hypertension type: primary hypertension Time Spent (min) 28
[2025-03-18 09:56] VITALS: BP 140/72; PULSE 62; BMI 24.9
--- OUTSIDE RECORDS SUMMARY | 2025-03-18 10:00 | XMS_ITS | Patient Health Record ---
Author Organization [facility] Address [address] [place] [id number] Care Team Providers Care Merchandising Coordinator Name Role Phone Cassandra Weeks MD Primary Care Provider Jesse Shannon Jr Unavailable [phone] Ayden Chawla Unavailable Unavailable Allergies Allergen (clinical [...] Problem Screening for malignant neoplasm of colon (126475205) Encounter for screening for malignant neoplasm of colon (Z12.11) Active confirmed Problem Disorder of digestive system (15588440) Other postprocedural complications and disorders of digestive system (K91.89) Active confirmed Problem Preprocedural examination (788076689997019) Preprocedural examination (Z01.818) Active confirmed Problem Long-term current use of aspirin (108201481882954) Aspirin long-term use (Z79.82) Active confirmed Plan Of Treatment Pending Test Test Name Order Date XR KUB 07/08/2020 Future Test Test Name Order Date COLONOSCOPY 12/22/2016 ERCP CHANGE OF STENT OR TUBE 07/08/2020 Insurance Providers Payer Name Payer Address Payer Phone Subscriber Number Group Number Insured Name Patient Relationship to Insured Coverage Start Date Coverage End Date [facility] [address] [place], [place] [id number] 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
--- OUTSIDE RECORDS SUMMARY | 2025-03-18 10:00 | XMS_ITS | Clinical Summary ---
Author Organization [facility] Address [address] [place], [place] [id number] Phone Care Team Providers Care Design Release Engineer Name Role Phone Cassandra Weeks MD Primary Care Provider [phone] Allergies Active Allergy Reactions Criticality Noted Date [...] D3, (VITAMIN D3) 1,000 unit capsule Active ja-ltx-msrez acid-lutein (CENTRUM SILVER) 400-250 mcg Chew Active L.neelam,acid,ferm ,rhm-B.bif,long (CONTROLLED DELIVERY PROBIOTIC) 126 mg (2 billion cell) TaDE Active atorvastatin (LIPITOR) 10 MG tablet Take 10 mg by mouth nightly at bedtime. at bedtime. 1 Active SYMBICORT 80-4.5 mcg/actuation inhaler Inhale 2 puffs into the lungs 2 (two) times a day. 1 Active multivitamins-m inerals-folic jsqt-gpvmdbj-yv tein (CENTRUM SILVER) 0.4 mg-300 mcg- 250 [...] Noted Date Diagnosed Date Anxiety 08/20/2022 08/20/2022 senior care current use of aspirin 08/20/2022 08/20/2022 Other [...] topic Medical Devices Not on file Insurance [facility] MEDICARE PPO BLUE REPLACEMENT [facility] MEDICARE PPO BLUE REPLACEMENT MEDICARE PPO BLUE REPLACEMENT MEDICARE PPO BLUE REPLACEMENT MEDICARE PPO BLUE REPLACEMENT MEDICARE PPO BLUE REPLACEMENT MEDICARE PPO BLUE REPLACEMENT MEDICARE PPO BLUE REPLACEMENT [employer] [place] BLUE REPLACEMENT Care Teams Design Release Engineer Relationship Specialty Start Date End Date Cassandra Weeks MD [address] [place] [phone] PCP - General 01/03/17 Additional Source Comments The information contained in this document represents components of the legal health record. It is not the complete legal health record.[facility]
== END 2025-03-18 10:37 | disposition home or self-care (01) ==
LOC: HO.HCS 09:29
PROVIDERS: PCP Internal Medicine; Visit Provider Nurse Practitioner Family
DX: R00.2 Palpitations (principal); R06.02 Shortness of breath; I47.10 Supraventricular tachycardia, unspecified; I25.10 Atherosclerotic heart disease of native coronary artery without angina pectoris; I10 Essential (primary) hypertension
CPT/HCPCS: 99214; G2211

== ENCOUNTER → 2025-03-18 09:29 | Outpatient (BNVA) | payer MEDICARE, SELFPAY | PROVIDERS: PCP Internal Medicine; Visit Provider Nurse Practitioner Family | DX: R00.2 Palpitations (principal); R06.02 Shortness of breath; R42 Dizziness and giddiness; I47.10 Supraventricular tachycardia, unspecified; I25.10 Atherosclerotic heart disease of native coronary artery without angina pectoris; I10 Essential (primary) hypertension; Z79.899 Other long term (current) drug therapy; Z79.82 Long term (current) use of aspirin; Z87.891 Personal history of nicotine dependence; Z86.73 Personal history of transient ischemic attack (TIA), and cerebral infarction without residual deficits | CPT/HCPCS: 99212 ==